=== PATIENT | male | born 1945 | race Caucasian/White ===

== ENCOUNTER 2016-10-19 13:10 | Emergency (ER) | payer MEDICARE, MEDICAID ==
--- NOTE | 2016-10-19 14:18 | ED Physician Chart ---
Chief Complaint/HPI - Patient Information Date Seen:: 10/19/16 Time Seen:: 13:55 Chief Complaint:: WBC OF 25.53K, POSSIBLE SEPSIS History of Present Illness:: This 71-year-old male was sent to the emergency department because his white count was in the 25,000 range. The patient has chronic pain in the right lower extremity dating back approximately 20 years when he had a right hip replacement. Since then the patient has had increased pain in the right leg and poor circulation. He has a diagnosis of cellulitis in the right lower extremity. He is not currently on any antibiotics. He rates the pain as a 7/10 with no relieving or exacerbating factors. Patient denies any recent fever, chills, cough, difficulty breathing, dysuria or urinary frequency. Patient further denies any recent abdominal pain, nausea or vomiting. Allergies:: Allergies Allergy/AdvReac Type Severity Reaction Status Date / Time No Known Allergies Allergy Verified 10/19/16 13:33 Vitals:: Vital Signs - 8 hr 10/19/16 13:33 Temp 98.8 F HR 95 RR 22 BP 165/75 O2 Sat % 96 Review of Systems - Review of Systems General/Constitutional: No fever, No chills, Weakness, No diaphoresis, Edema, Other ( Edema is chronic and involves both lower extremities.) Skin: Rash ( Patient has an error at the make rash below the knee in the right lower extremity.) Head: No headache, No light-headedness Eyes: No loss of vision, No diplopia ENT: No earache, No nasal drainage, No sore throat Neck: No neck pain, No swelling, No mass noted Cardio Vascular: No chest pain, No palpitations, edema Pulmonary: No cough, No sputum, No wheezing GI: No nausea, No vomiting, No diarrhea G/U: No dysuria, No frequency, No hematuria Musculoskeletal: Other ( Diffuse pain in the right lower extremity distal to the knee.) Psychiatric: No prior psych history, No suicidal ideation Hematopoietic: No bruising, No lymphadenopathy Allergic/Immuno: No urticaria, No angioedema Neurological: No syncope, No headache, No seizure, No vertigo Past Medical History - Past Medical History Past Medical History: HTN, Other (Atrial fibrillation, CHF) Surgical History: other (Status post right hip replacement.) Family Medical History - Family Member Mother History Unknown: Yes Living Status: Hx Family Cancer: Yes (ovarian) Physical Exam - Physical Examination General/Constitutional: Awake, Well-developed, well-nourished, Alert, Non-toxic appearing Other Gen/Cons comments:: The patient is nonambulatory due to pain in his right lower extremity. Head: Atraumatic Eyes: Lids, conjuctiva normal, PERRL, EOMI Other Eyes comments:: The sclera are anicteric. Other Skin comments:: The patient has erythematous coloration of both lower extremities below the knee. This appears to be secondary to stasis dermatitis with accompanying edema. The skin of the right leg is very cool to the touch and there is poor capillary refill in both the pretibial region and the toes. Left lower extremity shows more edema with the normal skin temperature. It was not only overly warm and both legs had the amount of tenderness consistent with stasis dermatitis. ENMT: External ears, nose nl, Nasal exam nl, Oropharynx nl, Tonsils nl Neck: Nontender, No JVD, No nuchal rigidity, No mass, No stridor Other Neck comments:: Curiously the patient has no JVD. Other Respiratory comments:: The patient has a mildly increased respiratory rate of 22. on auscultation the patient has scattered rhonchi and by basilar fine rales. Cardio Vascular: No murmur, gallop, rubs, NL S1 S2 Other Cardio Vascular comments:: The patient sounds like he has a regular rate in the low 90 range but his electrocardiogram shows that he is actually in Atrial fibrillation. Other GI comments:: The patient's abdomen is slightly distended secondary to obesity and possible mild ascites. He has a will healed surgical scar In the right upper abdomen from a prior cholecystectomy. bowel sounds were normal. The abdomen is soft with minimal epigastric tenderness. No rebound regarding was noted. No testicular tenderness. : No CVA tenderness ( As noted above the patient has considerable edema and stasis dermatitis in both lower extremities. His right lower extremity is cool to the touch and has reduced capillary refill in both the pretibial and toe regions.) Neuro/Psych: Alert/oriented ( Sensory exam is intact to light touch.), Mood normal ( Decreased strength in both lower extremities.) Other Misc comments:: no thoracic or lumbar spinal tenderness present. No paraspinous muscle spasm. Labs/Radiology/EKG Results - Lab Results Results: Moderate cardiomegaly. No CHF. Areas of pulmonary infiltrate. Negative pneumothorax. Impression: No acute cardiopulmonary findings. Lab Results 10/19/16 10/19/16 10/19/16 Range/Units 14:00 14:00 14:00 WBC 18.1 H D (4.8-10.8) Th/cmm RBC 5.38 (3.80-5.80) Mil/cmm Hgb 14.6 (12.6-17.4) gm/dL Hct 43.6 (39.0-49.0) % MCV 81.0 (80-99) fl MCH 27.1 (27.0-31.0) pg MCHC Differential 33.5 (28.0-36.0) pg RDW 13.9 (11.5-20.0) % Plt Count 149 L D (150-400) Th/cmm MPV 8.6 fl Neutrophils % 43.6 (40.0-80.0) % Lymphocytes % 48.7 (20.0-50.0) % Monocytes % 5.1 (2.0-10.0) % Eosinophils % 1.7 (0.0-5.0) % Basophils % 0.9 (0.0-2.0) % PT (9.5-11.5) SECONDS INR (0.5-1.4) Sodium 137 (136-145) mEq/L Potassium 3.9 (3.5-5.1) mEq/L Chloride 100 (98-107) mEq/L Carbon Dioxide 30.7 (21.0-31.0) mEq/L Anion Gap 10.2 (7.0-16.0) BUN 21 (7-25) mg/dL Creatinine 1.3 (0.7-1.3) mg/dL Est GFR ( Amer) > 60.0 ml/min Est GFR (Non-Af Amer) 58.0 ml/min BUN/Creatinine Ratio 16.2 Glucose 131 H (70-105) mg/dL Whole Bld Lactic Acid (0.60-2.00) mmol/L Calcium 9.1 (8.6-10.3) mg/dL Total Bilirubin 0.9 (0.3-1.0) mg/dL AST 20 (13-39) U/L ALT 21 (7-52) U/L Alkaline Phosphatase 123 H (34-104) U/L Troponin I < 0.01 L (0.01-0.05) ng/mL Total Protein 7.3 (6.0-8.3) gm/dL Albumin 4.0 L (4.2-5.5) gm/dL Globulin 3.3 gm/dL Albumin/Globulin Ratio 1.2 (1.0-1.8) 10/19/16 10/19/16 Range/Units 14:00 14:00 WBC (4.8-10.8) Th/cmm RBC (3.80-5.80) Mil/cmm Hgb (12.6-17.4) gm/dL Hct (39.0-49.0) % MCV (80-99) fl MCH (27.0-31.0) pg MCHC Differential (28.0-36.0) pg RDW (11.5-20.0) % Plt Count (150-400) Th/cmm MPV fl Neutrophils % (40.0-80.0) % Lymphocytes % (20.0-50.0) % Monocytes % (2.0-10.0) % Eosinophils % (0.0-5.0) % Basophils % (0.0-2.0) % PT 24.2 H (9.5-11.5) SECONDS INR 2.31 H (0.5-1.4) Sodium (136-145) mEq/L Potassium (3.5-5.1) mEq/L Chloride (98-107) mEq/L Carbon Dioxide (21.0-31.0) mEq/L Anion Gap (7.0-16.0) BUN (7-25) mg/dL Creatinine (0.7-1.3) mg/dL Est GFR ( Amer) ml/min Est GFR (Non-Af Amer) ml/min BUN/Creatinine Ratio Glucose (70-105) mg/dL Whole Bld Lactic Acid 2.03 H* (0.60-2.00) mmol/L Calcium (8.6-10.3) mg/dL Total Bilirubin (0.3-1.0) mg/dL AST (13-39) U/L ALT (7-52) U/L Alkaline Phosphatase (34-104) U/L Troponin I (0.01-0.05) ng/mL Total Protein (6.0-8.3) gm/dL Albumin (4.2-5.5) gm/dL Globulin gm/dL Albumin/Globulin Ratio (1.0-1.8) laboratory interpretation: the CBC shows a reduction in leukocytosis from 25, 000 to 18,000. No anemia is present. Electrolytes were all within normal range. There was a mild elevation of the lactic acid Of 2.03. Single viewed chest x-ray was positive for cardiomegaly. No pleural effusion's or pneumothorax was present. There were no areas of pulmonary consolidation or infiltrate. Impression: no acute cardiopulmonary findings. - EKG Interpretations EKG Time:: 14:10 Rhythm: ATRIA=FIB [place]: NORMAL Rate: 79-120 Comments:: ABNORMAL EKG Assessment - Assessment General Assessment: CASE SUMMARY: the 71-year-old male with a prior history of diabetes, hypertension, CHF and peripheral edema, was brought to the emergency department from his nursing facility because of a white count in the 25,000 range. He has been afebrile and had no chills. He has pain in the right leg secondary to suspected cellulitis. Laboratory studies showed a reduction in the leukocytosis to within the 18,000 range. Patient had a mild elevation of serum lactate. The chest x-ray was negative for any evidence of acute pneumonia. There is no historical or physical findings suggestive of abdominal infection. The case was discussed with , his primary care physician. I encouraged him to admit the patient for further observation and evaluation but he declined and said the patient could return to his nursing facility. The patient was returned to his nursing facility where he would be treated with PO antibiotics for possible cellulitis in the lower extremity. MDM DDX SEVERE LEUKOCYTOSIS: NOT Pneumonia Based on the patient's history, exam and negative chest x-ray. NOT Septic shock based on the patient's laboratory studies in vital signs. NOT Surgical abdomen based on the physical examination. ED Septic Shock - . Is Septic Shock (SBP<90, OR Lactate>4 mmol\L) present?: No - <6hrs of presentation: Vital Signs: Vital Signs - 8 hr 10/19/16 13:33 Temp 98.8 F HR 95 RR 22 BP 165/75 O2 Sat % 96 Reassessment (Disposition) - Reassessment Reassessment Condition:: Unchanged - Diagnosis Diagnosis:: LEUKOCYTOSIS, POSSIBLE CELLULITIS RIGHT LEG, DIABETES, HYPERTENSION. - Aftercare/Follow up Instructions Aftercare/Follow-Up Instructions:: Counseled pt regarding lab results/diagnosis & need follow up - Patient Disposition Discharge/Transfer:: Care Home Care - SNF Accepting Physician:: DR. JORDAN ED Discharge Plan - Patient Disposition Admit/Discharge/Transfer: Discharge/Transfered to SNF Condition at Disposition: Stable Instructions: Leukocytosis, Cellulitis, [id number] Additional Instructions: Follow up with PMD. Accepting Physician: Festus Jordan [Primary Care Provider] -
[2016-10-19 14:21] LABS: % BASOPHILS 0.9 % (0.0-2.0); % EOSINOPHILS 1.7 % (0.0-5.0); % LYMPHOCYTES 48.7 % (20.0-50.0); % MONOCYTES 5.1 % (2.0-10.0); % NEUTROPHILS 43.6 % (40.0-80.0); HEMATOCRIT 43.6 % (39.0-49.0); HEMOGLOBIN 14.6 gm/dL (12.6-17.4); MEAN CORPUSCULAR HEMOGLOBIN 27.1 pg (27.0-31.0); MEAN CORPUSCULAR HGB CONC 33.5 pg (28.0-36.0); MEAN PLATELET VOLUME 8.6 fl; NEUTROPHILE ABSOLUTE 7.9 Th/cmm (1.8-8.0); RED BLOOD COUNT 5.38 Mil/cmm (3.80-5.80); RED CELL DISTRIBUTION WIDTH 13.9 % (11.5-20.0)
[2016-10-19 14:23] LABS: WHITE BLOOD COUNT 18.1 Th/cmm (4.8-10.8)
[2016-10-19 14:24] LABS: PLATELET COUNT 149 Th/cmm (150-400)
[2016-10-19 14:33] LABS: ALB/GLOB RATIO 1.2 (1.0-1.8); ALKALINE PHOSPHATASE 123 U/L (34-104); ANION GAP 10.2 (7.0-16.0); BILIRUBIN,TOTAL 0.9 mg/dL (0.3-1.0); BUN - UREA NITROGEN 21 mg/dL (7-25); BUN/CREATININE RATIO 16.2; CALCIUM SERUM 9.1 mg/dL (8.6-10.3); CARBON DIOXIDE 30.7 mEq/L (21.0-31.0); CHLORIDE 100 mEq/L (98-107); CREATININE - SERUM 1.3 mg/dL (0.7-1.3); GLUCOSE 131 mg/dL (70-105); POTASSIUM SERUM 3.9 mEq/L (3.5-5.1); SGOT 20 U/L (13-39); SGPT/ALT 21 U/L (7-52); SODIUM SERUM 137 mEq/L (136-145)
[2016-10-19 14:36] LABS: INR 2.31 (0.5-1.4); PROTHROMBIN TIME (TEST) 24.2 SECONDS (9.5-11.5)
[2016-10-19] MEDS ORDERED: Albuterol/Ipratropium Neb 3 ML AERS HHN ONE (15:03)
--- NOTE | 2016-10-19 15:37 | Diagnostic Imaging Report ---
Portable chest x-ray HISTORY: Shortness of breath The heart is enlarged. No acute focal pulmonary processes. Density noted over the right upper chest appears related to the anterior aspect of the right first rib unchanged from 07/08/2015. IMPRESSION: 1. No acute focal pulmonary processes 2. Cardiomegaly
--- NOTE | 2016-10-21 16:01 | ED Physician Chart ---
Chief Complaint/HPI - Patient Information Allergies:: Allergies Allergy/AdvReac Type Severity Reaction Status Date / Time No Known Allergies Allergy Verified 10/19/16 13:33 Family Medical History - Family Member Mother History Unknown: Yes Living Status: Hx Family Cancer: Yes (ovarian) Labs/Radiology/EKG Results - Lab Results Results: Laboratory Tests 10/19/16 10/19/16 10/19/16 14:00 14:00 14:00 WBC 18.1 H D RBC 5.38 Hgb 14.6 Hct 43.6 MCV 81.0 MCH 27.1 MCHC Differential 33.5 RDW 13.9 Plt Count 149 L D MPV 8.6 Neutrophils % 43.6 Lymphocytes % 48.7 Monocytes % 5.1 Eosinophils % 1.7 Basophils % 0.9 PT INR Sodium 137 Potassium 3.9 Chloride 100 Carbon Dioxide 30.7 Anion Gap 10.2 BUN 21 Creatinine 1.3 Est GFR ( Amer) > 60.0 Est GFR (Non-Af Amer) 58.0 BUN/Creatinine Ratio 16.2 Glucose 131 H Whole Bld Lactic Acid Calcium 9.1 Total Bilirubin 0.9 AST 20 ALT 21 Alkaline Phosphatase 123 H Troponin I < 0.01 L Total Protein 7.3 Albumin 4.0 L Globulin 3.3 Albumin/Globulin Ratio 1.2 10/19/16 10/19/16 14:00 14:00 WBC RBC Hgb Hct MCV MCH MCHC Differential RDW Plt Count MPV Neutrophils % Lymphocytes % Monocytes % Eosinophils % Basophils % PT 24.2 H INR 2.31 H Sodium Potassium Chloride Carbon Dioxide Anion Gap BUN Creatinine Est GFR ( Amer) Est GFR (Non-Af Amer) BUN/Creatinine Ratio Glucose Whole Bld Lactic Acid 2.03 H* Calcium Total Bilirubin AST ALT Alkaline Phosphatase Troponin I Total Protein Albumin Globulin Albumin/Globulin Ratio - EKG Interpretations EKG Time:: 14:09 Rhythm: ATRIAL FIBRILLATION [place]: AXIS NORMAL Rate: 94 Comments:: NORMAL QRS duration. Normal QT interval. Nonspecific ST T-wave findings ABNORMAL EKG ED Septic Shock - . Is Septic Shock (SBP<90, OR Lactate>4 mmol\L) present?: No ED Discharge Plan - Patient Disposition Admit/Discharge/Transfer: Discharge/Transfered to SNF Condition at Disposition: Stable Instructions: Leukocytosis, Cellulitis, [id number] Additional Instructions: Follow up with PMD. Accepting Physician: Festus Trejo [Primary Care Provider] -
== END 2016-10-19 15:45 ==
LOC: ER 13:10
DX: E11.628 Type 2 diabetes mellitus with other skin complications (principal); L03.115 Cellulitis of right lower limb; I10 Essential (primary) hypertension
CPT/HCPCS: 36415-UA; 71010-TC; 80053-TC; 83605; 84484-TC; 85025-TC; 85610-TC; 93005

== ENCOUNTER 2016-10-20 20:49 | Inpatient (IN) | payer MEDICARE, MEDICAID ==
--- NOTE | 2016-10-20 21:17 | ED Physician Chart ---
Chief Complaint/HPI - Patient Information Date Seen:: 10/20/16 Time Seen:: 21:13 Chief Complaint:: rt leg cellulitis History of Present Illness:: pt sent from [place] for rt leg cellulitis. leg is red and warm w small lateral ulcer has had some cough prod of white sputum. no fever. no sev sob. pt says he was in ed here yesterday. has DM hx. is on coumadin for irreg hrt beat. Allergies:: Allergies Allergy/AdvReac Type Severity Reaction Status Date / Time No Known Allergies Allergy Verified 10/19/16 13:33 Historian:: Patient, EMS Review of Systems - Review of Systems General/Constitutional: No fever, No chills, No weight loss, No weakness, No diaphoresis, No edema, No loss of appetite, Other (obese) Skin: Skin lesions, Rash, No bruising Head: No headache, No light-headedness Eyes: No loss of vision, No pain, No diplopia ENT: No earache, No nasal drainage, No sore throat, No tinnitus Neck: No neck pain, No swelling, No thyromegaly, No stiffness, No mass noted Cardio Vascular: No chest pain, No palpitations, No PND, No orthopnea, No edema Pulmonary: No SOB, Cough, Sputum, No wheezing GI: No nausea, No vomiting, No diarrhea, No pain, No melena, No hematochezia, No constipation, No hematemesis G/U: No dysuria, No frequency, No hematuria Musculoskeletal: No bone or joint pain, No back pain, No muscle pain, Other ( leg pain) Endocrine: No polyuria, No polydipsia Psychiatric: No prior psych history, No depression, No anxiety, No suicidal ideation Hematopoietic: No bruising, No lymphadenopathy Allergic/Immuno: No urticaria, No angioedema Neurological: No syncope, No focal symptoms, No weakness, No paresthesia, No headache, No seizure, No dizziness, No confusion, No vertigo Past Medical History - Past Medical History Past Medical History: DM, Other (irreg hrt beat (on coumadin)) Social History: Care Facility Surgical History: HIP Medication: Reviewed Family Medical History - Family Member Mother History Unknown: Yes Living Status: Hx Family Cancer: Yes (ovarian) Physical Exam - Physical Examination General/Constitutional: Awake, Well-developed, well-nourished, Alert, No distress, GCS 15, Non-toxic appearing, Ambulatory Head: Atraumatic Eyes: Lids, conjuctiva normal, PERRL, EOMI Skin: Nl inspection, No rash, No skin lesions, No ecchymosis, Well hydrated, No lymphadenopathy ENMT: External ears, nose nl, Nasal exam nl, Lips, teeth, gums nl Neck: Nontender, Full ROM w/o pain, No JVD, No nuchal rigidity, No bruit, No mass, No stridor Respiratory: Nl effort/Exclusion, Clear to Auscultation, No Wheeze/Rhonchi/Rales Other Respiratory comments:: nrml speech...nonpressured. Cardio Vascular: RRR, No murmur, gallop, rubs, NL S1 S2 GI: No tenderness/rebounding/guarding, No organomegaly, No hernia, Normal BS's, Nondistended, No mass/bruits, No McBurney tenderness : No CVA tenderness Extremities: No tenderness or effusion, Full ROM, normal strength in all extremities, No edema, Normal digits & nails Other Extremities comments:: rt leg leg is red and warm w small lateral ulcer 1.5 cm diameter/shallow. L leg also red warm and swollen but not as bad. Neuro/Psych: Alert/oriented, DTR's symmetric, Normal sensory exam, Normal motor strength, Judgement/insight normal, Mood normal, Normal gait, No focal deficits Misc: normal gait, Normal back, No paraspinal tenderness Labs/Radiology/EKG Results - Lab Results Results: Laboratory Tests 10/20/16 10/20/16 10/20/16 21:51 21:51 21:51 WBC 19.3 H RBC 5.35 Hgb 14.7 Hct 43.9 MCV 82.0 MCH 27.4 MCHC Differential 33.4 RDW 13.8 Plt Count 160 MPV 8.8 Band Neutrophils % 2 Neutrophils (Manual) 37 L Lymphocytes 60 H Monocytes 1 L Platelet Estimate ADEQUATE D-Dimer < 100 L Sodium 135 L Potassium 4.2 Chloride 100 Carbon Dioxide 28.5 Anion Gap 10.7 BUN 22 Creatinine 1.4 H Est GFR ( Amer) > 60.0 Est GFR (Non-Af Amer) 53.3 BUN/Creatinine Ratio 15.7 Glucose 177 H Calcium 9.0 Total Bilirubin 0.8 AST 20 ALT 20 Alkaline Phosphatase 113 H Troponin I < 0.01 L Total Protein 7.1 Albumin 3.8 L Globulin 3.3 Albumin/Globulin Ratio 1.2 - Radiology Results Results: cxr nad - EKG Interpretations EKG Time:: 21:25 Rhythm: a-fib [place]: 17 Rate: 77 ED Septic Shock - . Is Septic Shock (SBP<90, OR Lactate>4 mmol\L) present?: No Reassessment (Disposition) - Reassessment Reassessment Condition:: Unchanged - Diagnosis Diagnosis:: 1 cellulitis rt leg 2 chronic a-fib - Patient Disposition Admitted to:: Med/Surg Condition at Disposition:: Unchanged
[2016-10-20 22:11] LABS: HEMATOCRIT 43.9 % (39.0-49.0); HEMOGLOBIN 14.7 gm/dL (12.6-17.4); MEAN CORPUSCULAR HEMOGLOBIN 27.4 pg (27.0-31.0); MEAN CORPUSCULAR HGB CONC 33.4 pg (28.0-36.0); MEAN PLATELET VOLUME 8.8 fl; PLATELET COUNT 160 Th/cmm (150-400); RED BLOOD COUNT 5.35 Mil/cmm (3.80-5.80); RED CELL DISTRIBUTION WIDTH 13.8 % (11.5-20.0); WHITE BLOOD COUNT 19.3 Th/cmm (4.8-10.8)
[2016-10-20 22:27] LABS: ALB/GLOB RATIO 1.2 (1.0-1.8); ALKALINE PHOSPHATASE 113 U/L (34-104); ANION GAP 10.7 (7.0-16.0); BILIRUBIN,TOTAL 0.8 mg/dL (0.3-1.0); BUN - UREA NITROGEN 22 mg/dL (7-25); BUN/CREATININE RATIO 15.7; CARBON DIOXIDE 28.5 mEq/L (21.0-31.0); CHLORIDE 100 mEq/L (98-107); CREATININE - SERUM 1.4 mg/dL (0.7-1.3); GLUCOSE 177 mg/dL (70-105); POTASSIUM SERUM 4.2 mEq/L (3.5-5.1); SGOT 20 U/L (13-39); SGPT/ALT 20 U/L (7-52); SODIUM SERUM 135 mEq/L (136-145)
[2016-10-20] MEDS ORDERED: ceFAZolin 2 GM in Sodium Chloride 0.9% 100 ML IV ONE (22:27)
[2016-10-20 22:49] LABS: TOTAL CELLS COUNTED 100
[2016-10-20 22:50] LABS: BAND NEUTROPHILE 2 % (0-10); NEUTROPHILS 37 % (40-80); PLATELET ESTIMATE ADEQUATE (NORMAL)
[2016-10-20 23:16] LABS: INR 2.15 (0.5-1.4); PROTHROMBIN TIME (TEST) 22.4 SECONDS (9.5-11.5)
[2016-10-21] MEDS: Hydrocodone/APAP 10 mg/325 mg Tab PO PRN (02:25)
[2016-10-21] MEDS: Cefepime 1 GM in Sodium Chloride 0.9% 50 ML IV SCH ×3 (05:09→20:43)
[2016-10-21] MEDS: INSULIN ASPART SLIDING SCALE 100 UNITS/ML UNIT SUBQ SCH ×4 (07:02→20:45)
[2016-10-21] MEDS ORDERED: Magnesium Hydroxide (MOM) 30 mL UDC PO PRN (08:35)
[2016-10-21] MEDS ORDERED: INSULIN ASPART RECOMBINANT 10 UNIT SUBQ SCH (09:00)
[2016-10-21] MEDS ORDERED: GLIPIZIDE 10 MG PO SCH (09:00)
[2016-10-21] MEDS ORDERED: Non-Formulary Item 1 EA (Metformin Hcl [Metformin Hcl Er] 1,000 MG) PO SCH (09:00)
[2016-10-21] MEDS: Multivitamin w/ Minerals Tab PO SCH (09:53)
[2016-10-21] MEDS: Potassium Chloride 10 mEq ER Tab PO SCH (09:53)
[2016-10-21] MEDS: Insulin Detemir 100 units/mL 10mL Vial SUBQ SCH (09:54)
--- NOTE | 2016-10-21 12:00 | Diagnostic Imaging Report ---
Portable chest x-ray HISTORY: Cough The heart is enlarged. No acute focal pulmonary processes. IMPRESSION: 1. Cardiomegaly 2. No acute focal pulmonary processes
--- NOTE | 2016-10-21 12:55 | Infectious Disease Prog Note ---
Infectious Disease Subjective - Review of Systems Service Date: 10/21/16 Subjective: [id number] Infectious Disease Objective - Results Result Diagrams: 10/20/16 21:51 10/20/16 21:51 Recent Labs: Laboratory Last Values WBC 19.3 Th/cmm (4.8-10.8) H 10/20/16 21:51 RBC 5.35 Mil/cmm (3.80-5.80) 10/20/16 21:51 Hgb 14.7 gm/dL (12.6-17.4) 10/20/16 21:51 Hct 43.9 % (39.0-49.0) 10/20/16 21:51 MCV 82.0 fl (80-99) 10/20/16 21:51 MCH 27.4 pg (27.0-31.0) 10/20/16 21:51 MCHC Differential 33.4 pg (28.0-36.0) 10/20/16 21:51 RDW 13.8 % (11.5-20.0) 10/20/16 21:51 Plt Count 160 Th/cmm (150-400) 10/20/16 21:51 MPV 8.8 fl 10/20/16 21:51 Band Neutrophils % 2 % (0-10) 10/20/16 21:51 Neutrophils (Manual) 37 % (40-80) L 10/20/16 21:51 Lymphocytes 60 % (20-50) H 10/20/16 21:51 Monocytes 1 % (2-10) L 10/20/16 21:51 Eosinophils Not Reportable 10/20/16 21:51 Platelet Estimate ADEQUATE (NORMAL) 10/20/16 21:51 PT 22.4 SECONDS (9.5-11.5) H 10/20/16 21:51 INR 2.15 (0.5-1.4) H 10/20/16 21:51 PTT (Actin FS) 47.9 SECONDS (26.0-38.0) H 10/20/16 21:51 D-Dimer < 100 ng/mL (100-400) L 10/20/16 21:51 Sodium 135 mEq/L (136-145) L 10/20/16 21:51 Potassium 4.2 mEq/L (3.5-5.1) 10/20/16 21:51 Chloride 100 mEq/L (98-107) 10/20/16 21:51 Carbon Dioxide 28.5 mEq/L (21.0-31.0) 10/20/16 21:51 Anion Gap 10.7 (7.0-16.0) 10/20/16 21:51 BUN 22 mg/dL (7-25) 10/20/16 21:51 Creatinine 1.4 mg/dL (0.7-1.3) H 10/20/16 21:51 Est GFR ( Amer) > 60.0 ml/min 10/20/16 21:51 Est GFR (Non-Af Amer) 53.3 ml/min 10/20/16 21:51 BUN/Creatinine Ratio 15.7 10/20/16 21:51 Glucose 177 mg/dL (70-105) H 10/20/16 21:51 POC Glucose 241 MG/DL (70 - 105) H 10/21/16 11:11 Calcium 9.0 mg/dL (8.6-10.3) 10/20/16 21:51 Total Bilirubin 0.8 mg/dL (0.3-1.0) 10/20/16 21:51 AST 20 U/L (13-39) 10/20/16 21:51 ALT 20 U/L (7-52) 10/20/16 21:51 Alkaline Phosphatase 113 U/L (34-104) H 10/20/16 21:51 Troponin I < 0.01 ng/mL (0.01-0.05) L 10/20/16 21:51 Total Protein 7.1 gm/dL (6.0-8.3) 10/20/16 21:51 Albumin 3.8 gm/dL (4.2-5.5) L 10/20/16 21:51 Globulin 3.3 gm/dL 10/20/16 21:51 Albumin/Globulin Ratio 1.2 (1.0-1.8) 10/20/16 21:51 - Physical Exam Vitals and I&O: Vital Signs Temp 98.9 F 10/21/16 08:00 Pulse 102 10/21/16 09:54 Resp 19 10/21/16 08:00 BP 137/86 10/21/16 09:54 Pulse Ox 90 10/21/16 08:00 Intake & Output 10/20/16 10/21/16 10/21/16 18:59 06:59 18:59 Intake Total 540 250 Output Total 200 Balance 340 250 Intake: Intake, IV Amount 250 Vancomycin HCl 1.25 gm In 250 Sodium Chloride 0.9% 250 ml @ 165 mls/hr IV Q12H [facility] Rx#:[id number] Oral 540 Output: Urine 200 Stool 0 Active Medications: Current Medications Acetaminophen (Tylenol) 650 mg PO Q4HR PRN PRN Reason: Pain or Fever >101 Stop: 12/20/16 08:34 Acetaminophen/Hydrocodone Bitart ([place] 10 Mg/325 Mg) 1 tab PO Q4H PRN PRN Reason: Pain (Severe) Stop: 12/20/16 01:45 Last Admin: 10/21/16 02:25 Dose: 1 tab Amiodarone HCl (Cordarone) 200 mg PO DAILY [facility] Stop: 12/20/16 08:59 Last Admin: 10/21/16 09:53 Dose: 200 mg Calcium Carbonate (Tums) 1,000 mg PO Q6H PRN PRN Reason: gi upset Stop: 12/20/16 08:34 Cyanocobalamin (Vitamin B12) 1,000 mcg PO DAILY [facility] Stop: 12/20/16 08:59 Last Admin: 10/21/16 09:53 Dose: 1,000 mcg Docusate Sodium (Colace) 100 mg PO BID [facility] Stop: 12/20/16 08:59 Last Admin: 10/21/16 09:53 Dose: 100 mg Furosemide (Lasix) 40 mg PO DAILY [facility] Stop: 12/20/16 08:59 Last Admin: 10/21/16 09:53 Dose: 40 mg Glipizide (Glucotrol) 10 mg PO BID [facility] Stop: 12/20/16 16:59 Cefepime HCl 1 gm/ Sodium (Chloride) 50 mls @ 100 mls/hr IV Q8HR [facility] Stop: 12/20/16 04:59 Last Admin: 10/21/16 05:09 Dose: 100 mls/hr Vancomycin HCl 1.25 gm/ Sodium (Chloride) 250 mls @ 165 mls/hr IV Q12H [facility] Stop: 12/20/16 08:29 Last Infusion: 10/21/16 10:45 Dose: Infused Insulin Aspart (Novolog Insulin Sliding Scale) 0 units SUBQ ACHS [facility] PRN Reason: Protocol Stop: 12/20/16 07:29 Last Admin: 10/21/16 11:36 Dose: 4 units Insulin Aspart (Novolog) 10 units SUBQ TID [facility] Stop: 12/20/16 13:59 Insulin Detemir (Levemir Insulin) 50 units SUBQ DAILY [facility] PRN Reason: Protocol Stop: 12/20/16 08:59 Last Admin: 10/21/16 09:54 Dose: 50 units Losartan Potassium (Cozaar) 50 mg PO DAILY [facility] Stop: 12/20/16 08:59 Last Admin: 10/21/16 09:54 Dose: 50 mg Magnesium Hydroxide (Milk Of Magnesia) 30 ml PO HS PRN PRN Reason: Constipation Stop: 12/20/16 08:34 Metformin HCl (Glucophage) 1,000 mg PO BID [facility] Stop: 12/20/16 16:59 Metoprolol Tartrate (Lopressor) 25 mg PO BID [facility] Stop: 12/20/16 08:59 Last Admin: 10/21/16 09:53 Dose: 25 mg Miscellaneous (Vancomycin Iv Per Pharmacy) 1 ea [facility] PRN PRN PRN Reason: PROTOCOL Stop: 12/19/16 23:31 Nitroglycerin (Nitrostat) 0.4 mg SL Q5MIN PRN PRN Reason: Chest Pain Stop: 12/20/16 08:34 Potassium Chloride (Klor-Con) 10 meq PO DAILY [facility] Stop: 12/20/16 08:59 Last Admin: 10/21/16 09:53 Dose: 10 meq Senna (Senna) 17.2 mg PO HS [facility] Stop: 12/20/16 20:59 Warfarin Sodium (Coumadin) 5 mg PO QPM [facility] PRN Reason: Protocol Stop: 12/20/16 16:59 - Procedures Procedures: Procedures Procedure Code Date CHOLECYSTECTOMY 51.22 07/31/14 TERRY SUBQ TISSUE 20 SQ CM/< 06759 07/08/15 EXTRACTION OF RIGHT LOWER LEG SKIN, EXTERNAL APPROACH [id number] 07/08/15 REMOVAL OF GALLBLADDER 54617 07/31/14 REPLACE R LOW LEG SKIN W AUTOL SUB, FULL THICK, CAR STORER [id number] 07/08/15 SKIN FULL GRAFT SCLP/ARM/LEG 12608 07/08/15 Infectious Disease Assmt/Plan - Problem List Patient Problems: All Active Problems Atrial fibrillation with rapid ventricular response (Acute) I48.91 ELEVATED WBC AND RIGHT LOWER LEG ULCER (Acute) Pneumonia (Acute) J18.9 Sepsis (Acute)
--- NOTE | 2016-10-21 13:19 | History & Physical ---
PATIENT IDENTIFICATION: A 71-year-old male. CHIEF COMPLAINT: "I don't feel good, I feel weak and tired, I have fever and chills, my both legs are hurting, my ulcers are draining." HISTORY OF PRESENT ILLNESS: A 71-year-old male with history of type 2 diabetes, hypertension, chronic atrial fibrillation, morbid obesity, history of nonhealing ulcers on his right leg has been followed by [facility] press[facility] as well noted to have blisters on his left second toe. The patient stated that he started to have cough and congestions with productive sputum. His symptoms were treated in the [facility] [facility] with symptomatic therapy, but he was not getting better. He was sent to Emergency Room 2 days ago and the patient was noted to have no significant positive findings except leukocytosis. The patient was sent back to [facility]. When patient went to [facility], the patient continues to say he does not feel good. He feels weak and tired. He was in the bed all day and that is not his normal routine. The patient had ____ low grade fever as well. Nursing staff at the [facility] noted that his both legs are more swollen than usual and right leg ulcer started to have more purulent discharge. The patient was sent to Emergency Room and the patient was seen by Emergency Room MD and after being evaluated, the patient was advised to be admitted. PAST MEDICAL HISTORY: Remarkable for: 1. Diabetes. 2. Hypertension. 3. Obstructive sleep anemia. 4. Hyperlipidemia. 5. Chronic atrial fibrillation. 6. CHF. 7. DJD. 8. Chronic venostasis changes in both lower extremities. 9. Onychomycosis. MEDICATIONS: List has been reviewed and reconciled. ALLERGIES: The patient is not allergic to any medications. SOCIAL HISTORY: He lives in a [place] [facility]. No smoking cigarette, alcohol or drug use. FAMILY MEDICAL HISTORY: Remarkable for diabetes, hypertension, and chronic kidney disease. REVIEW OF SYSTEMS: The patient denies any headache, blurred vision, double vision, dysphagia, odynophagia, runny nose, stuffy nose. No history of any chest pain. Does have any shortness of breath. Denies any abdominal pain. Denies any nausea, vomiting, diarrhea. Denies any seizure or syncopal episode. PHYSICAL EXAMINATION: GENERAL: Alert, awake, lying in the bed without any acute distress. VITAL SIGNS: Temperature 99, pulse is 100, respiratory rate is 20, blood pressure 130/70. SKIN: Warm to touch. HEENT: Normocephalic, atraumatic. Extraocular muscles are intact. Tongue was pink and coated. Poor dentition noted. No oral lesions. No exudates. NECK: Supple, no JVD, no hepatojugular reflux. No lymphadenopathy, thyromegaly or carotid bruit. HEART: Both heart sounds are irregularly irregular. Grade 2/6 systolic murmur noted. CHEST AND LUNGS: Equal in expansion with decreased breath sounds in both bases. ABDOMEN: Soft. No guarding, no rigidity. Liver and spleen not palpable. No palpable mass. EXTREMITIES: No edema. There is evidence of onychomycosis, peeling of the skin, marked erythema involving both legs, more on the right than left noted. There are open blisters on the left second toe also noted. There is an approximately 1.5 x 1 cm ____ ulcers with serosanguineous discharge noted. No calf tenderness noted. NEUROLOGIC: Alert, awake, follows commands. Decreased power throughout the upper and lower extremities noted. AVAILABLE DIAGNOSTIC DATA: White count of 19.3, hemoglobin of 14, platelet count of 166, 37% neutrophils, 60% lymphocytes noted. PT/INR is 22.4 and 2.15. BUN and creatinine is 22 and 1.4, glucose of 215 and alkaline phosphatase is 113. Troponin less than 0.01. Albumin and globulin ratios are normal. EKG has no ST-T changes representing acute ischemia. CLINICAL IMPRESSION: 1. Bilateral lower extremity cellulitis and infected ulcer on the right leg. 2. Leukocytosis with 60% lymphocyte predominance, suspect the patient ____ for chronic lymphocytic leukemia. 3. Diabetes mellitus. 4. Chronic atrial fibrillation. 5. Hypertension. 6. Hyperlipidemia. 7. Degenerative joint disease. PLAN: 1. The patient to be admitted to med/surg floor. 2. IV antibiotics. 3. ID consult. 4. Appropriate home medicine reconciliation. 5. General nursing care. 6. Monitoring the blood sugar and blood pressure. 7. Follow lab. 8. Follow [employer] sales consultant recommendations. 9. Care plan reviewed and discussed with staff. JOB# [id number]
[2016-10-21] MEDS: INSULIN ASPART, RECOMBINANT 100 UNITS/ML SUBQ SCH ×2 (14:31→20:44)
[2016-10-21] MEDS: Venelex 60gm Tube TP SCH (23:38)
--- NOTE | 2016-10-22 00:02 | Admit Criteria Form ---
Admit Criteria Forms - Admit Criteria Diagnosis: CELLULITIS Clinical Indications for Admission to Inpatient Care (Place 'X' for any and all applicable criteria): Admission is indicated for ANY ONE of the following(1)(2)(3)(4)(5): [ ]I. Limb-threatening infection [ ]II. High-risk comorbid condition as indicated by ANY ONE of the following: [ ]a) Uncontrolled diabetes (eg, HbA1c greater than 10% (0.1)) [ ]b) Cirrhosis [ ]c) Neutropenia [ ]d) Asplenia [ ]e) Immunosuppression [ ]f) Symptomatic heart failure [ ]III. Failure of outpatient therapy as indicated by ALL of the following: [ ]a) Progression or no improvement after adequate trial (minimum of 48 hours, with longer period for stable lower extremity infection) [ ]b) Adequate antibiotic regimen as indicated by use of ANY ONE of the following: [ ]i) First-generation cephalosporin (e.g., cephalexin) [ ]ii) Antistaphylococcal penicillin (e.g., dicloxacillin) [ ]iii) Penicillin-allergic patient regimen (clindamycin, extended-spectrum fluoroquinolone, or doxycycline) [ ]iv) Resistant organism (eg, methicillin-resistant Staphylococcus aureus) regimen (6) [ ]c) Outpatient intravenous therapy regimen is not appropriate due to ANY ONE of the following. (7)(8)(9)(10): [ ]i) It was tried and was not successful (eg, progression of infection). [ ]ii) It is not available or cannot be arranged in a clinically appropriate time frame (e.g., the next day). [ ]iii) Clinical presentation (eg, acuity of infection, rapidity of progression, confirmed or suspected bacteremia) is judged to require ALL of the following: [ ]1) Immediate initiation of intravenous therapy ( eg, cannot wait for next day) [ ]2) Intensity of patient monitoring and observation (eg, vital sign measurement, checks for infection progression) that cannot be provided at other than inpatient level of care [ ]IV. Mental status changes [ ]V. Bacteremia [ ]. Hemodynamic instability [ ]VII. Suspected necrotizing soft tissue infection (e.g., gas in tissue)(11)( 12) [ ]VIII. Orbital infection (13)(14) [ ]IX. Associated surgical procedure (e.g., abscess drainage, debridement) not amenable to outpatient, emergency department, or observation care [ ]X. Cutaneous gangrene [ ]XI. High fever (temperature greater than 39.5 degrees C (103.1 degrees F) (oral)) not responsive to outpatient, emergency department, or observation care therapy [X]XIII. Inpatient admission required rather than observation care (Also use Cellulitis: Observation Care as appropriate) because of ANY ONE of the following : [ ]a) Periorbital or perineal infection that is severe or worsening [ ]b) Severe pain requiring acute inpatient management [ ]c) IV fluid to replace significant ongoing (e.g., for over 24 hours) losses (greater than 3L/m2 per day) [ ]d) Compartment syndrome monitoring (17) [ ]e) Strict or protective (eg, laminar flow) isolation [ ]f) Urgent debridement or skin grafting [ ]g) Bone or joint debridement [ ]h) Immediate inpatient surgery [X]i) Other condition, treatment or monitoring requiring inpatient admission Extended stay beyond goal length of stay may be needed for (1)(18): [ ]a) Necrotizing soft tissue infection or fasciitis [ ]b) Gram-negative infection [ ]c) Methicillin-resistant Staphylococcal aureus (MRSA) infection [ ]d) Peripheral venous insufficiency with cellulitis [ ]e) Extensive edema [ ]f) Sepsis or continued Hemodynamic instability [ ]g) Continued high fever or mental status change [ ]h) Bacteremia [ ]i) Active serious comorbid conditions ( eg, heart failure, renal insufficiency) The original [facility] Watch content created by [facility] has been revised. The portions of the content which have been revised are identified through the use of italic text or in bold, and [facility] has neither reviewed nor approved the modified material. All other unmodified content is copyright [facility] [employer] Please see references footnoted in the original [facility] edition 2016 Admit Criteria Met?: Yes
--- NOTE | 2016-10-22 03:09 | Consultation ---
REFERRING PHYSICIAN: Dr. Trejo. REASON FOR CONSULTATION: Cellulitis of both legs and leukocytosis. HISTORY OF PRESENT ILLNESS: The patient is a 71-year-old male with a past medical history of diabetes mellitus, atrial fibrillation, CHF, coronary artery disease, brought in from assisted for bilateral leg cellulitis with redness, swelling, and tenderness. The patient has also chronic nonhealing ulcer on lateral aspect of the right leg. The patient also developed blister on left thigh too. It is open now. Besides this, the patient also complained of cough producing whitish phlegm. Otherwise, the patient denies any fever or chills. The patient has some mild shortness of breath. PAST MEDICAL HISTORY: 1. Diabetes mellitus type 2. 2. Coronary artery disease. 3. Atrial fibrillation, on Coumadin. 4. History of congestive heart failure. 5. Obesity. ALLERGIES: NKDA. MEDICATIONS: As per medication reconciliation sheet. Antibiotic russell, the patient is on cefepime and vancomycin. FAMILY HISTORY: Noncontributory. SOCIAL HISTORY: The patient lives at nursing facility. No history of smoking, alcohol, or drug use. PAST SURGICAL HISTORY: Hip surgery in the past. FAMILY HISTORY: Noncontributory except ovarian cancer to his mother. REVIEW OF SYSTEMS: CONSTITUTIONAL: The patient denies any fever, chills, weight loss, weakness, or diaphoresis. HEENT: The patient denies any diplopia or photophobia, sore throat or congestion. RESPIRATORY: The patient has cough producing whitish phlegm. He denies any wheezing. The patient has mild shortness of breath. CVS: The patient denies any chest pain or palpitation. The patient has leg swelling. GASTROINTESTINAL: The patient denies any nausea, vomiting, diarrhea, constipation, abdominal pain, hematochezia, or hematemesis. GENITOURINARY: The patient denies any dysuria, frequency, or hematuria. MUSCULOSKELETAL: The patient denies any muscle pain or joint pain. The patient has bilateral leg pain. ENDOCRINE: The patient denies any polyuria or polydipsia. PSYCHIATRIC: The patient denies any depression or psych disorder. HEMATOPOIETIC: The patient denies any easy bruising or bruising tendency. ALLERGIES/IMMUNOLOGICAL: Denies any urticaria or angioedema. NEUROLOGIC: The patient denies any focal weakness, dizziness, headache, or paresthesia. PHYSICAL EXAMINATION: GENERAL: The patient is obese, not in acute distress. VITAL SIGNS: Current vital signs show temperature is 98.9, pulse is 102, respirations 19, and blood pressure 137/86. Oxygen saturation is 90%. HEENT: Head is normocephalic and atraumatic. Oral cavity is moist. [place] tongue. Oropharynx is clear. Eyes: The patient has no pallor, no icterus. PERRLA. EOMI. NECK: Supple. No JVD. No carotid bruit. Trachea in midline. CHEST: Bilateral vesicular sounds. Crackles bilaterally on back. CARDIOVASCULAR: S1, S2 within normal limits. Regular rhythm. No murmur. No gallop. ABDOMEN: Soft. Nontender and nondistended. Bowel sounds present. EXTREMITIES: No cyanosis and no clubbing. Edema of both legs. The patient had erythema of both legs and feet. There is an ulcer with well-defined border on lateral aspect of right leg. The patient has darkening of the skin on the frontal aspect of the middle of the left leg with no open ulcer. The patient also has a small open blister wound, to off left foot. SKIN: Skin of the both feet is dry and some denudation of the skin. Toe nails show fungal element. LABORATORY DATA: Current lab shows WBC count is 19,300, hemoglobin 14.5, hematocrit is 43.9, and platelets are 160,000, neutrophil is 37%, and lymphocytes 60%. INR is 2.15 and PTT is 47.9. Sodium is 135, potassium 4.2, chloride 100, and bicarbonate is 28.5. BUN is 22, creatinine 1.4, and glucose is 177. LFTs are reviewed. IMPRESSION: 1. Leukocytosis, suspect sepsis. 2. Cellulitis of both feet and legs. 3. Suspect congestive heart failure. Chest x-ray showed cardiomegaly, no focal pulmonary process. 4. Diabetes mellitus. 5. Atrial fibrillation. 6. Obesity. 7. Onychomycosis. RECOMMENDATION: Continue vancomycin and cefepime. Follow the labs and sepsis workup. Thank you Dr. Trejo for involving me in taking care of this patient. JOB# [id number] [facility]
[2016-10-22] MEDS: Cefepime 1 GM in Sodium Chloride 0.9% 50 ML IV SCH (05:00)
[2016-10-22] MEDS: INSULIN ASPART SLIDING SCALE 100 UNITS/ML UNIT SUBQ SCH ×4 (06:35→20:40)
[2016-10-22] MEDS: Potassium Chloride 10 mEq ER Tab PO SCH (08:53)
[2016-10-22] MEDS: Multivitamin w/ Minerals Tab PO SCH (08:54)
[2016-10-22] MEDS: INSULIN ASPART, RECOMBINANT 100 UNITS/ML SUBQ SCH ×3 (08:55→20:40)
[2016-10-22] MEDS: Insulin Detemir 100 units/mL 10mL Vial SUBQ SCH (08:55)
[2016-10-22] MEDS: Hydrocodone/APAP 10 mg/325 mg Tab PO PRN ×2 (09:31→16:44)
[2016-10-22] MEDS: Venelex 60gm Tube TP SCH (12:14)
[2016-10-22] MEDS: Cefepime 2 gm in 0.9% NS 100 mL IV SCH (20:34)
--- NOTE | 2016-10-22 23:56 | Infectious Disease Prog Note ---
Infectious Disease Subjective - Review of Systems Service Date: 10/22/16 Subjective: No new change. Infectious Disease Objective - Results Result Diagrams: 10/20/16 21:51 10/20/16 21:51 Recent Labs: Laboratory Last Values WBC 19.3 Th/cmm (4.8-10.8) H 10/20/16 21:51 RBC 5.35 Mil/cmm (3.80-5.80) 10/20/16 21:51 Hgb 14.7 gm/dL (12.6-17.4) 10/20/16 21:51 Hct 43.9 % (39.0-49.0) 10/20/16 21:51 MCV 82.0 fl (80-99) 10/20/16 21:51 MCH 27.4 pg (27.0-31.0) 10/20/16 21:51 MCHC Differential 33.4 pg (28.0-36.0) 10/20/16 21:51 RDW 13.8 % (11.5-20.0) 10/20/16 21:51 Plt Count 160 Th/cmm (150-400) 10/20/16 21:51 MPV 8.8 fl 10/20/16 21:51 Band Neutrophils % 2 % (0-10) 10/20/16 21:51 Neutrophils (Manual) 37 % (40-80) L 10/20/16 21:51 Lymphocytes 60 % (20-50) H 10/20/16 21:51 Monocytes 1 % (2-10) L 10/20/16 21:51 Eosinophils Not Reportable 10/20/16 21:51 Platelet Estimate ADEQUATE (NORMAL) 10/20/16 21:51 PT 22.4 SECONDS (9.5-11.5) H 10/20/16 21:51 INR 2.15 (0.5-1.4) H 10/20/16 21:51 PTT (Actin FS) 47.9 SECONDS (26.0-38.0) H 10/20/16 21:51 D-Dimer < 100 ng/mL (100-400) L 10/20/16 21:51 Sodium 135 mEq/L (136-145) L 10/20/16 21:51 Potassium 4.2 mEq/L (3.5-5.1) 10/20/16 21:51 Chloride 100 mEq/L (98-107) 10/20/16 21:51 Carbon Dioxide 28.5 mEq/L (21.0-31.0) 10/20/16 21:51 Anion Gap 10.7 (7.0-16.0) 10/20/16 21:51 BUN 22 mg/dL (7-25) 10/20/16 21:51 Creatinine 1.4 mg/dL (0.7-1.3) H 10/20/16 21:51 Est GFR ( Amer) > 60.0 ml/min 10/20/16 21:51 Est GFR (Non-Af Amer) 53.3 ml/min 10/20/16 21:51 BUN/Creatinine Ratio 15.7 10/20/16 21:51 Glucose 177 mg/dL (70-105) H 10/20/16 21:51 POC Glucose 117 MG/DL (70 - 105) H 10/22/16 20:27 Calcium 9.0 mg/dL (8.6-10.3) 10/20/16 21:51 Total Bilirubin 0.8 mg/dL (0.3-1.0) 10/20/16 21:51 AST 20 U/L (13-39) 10/20/16 21:51 ALT 20 U/L (7-52) 10/20/16 21:51 Alkaline Phosphatase 113 U/L (34-104) H 10/20/16 21:51 Troponin I < 0.01 ng/mL (0.01-0.05) L 10/20/16 21:51 Total Protein 7.1 gm/dL (6.0-8.3) 10/20/16 21:51 Albumin 3.8 gm/dL (4.2-5.5) L 10/20/16 21:51 Globulin 3.3 gm/dL 10/20/16 21:51 Albumin/Globulin Ratio 1.2 (1.0-1.8) 10/20/16 21:51 Vancomycin Trough 6.8 ug/mL (10-20) L 10/22/16 09:30 - Physical Exam Vitals and I&O: Vital Signs Temp 98.2 F 10/22/16 20:09 Pulse 89 10/22/16 20:09 Resp 18 10/22/16 20:09 BP 118/73 10/22/16 20:09 Pulse Ox 94 10/22/16 20:09 Intake & Output 10/22/16 10/22/16 10/23/16 06:59 18:59 06:59 Intake Total 1310 750 100 Output Total 700 Balance 1310 50 100 Intake: Intake, IV Amount 350 250 100 Cefepime 1 gm In Sodium 100 Chloride 0.9% 50 ml @ 100 mls/hr IV Q8HR [facility] Rx#: [id number] Cefepime 2 gm In Sodium 100 Chloride 0.9% 100 ml @ 100 mls/hr IV Q12H [facility] Rx #:[id number] Vancomycin HCl 1 gm In 250 Sodium Chloride 0.9% 250 ml @ 165 mls/hr IV Q8H [facility] Rx#:[id number] Vancomycin HCl 1.25 gm In 250 Sodium Chloride 0.9% 250 ml @ 165 mls/hr IV Q12H [facility] Rx#:[id number] Oral 960 500 Output: Urine 700 Other: # Voids 4 Active Medications: Current Medications Acetaminophen (Tylenol) 650 mg PO Q4HR PRN PRN Reason: Pain or Fever >101 Stop: 12/20/16 08:34 Acetaminophen/Hydrocodone Bitart ([place] 10 Mg/325 Mg) 1 tab PO Q4H PRN PRN Reason: Pain (Severe) Stop: 12/20/16 01:45 Last Admin: 10/22/16 16:44 Dose: 1 tab Amiodarone HCl (Cordarone) 200 mg PO DAILY [facility] Stop: 12/20/16 08:59 Last Admin: 10/22/16 08:53 Dose: 200 mg Calcium Carbonate (Tums) 1,000 mg PO Q6H PRN PRN Reason: gi upset Stop: 12/20/16 08:34 Cyanocobalamin (Vitamin B12) 1,000 mcg PO DAILY [facility] Stop: 12/20/16 08:59 Last Admin: 10/22/16 08:53 Dose: 1,000 mcg Docusate Sodium (Colace) 100 mg PO BID [facility] Stop: 12/20/16 08:59 Last Admin: 10/22/16 16:44 Dose: 100 mg Furosemide (Lasix) 40 mg PO DAILY [facility] Stop: 12/20/16 08:59 Last Admin: 10/22/16 08:53 Dose: 40 mg Glipizide (Glucotrol) 10 mg PO BID [facility] Stop: 12/20/16 16:59 Last Admin: 10/22/16 16:44 Dose: 10 mg Cefepime HCl 2 gm/ Sodium (Chloride) 100 mls @ 100 mls/hr IV Q12H [facility] Stop: 12/21/16 20:59 Last Infusion: 10/22/16 21:34 Dose: Infused Vancomycin HCl 1 gm/ Sodium (Chloride) 250 mls @ 165 mls/hr IV Q8H [facility] Stop: 12/21/16 13:59 Last Admin: 10/22/16 21:35 Dose: 165 mls/hr Insulin Aspart (Novolog Insulin Sliding Scale) 0 units SUBQ ACHS [facility] PRN Reason: Protocol Stop: 12/20/16 07:29 Last Admin: 10/22/16 20:40 Dose: Not Given Insulin Aspart (Novolog) 10 units SUBQ TID [facility] Stop: 12/20/16 13:59 Last Admin: 10/22/16 20:40 Dose: 10 units Insulin Detemir (Levemir Insulin) 50 units SUBQ DAILY [facility] PRN Reason: Protocol Stop: 12/20/16 08:59 Last Admin: 10/22/16 08:55 Dose: 50 units Losartan Potassium (Cozaar) 50 mg PO DAILY [facility] Stop: 12/20/16 08:59 Last Admin: 10/22/16 08:54 Dose: 50 mg Magnesium Hydroxide (Milk Of Magnesia) 30 ml PO PRN PRN Reason: Constipation Stop: 12/20/16 08:34 Metformin HCl (Glucophage) 1,000 mg PO BID [facility] Stop: 12/20/16 16:59 Last Admin: 10/22/16 16:44 Dose: 1,000 mg Metoprolol Tartrate (Lopressor) 25 mg PO BID [facility] Stop: 12/20/16 08:59 Last Admin: 10/22/16 16:44 Dose: 25 mg Miscellaneous (Vancomycin Iv Per Pharmacy) 1 ea PRN PRN PRN Reason: PROTOCOL Stop: 12/19/16 23:31 Miscellaneous (Clinical Monitoring) 1 ea PRN PRN PRN Reason: CEFEPIME RENAL DOSE Stop: 12/21/16 12:14 Nitroglycerin (Nitrostat) 0.4 mg SL Q5MIN PRN PRN Reason: Chest Pain Stop: 12/20/16 08:34 Potassium Chloride (Klor-Con) 10 meq PO DAILY [facility] Stop: 12/20/16 08:59 Last Admin: 10/22/16 08:53 Dose: 10 meq Senna (Senna) 17.2 mg PO HS [facility] Stop: 12/20/16 20:59 Last Admin: 10/22/16 20:34 Dose: 17.2 mg Warfarin Sodium (Coumadin) 5 mg PO QPM [facility] PRN Reason: Protocol Stop: 12/20/16 16:59 Last Admin: 10/22/16 16:43 Dose: 5 mg General: no acute distress, other (Obese) HEENT: atraumatic, normocephalic, PERRLA, EOMI, moist mucous membrane Neck: supple, no thyromegaly, no lymphadenopathy Cardiovascular: S1S2, regular Lungs: clear to percussion, crackles Abdomen: soft, no tender, no distended, no mass Extremities: edema, other (mild redness of the legs.), no cyanosis, no clubbing Neurological: awake, alert, oriented Skin: intact - Procedures Procedures: Procedures Procedure Code Date CHOLECYSTECTOMY 51.22 07/31/14 TERRY SUBQ TISSUE 20 SQ CM/< 86181 07/08/15 EXTRACTION OF RIGHT LOWER LEG SKIN, EXTERNAL APPROACH [id number] 07/08/15 REMOVAL OF GALLBLADDER [id number] 07/31/14 REPLACE R LOW LEG SKIN W AUTOL SUB, FULL THICK, OPERATOR HELPER [id number] 07/08/15 SKIN FULL GRAFT SCLP/ARM/LEG [id number] 07/08/15 Infectious Disease Assmt/Plan - Problem List Patient Problems: All Active Problems Atrial fibrillation with rapid ventricular response (Acute) I48.91 ELEVATED WBC AND RIGHT LOWER LEG ULCER (Acute) Pneumonia (Acute) J18.9 Sepsis (Acute) - Assessment Assessment: 1. Leukocytosis, suspect sepsis. 2. Cellulitis of both feet and legs. 3. Suspect congestive heart failure. Chest x-ray showed cardiomegaly, no focal pulmonary process. 4. Diabetes mellitus. 5. Atrial fibrillation. 6. Obesity. 7. Onychomycosis. - Plan Plan: RECOMMENDATION: Continue vancomycin and cefepime. Check CBC in Am. Apply lamisil.
[2016-10-23] MEDS: INSULIN ASPART SLIDING SCALE 100 UNITS/ML UNIT SUBQ SCH ×4 (06:36→20:31)
[2016-10-23 07:01] LABS: HEMATOCRIT 39.7 % (39.0-49.0); HEMOGLOBIN 13.2 gm/dL (12.6-17.4); MEAN CELL VOLUME 82.1 fl (80-99); MEAN CORPUSCULAR HEMOGLOBIN 27.2 pg (27.0-31.0); MEAN CORPUSCULAR HGB CONC 33.1 pg (28.0-36.0); MEAN PLATELET VOLUME 8.4 fl; PLATELET COUNT 138 Th/cmm (150-400); RED BLOOD COUNT 4.84 Mil/cmm (3.80-5.80); WHITE BLOOD COUNT 17.3 Th/cmm (4.8-10.8)
[2016-10-23 07:35] LABS: ALB/GLOB RATIO 1.2 (1.0-1.8); ANION GAP 10.5 (7.0-16.0); BILIRUBIN,TOTAL 0.9 mg/dL (0.3-1.0); BUN/CREATININE RATIO 14.7; CALCIUM SERUM 8.6 mg/dL (8.6-10.3); CARBON DIOXIDE 30.3 mEq/L (21.0-31.0); CREATININE - SERUM 1.5 mg/dL (0.7-1.3); MAGNESIUM 1.8 mg/dL (1.9-2.7); POTASSIUM SERUM 3.8 mEq/L (3.5-5.1)
[2016-10-23] MEDS: Insulin Detemir 100 units/mL 10mL Vial SUBQ SCH (09:33)
[2016-10-23] MEDS: Potassium Chloride 10 mEq ER Tab PO SCH (09:36)
[2016-10-23] MEDS: Multivitamin w/ Minerals Tab PO SCH (09:37)
[2016-10-23] MEDS: Cefepime 2 gm in 0.9% NS 100 mL IV SCH ×2 (09:38→20:27)
[2016-10-23] MEDS: Venelex 60gm Tube TP SCH (09:39)
[2016-10-23] MEDS: TERBINAFINE 1% TP SCH (09:39)
[2016-10-23] MEDS: INSULIN ASPART, RECOMBINANT 100 UNITS/ML SUBQ SCH ×3 (09:44→20:32)
[2016-10-23 09:49] LABS: BAND NEUTROPHILE 1 % (0-10); EOSINOPHIL 1 % (0-5); NEUTROPHILS 46 % (40-80); TOTAL CELLS COUNTED 100
[2016-10-23 09:50] LABS: PLATELET ESTIMATE DECREASED PLATELETS (NORMAL); PLATELET MORPHOLOGY NORMAL (NORMAL)
--- NOTE | 2016-10-23 16:42 | Internal Medicine Prog Note ---
Internal Medicine Subjective - Subjective Service Date: 10/23/16 (AWAKE, ALERT C/O CONSTIPATION) Patient seen and examined:: with staff Patient is:: awake Internal Medicine Objective - Results Result Diagrams: 10/23/16 06:24 10/23/16 06:24 Recent Labs: Laboratory Last Values WBC 17.3 Th/cmm (4.8-10.8) H 10/23/16 06:24 RBC 4.84 Mil/cmm (3.80-5.80) 10/23/16 06:24 Hgb 13.2 gm/dL (12.6-17.4) 10/23/16 06:24 Hct 39.7 % (39.0-49.0) 10/23/16 06:24 MCV 82.1 fl (80-99) 10/23/16 06:24 MCH 27.2 pg (27.0-31.0) 10/23/16 06:24 MCHC Differential 33.1 pg (28.0-36.0) 10/23/16 06:24 RDW 14.0 % (11.5-20.0) 10/23/16 06:24 Plt Count 138 Th/cmm (150-400) L 10/23/16 06:24 MPV 8.4 fl 10/23/16 06:24 Band Neutrophils % 1 % (0-10) 10/23/16 06:24 Neutrophils (Manual) 46 % (40-80) 10/23/16 06:24 Lymphocytes 42 % (20-50) 10/23/16 06:24 Monocytes 7 % (2-10) 10/23/16 06:24 Eosinophils 1 % (0-5) 10/23/16 06:24 Atypical Lymphocytes 3 % 10/23/16 06:24 Platelet Estimate DECREASED PLATELETS (NORMAL) 10/23/16 06:24 Platelet Morphology NORMAL (NORMAL) 10/23/16 06:24 RBC Morph Micro Appear NORMAL (NORMAL) 10/23/16 06:24 PT 22.4 SECONDS (9.5-11.5) H 10/20/16 21:51 INR 2.15 (0.5-1.4) H 10/20/16 21:51 PTT (Actin FS) 47.9 SECONDS (26.0-38.0) H 10/20/16 21:51 D-Dimer < 100 ng/mL (100-400) L 10/20/16 21:51 Sodium 137 mEq/L (136-145) 10/23/16 06:24 Potassium 3.8 mEq/L (3.5-5.1) 10/23/16 06:24 Chloride 100 mEq/L (98-107) 10/23/16 06:24 Carbon Dioxide 30.3 mEq/L (21.0-31.0) 10/23/16 06:24 Anion Gap 10.5 (7.0-16.0) 10/23/16 06:24 BUN 22 mg/dL (7-25) 10/23/16 06:24 Creatinine 1.5 mg/dL (0.7-1.3) H 10/23/16 06:24 Est GFR ( Amer) 59.5 ml/min 10/23/16 06:24 Est GFR (Non-Af Amer) 49.2 ml/min 10/23/16 06:24 BUN/Creatinine Ratio 14.7 10/23/16 06:24 Glucose 120 mg/dL (70-105) H 10/23/16 06:24 POC Glucose 236 MG/DL (70 - 105) H 10/23/16 12:12 Calcium 8.6 mg/dL (8.6-10.3) 10/23/16 06:24 Magnesium 1.8 mg/dL (1.9-2.7) L 10/23/16 06:24 Total Bilirubin 0.9 mg/dL (0.3-1.0) 10/23/16 06:24 AST 12 U/L (13-39) L 10/23/16 06:24 ALT 5 U/L (7-52) L 10/23/16 06:24 Alkaline Phosphatase 104 U/L (34-104) 10/23/16 06:24 Troponin I < 0.01 ng/mL (0.01-0.05) L 10/20/16 21:51 Total Protein 6.5 gm/dL (6.0-8.3) 10/23/16 06:24 Albumin 3.6 gm/dL (4.2-5.5) L 10/23/16 06:24 Globulin 2.9 gm/dL 10/23/16 06:24 Albumin/Globulin Ratio 1.2 (1.0-1.8) 10/23/16 06:24 Triglycerides 149 mg/dL (<150) 10/23/16 06:24 Cholesterol 154 mg/dL (<200) 10/23/16 06:24 LDL Cholesterol Direct 103 mg/dL (75-193) 10/23/16 06:24 HDL Cholesterol 34 mg/dL (23-92) 10/23/16 06:24 Vancomycin Trough 18.0 ug/mL (10-20) 10/23/16 12:58 - Physical Exam Vitals and I&O: Vital Signs Temp 97.7 F 10/23/16 16:00 Pulse 95 10/23/16 16:00 Resp 18 10/23/16 16:00 BP 136/88 10/23/16 16:00 Pulse Ox 94 10/23/16 16:00 Intake & Output 10/22/16 10/23/16 10/23/16 18:59 06:59 18:59 Intake Total 750 710 250 Output Total 700 Balance 50 710 250 Intake: Intake, IV Amount 250 350 250 Cefepime 2 gm In Sodium 100 Chloride 0.9% 100 ml @ 100 mls/hr IV Q12H [facility] Rx #:[id number] Vancomycin HCl 1 gm In 250 250 250 Sodium Chloride 0.9% 250 ml @ 165 mls/hr IV Q8H [facility] Rx#:[id number] Oral 500 360 Output: Urine 700 Other: # Voids 3 Stool Characteristics Formed Active Medications: Current Medications Acetaminophen (Tylenol) 650 mg PO Q4HR PRN PRN Reason: Pain or Fever >101 Stop: 12/20/16 08:34 Acetaminophen/Hydrocodone Bitart ([place] 10 Mg/325 Mg) 1 tab PO Q4H PRN PRN Reason: Pain (Severe) Stop: 12/20/16 01:45 Last Admin: 10/22/16 16:44 Dose: 1 tab Amiodarone HCl (Cordarone) 200 mg PO DAILY [facility] Stop: 12/20/16 08:59 Last Admin: 10/23/16 09:36 Dose: 200 mg Bisacodyl (Dulcolax 10 Mg Supp) 10 mg RC DAILY PRN PRN Reason: Constipation Stop: 12/22/16 15:54 Calcium Carbonate (Tums) 1,000 mg PO Q6H PRN PRN Reason: gi upset Stop: 12/20/16 08:34 Cyanocobalamin (Vitamin B12) 1,000 mcg PO DAILY [facility] Stop: 12/20/16 08:59 Last Admin: 10/23/16 09:37 Dose: 1,000 mcg Docusate Sodium (Colace) 100 mg PO BID [facility] Stop: 12/20/16 08:59 Last Admin: 10/23/16 09:36 Dose: 100 mg Furosemide (Lasix) 40 mg PO DAILY [facility] Stop: 12/20/16 08:59 Last Admin: 10/23/16 09:37 Dose: 40 mg Glipizide (Glucotrol) 10 mg PO BID [facility] Stop: 12/20/16 16:59 Last Admin: 10/23/16 09:36 Dose: 10 mg Cefepime HCl 2 gm/ Sodium (Chloride) 100 mls @ 100 mls/hr IV Q12H [facility] Stop: 12/21/16 20:59 Last Admin: 10/23/16 09:38 Dose: 100 mls/hr Vancomycin HCl 1 gm/ Sodium (Chloride) 250 mls @ 165 mls/hr IV Q8H [facility] Stop: 12/21/16 13:59 Last Admin: 10/23/16 15:37 Dose: 165 mls/hr Insulin Aspart (Novolog Insulin Sliding Scale) 0 units SUBQ ACHS [facility] PRN Reason: Protocol Stop: 12/20/16 07:29 Last Admin: 10/23/16 12:23 Dose: 4 units Insulin Aspart (Novolog) 10 units SUBQ TID [facility] Stop: 12/20/16 13:59 Last Admin: 10/23/16 14:45 Dose: 10 units Insulin Detemir (Levemir Insulin) 50 units SUBQ DAILY [facility] PRN Reason: Protocol Stop: 12/20/16 08:59 Last Admin: 10/23/16 09:33 Dose: 50 units Losartan Potassium (Cozaar) 50 mg PO DAILY [facility] Stop: 12/20/16 08:59 Last Admin: 10/23/16 09:35 Dose: 50 mg Magnesium Hydroxide (Milk Of Magnesia) 30 ml PO HS PRN PRN Reason: Constipation Stop: 12/20/16 08:34 Metformin HCl (Glucophage) 1,000 mg PO BID [facility] Stop: 12/20/16 16:59 Last Admin: 10/23/16 09:36 Dose: 1,000 mg Metoprolol Tartrate (Lopressor) 25 mg PO BID [facility] Stop: 12/20/16 08:59 Last Admin: 10/23/16 09:36 Dose: 25 mg Miscellaneous (Vancomycin Iv Per Pharmacy) 1 ea PRN PRN PRN Reason: PROTOCOL Stop: 12/19/16 23:31 Miscellaneous (Clinical Monitoring) 1 ea PRN PRN PRN Reason: CEFEPIME RENAL DOSE Stop: 12/21/16 12:14 Nitroglycerin (Nitrostat) 0.4 mg SL Q5MIN PRN PRN Reason: Chest Pain Stop: 12/20/16 08:34 Potassium Chloride (Klor-Con) 10 meq PO DAILY [facility] Stop: 12/20/16 08:59 Last Admin: 10/23/16 09:36 Dose: 10 meq Senna (Senna) 17.2 mg PO HS [facility] Stop: 12/20/16 20:59 Last Admin: 10/22/16 20:34 Dose: 17.2 mg Terbinafine HCl (Lamisil 1% Cream) 1 appl TP DAILY [facility] Stop: 12/22/16 08:59 Last Admin: 10/23/16 09:39 Dose: 1 appl Warfarin Sodium (Coumadin) 5 mg PO QPM [facility] PRN Reason: Protocol Stop: 12/20/16 16:59 Last Admin: 10/22/16 16:43 Dose: 5 mg General: alert HEENT: NC/AT, PERRLA Neck: Supple Lungs: CTAB Cardiovascular: RRR, Normal S1, Normal S2, without murmur Abdomen: soft non-tender - Procedures Procedures: Procedures Procedure Code Date CHOLECYSTECTOMY 51.22 07/31/14 TERRY SUBQ TISSUE 20 SQ CM/< 96320 07/08/15 EXTRACTION OF RIGHT LOWER LEG SKIN, EXTERNAL APPROACH [id number] 07/08/15 REMOVAL OF GALLBLADDER 61259 07/31/14 REPLACE R LOW LEG SKIN W AUTOL SUB, FULL THICK, METALLURGICAL OR MATERIALS TECHNICIAN [id number] 07/08/15 SKIN FULL GRAFT SCLP/ARM/LEG 65956 07/08/15 Internal Medicine Assmt/Plan - Assessment Assessment: BILATERAL LOWER EXTREMITY CELLULITIS, INFECTED ULCER ON RIGHT LEG LEUKOCYTOSIS WITH 60% LYMPHOCYTE PREDOMINANCE, CHRONIC LYMPHOTCYTIC LEUKEMIA? DM-2 CHRONIC AFIB HTN HYPERLIPIDEMIA DJD - Plan Plan: add dulcolax wound care ivabx cbc/bmp in am
[2016-10-24 05:49] LABS: HEMATOCRIT 40.9 % (39.0-49.0); HEMOGLOBIN 13.6 gm/dL (12.6-17.4); MEAN CELL VOLUME 80.9 fl (80-99); MEAN CORPUSCULAR HGB CONC 33.4 pg (28.0-36.0); MEAN PLATELET VOLUME 8.8 fl; PLATELET COUNT 156 Th/cmm (150-400); RED BLOOD COUNT 5.06 Mil/cmm (3.80-5.80); WHITE BLOOD COUNT 18.3 Th/cmm (4.8-10.8)
[2016-10-24 06:01] LABS: ANION GAP 8.4 (7.0-16.0); BUN - UREA NITROGEN 23 mg/dL (7-25); BUN/CREATININE RATIO 17.7; CALCIUM SERUM 8.9 mg/dL (8.6-10.3); CARBON DIOXIDE 30.3 mEq/L (21.0-31.0); CHLORIDE 101 mEq/L (98-107); CREATININE - SERUM 1.3 mg/dL (0.7-1.3); GLUCOSE 118 mg/dL (70-105); POTASSIUM SERUM 3.7 mEq/L (3.5-5.1); SODIUM SERUM 136 mEq/L (136-145)
[2016-10-24] MEDS: INSULIN ASPART SLIDING SCALE 100 UNITS/ML UNIT SUBQ SCH ×3 (06:30→18:14)
[2016-10-24] MEDS: Multivitamin w/ Minerals Tab PO SCH (09:31)
[2016-10-24] MEDS: Potassium Chloride 10 mEq ER Tab PO SCH (09:32)
[2016-10-24] MEDS: TERBINAFINE 1% TP SCH (09:33)
[2016-10-24] MEDS: Venelex 60gm Tube TP SCH (09:33)
[2016-10-24] MEDS: INSULIN ASPART, RECOMBINANT 100 UNITS/ML SUBQ SCH ×2 (09:37→14:00)
[2016-10-24] MEDS: Cefepime 2 gm in 0.9% NS 100 mL IV SCH ×2 (09:40→21:40)
[2016-10-24] MEDS: Insulin Detemir 100 units/mL 10mL Vial SUBQ SCH (09:52)
[2016-10-24 10:41] LABS: EOSINOPHIL 1 % (0-5); NEUTROPHILS 35 % (40-80); TOTAL CELLS COUNTED 100
[2016-10-24 10:42] LABS: PLATELET ESTIMATE ADEQUATE (NORMAL); PLATELET MORPHOLOGY NORMAL (NORMAL)
--- NOTE | 2016-10-24 16:44 | Internal Medicine Prog Note ---
Internal Medicine Subjective - Subjective Service Date: 10/24/16 Patient seen and examined:: with staff Patient is:: awake, in bed Patient Complaints of:: cough Internal Medicine Objective - Results Result Diagrams: 10/24/16 05:05 10/24/16 05:05 Recent Labs: Laboratory Last Values WBC 18.3 Th/cmm (4.8-10.8) H 10/24/16 05:05 RBC 5.06 Mil/cmm (3.80-5.80) 10/24/16 05:05 Hgb 13.6 gm/dL (12.6-17.4) 10/24/16 05:05 Hct 40.9 % (39.0-49.0) 10/24/16 05:05 MCV 80.9 fl (80-99) 10/24/16 05:05 MCH 27.0 pg (27.0-31.0) 10/24/16 05:05 MCHC Differential 33.4 pg (28.0-36.0) 10/24/16 05:05 RDW 14.0 % (11.5-20.0) 10/24/16 05:05 Plt Count 156 Th/cmm (150-400) 10/24/16 05:05 MPV 8.8 fl 10/24/16 05:05 Band Neutrophils % 1 % (0-10) 10/23/16 06:24 Neutrophils (Manual) 35 % (40-80) L 10/24/16 05:05 Lymphocytes 45 % (20-50) 10/24/16 05:05 Monocytes 9 % (2-10) 10/24/16 05:05 Eosinophils 1 % (0-5) 10/24/16 05:05 Atypical Lymphocytes 10 % 10/24/16 05:05 Platelet Estimate ADEQUATE (NORMAL) 10/24/16 05:05 Platelet Morphology NORMAL (NORMAL) 10/24/16 05:05 RBC Morph Micro Appear NORMAL (NORMAL) 10/24/16 05:05 PT 22.4 SECONDS (9.5-11.5) H 10/20/16 21:51 INR 2.15 (0.5-1.4) H 10/20/16 21:51 PTT (Actin FS) 47.9 SECONDS (26.0-38.0) H 10/20/16 21:51 D-Dimer < 100 ng/mL (100-400) L 10/20/16 21:51 Sodium 136 mEq/L (136-145) 10/24/16 05:05 Potassium 3.7 mEq/L (3.5-5.1) 10/24/16 05:05 Chloride 101 mEq/L (98-107) 10/24/16 05:05 Carbon Dioxide 30.3 mEq/L (21.0-31.0) 10/24/16 05:05 Anion Gap 8.4 (7.0-16.0) 10/24/16 05:05 BUN 23 mg/dL (7-25) 10/24/16 05:05 Creatinine 1.3 mg/dL (0.7-1.3) 10/24/16 05:05 Est GFR ( Amer) > 60.0 ml/min 10/24/16 05:05 Est GFR (Non-Af Amer) 58.0 ml/min 10/24/16 05:05 BUN/Creatinine Ratio 17.7 10/24/16 05:05 Glucose 118 mg/dL (70-105) H 10/24/16 05:05 POC Glucose 227 MG/DL (70 - 105) H 10/24/16 11:54 Calcium 8.9 mg/dL (8.6-10.3) 10/24/16 05:05 Magnesium 1.8 mg/dL (1.9-2.7) L 10/23/16 06:24 Total Bilirubin 0.9 mg/dL (0.3-1.0) 10/23/16 06:24 AST 12 U/L (13-39) L 10/23/16 06:24 ALT 5 U/L (7-52) L 10/23/16 06:24 Alkaline Phosphatase 104 U/L (34-104) 10/23/16 06:24 Troponin I < 0.01 ng/mL (0.01-0.05) L 10/20/16 21:51 Total Protein 6.5 gm/dL (6.0-8.3) 10/23/16 06:24 Albumin 3.6 gm/dL (4.2-5.5) L 10/23/16 06:24 Globulin 2.9 gm/dL 10/23/16 06:24 Albumin/Globulin Ratio 1.2 (1.0-1.8) 10/23/16 06:24 Triglycerides 149 mg/dL (<150) 10/23/16 06:24 Cholesterol 154 mg/dL (<200) 10/23/16 06:24 LDL Cholesterol Direct 103 mg/dL (75-193) 10/23/16 06:24 HDL Cholesterol 34 mg/dL (23-92) 10/23/16 06:24 Vancomycin Trough 18.0 ug/mL (10-20) 10/23/16 12:58 - Physical Exam Vitals and I&O: Vital Signs Temp 97.1 F 10/24/16 04:00 Pulse 89 10/24/16 09:33 Resp 18 10/24/16 04:00 BP 114/45 10/24/16 09:33 Pulse Ox 98 10/24/16 04:00 Intake & Output 10/23/16 10/24/16 10/24/16 18:59 06:59 18:59 Intake Total 600 2000 100 Output Total 1500 Balance 600 500 100 Intake: Intake, IV Amount 600 600 100 Cefepime 2 gm In Sodium 100 100 100 Chloride 0.9% 100 ml @ 100 mls/hr IV Q12H [facility] Rx #:[id number] Vancomycin HCl 1 gm In 500 500 Sodium Chloride 0.9% 250 ml @ 165 mls/hr IV Q8H [facility] Rx#:[id number] Oral 1400 Output: Urine 1500 Other: # Bowel Movements 1 Stool Characteristics Formed Soft Hard Active Medications: Current Medications Acetaminophen (Tylenol) 650 mg PO Q4HR PRN PRN Reason: Pain or Fever >101 Stop: 12/20/16 08:34 Acetaminophen/Hydrocodone Bitart ([place] 10 Mg/325 Mg) 1 tab PO Q4H PRN PRN Reason: Pain (Severe) Stop: 12/20/16 01:45 Last Admin: 10/22/16 16:44 Dose: 1 tab Acetylcysteine (Mucomyst 10%) 1 ml HHN Q6H [facility] Stop: 12/23/16 16:29 Amiodarone HCl (Cordarone) 200 mg PO DAILY [facility] Stop: 12/20/16 08:59 Last Admin: 10/24/16 09:32 Dose: 200 mg Bisacodyl (Dulcolax 10 Mg Supp) 10 mg RC DAILY PRN PRN Reason: Constipation Stop: 12/22/16 15:54 Last Admin: 10/23/16 17:56 Dose: 10 mg Calcium Carbonate (Tums) 1,000 mg PO Q6H PRN PRN Reason: gi upset Stop: 12/20/16 08:34 Cyanocobalamin (Vitamin B12) 1,000 mcg PO DAILY [facility] Stop: 12/20/16 08:59 Last Admin: 10/24/16 09:41 Dose: 1,000 mcg Docusate Sodium (Colace) 100 mg PO BID [facility] Stop: 12/20/16 08:59 Last Admin: 10/24/16 09:31 Dose: 100 mg Furosemide (Lasix) 40 mg PO DAILY [facility] Stop: 12/20/16 08:59 Last Admin: 10/24/16 09:32 Dose: 40 mg Glipizide (Glucotrol) 10 mg PO BID [facility] Stop: 12/20/16 16:59 Last Admin: 10/24/16 09:35 Dose: 10 mg Cefepime HCl 2 gm/ Sodium (Chloride) 100 mls @ 100 mls/hr IV Q12H [facility] Stop: 12/21/16 20:59 Last Infusion: 10/24/16 10:40 Dose: Infused Vancomycin HCl 1 gm/ Sodium (Chloride) 250 mls @ 165 mls/hr IV Q8H [facility] Stop: 12/21/16 13:59 Last Infusion: 10/24/16 06:38 Dose: Infused Insulin Aspart (Novolog Insulin Sliding Scale) 0 units SUBQ ACHS [facility] PRN Reason: Protocol Stop: 12/20/16 07:29 Last Admin: 10/24/16 12:00 Dose: 4 units Insulin Aspart (Novolog) 10 units SUBQ TID [facility] Stop: 12/20/16 13:59 Last Admin: 10/24/16 14:00 Dose: 10 units Insulin Detemir (Levemir Insulin) 50 units SUBQ DAILY [facility] PRN Reason: Protocol Stop: 12/20/16 08:59 Last Admin: 10/24/16 09:52 Dose: 50 units Losartan Potassium (Cozaar) 50 mg PO DAILY [facility] Stop: 12/20/16 08:59 Last Admin: 10/23/16 09:35 Dose: 50 mg Magnesium Hydroxide (Milk Of Magnesia) 30 ml PO HS PRN PRN Reason: Constipation Stop: 12/20/16 08:34 Metformin HCl (Glucophage) 1,000 mg PO BID [facility] Stop: 12/20/16 16:59 Last Admin: 10/24/16 09:34 Dose: 1,000 mg Metoprolol Tartrate (Lopressor) 25 mg PO BID [facility] Stop: 12/20/16 08:59 Last Admin: 10/24/16 09:33 Dose: 25 mg Miscellaneous (Vancomycin Iv Per Pharmacy) 1 [facility] PRN PRN PRN Reason: PROTOCOL Stop: 12/19/16 23:31 Miscellaneous (Clinical Monitoring) 1 ea PRN PRN PRN Reason: CEFEPIME RENAL DOSE Stop: 12/21/16 12:14 Nitroglycerin (Nitrostat) 0.4 mg SL Q5MIN PRN PRN Reason: Chest Pain Stop: 12/20/16 08:34 Potassium Chloride (Klor-Con) 10 meq PO DAILY [facility] Stop: 12/20/16 08:59 Last Admin: 10/24/16 09:32 Dose: 10 meq Senna (Senna) 17.2 mg PO HS [facility] Stop: 12/20/16 20:59 Last Admin: 10/23/16 20:28 Dose: 17.2 mg Terbinafine HCl (Lamisil 1% Cream) 1 appl TP DAILY [facility] Stop: 12/22/16 08:59 Last Admin: 10/24/16 09:33 Dose: 1 appl Warfarin Sodium (Coumadin) 5 mg PO QPM [facility] PRN Reason: Protocol Stop: 12/20/16 16:59 Last Admin: 10/23/16 17:55 Dose: 5 mg General: alert HEENT: NC/AT, PERRLA Neck: Supple Lungs: ronchi Cardiovascular: RRR, Normal S1, Normal S2, without murmur Abdomen: soft non-tender - Procedures Procedures: Procedures Procedure Code Date CHOLECYSTECTOMY 51.22 07/31/14 TERRY SUBQ TISSUE 20 SQ CM/< 84016 07/08/15 EXTRACTION OF RIGHT LOWER LEG SKIN, EXTERNAL APPROACH [id number] 07/08/15 REMOVAL OF GALLBLADDER 33184 07/31/14 REPLACE R LOW LEG SKIN W AUTOL SUB, FULL THICK, MEDICAL BILLER [id number] 07/08/15 SKIN FULL GRAFT SCLP/ARM/LEG 19025 07/08/15 Internal Medicine Assmt/Plan - Assessment Assessment: BILATERAL LOWER EXTREMITY CELLULITIS, INFECTED ULCER ON RIGHT LEG LEUKOCYTOSIS WITH 60% LYMPHOCYTE PREDOMINANCE, CHRONIC LYMPHOTCYTIC LEUKEMIA? DM-2 CHRONIC AFIB HTN HYPERLIPIDEMIA DJD - Plan Plan: add mucomyst wound care ivabx cbc/bmp in am
[2016-10-24] MEDS ORDERED: Albuterol Nebulizer 2.5mg/3mL HHN ONE (17:04)
[2016-10-24] MEDS: Albuterol Nebulizer 2.5mg/3mL HHN PRN (17:09)
--- NOTE | 2016-10-24 21:16 | Infectious Disease Prog Note ---
Infectious Disease Subjective - Review of Systems Service Date: 10/24/16 Subjective: No new change. Infectious Disease Objective - Results Result Diagrams: 10/24/16 05:05 10/24/16 05:05 Recent Labs: Laboratory Last Values WBC 18.3 Th/cmm (4.8-10.8) H 10/24/16 05:05 RBC 5.06 Mil/cmm (3.80-5.80) 10/24/16 05:05 Hgb 13.6 gm/dL (12.6-17.4) 10/24/16 05:05 Hct 40.9 % (39.0-49.0) 10/24/16 05:05 MCV 80.9 fl (80-99) 10/24/16 05:05 MCH 27.0 pg (27.0-31.0) 10/24/16 05:05 MCHC Differential 33.4 pg (28.0-36.0) 10/24/16 05:05 RDW 14.0 % (11.5-20.0) 10/24/16 05:05 Plt Count 156 Th/cmm (150-400) 10/24/16 05:05 MPV 8.8 fl 10/24/16 05:05 Band Neutrophils % 1 % (0-10) 10/23/16 06:24 Neutrophils (Manual) 35 % (40-80) L 10/24/16 05:05 Lymphocytes 45 % (20-50) 10/24/16 05:05 Monocytes 9 % (2-10) 10/24/16 05:05 Eosinophils 1 % (0-5) 10/24/16 05:05 Atypical Lymphocytes 10 % 10/24/16 05:05 Platelet Estimate ADEQUATE (NORMAL) 10/24/16 05:05 Platelet Morphology NORMAL (NORMAL) 10/24/16 05:05 RBC Morph Micro Appear NORMAL (NORMAL) 10/24/16 05:05 PT 22.4 SECONDS (9.5-11.5) H 10/20/16 21:51 INR 2.15 (0.5-1.4) H 10/20/16 21:51 PTT (Actin FS) 47.9 SECONDS (26.0-38.0) H 10/20/16 21:51 D-Dimer < 100 ng/mL (100-400) L 10/20/16 21:51 Sodium 136 mEq/L (136-145) 10/24/16 05:05 Potassium 3.7 mEq/L (3.5-5.1) 10/24/16 05:05 Chloride 101 mEq/L (98-107) 10/24/16 05:05 Carbon Dioxide 30.3 mEq/L (21.0-31.0) 10/24/16 05:05 Anion Gap 8.4 (7.0-16.0) 10/24/16 05:05 BUN 23 mg/dL (7-25) 10/24/16 05:05 Creatinine 1.3 mg/dL (0.7-1.3) 10/24/16 05:05 Est GFR ( Amer) > 60.0 ml/min 10/24/16 05:05 Est GFR (Non-Af Amer) 58.0 ml/min 10/24/16 05:05 BUN/Creatinine Ratio 17.7 10/24/16 05:05 Glucose 118 mg/dL (70-105) H 10/24/16 05:05 POC Glucose 194 MG/DL (70 - 105) H 10/24/16 16:42 Calcium 8.9 mg/dL (8.6-10.3) 10/24/16 05:05 Magnesium 1.8 mg/dL (1.9-2.7) L 10/23/16 06:24 Total Bilirubin 0.9 mg/dL (0.3-1.0) 10/23/16 06:24 AST 12 U/L (13-39) L 10/23/16 06:24 ALT 5 U/L (7-52) L 10/23/16 06:24 Alkaline Phosphatase 104 U/L (34-104) 10/23/16 06:24 Troponin I < 0.01 ng/mL (0.01-0.05) L 10/20/16 21:51 Total Protein 6.5 gm/dL (6.0-8.3) 10/23/16 06:24 Albumin 3.6 gm/dL (4.2-5.5) L 10/23/16 06:24 Globulin 2.9 gm/dL 10/23/16 06:24 Albumin/Globulin Ratio 1.2 (1.0-1.8) 10/23/16 06:24 Triglycerides 149 mg/dL (<150) 10/23/16 06:24 Cholesterol 154 mg/dL (<200) 10/23/16 06:24 LDL Cholesterol Direct 103 mg/dL (75-193) 10/23/16 06:24 HDL Cholesterol 34 mg/dL (23-92) 10/23/16 06:24 Vancomycin Trough 18.0 ug/mL (10-20) 10/23/16 12:58 - Physical Exam Vitals and I&O: Vital Signs Temp 99 F 10/24/16 16:00 Pulse 83 10/24/16 17:15 Resp 16 10/24/16 17:26 BP 112/69 10/24/16 16:47 Pulse Ox 94 10/24/16 17:15 Intake & Output 10/24/16 10/24/16 10/25/16 06:59 18:59 06:59 Intake Total 2000 350 Output Total 1500 Balance 500 350 Intake: Intake, IV Amount 600 350 Cefepime 2 gm In Sodium 100 100 Chloride 0.9% 100 ml @ 100 mls/hr IV Q12H [facility] Rx #:[id number] Vancomycin HCl 1 gm In 500 250 Sodium Chloride 0.9% 250 ml @ 165 mls/hr IV Q8H [facility] Rx#:[id number] Oral 1400 Output: Urine 1500 Other: # Bowel Movements 1 Stool Characteristics Soft Hard Active Medications: Current Medications Acetaminophen (Tylenol) 650 mg PO Q4HR PRN PRN Reason: Pain or Fever >101 Stop: 12/20/16 08:34 Last Admin: 10/24/16 18:30 Dose: 650 mg Acetaminophen/Hydrocodone Bitart ([place] 10 Mg/325 Mg) 1 tab PO Q4H PRN PRN Reason: Pain (Severe) Stop: 12/20/16 01:45 Last Admin: 10/22/16 16:44 Dose: 1 tab Albuterol Sulfate (Albuterol 2.5mg/3ml Neb Ud) 2.5 mg HHN Q6H PRN PRN Reason: Cough Stop: 12/23/16 16:55 Last Admin: 10/24/16 17:09 Dose: 2.5 mg Amiodarone HCl (Cordarone) 200 mg PO DAILY [facility] Stop: 12/20/16 08:59 Last Admin: 10/24/16 09:32 Dose: 200 mg Bisacodyl (Dulcolax 10 Mg Supp) 10 mg RC DAILY PRN PRN Reason: Constipation Stop: 12/22/16 15:54 Last Admin: 10/23/16 17:56 Dose: 10 mg Calcium Carbonate (Tums) 1,000 mg PO Q6H PRN PRN Reason: gi upset Stop: 12/20/16 08:34 Cyanocobalamin (Vitamin B12) 1,000 mcg PO DAILY [facility] Stop: 12/20/16 08:59 Last Admin: 10/24/16 09:41 Dose: 1,000 mcg Docusate Sodium (Colace) 100 mg PO BID [facility] Stop: 12/20/16 08:59 Last Admin: 10/24/16 16:48 Dose: 100 mg Furosemide (Lasix) 40 mg PO DAILY [facility] Stop: 12/20/16 08:59 Last Admin: 10/24/16 09:32 Dose: 40 mg Glipizide (Glucotrol) 10 mg PO BID [facility] Stop: 12/20/16 16:59 Last Admin: 10/24/16 16:48 Dose: 10 mg Cefepime HCl 2 gm/ Sodium (Chloride) 100 mls @ 100 mls/hr IV Q12H [facility] Stop: 12/21/16 20:59 Last Infusion: 10/24/16 10:40 Dose: Infused Vancomycin HCl 1 gm/ Sodium (Chloride) 250 mls @ 165 mls/hr IV Q8H [facility] Stop: 12/21/16 13:59 Last Infusion: 10/24/16 16:47 Dose: Infused Insulin Aspart (Novolog Insulin Sliding Scale) 0 units SUBQ ACHS [facility] PRN Reason: Protocol Stop: 12/20/16 07:29 Last Admin: 10/24/16 18:14 Dose: 2 units Insulin Aspart (Novolog) 10 units SUBQ TID [facility] Stop: 12/20/16 13:59 Last Admin: 10/24/16 14:00 Dose: 10 units Insulin Detemir (Levemir Insulin) 50 units SUBQ DAILY [facility] PRN Reason: Protocol Stop: 12/20/16 08:59 Last Admin: 10/24/16 09:52 Dose: 50 units Losartan Potassium (Cozaar) 50 mg PO DAILY [facility] Stop: 12/20/16 08:59 Last Admin: 10/23/16 09:35 Dose: 50 mg Magnesium Hydroxide (Milk Of Magnesia) 30 ml PO HS PRN PRN Reason: Constipation Stop: 12/20/16 08:34 Metformin HCl (Glucophage) 1,000 mg PO BID [facility] Stop: 12/20/16 16:59 Last Admin: 10/24/16 16:47 Dose: 1,000 mg Metoprolol Tartrate (Lopressor) 25 mg PO BID [facility] Stop: 12/20/16 08:59 Last Admin: 10/24/16 16:47 Dose: 25 mg Miscellaneous (Vancomycin Iv Per Pharmacy) 1 [facility] PRN PRN PRN Reason: PROTOCOL Stop: 12/19/16 23:31 Miscellaneous (Clinical Monitoring) 1 ea PRN PRN PRN Reason: CEFEPIME RENAL DOSE Stop: 12/21/16 12:14 Nitroglycerin (Nitrostat) 0.4 mg SL Q5MIN PRN PRN Reason: Chest Pain Stop: 12/20/16 08:34 Potassium Chloride (Klor-Con) 10 meq PO DAILY [facility] Stop: 12/20/16 08:59 Last Admin: 10/24/16 09:32 Dose: 10 meq Senna (Senna) 17.2 mg PO HS [facility] Stop: 12/20/16 20:59 Last Admin: 10/23/16 20:28 Dose: 17.2 mg Terbinafine HCl (Lamisil 1% Cream) 1 appl TP DAILY [facility] Stop: 12/22/16 08:59 Last Admin: 10/24/16 09:33 Dose: 1 appl Warfarin Sodium (Coumadin) 5 mg PO QPM [facility] PRN Reason: Protocol Stop: 12/20/16 16:59 Last Admin: 10/24/16 16:48 Dose: 5 mg General: no acute distress, other (obese) HEENT: atraumatic, normocephalic, PERRLA, EOMI Neck: supple Cardiovascular: S1S2, regular Lungs: clear to auscultation bilaterally, clear to percussion, crackles Abdomen: soft, obese, no tender, no distended Extremities: other, no cyanosis, no clubbing Neurological: awake, alert, oriented Skin: intact - Procedures Procedures: Procedures Procedure Code Date CHOLECYSTECTOMY 51.22 07/31/14 TERRY SUBQ TISSUE 20 SQ CM/< 16273 07/08/15 EXTRACTION OF RIGHT LOWER LEG SKIN, EXTERNAL APPROACH [id number] 07/08/15 REMOVAL OF GALLBLADDER [id number] 07/31/14 REPLACE R LOW LEG SKIN W AUTOL SUB, FULL THICK, PULP DRIER FIRER [id number] 07/08/15 SKIN FULL GRAFT SCLP/ARM/LEG [id number] 07/08/15 Infectious Disease Assmt/Plan - Problem List Patient Problems: All Active Problems Atrial fibrillation with rapid ventricular response (Acute) I48.91 ELEVATED WBC AND RIGHT LOWER LEG ULCER (Acute) Pneumonia (Acute) J18.9 Sepsis (Acute) - Assessment Assessment: 1. Leukocytosis, suspect sepsis. 2. Cellulitis of both feet and legs. 3. Suspect congestive heart failure. Chest x-ray showed cardiomegaly, no focal pulmonary process. 4. Diabetes mellitus. 5. Atrial fibrillation. 6. Obesity. 7. Onychomycosis. - Plan Plan: RECOMMENDATION: Continue vancomycin and cefepime. Check CBC in Am. Apply lamisil.
[2016-10-25] MEDS: INSULIN ASPART SLIDING SCALE 100 UNITS/ML UNIT SUBQ SCH ×4 (00:29→23:58)
[2016-10-25] MEDS: INSULIN ASPART, RECOMBINANT 100 UNITS/ML SUBQ SCH ×3 (00:45→22:49)
[2016-10-25 06:47] LABS: ANION GAP 7.1 (7.0-16.0); BUN - UREA NITROGEN 21 mg/dL (7-25); BUN/CREATININE RATIO 16.2; CALCIUM SERUM 8.6 mg/dL (8.6-10.3); CARBON DIOXIDE 27.6 mEq/L (21.0-31.0); CHLORIDE 104 mEq/L (98-107); CREATININE - SERUM 1.3 mg/dL (0.7-1.3); GLUCOSE 106 mg/dL (70-105); POTASSIUM SERUM 3.7 mEq/L (3.5-5.1); SODIUM SERUM 135 mEq/L (136-145)
[2016-10-25 06:48] LABS: % EOSINOPHILS 1.7 % (0.0-5.0); % LYMPHOCYTES 49.8 % (20.0-50.0); % MONOCYTES 6.7 % (2.0-10.0); % NEUTROPHILS 41.8 % (40.0-80.0); HEMATOCRIT 37.3 % (39.0-49.0); HEMOGLOBIN 12.5 gm/dL (12.6-17.4); MEAN CELL VOLUME 82.3 fl (80-99); MEAN CORPUSCULAR HEMOGLOBIN 27.6 pg (27.0-31.0); MEAN CORPUSCULAR HGB CONC 33.6 pg (28.0-36.0); MEAN PLATELET VOLUME 8.9 fl; NEUTROPHILE ABSOLUTE 7.1 Th/cmm (1.8-8.0); PLATELET COUNT 137 Th/cmm (150-400); RED BLOOD COUNT 4.54 Mil/cmm (3.80-5.80); RED CELL DISTRIBUTION WIDTH 13.8 % (11.5-20.0)
[2016-10-25] MEDS: Albuterol Nebulizer 2.5mg/3mL HHN PRN ×2 (08:21→13:41)
[2016-10-25] MEDS: Potassium Chloride 10 mEq ER Tab PO SCH (09:00)
[2016-10-25] MEDS ORDERED: Vancomycin HCl 1.5 GM in Sodium Chloride 0.9% 500 ML IV SCH (10:00)
--- NOTE | 2016-10-25 11:51 | Diagnostic Imaging Report ---
Portable chest x-ray HISTORY: Cough The heart is enlarged. Evidence of small right pleural effusion. No focal pulmonary parenchymal processes. IMPRESSION: 1. Cardiomegaly with evidence of a small right pleural effusion. A degree of congestive heart failure cannot be excluded. Clinical correlation is needed.
--- NOTE | 2016-10-25 12:01 | Internal Medicine Prog Note ---
Internal Medicine Subjective - Subjective Service Date: 10/25/16 Patient seen and examined:: with staff Patient is:: awake Per staff patient is:: no adverse event Internal Medicine Objective - Results Result Diagrams: 10/25/16 05:30 10/25/16 05:30 Recent Labs: Laboratory Last Values WBC 17.0 Th/cmm (4.8-10.8) H 10/25/16 05:30 RBC 4.54 Mil/cmm (3.80-5.80) 10/25/16 05:30 Hgb 12.5 gm/dL (12.6-17.4) L 10/25/16 05:30 Hct 37.3 % (39.0-49.0) L 10/25/16 05:30 MCV 82.3 fl (80-99) 10/25/16 05:30 MCH 27.6 pg (27.0-31.0) 10/25/16 05:30 MCHC Differential 33.6 pg (28.0-36.0) 10/25/16 05:30 RDW 13.8 % (11.5-20.0) 10/25/16 05:30 Plt Count 137 Th/cmm (150-400) L 10/25/16 05:30 MPV 8.9 fl 10/25/16 05:30 Neutrophils % 41.8 % (40.0-80.0) 10/25/16 05:30 Band Neutrophils % 1 % (0-10) 10/23/16 06:24 Lymphocytes % 49.8 % (20.0-50.0) 10/25/16 05:30 Monocytes % 6.7 % (2.0-10.0) 10/25/16 05:30 Eosinophils % 1.7 % (0.0-5.0) 10/25/16 05:30 Basophils % 0.0 % (0.0-2.0) 10/25/16 05:30 Neutrophils (Manual) 35 % (40-80) L 10/24/16 05:05 Lymphocytes 45 % (20-50) 10/24/16 05:05 Monocytes 9 % (2-10) 10/24/16 05:05 Eosinophils 1 % (0-5) 10/24/16 05:05 Atypical Lymphocytes 10 % 10/24/16 05:05 Platelet Estimate ADEQUATE (NORMAL) 10/24/16 05:05 Platelet Morphology NORMAL (NORMAL) 10/24/16 05:05 RBC Morph Micro Appear NORMAL (NORMAL) 10/24/16 05:05 PT 22.4 SECONDS (9.5-11.5) H 10/20/16 21:51 INR 2.15 (0.5-1.4) H 10/20/16 21:51 PTT (Actin FS) 47.9 SECONDS (26.0-38.0) H 10/20/16 21:51 D-Dimer < 100 ng/mL (100-400) L 10/20/16 21:51 Sodium 135 mEq/L (136-145) L 10/25/16 05:30 Potassium 3.7 mEq/L (3.5-5.1) 10/25/16 05:30 Chloride 104 mEq/L (98-107) 10/25/16 05:30 Carbon Dioxide 27.6 mEq/L (21.0-31.0) 10/25/16 05:30 Anion Gap 7.1 (7.0-16.0) 10/25/16 05:30 BUN 21 mg/dL (7-25) 10/25/16 05:30 Creatinine 1.3 mg/dL (0.7-1.3) 10/25/16 05:30 Est GFR ( Amer) > 60.0 ml/min 10/25/16 05:30 Est GFR (Non-Af Amer) 58.0 ml/min 10/25/16 05:30 BUN/Creatinine Ratio 16.2 10/25/16 05:30 Glucose 106 mg/dL (70-105) H 10/25/16 05:30 POC Glucose 167 MG/DL (70 - 105) H 10/24/16 23:40 Calcium 8.6 mg/dL (8.6-10.3) 10/25/16 05:30 Magnesium 1.8 mg/dL (1.9-2.7) L 10/23/16 06:24 Total Bilirubin 0.9 mg/dL (0.3-1.0) 10/23/16 06:24 AST 12 U/L (13-39) L 10/23/16 06:24 ALT 5 U/L (7-52) L 10/23/16 06:24 Alkaline Phosphatase 104 U/L (34-104) 10/23/16 06:24 Troponin I < 0.01 ng/mL (0.01-0.05) L 10/20/16 21:51 Total Protein 6.5 gm/dL (6.0-8.3) 10/23/16 06:24 Albumin 3.6 gm/dL (4.2-5.5) L 10/23/16 06:24 Globulin 2.9 gm/dL 10/23/16 06:24 Albumin/Globulin Ratio 1.2 (1.0-1.8) 10/23/16 06:24 Triglycerides 149 mg/dL (<150) 10/23/16 06:24 Cholesterol 154 mg/dL (<200) 10/23/16 06:24 LDL Cholesterol Direct 103 mg/dL (75-193) 10/23/16 06:24 HDL Cholesterol 34 mg/dL (23-92) 10/23/16 06:24 Vancomycin Trough 18.0 ug/mL (10-20) 10/23/16 12:58 Random Vancomycin 26.9 ug/mL (5.0-40.0) 10/25/16 05:30 - Physical Exam Vitals and I&O: Vital Signs Temp 97.3 F 10/25/16 08:00 Pulse 94 10/25/16 08:27 Resp 18 10/25/16 08:27 BP 150/88 10/25/16 08:00 Pulse Ox 95 10/25/16 08:27 Intake & Output 10/24/16 10/25/16 10/25/16 18:59 06:59 18:59 Intake Total 350 350 Balance 350 350 Intake: Intake, IV Amount 350 350 Cefepime 2 gm In Sodium 100 100 Chloride 0.9% 100 ml @ 100 mls/hr IV Q12H [facility] Rx #:[id number] Vancomycin HCl 1 gm In 250 250 Sodium Chloride 0.9% 250 ml @ 165 mls/hr IV Q8H [facility] Rx#:[id number] Other: Stool Characteristics Hard Active Medications: Current Medications Acetaminophen (Tylenol) 650 mg PO Q4HR PRN PRN Reason: Pain or Fever >101 Stop: 12/20/16 08:34 Last Admin: 10/24/16 22:13 Dose: 650 mg Acetaminophen/Hydrocodone Bitart ([place] 10 Mg/325 Mg) 1 tab PO Q4H PRN PRN Reason: Pain (Severe) Stop: 12/20/16 01:45 Last Admin: 10/22/16 16:44 Dose: 1 tab Albuterol Sulfate (Albuterol 2.5mg/3ml Neb Ud) 2.5 mg HHN Q6H PRN PRN Reason: Cough Stop: 12/23/16 16:55 Last Admin: 10/25/16 08:21 Dose: 2.5 mg Amiodarone HCl (Cordarone) 200 mg PO DAILY [facility] Stop: 12/20/16 08:59 Last Admin: 10/25/16 11:06 Dose: 200 mg Bisacodyl (Dulcolax 10 Mg Supp) 10 mg RC DAILY PRN PRN Reason: Constipation Stop: 12/22/16 15:54 Last Admin: 10/23/16 17:56 Dose: 10 mg Calcium Carbonate (Tums) 1,000 mg PO Q6H PRN PRN Reason: gi upset Stop: 12/20/16 08:34 Last Admin: 10/25/16 11:04 Dose: 1,000 mg Cyanocobalamin (Vitamin B12) 1,000 mcg PO DAILY [facility] Stop: 12/20/16 08:59 Last Admin: 10/25/16 11:07 Dose: 1,000 mcg Docusate Sodium (Colace) 100 mg PO BID [facility] Stop: 12/20/16 08:59 Last Admin: 10/24/16 16:48 Dose: 100 mg Furosemide (Lasix) 40 mg PO DAILY [facility] Stop: 12/20/16 08:59 Last Admin: 10/24/16 09:32 Dose: 40 mg Glipizide (Glucotrol) 10 mg PO BID [facility] Stop: 12/20/16 16:59 Last Admin: 10/25/16 11:06 Dose: 10 mg Cefepime HCl 2 gm/ Sodium (Chloride) 100 mls @ 100 mls/hr IV Q12H [facility] Stop: 12/21/16 20:59 Last Infusion: 10/24/16 22:40 Dose: Infused Vancomycin HCl 1.5 gm/ Sodium (Chloride) 500 mls @ 250 mls/hr IV Q12H [facility] Stop: 12/24/16 21:59 Insulin Aspart (Novolog Insulin Sliding Scale) 0 units SUBQ ACHS [facility] PRN Reason: Protocol Stop: 12/20/16 07:29 Last Admin: 10/25/16 00:29 Dose: 2 units Insulin Aspart (Novolog) 10 units SUBQ TID [facility] Stop: 12/20/16 13:59 Last Admin: 10/25/16 00:45 Dose: 10 units Insulin Detemir (Levemir Insulin) 50 units SUBQ DAILY [facility] PRN Reason: Protocol Stop: 12/20/16 08:59 Last Admin: 10/24/16 09:52 Dose: 50 units Losartan Potassium (Cozaar) 50 mg PO DAILY [facility] Stop: 12/20/16 08:59 Last Admin: 10/23/16 09:35 Dose: 50 mg Magnesium Hydroxide (Milk Of Magnesia) 30 ml PO HS PRN PRN Reason: Constipation Stop: 12/20/16 08:34 Metformin HCl (Glucophage) 1,000 mg PO BID [facility] Stop: 12/20/16 16:59 Last Admin: 10/24/16 16:47 Dose: 1,000 mg Metoprolol Tartrate (Lopressor) 25 mg PO BID [facility] Stop: 12/20/16 08:59 Last Admin: 10/24/16 16:47 Dose: 25 mg Miscellaneous (Vancomycin Iv Per Pharmacy) 1 ea PRN PRN PRN Reason: PROTOCOL Stop: 12/19/16 23:31 Miscellaneous (Clinical Monitoring) 1 ea PRN PRN PRN Reason: CEFEPIME RENAL DOSE Stop: 12/21/16 12:14 Nitroglycerin (Nitrostat) 0.4 mg SL Q5MIN PRN PRN Reason: Chest Pain Stop: 12/20/16 08:34 Potassium Chloride (Klor-Con) 10 meq PO DAILY [facility] Stop: 12/20/16 08:59 Last Admin: 10/24/16 09:32 Dose: 10 meq Senna (Senna) 17.2 mg PO HS [facility] Stop: 12/20/16 20:59 Last Admin: 10/24/16 22:11 Dose: 17.2 mg Terbinafine HCl (Lamisil 1% Cream) 1 appl TP DAILY [facility] Stop: 12/22/16 08:59 Last Admin: 10/24/16 09:33 Dose: 1 appl Warfarin Sodium (Coumadin) 5 mg PO QPM [facility] PRN Reason: Protocol Stop: 12/20/16 16:59 Last Admin: 10/24/16 16:48 Dose: 5 mg General: alert HEENT: NC/AT Neck: Supple Lungs: CTAB Cardiovascular: RRR, Normal S1, Normal S2, without murmur Abdomen: soft non-tender - Procedures Procedures: Procedures Procedure Code Date CHOLECYSTECTOMY 51.22 07/31/14 TERRY SUBQ TISSUE 20 SQ CM/< 39948 07/08/15 EXTRACTION OF RIGHT LOWER LEG SKIN, EXTERNAL APPROACH [id number] 07/08/15 REMOVAL OF GALLBLADDER 05924 07/31/14 REPLACE R LOW LEG SKIN W AUTOL SUB, FULL THICK, SUPPLY CRIB ATTENDANT [id number] 07/08/15 SKIN FULL GRAFT SCLP/ARM/LEG 01022 07/08/15 Internal Medicine Assmt/Plan - Assessment Assessment: BILATERAL LOWER EXTREMITY CELLULITIS, INFECTED ULCER ON RIGHT LEG LEUKOCYTOSIS WITH 60% LYMPHOCYTE PREDOMINANCE, CHRONIC LYMPHOTCYTIC LEUKEMIA? DM-2 CHRONIC AFIB HTN HYPERLIPIDEMIA DJD - Plan Plan: f/u cxr today dc planning in am wound care ivabx cbc/bmp in am
[2016-10-25] MEDS: TERBINAFINE 1% TP SCH (12:58)
[2016-10-25] MEDS: Venelex 60gm Tube TP SCH (12:58)
[2016-10-25] MEDS: Multivitamin w/ Minerals Tab PO SCH (15:12)
[2016-10-25] MEDS: Hydrocodone/APAP 10 mg/325 mg Tab PO PRN (15:24)
[2016-10-25] MEDS: Cefepime 2 gm in 0.9% NS 100 mL IV SCH ×2 (17:36→20:50)
[2016-10-25] MEDS: Vancomycin HCl 1.5 GM in Sodium Chloride 0.9% 500 ML IV SCH (22:48)
[2016-10-26 06:19] LABS: HEMOGLOBIN 13.9 gm/dL (12.6-17.4); MEAN CELL VOLUME 81.2 fl (80-99); MEAN CORPUSCULAR HEMOGLOBIN 27.1 pg (27.0-31.0); MEAN CORPUSCULAR HGB CONC 33.4 pg (28.0-36.0); MEAN PLATELET VOLUME 8.8 fl; RED BLOOD COUNT 5.13 Mil/cmm (3.80-5.80); RED CELL DISTRIBUTION WIDTH 13.7 % (11.5-20.0)
[2016-10-26 06:36] LABS: HEMATOCRIT 41.6 % (39.0-49.0); WHITE BLOOD COUNT 21.4 Th/cmm (4.8-10.8)
[2016-10-26 06:37] LABS: PLATELET COUNT 172 Th/cmm (150-400)
[2016-10-26] MEDS: INSULIN ASPART SLIDING SCALE 100 UNITS/ML UNIT SUBQ SCH ×5 (06:49→23:41)
[2016-10-26 07:11] LABS: BAND NEUTROPHILE 1 % (0-10); BASOPHIL 1 % (0-3); EOSINOPHIL 3 % (0-5); METAMYELOCYTE 1 % (0-0); NEUTROPHILS 41 % (40-80); TOTAL CELLS COUNTED 100
[2016-10-26 07:12] LABS: PLATELET ESTIMATE ADEQUATE (NORMAL); PLATELET MORPHOLOGY NORMAL (NORMAL)
[2016-10-26 09:07] LABS: ANION GAP 10.8 (7.0-16.0); BUN - UREA NITROGEN 16 mg/dL (7-25); BUN/CREATININE RATIO 13.3; CALCIUM SERUM 9.1 mg/dL (8.6-10.3); CARBON DIOXIDE 27.3 mEq/L (21.0-31.0); CHLORIDE 103 mEq/L (98-107); CREATININE - SERUM 1.2 mg/dL (0.7-1.3); GLUCOSE 149 mg/dL (70-105); POTASSIUM SERUM 4.1 mEq/L (3.5-5.1); SODIUM SERUM 137 mEq/L (136-145)
[2016-10-26] MEDS: Cefepime 2 gm in 0.9% NS 100 mL IV SCH ×2 (09:47→23:50)
[2016-10-26] MEDS: INSULIN ASPART, RECOMBINANT 100 UNITS/ML SUBQ SCH ×2 (10:00→12:34)
[2016-10-26] MEDS: Insulin Detemir 100 units/mL 10mL Vial SUBQ SCH (10:05)
[2016-10-26] MEDS: Venelex 60gm Tube TP SCH (10:10)
[2016-10-26] MEDS: Potassium Chloride 10 mEq ER Tab PO SCH (10:10)
[2016-10-26] MEDS: Multivitamin w/ Minerals Tab PO SCH (10:10)
[2016-10-26] MEDS: TERBINAFINE 1% TP SCH (10:11)
[2016-10-26] MEDS: Vancomycin HCl 1.5 GM in Sodium Chloride 0.9% 500 ML IV SCH ×2 (10:53→23:28)
--- NOTE | 2016-10-26 11:15 | Diagnostic Imaging Report ---
Portable chest x-ray HISTORY: Shortness of breath The heart is enlarged. No focal pulmonary processes. No hilar or mediastinal abnormalities. Question small right pleural effusion. IMPRESSION: 1. No acute focal pulmonary processes 2. Cardiomegaly 3. Question small right pleural effusion
--- NOTE | 2016-10-26 12:00 | Infectious Disease Prog Note ---
Infectious Disease Subjective - Review of Systems Service Date: 10/26/16 Subjective: No new change. No fever, no diarrhea. No abd pain. there is darkening of the skin in lower extremities, with edema, there is superficial ulcer on right leg. Infectious Disease Objective - Results Result Diagrams: 10/26/16 05:40 10/26/16 05:40 Recent Labs: Laboratory Last Values WBC 21.4 Th/cmm (4.8-10.8) H* D 10/26/16 05:40 RBC 5.13 Mil/cmm (3.80-5.80) 10/26/16 05:40 Hgb 13.9 gm/dL (12.6-17.4) 10/26/16 05:40 Hct 41.6 % (39.0-49.0) D 10/26/16 05:40 MCV 81.2 fl (80-99) 10/26/16 05:40 MCH 27.1 pg (27.0-31.0) 10/26/16 05:40 MCHC Differential 33.4 pg (28.0-36.0) 10/26/16 05:40 RDW 13.7 % (11.5-20.0) 10/26/16 05:40 Plt Count 172 Th/cmm (150-400) D 10/26/16 05:40 MPV 8.8 fl 10/26/16 05:40 Neutrophils % 41.8 % (40.0-80.0) 10/25/16 05:30 Band Neutrophils % 1 % (0-10) 10/26/16 05:40 Lymphocytes % 49.8 % (20.0-50.0) 10/25/16 05:30 Monocytes % 6.7 % (2.0-10.0) 10/25/16 05:30 Eosinophils % 1.7 % (0.0-5.0) 10/25/16 05:30 Basophils % 0.0 % (0.0-2.0) 10/25/16 05:30 Neutrophils (Manual) 41 % (40-80) 10/26/16 05:40 Lymphocytes 39 % (20-50) 10/26/16 05:40 Monocytes 6 % (2-10) 10/26/16 05:40 Eosinophils 3 % (0-5) 10/26/16 05:40 Basophils 1 % (0-3) 10/26/16 05:40 Metamyelocytes 1 % (0-0) H 10/26/16 05:40 Atypical Lymphocytes 8 % 10/26/16 05:40 Platelet Estimate ADEQUATE (NORMAL) 10/26/16 05:40 Platelet Morphology NORMAL (NORMAL) 10/26/16 05:40 RBC Morph Micro Appear NORMAL (NORMAL) 10/26/16 05:40 PT 22.4 SECONDS (9.5-11.5) H 10/20/16 21:51 INR 2.15 (0.5-1.4) H 10/20/16 21:51 PTT (Actin FS) 47.9 SECONDS (26.0-38.0) H 10/20/16 21:51 D-Dimer < 100 ng/mL (100-400) L 10/20/16 21:51 Sodium 137 mEq/L (136-145) 10/26/16 05:40 Potassium 4.1 mEq/L (3.5-5.1) 10/26/16 05:40 Chloride 103 mEq/L (98-107) 10/26/16 05:40 Carbon Dioxide 27.3 mEq/L (21.0-31.0) 10/26/16 05:40 Anion Gap 10.8 (7.0-16.0) 10/26/16 05:40 BUN 16 mg/dL (7-25) 10/26/16 05:40 Creatinine 1.2 mg/dL (0.7-1.3) 10/26/16 05:40 Est GFR ( Amer) > 60.0 ml/min 10/26/16 05:40 Est GFR (Non-Af Amer) > 60.0 ml/min 10/26/16 05:40 BUN/Creatinine Ratio 13.3 10/26/16 05:40 Glucose 149 mg/dL (70-105) H 10/26/16 05:40 POC Glucose 151 MG/DL (70 - 105) H 10/26/16 06:20 Calcium 9.1 mg/dL (8.6-10.3) 10/26/16 05:40 Magnesium 1.8 mg/dL (1.9-2.7) L 10/23/16 06:24 Total Bilirubin 0.9 mg/dL (0.3-1.0) 10/23/16 06:24 AST 12 U/L (13-39) L 10/23/16 06:24 ALT 5 U/L (7-52) L 10/23/16 06:24 Alkaline Phosphatase 104 U/L (34-104) 10/23/16 06:24 Troponin I < 0.01 ng/mL (0.01-0.05) L 10/20/16 21:51 B-Natriuretic Peptide 222.0 pg/mL (5.0-100.0) H 10/26/16 05:40 Total Protein 6.5 gm/dL (6.0-8.3) 10/23/16 06:24 Albumin 3.6 gm/dL (4.2-5.5) L 10/23/16 06:24 Globulin 2.9 gm/dL 10/23/16 06:24 Albumin/Globulin Ratio 1.2 (1.0-1.8) 10/23/16 06:24 Triglycerides 149 mg/dL (<150) 10/23/16 06:24 Cholesterol 154 mg/dL (<200) 10/23/16 06:24 LDL Cholesterol Direct 103 mg/dL (75-193) 10/23/16 06:24 HDL Cholesterol 34 mg/dL (23-92) 10/23/16 06:24 Vancomycin Trough 23.9 ug/mL (10-20) H 10/26/16 05:40 Random Vancomycin 26.9 ug/mL (5.0-40.0) 10/25/16 05:30 - Physical Exam Vitals and I&O: Vital Signs Temp 98.4 F 10/26/16 08:00 Pulse 100 10/26/16 10:10 Resp 20 10/26/16 08:00 BP 144/83 10/26/16 10:09 Pulse Ox 90 10/26/16 08:00 Intake & Output 10/25/16 10/26/16 10/26/16 18:59 06:59 18:59 Intake Total 600 600 Output Total 90 Balance 510 600 Intake: Intake, IV Amount 100 600 Cefepime 2 gm In Sodium 100 100 Chloride 0.9% 100 ml @ 100 mls/hr IV Q12H [facility] Rx #:[id number] Vancomycin HCl 1.5 gm In 500 Sodium Chloride 0.9% 500 ml @ 250 mls/hr IV Q12H [facility] Rx#:[id number] Oral 500 Output: Urine 90 Other: # Voids 3 Active Medications: Current Medications Acetaminophen (Tylenol) 650 mg PO Q4HR PRN PRN Reason: Pain or Fever >101 Stop: 12/20/16 08:34 Last Admin: 10/26/16 10:06 Dose: 650 mg Acetaminophen/Hydrocodone Bitart ([place] 10 Mg/325 Mg) 1 tab PO Q4H PRN PRN Reason: Pain (Severe) Stop: 12/20/16 01:45 Last Admin: 10/25/16 15:24 Dose: 1 tab Albuterol Sulfate (Albuterol 2.5mg/3ml Neb Ud) 2.5 mg HHN Q6H PRN PRN Reason: Cough Stop: 12/23/16 16:55 Last Admin: 10/25/16 13:41 Dose: 2.5 mg Amiodarone HCl (Cordarone) 200 mg PO DAILY [facility] Stop: 12/20/16 08:59 Last Admin: 10/26/16 10:10 Dose: 200 mg Bisacodyl (Dulcolax 10 Mg Supp) 10 mg RC DAILY PRN PRN Reason: Constipation Stop: 12/22/16 15:54 Last Admin: 10/23/16 17:56 Dose: 10 mg Calcium Carbonate (Tums) 1,000 mg PO Q6H PRN PRN Reason: gi upset Stop: 12/20/16 08:34 Last Admin: 10/25/16 11:04 Dose: 1,000 mg Cyanocobalamin (Vitamin B12) 1,000 mcg PO DAILY [facility] Stop: 12/20/16 08:59 Last Admin: 10/26/16 10:10 Dose: 1,000 mcg Docusate Sodium (Colace) 100 mg PO BID [facility] Stop: 12/20/16 08:59 Last Admin: 10/26/16 10:08 Dose: 100 mg Furosemide (Lasix) 40 mg PO DAILY [facility] Stop: 12/20/16 08:59 Last Admin: 10/26/16 10:07 Dose: 40 mg Glipizide (Glucotrol) 10 mg PO BID [facility] Stop: 12/20/16 16:59 Last Admin: 10/25/16 11:06 Dose: 10 mg Cefepime HCl 2 gm/ Sodium (Chloride) 100 mls @ 100 mls/hr IV Q12H [facility] Stop: 12/21/16 20:59 Last Admin: 10/26/16 09:47 Dose: 100 mls/hr Vancomycin HCl 1.5 gm/ Sodium (Chloride) 500 mls @ 250 mls/hr IV Q12H [facility] Stop: 12/24/16 21:59 Last Admin: 10/26/16 10:53 Dose: 250 mls/hr Insulin Aspart (Novolog Insulin Sliding Scale) 0 units SUBQ ACHS [facility] PRN Reason: Protocol Stop: 12/20/16 07:29 Last Admin: 10/26/16 10:00 Dose: 10 units Insulin Aspart (Novolog) 10 units SUBQ TID [facility] Stop: 12/20/16 13:59 Last Admin: 10/25/16 22:49 Dose: 10 units Insulin Detemir (Levemir Insulin) 50 units SUBQ DAILY [facility] PRN Reason: Protocol Stop: 12/20/16 08:59 Last Admin: 10/26/16 10:05 Dose: 50 units Losartan Potassium (Cozaar) 50 mg PO DAILY [facility] Stop: 12/20/16 08:59 Last Admin: 10/26/16 10:05 Dose: 50 mg Magnesium Hydroxide (Milk Of Magnesia) 30 ml PO HS PRN PRN Reason: Constipation Stop: 12/20/16 08:34 Last Admin: 10/26/16 10:12 Dose: 30 ml Metformin HCl (Glucophage) 1,000 mg PO BID [facility] Stop: 12/20/16 16:59 Last Admin: 10/26/16 10:09 Dose: 1,000 mg Metoprolol Tartrate (Lopressor) 25 mg PO BID [facility] Stop: 12/20/16 08:59 Last Admin: 10/26/16 10:09 Dose: 25 mg Miscellaneous (Vancomycin Iv Per Pharmacy) 1 ea PRN PRN PRN Reason: PROTOCOL Stop: 12/19/16 23:31 Miscellaneous (Clinical Monitoring) 1 ea PRN PRN PRN Reason: CEFEPIME RENAL DOSE Stop: 12/21/16 12:14 Nitroglycerin (Nitrostat) 0.4 mg SL Q5MIN PRN PRN Reason: Chest Pain Stop: 12/20/16 08:34 Potassium Chloride (Klor-Con) 10 meq PO DAILY [facility] Stop: 12/20/16 08:59 Last Admin: 10/26/16 10:10 Dose: 10 meq Senna (Senna) 17.2 mg PO HS [facility] Stop: 12/20/16 20:59 Last Admin: 10/25/16 22:47 Dose: 17.2 mg Terbinafine HCl (Lamisil 1% Cream) 1 appl TP DAILY [facility] Stop: 12/22/16 08:59 Last Admin: 10/26/16 10:11 Dose: 1 appl Warfarin Sodium (Coumadin) 5 mg PO QPM [facility] PRN Reason: Protocol Stop: 12/20/16 16:59 Last Admin: 10/24/16 16:48 Dose: 5 mg General: no acute distress, other (obese) HEENT: atraumatic, normocephalic, PERRLA Neck: supple, no thyromegaly, no lymphadenopathy Cardiovascular: S1S2, regular Lungs: clear to percussion, crackles Abdomen: soft, no tender, no distended Extremities: no cyanosis, no clubbing, no edema Neurological: awake, alert, oriented, CN 2-12 intact Skin: intact - Procedures Procedures: Procedures Procedure Code Date CHOLECYSTECTOMY 51.22 07/31/14 TERRY SUBQ TISSUE 20 SQ CM/< 74304 07/08/15 EXTRACTION OF RIGHT LOWER LEG SKIN, EXTERNAL APPROACH [id number] 07/08/15 REMOVAL OF GALLBLADDER 48855 07/31/14 REPLACE R LOW LEG SKIN W AUTOL SUB, FULL THICK, CYBER REVERSE ENGINEER [id number] 07/08/15 SKIN FULL GRAFT SCLP/ARM/LEG 97052 07/08/15 Infectious Disease Assmt/Plan - Problem List Patient Problems: All Active Problems Atrial fibrillation with rapid ventricular response (Acute) I48.91 ELEVATED WBC AND RIGHT LOWER LEG ULCER (Acute) Pneumonia (Acute) J18.9 Sepsis (Acute) - Assessment Assessment: 1. Leukocytosis, reactive suspect sepsis. 2. Cellulitis of both feet and legs. 3. Suspect congestive heart failure. Chest x-ray showed cardiomegaly, no focal pulmonary process. 4. Diabetes mellitus. 5. Atrial fibrillation. 6. Obesity. 7. Onychomycosis. - Plan Plan: RECOMMENDATION: Continue vancomycin and dc cefepime. Check CBC in Am. Apply lamisil. check cortisol levels. check arterial study.
--- NOTE | 2016-10-26 14:58 | Diagnostic Imaging Report ---
Bilateral lower extremity Doppler arterial ultrasound exam HISTORY: Swelling, cellulitis Sonographic sector images were obtained through the arterial systems of both legs. Associated Doppler data was obtained. The exam of the right leg demonstrates biphasic waveforms within the common femoral, superficial femoral, anterior tibial, posterior tibial, dorsalis pedis arteries. Triphasic waveforms are noted through the right popliteal artery. Increased velocity noted within the midportion of the right superficial femoral artery. The right ankle-brachial index is normal (1.2). Sonographic images demonstrate mild diffuse atherosclerotic changes throughout the arterial system. No manas occlusion is seen. The exam the left leg demonstrates triphasic waveforms within the common femoral and proximal portion of the left superficial femoral artery. Biphasic waveforms are seen through the remainder of the arterial system the left leg. There is an abnormal decrease in velocity with the left dorsalis pedis artery. The left ankle-brachial index is normal (1.3). Sonographic images demonstrate mild diffuse atherosclerotic changes through the upper leg with more more moderate to severe diffuse atherosclerotic changes in the lower leg. No manas occlusion. IMPRESSION: 1. Mild diffuse athetotic changes throughout the right lung 2. Evidence of mild to moderate atherosclerotic changes throughout the left leg that appears somewhat more severe below the knee. No manas occlusion.
--- NOTE | 2016-10-26 15:57 | Internal Medicine Prog Note ---
Internal Medicine Subjective - Subjective Patient seen and examined:: with staff, chart reviewed Patient is:: awake, interactive, denies any new complaints Patient Complaints of:: congestion Per staff patient is:: no adverse event Internal Medicine Objective - Results Result Diagrams: 10/26/16 05:40 10/26/16 05:40 Recent Labs: Laboratory Last Values WBC 21.4 Th/cmm (4.8-10.8) H* D 10/26/16 05:40 RBC 5.13 Mil/cmm (3.80-5.80) 10/26/16 05:40 Hgb 13.9 gm/dL (12.6-17.4) 10/26/16 05:40 Hct 41.6 % (39.0-49.0) D 10/26/16 05:40 MCV 81.2 fl (80-99) 10/26/16 05:40 MCH 27.1 pg (27.0-31.0) 10/26/16 05:40 MCHC Differential 33.4 pg (28.0-36.0) 10/26/16 05:40 RDW 13.7 % (11.5-20.0) 10/26/16 05:40 Plt Count 172 Th/cmm (150-400) D 10/26/16 05:40 MPV 8.8 fl 10/26/16 05:40 Neutrophils % 41.8 % (40.0-80.0) 10/25/16 05:30 Band Neutrophils % 1 % (0-10) 10/26/16 05:40 Lymphocytes % 49.8 % (20.0-50.0) 10/25/16 05:30 Monocytes % 6.7 % (2.0-10.0) 10/25/16 05:30 Eosinophils % 1.7 % (0.0-5.0) 10/25/16 05:30 Basophils % 0.0 % (0.0-2.0) 10/25/16 05:30 Neutrophils (Manual) 41 % (40-80) 10/26/16 05:40 Lymphocytes 39 % (20-50) 10/26/16 05:40 Monocytes 6 % (2-10) 10/26/16 05:40 Eosinophils 3 % (0-5) 10/26/16 05:40 Basophils 1 % (0-3) 10/26/16 05:40 Metamyelocytes 1 % (0-0) H 10/26/16 05:40 Atypical Lymphocytes 8 % 10/26/16 05:40 Platelet Estimate ADEQUATE (NORMAL) 10/26/16 05:40 Platelet Morphology NORMAL (NORMAL) 10/26/16 05:40 RBC Morph Micro Appear NORMAL (NORMAL) 10/26/16 05:40 PT 22.4 SECONDS (9.5-11.5) H 10/20/16 21:51 INR 2.15 (0.5-1.4) H 10/20/16 21:51 PTT (Actin FS) 47.9 SECONDS (26.0-38.0) H 10/20/16 21:51 D-Dimer < 100 ng/mL (100-400) L 10/20/16 21:51 Sodium 137 mEq/L (136-145) 10/26/16 05:40 Potassium 4.1 mEq/L (3.5-5.1) 10/26/16 05:40 Chloride 103 mEq/L (98-107) 10/26/16 05:40 Carbon Dioxide 27.3 mEq/L (21.0-31.0) 10/26/16 05:40 Anion Gap 10.8 (7.0-16.0) 10/26/16 05:40 BUN 16 mg/dL (7-25) 10/26/16 05:40 Creatinine 1.2 mg/dL (0.7-1.3) 10/26/16 05:40 Est GFR ( Amer) > 60.0 ml/min 10/26/16 05:40 Est GFR (Non-Af Amer) > 60.0 ml/min 10/26/16 05:40 BUN/Creatinine Ratio 13.3 10/26/16 05:40 Glucose 149 mg/dL (70-105) H 10/26/16 05:40 POC Glucose 225 MG/DL (70 - 105) H 10/26/16 11:31 Calcium 9.1 mg/dL (8.6-10.3) 10/26/16 05:40 Magnesium 1.8 mg/dL (1.9-2.7) L 10/23/16 06:24 Total Bilirubin 0.9 mg/dL (0.3-1.0) 10/23/16 06:24 AST 12 U/L (13-39) L 10/23/16 06:24 ALT 5 U/L (7-52) L 10/23/16 06:24 Alkaline Phosphatase 104 U/L (34-104) 10/23/16 06:24 Troponin I < 0.01 ng/mL (0.01-0.05) L 10/20/16 21:51 B-Natriuretic Peptide 222.0 pg/mL (5.0-100.0) H 10/26/16 05:40 Total Protein 6.5 gm/dL (6.0-8.3) 10/23/16 06:24 Albumin 3.6 gm/dL (4.2-5.5) L 10/23/16 06:24 Globulin 2.9 gm/dL 10/23/16 06:24 Albumin/Globulin Ratio 1.2 (1.0-1.8) 10/23/16 06:24 Triglycerides 149 mg/dL (<150) 10/23/16 06:24 Cholesterol 154 mg/dL (<200) 10/23/16 06:24 LDL Cholesterol Direct 103 mg/dL (75-193) 10/23/16 06:24 HDL Cholesterol 34 mg/dL (23-92) 10/23/16 06:24 Vancomycin Trough 23.9 ug/mL (10-20) H 10/26/16 05:40 Random Vancomycin 26.9 ug/mL (5.0-40.0) 10/25/16 05:30 - Physical Exam Vitals and I&O: Vital Signs Temp 98.5 F 10/26/16 12:00 Pulse 82 10/26/16 12:00 Resp 20 10/26/16 12:00 BP 138/81 10/26/16 12:00 Pulse Ox 92 10/26/16 12:00 Intake & Output 10/25/16 10/26/16 10/26/16 18:59 06:59 18:59 Intake Total 600 600 Output Total 90 Balance 510 600 Intake: Intake, IV Amount 100 600 Cefepime 2 gm In Sodium 100 100 Chloride 0.9% 100 ml @ 100 mls/hr IV Q12H [facility] Rx #:[id number] Vancomycin HCl 1.5 gm In 500 Sodium Chloride 0.9% 500 ml @ 250 mls/hr IV Q12H [facility] Rx#:[id number] Oral 500 Output: Urine 90 Other: # Voids 3 Active Medications: Current Medications Acetaminophen (Tylenol) 650 mg PO Q4HR PRN PRN Reason: Pain or Fever >101 Stop: 12/20/16 08:34 Last Admin: 10/26/16 10:06 Dose: 650 mg Acetaminophen/Hydrocodone Bitart ([place]ib[place] 10 Mg/325 Mg) 1 tab PO Q4H PRN PRN Reason: Pain (Severe) Stop: 12/20/16 01:45 Last Admin: 10/25/16 15:24 Dose: 1 tab Albuterol Sulfate (Albuterol 2.5mg/3ml Neb Ud) 2.5 mg HHN Q6H PRN PRN Reason: Cough Stop: 12/23/16 16:55 Last Admin: 10/25/16 13:41 Dose: 2.5 mg Amiodarone HCl (Cordarone) 200 mg PO DAILY [facility] Stop: 12/20/16 08:59 Last Admin: 10/26/16 10:10 Dose: 200 mg Bisacodyl (Dulcolax 10 Mg Supp) 10 mg RC DAILY PRN PRN Reason: Constipation Stop: 12/22/16 15:54 Last Admin: 10/23/16 17:56 Dose: 10 mg Calcium Carbonate (Tums) 1,000 mg PO Q6H PRN PRN Reason: gi upset Stop: 12/20/16 08:34 Last Admin: 10/25/16 11:04 Dose: 1,000 mg Cyanocobalamin (Vitamin B12) 1,000 mcg PO DAILY [facility] Stop: 12/20/16 08:59 Last Admin: 10/26/16 10:10 Dose: 1,000 mcg Docusate Sodium (Colace) 100 mg PO BID [facility] Stop: 12/20/16 08:59 Last Admin: 10/26/16 10:08 Dose: 100 mg Furosemide (Lasix) 40 mg PO DAILY [facility] Stop: 12/20/16 08:59 Last Admin: 10/26/16 10:07 Dose: 40 mg Glipizide (Glucotrol) 10 mg PO BID [facility] Stop: 12/20/16 16:59 Last Admin: 10/26/16 12:52 Dose: 10 mg Cefepime HCl 2 gm/ Sodium (Chloride) 100 mls @ 100 mls/hr IV Q12H [facility] Stop: 12/21/16 20:59 Last Admin: 10/26/16 09:47 Dose: 100 mls/hr Vancomycin HCl 1.5 gm/ Sodium (Chloride) 500 mls @ 250 mls/hr IV Q12H [facility] Stop: 12/24/16 21:59 Last Admin: 10/26/16 10:53 Dose: 250 mls/hr Insulin Aspart (Novolog Insulin Sliding Scale) 0 units SUBQ ACHS [facility] PRN Reason: Protocol Stop: 12/20/16 07:29 Last Admin: 10/26/16 12:50 Dose: 4 units Insulin Aspart (Novolog) 10 units SUBQ TID [facility] Stop: 12/20/16 13:59 Last Admin: 10/26/16 10:00 Dose: 10 units Insulin Detemir (Levemir Insulin) 50 units SUBQ DAILY [facility] PRN Reason: Protocol Stop: 12/20/16 08:59 Last Admin: 10/26/16 10:05 Dose: 50 units Losartan Potassium (Cozaar) 50 mg PO DAILY [facility] Stop: 12/20/16 08:59 Last Admin: 10/26/16 10:05 Dose: 50 mg Magnesium Hydroxide (Milk Of Magnesia) 30 ml PO HS PRN PRN Reason: Constipation Stop: 12/20/16 08:34 Last Admin: 10/26/16 10:12 Dose: 30 ml Metformin HCl (Glucophage) 1,000 mg PO BID [facility] Stop: 12/20/16 16:59 Last Admin: 10/26/16 10:09 Dose: 1,000 mg Metoprolol Tartrate (Lopressor) 25 mg PO BID [facility] Stop: 12/20/16 08:59 Last Admin: 10/26/16 10:09 Dose: 25 mg Miscellaneous (Vancomycin Iv Per Pharmacy) 1 ea PRN PRN PRN Reason: PROTOCOL Stop: 12/19/16 23:31 Miscellaneous (Clinical Monitoring) 1 ea MC PRN PRN PRN Reason: CEFEPIME RENAL DOSE Stop: 12/21/16 12:14 Nitroglycerin (Nitrostat) 0.4 mg SL Q5MIN PRN PRN Reason: Chest Pain Stop: 12/20/16 08:34 Potassium Chloride (Klor-Con) 10 meq PO DAILY [facility] Stop: 12/20/16 08:59 Last Admin: 10/26/16 10:10 Dose: 10 meq Senna (Senna) 17.2 mg PO HS [facility] Stop: 12/20/16 20:59 Last Admin: 10/25/16 22:47 Dose: 17.2 mg Terbinafine HCl (Lamisil 1% Cream) 1 appl TP DAILY [facility] Stop: 12/22/16 08:59 Last Admin: 10/26/16 10:11 Dose: 1 appl Warfarin Sodium (Coumadin) 5 mg PO QPM [facility] PRN Reason: Protocol Stop: 12/20/16 16:59 Last Admin: 10/24/16 16:48 Dose: 5 mg General: alert, obese HEENT: NC/AT, PERRLA Neck: Supple, No JVD Lungs: congested Cardiovascular: RRR, Normal S1 Abdomen: soft non-tender, globular, positive bowel sound Extremities: edema, excoriation Neurological: no change - Procedures Procedures: Procedures Procedure Code Date CHOLECYSTECTOMY 51.22 07/31/14 TERRY SUBQ TISSUE 20 SQ CM/< 99613 07/08/15 EXTRACTION OF RIGHT LOWER LEG SKIN, EXTERNAL APPROACH [id number] 07/08/15 REMOVAL OF GALLBLADDER 44553 07/31/14 REPLACE R LOW LEG SKIN W AUTOL SUB, FULL THICK, [employer] [id number] 07/08/15 SKIN FULL GRAFT SCLP/ARM/LEG [id number] 07/08/15 Internal Medicine Assmt/Plan - Assessment Assessment: BILATERAL LOWER EXTREMITY CELLULITIS, INFECTED ULCER ON RIGHT LEG LEUKOCYTOSIS WITH 60% LYMPHOCYTE PREDOMINANCE, CHRONIC LYMPHOTCYTIC LEUKEMIA? DM-2 CHRONIC AFIB HTN HYPERLIPIDEMIA DJD - Plan Plan: cont on iv abx wound care cont on coumadin dw direct support staff
[2016-10-26] MEDS: Hydrocodone/APAP 10 mg/325 mg Tab PO PRN (21:51)
[2016-10-27] MEDS: INSULIN ASPART, RECOMBINANT 100 UNITS/ML SUBQ SCH ×4 (04:35→21:43)
[2016-10-27] MEDS: INSULIN ASPART SLIDING SCALE 100 UNITS/ML UNIT SUBQ SCH ×4 (07:24→21:48)
[2016-10-27 07:33] LABS: HEMOGLOBIN 12.8 gm/dL (12.6-17.4); MEAN CELL VOLUME 82.1 fl (80-99); MEAN CORPUSCULAR HEMOGLOBIN 27.8 pg (27.0-31.0); MEAN CORPUSCULAR HGB CONC 33.8 pg (28.0-36.0); MEAN PLATELET VOLUME 8.6 fl; PLATELET COUNT 147 Th/cmm (150-400); RED BLOOD COUNT 4.62 Mil/cmm (3.80-5.80); RED CELL DISTRIBUTION WIDTH 13.9 % (11.5-20.0)
[2016-10-27 07:41] LABS: ANION GAP 5.5 (7.0-16.0); BUN - UREA NITROGEN 16 mg/dL (7-25); BUN/CREATININE RATIO 14.5; CALCIUM SERUM 8.4 mg/dL (8.6-10.3); CARBON DIOXIDE 30.9 mEq/L (21.0-31.0); CHLORIDE 102 mEq/L (98-107); CREATININE - SERUM 1.1 mg/dL (0.7-1.3); GLUCOSE 192 mg/dL (70-105); POTASSIUM SERUM 4.4 mEq/L (3.5-5.1); SODIUM SERUM 134 mEq/L (136-145)
[2016-10-27 07:58] LABS: INR 1.86 (0.5-1.4); PROTHROMBIN TIME (TEST) 19.1 SECONDS (9.5-11.5)
[2016-10-27 08:57] LABS: WHITE BLOOD COUNT 22.4 Th/cmm (4.8-10.8)
[2016-10-27] MEDS: Potassium Chloride 10 mEq ER Tab PO SCH (10:04)
[2016-10-27] MEDS: Multivitamin w/ Minerals Tab PO SCH (10:04)
[2016-10-27] MEDS: TERBINAFINE 1% TP SCH (10:11)
[2016-10-27] MEDS: Venelex 60gm Tube TP SCH (10:11)
[2016-10-27 10:22] LABS: EOSINOPHIL 2 % (0-5); NEUTROPHILS 52 % (40-80); TOTAL CELLS COUNTED 100
[2016-10-27 10:23] LABS: PLATELET ESTIMATE ADEQUATE (NORMAL); PLATELET MORPHOLOGY GIANT PLATELETS SEEN (NORMAL)
[2016-10-27] MEDS: Cefepime 2 gm in 0.9% NS 100 mL IV SCH ×2 (10:33→20:31)
[2016-10-27] MEDS: Insulin Detemir 100 units/mL 10mL Vial SUBQ SCH (10:41)
--- NOTE | 2016-10-27 13:13 | Internal Medicine Prog Note ---
Internal Medicine Subjective - Subjective Service Date: 10/27/16 Patient seen and examined:: with staff Patient is:: awake Per staff patient is:: no adverse event Internal Medicine Objective - Results Result Diagrams: 10/27/16 06:36 10/27/16 06:36 Recent Labs: Laboratory Last Values WBC 22.4 Th/cmm (4.8-10.8) H* 10/27/16 06:36 RBC 4.62 Mil/cmm (3.80-5.80) 10/27/16 06:36 Hgb 12.8 gm/dL (12.6-17.4) 10/27/16 06:36 Hct 38.0 % (39.0-49.0) L 10/27/16 06:36 MCV 82.1 fl (80-99) 10/27/16 06:36 MCH 27.8 pg (27.0-31.0) 10/27/16 06:36 MCHC Differential 33.8 pg (28.0-36.0) 10/27/16 06:36 RDW 13.9 % (11.5-20.0) 10/27/16 06:36 Plt Count 147 Th/cmm (150-400) L 10/27/16 06:36 MPV 8.6 fl 10/27/16 06:36 Neutrophils % 41.8 % (40.0-80.0) 10/25/16 05:30 Band Neutrophils % 1 % (0-10) 10/26/16 05:40 Lymphocytes % 49.8 % (20.0-50.0) 10/25/16 05:30 Monocytes % 6.7 % (2.0-10.0) 10/25/16 05:30 Eosinophils % 1.7 % (0.0-5.0) 10/25/16 05:30 Basophils % 0.0 % (0.0-2.0) 10/25/16 05:30 Neutrophils (Manual) 52 % (40-80) 10/27/16 06:36 Lymphocytes 35 % (20-50) 10/27/16 06:36 Monocytes 5 % (2-10) 10/27/16 06:36 Eosinophils 2 % (0-5) 10/27/16 06:36 Basophils 1 % (0-3) 10/26/16 05:40 Metamyelocytes 1 % (0-0) H 10/26/16 05:40 Atypical Lymphocytes 6 % 10/27/16 06:36 Platelet Estimate ADEQUATE (NORMAL) 10/27/16 06:36 Platelet Morphology GIANT PLATELETS SEEN (NORMAL) 10/27/16 06:36 RBC Morph Micro Appear NORMAL (NORMAL) 10/27/16 06:36 PT 19.1 SECONDS (9.5-11.5) H 10/27/16 06:36 INR 1.86 (0.5-1.4) H 10/27/16 06:36 PTT (Actin FS) 47.9 SECONDS (26.0-38.0) H 10/20/16 21:51 D-Dimer < 100 ng/mL (100-400) L 10/20/16 21:51 Sodium 134 mEq/L (136-145) L 10/27/16 06:36 Potassium 4.4 mEq/L (3.5-5.1) 10/27/16 06:36 Chloride 102 mEq/L (98-107) 10/27/16 06:36 Carbon Dioxide 30.9 mEq/L (21.0-31.0) 10/27/16 06:36 Anion Gap 5.5 (7.0-16.0) L 10/27/16 06:36 BUN 16 mg/dL (7-25) 10/27/16 06:36 Creatinine 1.1 mg/dL (0.7-1.3) 10/27/16 06:36 Est GFR ( Amer) > 60.0 ml/min 10/27/16 06:36 Est GFR (Non-Af Amer) > 60.0 ml/min 10/27/16 06:36 BUN/Creatinine Ratio 14.5 10/27/16 06:36 Glucose 192 mg/dL (70-105) H 10/27/16 06:36 POC Glucose 232 MG/DL (70 - 105) H 10/27/16 10:36 Hemoglobin A1c % 7.3 % (4.0-6.0) H 10/27/16 06:36 Calcium 8.4 mg/dL (8.6-10.3) L 10/27/16 06:36 Magnesium 1.8 mg/dL (1.9-2.7) L 10/23/16 06:24 Total Bilirubin 0.9 mg/dL (0.3-1.0) 10/23/16 06:24 AST 12 U/L (13-39) L 10/23/16 06:24 ALT 5 U/L (7-52) L 10/23/16 06:24 Alkaline Phosphatase 104 U/L (34-104) 10/23/16 06:24 Troponin I < 0.01 ng/mL (0.01-0.05) L 10/20/16 21:51 B-Natriuretic Peptide 222.0 pg/mL (5.0-100.0) H 10/26/16 05:40 Total Protein 6.5 gm/dL (6.0-8.3) 10/23/16 06:24 Albumin 3.6 gm/dL (4.2-5.5) L 10/23/16 06:24 Globulin 2.9 gm/dL 10/23/16 06:24 Albumin/Globulin Ratio 1.2 (1.0-1.8) 10/23/16 06:24 Triglycerides 149 mg/dL (<150) 10/23/16 06:24 Cholesterol 154 mg/dL (<200) 10/23/16 06:24 LDL Cholesterol Direct 103 mg/dL (75-193) 10/23/16 06:24 HDL Cholesterol 34 mg/dL (23-92) 10/23/16 06:24 Vancomycin Trough 22.5 ug/mL (10-20) H 10/27/16 09:25 Random Vancomycin 26.9 ug/mL (5.0-40.0) 10/25/16 05:30 - Physical Exam Vitals and I&O: Vital Signs Temp 97.6 F 10/27/16 12:05 Pulse 97 10/27/16 12:05 Resp 20 10/27/16 12:05 BP 100/55 10/27/16 12:05 Pulse Ox 90 10/27/16 12:05 Intake & Output 10/26/16 10/27/16 10/27/16 18:59 06:59 18:59 Intake Total 1950 400 Output Total 400 Balance 1950 0 Intake: Intake, IV Amount 600 100 Cefepime 2 gm In Sodium 100 100 Chloride 0.9% 100 ml @ 100 mls/hr IV Q12H [facility] Rx #:[id number] Vancomycin HCl 1.5 gm In 500 Sodium Chloride 0.9% 500 ml @ 250 mls/hr IV Q12H [facility] Rx#:[id number] Oral 1000 300 Other 350 Output: Urine 400 Other: # Voids 5 4 Active Medications: Current Medications Acetaminophen (Tylenol) 650 mg PO Q4HR PRN PRN Reason: Pain or Fever >101 Stop: 12/20/16 08:34 Last Admin: 10/26/16 16:57 Dose: 650 mg Acetaminophen/Hydrocodone Bitart ([place] 10 Mg/325 Mg) 1 tab PO Q4H PRN PRN Reason: Pain (Severe) Stop: 12/20/16 01:45 Last Admin: 10/26/16 21:51 Dose: 1 tab Albuterol Sulfate (Albuterol 2.5mg/3ml Neb Ud) 2.5 mg HHN Q6H PRN PRN Reason: Cough Stop: 12/23/16 16:55 Last Admin: 10/25/16 13:41 Dose: 2.5 mg Amiodarone HCl (Cordarone) 200 mg PO DAILY [facility] Stop: 12/20/16 08:59 Last Admin: 10/27/16 10:04 Dose: 200 mg Bisacodyl (Dulcolax 10 Mg Supp) 10 mg RC DAILY PRN PRN Reason: Constipation Stop: 12/22/16 15:54 Last Admin: 10/23/16 17:56 Dose: 10 mg Calcium Carbonate (Tums) 1,000 mg PO Q6H PRN PRN Reason: gi upset Stop: 12/20/16 08:34 Last Admin: 10/25/16 11:04 Dose: 1,000 mg Cyanocobalamin (Vitamin B12) 1,000 mcg PO DAILY [facility] Stop: 12/20/16 08:59 Last Admin: 10/27/16 10:09 Dose: 1,000 mcg Docusate Sodium (Colace) 100 mg PO BID [facility] Stop: 12/20/16 08:59 Last Admin: 10/27/16 10:05 Dose: 100 mg Furosemide (Lasix) 40 mg PO DAILY [facility] Stop: 12/20/16 08:59 Last Admin: 10/27/16 10:04 Dose: 40 mg Glipizide (Glucotrol) 10 mg PO BID [facility] Stop: 12/20/16 16:59 Last Admin: 10/27/16 10:05 Dose: 10 mg Cefepime HCl 2 gm/ Sodium (Chloride) 100 mls @ 100 mls/hr IV Q12H [facility] Stop: 12/21/16 20:59 Last Admin: 10/27/16 10:33 Dose: 100 mls/hr Vancomycin HCl 1.5 gm/ Sodium (Chloride) 500 mls @ 250 mls/hr IV Q12H [facility] Stop: 12/26/16 20:59 Insulin Aspart (Novolog Insulin Sliding Scale) 0 units SUBQ ACHS [facility] PRN Reason: Protocol Stop: 12/20/16 07:29 Last Admin: 10/27/16 11:23 Dose: Not Given Insulin Aspart (Novolog) 10 units SUBQ TID [facility] Stop: 12/20/16 13:59 Last Admin: 10/27/16 10:39 Dose: 10 units Insulin Detemir (Levemir Insulin) 50 units SUBQ DAILY [facility] PRN Reason: Protocol Stop: 12/20/16 08:59 Last Admin: 10/27/16 10:41 Dose: 50 units Losartan Potassium (Cozaar) 50 mg PO DAILY [facility] Stop: 12/20/16 08:59 Last Admin: 10/27/16 10:05 Dose: 50 mg Magnesium Hydroxide (Milk Of Magnesia) 30 ml PO PRN PRN Reason: Constipation Stop: 12/20/16 08:34 Last Admin: 10/26/16 10:12 Dose: 30 ml Metformin HCl (Glucophage) 1,000 mg PO BID [facility] Stop: 12/20/16 16:59 Last Admin: 10/27/16 10:04 Dose: 1,000 mg Metoprolol Tartrate (Lopressor) 25 mg PO BID [facility] Stop: 12/20/16 08:59 Last Admin: 10/27/16 10:05 Dose: 25 mg Miscellaneous (Vancomycin Iv Per Pharmacy) 1 ea [facility] PRN PRN PRN Reason: PROTOCOL Stop: 12/19/16 23:31 Miscellaneous (Clinical Monitoring) 1 ea [facility] PRN PRN PRN Reason: CEFEPIME RENAL DOSE Stop: 12/21/16 12:14 Nitroglycerin (Nitrostat) 0.4 mg SL Q5MIN PRN PRN Reason: Chest Pain Stop: 12/20/16 08:34 Potassium Chloride (Klor-Con) 10 meq PO DAILY [facility] Stop: 12/20/16 08:59 Last Admin: 10/27/16 10:04 Dose: 10 meq Senna (Senna) 17.2 mg PO HS [facility] Stop: 12/20/16 20:59 Last Admin: 10/26/16 21:52 Dose: 17.2 mg Terbinafine HCl (Lamisil 1% Cream) 1 appl TP DAILY [facility] Stop: 12/22/16 08:59 Last Admin: 10/27/16 10:11 Dose: 1 appl Warfarin Sodium (Coumadin) 5 mg PO QPM [facility] PRN Reason: Protocol Stop: 12/20/16 16:59 Last Admin: 10/26/16 16:57 Dose: 5 mg General: alert HEENT: NC/AT, PERRLA Neck: Supple Lungs: CTAB Cardiovascular: RRR, Normal S1, Normal S2, without murmur Abdomen: soft non-tender, non-distended, positive bowel sound Neurological: no change - Procedures Procedures: Procedures Procedure Code Date CHOLECYSTECTOMY 51.22 07/31/14 TERRY SUBQ TISSUE 20 SQ CM/< 58831 07/08/15 EXTRACTION OF RIGHT LOWER LEG SKIN, EXTERNAL APPROACH [id number] 07/08/15 REMOVAL OF GALLBLADDER [id number] 07/31/14 REPLACE R LOW LEG SKIN W AUTOL SUB, FULL THICK, [employer] [id number] 07/08/15 SKIN FULL GRAFT SCLP/ARM/LEG [id number] 07/08/15 Internal Medicine Assmt/Plan - Assessment Assessment: BILATERAL LOWER EXTREMITY CELLULITIS, INFECTED ULCER ON RIGHT LEG LEUKOCYTOSIS WITH 60% LYMPHOCYTE PREDOMINANCE, CHRONIC LYMPHOTCYTIC LEUKEMIA? DM-2 CHRONIC AFIB HTN HYPERLIPIDEMIA DJD - Plan Plan: LTAC eval wound care ivabx cbc/bmp in am
[2016-10-27] MEDS ORDERED: Magnesium Citrate 1.75 GM/300 mL Bottle PO ONE (15:00)
[2016-10-27] MEDS ORDERED: Vancomycin HCl 1.5 GM in Sodium Chloride 0.9% 500 ML IV SCH (18:00)
[2016-10-27] MEDS: Vancomycin HCl 1.5 GM in Sodium Chloride 0.9% 500 ML IV SCH (21:42)
--- NOTE | 2016-10-27 23:03 | Infectious Disease Prog Note ---
Infectious Disease Subjective - Review of Systems Service Date: 10/27/16 Subjective: No new change. No fever, no diarrhea. No abd pain. there is darkening of the skin in lower extremities, with edema, there is superficial ulcer on right leg. Infectious Disease Objective - Results Result Diagrams: 10/27/16 06:36 10/27/16 06:36 Recent Labs: Laboratory Last Values WBC 22.4 Th/cmm (4.8-10.8) H* 10/27/16 06:36 RBC 4.62 Mil/cmm (3.80-5.80) 10/27/16 06:36 Hgb 12.8 gm/dL (12.6-17.4) 10/27/16 06:36 Hct 38.0 % (39.0-49.0) L 10/27/16 06:36 MCV 82.1 fl (80-99) 10/27/16 06:36 MCH 27.8 pg (27.0-31.0) 10/27/16 06:36 MCHC Differential 33.8 pg (28.0-36.0) 10/27/16 06:36 RDW 13.9 % (11.5-20.0) 10/27/16 06:36 Plt Count 147 Th/cmm (150-400) L 10/27/16 06:36 MPV 8.6 fl 10/27/16 06:36 Neutrophils % 41.8 % (40.0-80.0) 10/25/16 05:30 Band Neutrophils % 1 % (0-10) 10/26/16 05:40 Lymphocytes % 49.8 % (20.0-50.0) 10/25/16 05:30 Monocytes % 6.7 % (2.0-10.0) 10/25/16 05:30 Eosinophils % 1.7 % (0.0-5.0) 10/25/16 05:30 Basophils % 0.0 % (0.0-2.0) 10/25/16 05:30 Neutrophils (Manual) 52 % (40-80) 10/27/16 06:36 Lymphocytes 35 % (20-50) 10/27/16 06:36 Monocytes 5 % (2-10) 10/27/16 06:36 Eosinophils 2 % (0-5) 10/27/16 06:36 Basophils 1 % (0-3) 10/26/16 05:40 Metamyelocytes 1 % (0-0) H 10/26/16 05:40 Atypical Lymphocytes 6 % 10/27/16 06:36 Platelet Estimate ADEQUATE (NORMAL) 10/27/16 06:36 Platelet Morphology GIANT PLATELETS SEEN (NORMAL) 10/27/16 06:36 RBC Morph Micro Appear NORMAL (NORMAL) 10/27/16 06:36 PT 19.1 SECONDS (9.5-11.5) H 10/27/16 06:36 INR 1.86 (0.5-1.4) H 10/27/16 06:36 PTT (Actin FS) 47.9 SECONDS (26.0-38.0) H 10/20/16 21:51 D-Dimer < 100 ng/mL (100-400) L 10/20/16 21:51 Sodium 134 mEq/L (136-145) L 10/27/16 06:36 Potassium 4.4 mEq/L (3.5-5.1) 10/27/16 06:36 Chloride 102 mEq/L (98-107) 10/27/16 06:36 Carbon Dioxide 30.9 mEq/L (21.0-31.0) 10/27/16 06:36 Anion Gap 5.5 (7.0-16.0) L 10/27/16 06:36 BUN 16 mg/dL (7-25) 10/27/16 06:36 Creatinine 1.1 mg/dL (0.7-1.3) 10/27/16 06:36 Est GFR ( Amer) > 60.0 ml/min 10/27/16 06:36 Est GFR (Non-Af Amer) > 60.0 ml/min 10/27/16 06:36 BUN/Creatinine Ratio 14.5 10/27/16 06:36 Glucose 192 mg/dL (70-105) H 10/27/16 06:36 POC Glucose 150 MG/DL (70 - 105) H 10/27/16 20:59 Hemoglobin A1c % 7.3 % (4.0-6.0) H 10/27/16 06:36 Calcium 8.4 mg/dL (8.6-10.3) L 10/27/16 06:36 Magnesium 1.8 mg/dL (1.9-2.7) L 10/23/16 06:24 Total Bilirubin 0.9 mg/dL (0.3-1.0) 10/23/16 06:24 AST 12 U/L (13-39) L 10/23/16 06:24 ALT 5 U/L (7-52) L 10/23/16 06:24 Alkaline Phosphatase 104 U/L (34-104) 10/23/16 06:24 Troponin I < 0.01 ng/mL (0.01-0.05) L 10/20/16 21:51 B-Natriuretic Peptide 222.0 pg/mL (5.0-100.0) H 10/26/16 05:40 Total Protein 6.5 gm/dL (6.0-8.3) 10/23/16 06:24 Albumin 3.6 gm/dL (4.2-5.5) L 10/23/16 06:24 Globulin 2.9 gm/dL 10/23/16 06:24 Albumin/Globulin Ratio 1.2 (1.0-1.8) 10/23/16 06:24 Triglycerides 149 mg/dL (<150) 10/23/16 06:24 Cholesterol 154 mg/dL (<200) 10/23/16 06:24 LDL Cholesterol Direct 103 mg/dL (75-193) 10/23/16 06:24 HDL Cholesterol 34 mg/dL (23-92) 10/23/16 06:24 Vancomycin Trough 22.5 ug/mL (10-20) H 10/27/16 09:25 Random Vancomycin 26.9 ug/mL (5.0-40.0) 10/25/16 05:30 - Physical Exam Vitals and I&O: Vital Signs Temp 98.4 F 10/27/16 22:31 Pulse 78 10/27/16 22:31 Resp 18 10/27/16 22:31 BP 145/96 10/27/16 22:31 Pulse Ox 92 10/27/16 22:31 Intake & Output 10/27/16 10/27/16 10/28/16 06:59 18:59 06:59 Intake Total 400 1120 Output Total 400 Balance 0 1120 Intake: Intake, IV Amount 100 100 Cefepime 2 gm In Sodium 100 100 Chloride 0.9% 100 ml @ 100 mls/hr IV Q12H [facility] Rx #:[id number] Oral 300 1020 Output: Urine 400 Other: # Voids 4 900 # Bowel Movements 1 Active Medications: Current Medications Acetaminophen (Tylenol) 650 mg PO Q4HR PRN PRN Reason: Pain or Fever >101 Stop: 12/20/16 08:34 Last Admin: 10/26/16 16:57 Dose: 650 mg Acetaminophen/Hydrocodone Bitart ([place] 10 Mg/325 Mg) 1 tab PO Q4H PRN PRN Reason: Pain (Severe) Stop: 12/20/16 01:45 Last Admin: 10/26/16 21:51 Dose: 1 tab Albuterol Sulfate (Albuterol 2.5mg/3ml Neb Ud) 2.5 mg HHN Q6H PRN PRN Reason: Cough Stop: 12/23/16 16:55 Last Admin: 10/25/16 13:41 Dose: 2.5 mg Amiodarone HCl (Cordarone) 200 mg PO DAILY [facility] Stop: 12/20/16 08:59 Last Admin: 10/27/16 10:04 Dose: 200 mg Bisacodyl (Dulcolax 10 Mg Supp) 10 mg RC DAILY PRN PRN Reason: Constipation Stop: 12/22/16 15:54 Last Admin: 10/23/16 17:56 Dose: 10 mg Calcium Carbonate (Tums) 1,000 mg PO Q6H PRN PRN Reason: gi upset Stop: 12/20/16 08:34 Last Admin: 10/25/16 11:04 Dose: 1,000 mg Cyanocobalamin (Vitamin B12) 1,000 mcg PO DAILY [facility] Stop: 12/20/16 08:59 Last Admin: 10/27/16 10:09 Dose: 1,000 mcg Docusate Sodium (Colace) 100 mg PO BID [facility] Stop: 12/20/16 08:59 Last Admin: 10/27/16 16:41 Dose: 100 mg Furosemide (Lasix) 40 mg PO DAILY [facility] Stop: 12/20/16 08:59 Last Admin: 10/27/16 10:04 Dose: 40 mg Glipizide (Glucotrol) 10 mg PO BID [facility] Stop: 12/20/16 16:59 Last Admin: 10/27/16 16:41 Dose: 10 mg Vancomycin HCl 1.5 gm/ Sodium (Chloride) 500 mls @ 250 mls/hr IV Q12H [facility] Stop: 12/26/16 20:59 Last Admin: 10/27/16 21:42 Dose: 250 mls/hr Piperacillin Sod/Tazobactam (Sod 4.5 gm/ Sodium Chloride) 100 mls @ 100 mls/hr IV Q8HR [facility] Stop: 12/27/16 04:59 Insulin Aspart (Novolog Insulin Sliding Scale) 0 units SUBQ ACHS [facility] PRN Reason: Protocol Stop: 12/20/16 07:29 Last Admin: 10/27/16 21:48 Dose: Not Given Insulin Aspart (Novolog) 10 units SUBQ TID [facility] Stop: 12/20/16 13:59 Last Admin: 10/27/16 21:43 Dose: 10 units Insulin Detemir (Levemir Insulin) 50 units SUBQ DAILY [facility] PRN Reason: Protocol Stop: 12/20/16 08:59 Last Admin: 10/27/16 10:41 Dose: 50 units Losartan Potassium (Cozaar) 50 mg PO DAILY [facility] Stop: 12/20/16 08:59 Last Admin: 10/27/16 10:05 Dose: 50 mg Magnesium Hydroxide (Milk Of Magnesia) 30 ml PO HS PRN PRN Reason: Constipation Stop: 12/20/16 08:34 Last Admin: 10/26/16 10:12 Dose: 30 ml Metformin HCl (Glucophage) 1,000 mg PO BID [facility] Stop: 12/20/16 16:59 Last Admin: 10/27/16 16:41 Dose: 1,000 mg Metoprolol Tartrate (Lopressor) 25 mg PO BID [facility] Stop: 12/20/16 08:59 Last Admin: 10/27/16 16:41 Dose: 25 mg Miscellaneous (Vancomycin Iv Per Pharmacy) 1 ea [facility] PRN PRN PRN Reason: PROTOCOL Stop: 12/19/16 23:31 Miscellaneous (Clinical Monitoring) 1 ea MC PRN PRN PRN Reason: CEFEPIME RENAL DOSE Stop: 12/21/16 12:14 Nitroglycerin (Nitrostat) 0.4 mg SL Q5MIN PRN PRN Reason: Chest Pain Stop: 12/20/16 08:34 Potassium Chloride (Klor-Con) 10 meq PO DAILY [facility] Stop: 12/20/16 08:59 Last Admin: 10/27/16 10:04 Dose: 10 meq Senna (Senna) 17.2 mg PO HS [facility] Stop: 12/20/16 20:59 Last Admin: 10/27/16 21:42 Dose: 17.2 mg Terbinafine HCl (Lamisil 1% Cream) 1 appl TP DAILY [facility] Stop: 12/22/16 08:59 Last Admin: 10/27/16 10:11 Dose: 1 appl Warfarin Sodium (Coumadin) 5 mg PO QPM [facility] PRN Reason: Protocol Stop: 12/20/16 16:59 Last Admin: 10/27/16 16:42 Dose: 5 mg General: no acute distress, well developed, well nourished, cachectic HEENT: atraumatic, normocephalic, PERRLA, EOMI Neck: supple Cardiovascular: S1S2, regular Lungs: clear to auscultation bilaterally, clear to percussion Abdomen: soft, no tender, no distended Extremities: no cyanosis, no clubbing, no edema Neurological: awake, alert, oriented Skin: intact - Procedures Procedures: Procedures Procedure Code Date CHOLECYSTECTOMY 51.22 07/31/14 TERRY SUBQ TISSUE 20 SQ CM/< 73040 07/08/15 EXTRACTION OF RIGHT LOWER LEG SKIN, EXTERNAL APPROACH [id number] 07/08/15 REMOVAL OF GALLBLADDER 86210 07/31/14 REPLACE R LOW LEG SKIN W AUTOL SUB, FULL THICK, FOLLOW UP CLERK [id number] 07/08/15 SKIN FULL GRAFT SCLP/ARM/LEG 60772 07/08/15 Infectious Disease Assmt/Plan - Problem List Patient Problems: All Active Problems Atrial fibrillation with rapid ventricular response (Acute) I48.91 ELEVATED WBC AND RIGHT LOWER LEG ULCER (Acute) Pneumonia (Acute) J18.9 Sepsis (Acute) - Assessment Assessment: 1. Leukocytosis, reactive, leukemoid reaction. ? 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 2. Cellulitis of both feet and legs. 3. Suspect congestive heart failure. Chest x-ray showed cardiomegaly, no focal pulmonary process. 4. Diabetes mellitus. 5. Atrial fibrillation. 6. Obesity. 7. Onychomycosis. - Plan Plan: RECOMMENDATION: Continue vancomycin and zosyn. Check CBC in Am. Apply lamisil. check cortisol levels. check arterial study. Hematology consult.
[2016-10-28] MEDS: INSULIN ASPART SLIDING SCALE 100 UNITS/ML UNIT SUBQ SCH ×4 (06:33→20:54)
[2016-10-28 07:42] LABS: HEMATOCRIT 38.5 % (39.0-49.0); HEMOGLOBIN 12.9 gm/dL (12.6-17.4); MEAN CELL VOLUME 83.2 fl (80-99); MEAN CORPUSCULAR HEMOGLOBIN 27.9 pg (27.0-31.0); MEAN CORPUSCULAR HGB CONC 33.5 pg (28.0-36.0); MEAN PLATELET VOLUME 8.7 fl; PLATELET COUNT 150 Th/cmm (150-400); RED BLOOD COUNT 4.62 Mil/cmm (3.80-5.80); RED CELL DISTRIBUTION WIDTH 13.9 % (11.5-20.0)
[2016-10-28 07:51] LABS: WHITE BLOOD COUNT 23.4 Th/cmm (4.8-10.8)
[2016-10-28 07:52] LABS: ANION GAP 7.6 (7.0-16.0); BUN - UREA NITROGEN 15 mg/dL (7-25); BUN/CREATININE RATIO 13.6; CALCIUM SERUM 8.4 mg/dL (8.6-10.3); CARBON DIOXIDE 31.4 mEq/L (21.0-31.0); CHLORIDE 102 mEq/L (98-107); CREATININE - SERUM 1.1 mg/dL (0.7-1.3); GLUCOSE 105 mg/dL (70-105); SODIUM SERUM 137 mEq/L (136-145)
[2016-10-28 08:52] LABS: EOSINOPHIL 2 % (0-5); NEUTROPHILS 45 % (40-80); TOTAL CELLS COUNTED 100
[2016-10-28 08:53] LABS: PLATELET ESTIMATE ADEQUATE (NORMAL); PLATELET MORPHOLOGY NORMAL (NORMAL)
[2016-10-28] MEDS: Insulin Detemir 100 units/mL 10mL Vial SUBQ SCH (09:52)
[2016-10-28] MEDS: INSULIN ASPART, RECOMBINANT 100 UNITS/ML SUBQ SCH ×3 (09:52→20:53)
[2016-10-28] MEDS: TERBINAFINE 1% TP SCH (09:53)
[2016-10-28] MEDS: Venelex 60gm Tube TP SCH (09:53)
[2016-10-28] MEDS: Potassium Chloride 10 mEq ER Tab PO SCH (09:54)
[2016-10-28] MEDS: Multivitamin w/ Minerals Tab PO SCH (09:54)
[2016-10-28] MEDS: Vancomycin HCl 1.5 GM in Sodium Chloride 0.9% 500 ML IV SCH ×3 (09:54→23:16)
--- NOTE | 2016-10-28 15:17 | Internal Medicine Prog Note ---
Internal Medicine Subjective - Subjective Patient seen and examined:: with staff, chart reviewed Patient is:: awake, interactive, in bed, denies any new complaints Per staff patient is:: eating well Internal Medicine Objective - Results Result Diagrams: 10/28/16 06:55 10/28/16 06:55 Recent Labs: Laboratory Last Values WBC 23.4 Th/cmm (4.8-10.8) H* 10/28/16 06:55 RBC 4.62 Mil/cmm (3.80-5.80) 10/28/16 06:55 Hgb 12.9 gm/dL (12.6-17.4) 10/28/16 06:55 Hct 38.5 % (39.0-49.0) L 10/28/16 06:55 MCV 83.2 fl (80-99) 10/28/16 06:55 MCH 27.9 pg (27.0-31.0) 10/28/16 06:55 MCHC Differential 33.5 pg (28.0-36.0) 10/28/16 06:55 RDW 13.9 % (11.5-20.0) 10/28/16 06:55 Plt Count 150 Th/cmm (150-400) 10/28/16 06:55 MPV 8.7 fl 10/28/16 06:55 Neutrophils % 41.8 % (40.0-80.0) 10/25/16 05:30 Band Neutrophils % 1 % (0-10) 10/26/16 05:40 Lymphocytes % 49.8 % (20.0-50.0) 10/25/16 05:30 Monocytes % 6.7 % (2.0-10.0) 10/25/16 05:30 Eosinophils % 1.7 % (0.0-5.0) 10/25/16 05:30 Basophils % 0.0 % (0.0-2.0) 10/25/16 05:30 Neutrophils (Manual) 45 % (40-80) 10/28/16 06:55 Lymphocytes 28 % (20-50) 10/28/16 06:55 Monocytes 9 % (2-10) 10/28/16 06:55 Eosinophils 2 % (0-5) 10/28/16 06:55 Basophils 1 % (0-3) 10/26/16 05:40 Metamyelocytes 1 % (0-0) H 10/26/16 05:40 Atypical Lymphocytes 16 % 10/28/16 06:55 Smudge Cells 1+ 10/28/16 06:55 Platelet Estimate ADEQUATE (NORMAL) 10/28/16 06:55 Platelet Morphology NORMAL (NORMAL) 10/28/16 06:55 RBC Morph Micro Appear NORMAL (NORMAL) 10/28/16 06:55 Smear Path Review 10/28/16 06:55 PT 19.1 SECONDS (9.5-11.5) H 10/27/16 06:36 INR 1.86 (0.5-1.4) H 10/27/16 06:36 PTT (Actin FS) 47.9 SECONDS (26.0-38.0) H 10/20/16 21:51 D-Dimer < 100 ng/mL (100-400) L 10/20/16 21:51 Sodium 137 mEq/L (136-145) 10/28/16 06:55 Potassium 4.0 mEq/L (3.5-5.1) 10/28/16 06:55 Chloride 102 mEq/L (98-107) 10/28/16 06:55 Carbon Dioxide 31.4 mEq/L (21.0-31.0) H 10/28/16 06:55 Anion Gap 7.6 (7.0-16.0) 10/28/16 06:55 BUN 15 mg/dL (7-25) 10/28/16 06:55 Creatinine 1.1 mg/dL (0.7-1.3) 10/28/16 06:55 Est GFR ( Amer) > 60.0 ml/min 10/28/16 06:55 Est GFR (Non-Af Amer) > 60.0 ml/min 10/28/16 06:55 BUN/Creatinine Ratio 13.6 10/28/16 06:55 Glucose 105 mg/dL (70-105) 10/28/16 06:55 POC Glucose 270 MG/DL (70 - 105) H 10/28/16 12:18 Hemoglobin A1c % 7.3 % (4.0-6.0) H 10/27/16 06:36 Calcium 8.4 mg/dL (8.6-10.3) L 10/28/16 06:55 Magnesium 1.8 mg/dL (1.9-2.7) L 10/23/16 06:24 Total Bilirubin 0.9 mg/dL (0.3-1.0) 10/23/16 06:24 AST 12 U/L (13-39) L 10/23/16 06:24 ALT 5 U/L (7-52) L 10/23/16 06:24 Alkaline Phosphatase 104 U/L (34-104) 10/23/16 06:24 Troponin I < 0.01 ng/mL (0.01-0.05) L 10/20/16 21:51 B-Natriuretic Peptide 222.0 pg/mL (5.0-100.0) H 10/26/16 05:40 Total Protein 6.5 gm/dL (6.0-8.3) 10/23/16 06:24 Albumin 3.6 gm/dL (4.2-5.5) L 10/23/16 06:24 Globulin 2.9 gm/dL 10/23/16 06:24 Albumin/Globulin Ratio 1.2 (1.0-1.8) 10/23/16 06:24 Triglycerides 149 mg/dL (<150) 10/23/16 06:24 Cholesterol 154 mg/dL (<200) 10/23/16 06:24 LDL Cholesterol Direct 103 mg/dL (75-193) 10/23/16 06:24 HDL Cholesterol 34 mg/dL (23-92) 10/23/16 06:24 Vancomycin Trough 22.5 ug/mL (10-20) H 10/27/16 09:25 Random Vancomycin 26.9 ug/mL (5.0-40.0) 10/25/16 05:30 - Physical Exam Vitals and I&O: Vital Signs Temp 97.4 F 10/28/16 11:23 Pulse 103 10/28/16 11:23 Resp 18 10/28/16 11:23 BP 145/90 10/28/16 11:23 Pulse Ox 90 10/28/16 11:23 Intake & Output 10/27/16 10/28/16 10/28/16 18:59 06:59 18:59 Intake Total 1120 900 100 Output Total 450 Balance 1120 450 100 Intake: Intake, IV Amount 100 500 100 Cefepime 2 gm In Sodium 100 Chloride 0.9% 100 ml @ 100 mls/hr IV Q12H [facility] Rx #:[id number] Piperacillin Sodium/ 100 Tazobact 4.5 gm In Sodium Chloride 0.9% 100 ml @ 100 mls/hr IV Q8HR [facility] Rx #:[id number] Vancomycin HCl 1.5 gm In 500 Sodium Chloride 0.9% 500 ml @ 250 mls/hr IV Q12H [facility] Rx#:[id number] Oral 1020 400 Output: Urine 450 Other: # Voids 900 # Bowel Movements 1 1 Active Medications: Current Medications Acetaminophen (Tylenol) 650 mg PO Q4HR PRN PRN Reason: Pain or Fever >101 Stop: 12/20/16 08:34 Last Admin: 10/26/16 16:57 Dose: 650 mg Acetaminophen/Hydrocodone Bitart ([place] 10 Mg/325 Mg) 1 tab PO Q4H PRN PRN Reason: Pain (Severe) Stop: 12/20/16 01:45 Last Admin: 10/26/16 21:51 Dose: 1 tab Albuterol Sulfate (Albuterol 2.5mg/3ml Neb Ud) 2.5 mg HHN Q6H PRN PRN Reason: Cough Stop: 12/23/16 16:55 Last Admin: 10/25/16 13:41 Dose: 2.5 mg Amiodarone HCl (Cordarone) 200 mg PO DAILY [facility] Stop: 12/20/16 08:59 Last Admin: 10/28/16 09:53 Dose: 200 mg Bisacodyl (Dulcolax 10 Mg Supp) 10 mg RC DAILY PRN PRN Reason: Constipation Stop: 12/22/16 15:54 Last Admin: 10/23/16 17:56 Dose: 10 mg Calcium Carbonate (Tums) 1,000 mg PO Q6H PRN PRN Reason: gi upset Stop: 12/20/16 08:34 Last Admin: 10/25/16 11:04 Dose: 1,000 mg Cyanocobalamin (Vitamin B12) 1,000 mcg PO DAILY [facility] Stop: 12/20/16 08:59 Last Admin: 10/28/16 09:53 Dose: 1,000 mcg Docusate Sodium (Colace) 100 mg PO BID [facility] Stop: 12/20/16 08:59 Last Admin: 10/28/16 09:53 Dose: 100 mg Furosemide (Lasix) 40 mg PO BID [facility] Stop: 12/27/16 16:59 Glipizide (Glucotrol) 10 mg PO BID [facility] Stop: 12/20/16 16:59 Last Admin: 10/28/16 09:53 Dose: 10 mg Vancomycin HCl 1.5 gm/ Sodium (Chloride) 500 mls @ 250 mls/hr IV Q12H [facility] Stop: 12/26/16 20:59 Last Admin: 10/28/16 10:30 Dose: 250 mls/hr Piperacillin Sod/Tazobactam (Sod 4.5 gm/ Sodium Chloride) 100 mls @ 100 mls/hr IV Q8HR [facility] Stop: 12/27/16 04:59 Last Admin: 10/28/16 14:09 Dose: 100 mls/hr Insulin Aspart (Novolog Insulin Sliding Scale) 0 units SUBQ ACHS [facility] PRN Reason: Protocol Stop: 12/20/16 07:29 Last Admin: 10/28/16 12:30 Dose: 6 units Insulin Aspart (Novolog) 10 units SUBQ TID [facility] Stop: 12/20/16 13:59 Last Admin: 10/28/16 14:08 Dose: 10 units Insulin Detemir (Levemir Insulin) 50 units SUBQ DAILY [facility] PRN Reason: Protocol Stop: 12/20/16 08:59 Last Admin: 10/28/16 09:52 Dose: Not Given Losartan Potassium (Cozaar) 50 mg PO DAILY [facility] Stop: 12/20/16 08:59 Last Admin: 10/28/16 09:52 Dose: 50 mg Magnesium Hydroxide (Milk Of Magnesia) 30 ml PO HS PRN PRN Reason: Constipation Stop: 12/20/16 08:34 Last Admin: 10/26/16 10:12 Dose: 30 ml Metformin HCl (Glucophage) 1,000 mg PO BID [facility] Stop: 12/20/16 16:59 Last Admin: 10/28/16 09:53 Dose: 1,000 mg Metoprolol Tartrate (Lopressor) 25 mg PO BID [facility] Stop: 12/20/16 08:59 Last Admin: 10/28/16 09:53 Dose: 25 mg Miscellaneous (Vancomycin Iv Per Pharmacy) 1 ea PRN PRN PRN Reason: PROTOCOL Stop: 12/19/16 23:31 Miscellaneous (Clinical Monitoring) 1 ea MC PRN PRN PRN Reason: CEFEPIME RENAL DOSE Stop: 12/21/16 12:14 Nitroglycerin (Nitrostat) 0.4 mg SL Q5MIN PRN PRN Reason: Chest Pain Stop: 12/20/16 08:34 Potassium Chloride (Klor-Con) 10 meq PO DAILY [facility] Stop: 12/20/16 08:59 Last Admin: 10/28/16 09:54 Dose: 10 meq Senna (Senna) 17.2 mg PO HS [facility] Stop: 12/20/16 20:59 Last Admin: 10/27/16 21:42 Dose: 17.2 mg Terbinafine HCl (Lamisil 1% Cream) 1 appl TP DAILY [facility] Stop: 12/22/16 08:59 Last Admin: 10/28/16 09:53 Dose: 1 appl Warfarin Sodium (Coumadin) 5 mg PO QPM [facility] PRN Reason: Protocol Stop: 12/20/16 16:59 Last Admin: 10/27/16 16:42 Dose: 5 mg General: alert HEENT: NC/AT, PERRLA Neck: Supple, No JVD Lungs: congested Cardiovascular: RRR, Normal S1, Normal S2 Abdomen: soft non-tender, globular Extremities: excoriation, other (ble edema) Neurological: no change - Procedures Procedures: Procedures Procedure Code Date CHOLECYSTECTOMY 51.07/31/14 TERRY SUBQ TISSUE 20 SQ CM/< 20059 07/08/15 EXTRACTION OF RIGHT LOWER LEG SKIN, EXTERNAL APPROACH [id number] 07/08/15 REMOVAL OF GALLBLADDER 92478 07/31/14 REPLACE R LOW LEG SKIN W AUTOL SUB, FULL THICK, HOUSING INSPECTOR [id number] 07/08/15 SKIN FULL GRAFT SCLP/ARM/LEG [id number] 07/08/15 Internal Medicine Assmt/Plan - Assessment Assessment: BILATERAL LOWER EXTREMITY CELLULITIS, INFECTED ULCER ON RIGHT LEG LEUKOCYTOSIS WITH 60% LYMPHOCYTE PREDOMINANCE, CHRONIC LYMPHOTCYTIC LEUKEMIA? DM-2 CHRONIC AFIB HTN HYPERLIPIDEMIA DJD - Plan Plan: cont on iv abx wound care cont on coumadin dw wait staff deng hall
[2016-10-28] MEDS: Albuterol Nebulizer 2.5mg/3mL HHN PRN (15:40)
[2016-10-28] MEDS: Hydrocodone/APAP 10 mg/325 mg Tab PO PRN (23:17)
[2016-10-29] MEDS: Hydrocodone/APAP 10 mg/325 mg Tab PO PRN (06:50)
[2016-10-29] MEDS: INSULIN ASPART SLIDING SCALE 100 UNITS/ML UNIT SUBQ SCH ×3 (06:51→14:35)
[2016-10-29 07:32] LABS: HEMATOCRIT 40.6 % (39.0-49.0); HEMOGLOBIN 13.3 gm/dL (12.6-17.4); MEAN CELL VOLUME 83.5 fl (80-99); MEAN CORPUSCULAR HEMOGLOBIN 27.3 pg (27.0-31.0); MEAN CORPUSCULAR HGB CONC 32.7 pg (28.0-36.0); MEAN PLATELET VOLUME 9.1 fl; RED BLOOD COUNT 4.86 Mil/cmm (3.80-5.80)
[2016-10-29 07:38] LABS: PLATELET COUNT 183 Th/cmm (150-400); WHITE BLOOD COUNT 24.7 Th/cmm (4.8-10.8)
[2016-10-29 07:58] LABS: ANION GAP 7.6 (7.0-16.0); BUN - UREA NITROGEN 18 mg/dL (7-25); CALCIUM SERUM 8.5 mg/dL (8.6-10.3); CARBON DIOXIDE 34.1 mEq/L (21.0-31.0); CHLORIDE 99 mEq/L (98-107); CREATININE - SERUM 1.2 mg/dL (0.7-1.3); GLUCOSE 152 mg/dL (70-105); POTASSIUM SERUM 3.7 mEq/L (3.5-5.1); SODIUM SERUM 137 mEq/L (136-145)
[2016-10-29] MEDS: Multivitamin w/ Minerals Tab PO SCH (08:36)
[2016-10-29] MEDS: Potassium Chloride 10 mEq ER Tab PO SCH (08:38)
[2016-10-29] MEDS: Venelex 60gm Tube TP SCH (08:38)
[2016-10-29] MEDS: TERBINAFINE 1% TP SCH (08:38)
[2016-10-29] MEDS: Insulin Detemir 100 units/mL 10mL Vial SUBQ SCH ×2 (08:38→08:48)
[2016-10-29] MEDS: INSULIN ASPART, RECOMBINANT 100 UNITS/ML SUBQ SCH (08:42)
[2016-10-29 08:45] LABS: BASOPHIL 1 % (0-3); EOSINOPHIL 1 % (0-5); NEUTROPHILS 38 % (40-80); PLATELET ESTIMATE ADEQUATE (NORMAL); TOTAL CELLS COUNTED 100
[2016-10-29 08:46] LABS: PLATELET MORPHOLOGY GIANT PLATELETS SEEN (NORMAL)
--- NOTE | 2016-10-29 12:19 | Internal Medicine Prog Note ---
Internal Medicine Subjective - Subjective Service Date: 10/29/16 Patient seen and examined:: with staff Patient is:: awake Per staff patient is:: no adverse event Internal Medicine Objective - Results Result Diagrams: 10/29/16 06:26 10/29/16 06:26 Recent Labs: Laboratory Last Values WBC 24.7 Th/cmm (4.8-10.8) H* 10/29/16 06:26 RBC 4.86 Mil/cmm (3.80-5.80) 10/29/16 06:26 Hgb 13.3 gm/dL (12.6-17.4) 10/29/16 06:26 Hct 40.6 % (39.0-49.0) 10/29/16 06:26 MCV 83.5 fl (80-99) 10/29/16 06:26 MCH 27.3 pg (27.0-31.0) 10/29/16 06:26 MCHC Differential 32.7 pg (28.0-36.0) 10/29/16 06:26 RDW 14.0 % (11.5-20.0) 10/29/16 06:26 Plt Count 183 Th/cmm (150-400) D 10/29/16 06:26 MPV 9.1 fl 10/29/16 06:26 Neutrophils % 41.8 % (40.0-80.0) 10/25/16 05:30 Band Neutrophils % 1 % (0-10) 10/26/16 05:40 Lymphocytes % 49.8 % (20.0-50.0) 10/25/16 05:30 Monocytes % 6.7 % (2.0-10.0) 10/25/16 05:30 Eosinophils % 1.7 % (0.0-5.0) 10/25/16 05:30 Basophils % 0.0 % (0.0-2.0) 10/25/16 05:30 Neutrophils (Manual) 38 % (40-80) L 10/29/16 06:26 Lymphocytes 47 % (20-50) 10/29/16 06:26 Monocytes 1 % (2-10) L 10/29/16 06:26 Eosinophils 1 % (0-5) 10/29/16 06:26 Basophils 1 % (0-3) 10/29/16 06:26 Metamyelocytes 1 % (0-0) H 10/26/16 05:40 Atypical Lymphocytes 12 % 10/29/16 06:26 Smudge Cells 1+ 10/28/16 06:55 Platelet Estimate ADEQUATE (NORMAL) 10/29/16 06:26 Platelet Morphology GIANT PLATELETS SEEN (NORMAL) 10/29/16 06:26 RBC Morph Micro Appear NORMAL (NORMAL) 10/29/16 06:26 Smear Path Review 10/28/16 06:55 PT 19.1 SECONDS (9.5-11.5) H 10/27/16 06:36 INR 1.86 (0.5-1.4) H 10/27/16 06:36 PTT (Actin FS) 47.9 SECONDS (26.0-38.0) H 10/20/16 21:51 D-Dimer < 100 ng/mL (100-400) L 10/20/16 21:51 Sodium 137 mEq/L (136-145) 10/29/16 06:26 Potassium 3.7 mEq/L (3.5-5.1) 10/29/16 06:26 Chloride 99 mEq/L (98-107) 10/29/16 06:26 Carbon Dioxide 34.1 mEq/L (21.0-31.0) H 10/29/16 06:26 Anion Gap 7.6 (7.0-16.0) 10/29/16 06:26 BUN 18 mg/dL (7-25) 10/29/16 06:26 Creatinine 1.2 mg/dL (0.7-1.3) 10/29/16 06:26 Est GFR ( Amer) > 60.0 ml/min 10/29/16 06:26 Est GFR (Non-Af Amer) > 60.0 ml/min 10/29/16 06:26 BUN/Creatinine Ratio 15.0 10/29/16 06:26 Glucose 152 mg/dL (70-105) H 10/29/16 06:26 POC Glucose 164 MG/DL (70 - 105) H 10/29/16 06:42 Hemoglobin A1c % 7.3 % (4.0-6.0) H 10/27/16 06:36 Calcium 8.5 mg/dL (8.6-10.3) L 10/29/16 06:26 Magnesium 1.8 mg/dL (1.9-2.7) L 10/23/16 06:24 Total Bilirubin 0.9 mg/dL (0.3-1.0) 10/23/16 06:24 AST 12 U/L (13-39) L 10/23/16 06:24 ALT 5 U/L (7-52) L 10/23/16 06:24 Alkaline Phosphatase 104 U/L (34-104) 10/23/16 06:24 Troponin I < 0.01 ng/mL (0.01-0.05) L 10/20/16 21:51 B-Natriuretic Peptide 222.0 pg/mL (5.0-100.0) H 10/26/16 05:40 Total Protein 6.5 gm/dL (6.0-8.3) 10/23/16 06:24 Albumin 3.6 gm/dL (4.2-5.5) L 10/23/16 06:24 Globulin 2.9 gm/dL 10/23/16 06:24 Albumin/Globulin Ratio 1.2 (1.0-1.8) 10/23/16 06:24 Triglycerides 149 mg/dL (<150) 10/23/16 06:24 Cholesterol 154 mg/dL (<200) 10/23/16 06:24 LDL Cholesterol Direct 103 mg/dL (75-193) 10/23/16 06:24 HDL Cholesterol 34 mg/dL (23-92) 10/23/16 06:24 Vancomycin Trough 22.5 ug/mL (10-20) H 10/27/16 09:25 Random Vancomycin 26.9 ug/mL (5.0-40.0) 10/25/16 05:30 - Physical Exam Vitals and I&O: Vital Signs Temp 97.4 F 10/29/16 08:00 Pulse 95 10/29/16 08:36 Resp 20 10/29/16 08:00 BP 146/78 10/29/16 08:37 Pulse Ox 97 10/29/16 08:00 Intake & Output 10/28/16 10/29/16 10/29/16 18:59 06:59 18:59 Intake Total 700 1200 Output Total 2150 Balance 700 -950 Intake: Intake, IV Amount 700 100 Piperacillin Sodium/ 200 100 Tazobact 4.5 gm In Sodium Chloride 0.9% 100 ml @ 100 mls/hr IV Q8HR [facility] Rx #:[id number] Vancomycin HCl 1.5 gm In 500 Sodium Chloride 0.9% 500 ml @ 250 mls/hr IV Q12H [facility] Rx#:[id number] Oral 1100 Output: Urine 2150 Other: # Bowel Movements 3 Stool Characteristics Soft Formed Active Medications: Current Medications Acetaminophen (Tylenol) 650 mg PO Q4HR PRN PRN Reason: Pain or Fever >101 Stop: 12/20/16 08:34 Last Admin: 10/28/16 17:17 Dose: 650 mg Acetaminophen/Hydrocodone Bitart ([place] 10 Mg/325 Mg) 1 tab PO Q4H PRN PRN Reason: Pain (Severe) Stop: 12/20/16 01:45 Last Admin: 10/29/16 06:50 Dose: 1 tab Albuterol Sulfate (Albuterol 2.5mg/3ml Neb Ud) 2.5 mg HHN Q6H PRN PRN Reason: Cough Stop: 12/23/16 16:55 Last Admin: 10/28/16 15:40 Dose: 2.5 mg Amiodarone HCl (Cordarone) 200 mg PO DAILY [facility] Stop: 12/20/16 08:59 Last Admin: 10/29/16 08:35 Dose: 200 mg Bisacodyl (Dulcolax 10 Mg Supp) 10 mg RC DAILY PRN PRN Reason: Constipation Stop: 12/22/16 15:54 Last Admin: 10/23/16 17:56 Dose: 10 mg Calcium Carbonate (Tums) 1,000 mg PO Q6H PRN PRN Reason: gi upset Stop: 12/20/16 08:34 Last Admin: 10/25/16 11:04 Dose: 1,000 mg Cyanocobalamin (Vitamin B12) 1,000 mcg PO DAILY [facility] Stop: 12/20/16 08:59 Last Admin: 10/29/16 08:34 Dose: 1,000 mcg Docusate Sodium (Colace) 100 mg PO BID [facility] Stop: 12/20/16 08:59 Last Admin: 10/29/16 08:35 Dose: 100 mg Furosemide (Lasix) 40 mg PO BID [facility] Stop: 12/27/16 16:59 Last Admin: 10/29/16 08:37 Dose: 40 mg Glipizide (Glucotrol) 10 mg PO BID [facility] Stop: 12/20/16 16:59 Last Admin: 10/29/16 08:34 Dose: 10 mg Piperacillin Sod/Tazobactam (Sod 4.5 gm/ Sodium Chloride) 100 mls @ 100 mls/hr IV Q8HR [facility] Stop: 12/27/16 04:59 Last Admin: 10/29/16 05:14 Dose: 100 mls/hr Vancomycin HCl 1.25 gm/ Sodium (Chloride) 250 mls @ 165 mls/hr IV Q12H [facility] Stop: 12/28/16 12:59 Insulin Aspart (Novolog Insulin Sliding Scale) 0 units SUBQ ACHS [facility] PRN Reason: Protocol Stop: 12/20/16 07:29 Last Admin: 10/29/16 06:51 Dose: 2 units Insulin Aspart (Novolog) 10 units SUBQ TID [facility] Stop: 12/20/16 13:59 Last Admin: 10/29/16 08:42 Dose: Not Given Insulin Detemir (Levemir Insulin) 50 units SUBQ DAILY [facility] PRN Reason: Protocol Stop: 12/20/16 08:59 Last Admin: 10/29/16 08:48 Dose: 50 units Losartan Potassium (Cozaar) 50 mg PO DAILY [facility] Stop: 12/20/16 08:59 Last Admin: 10/29/16 08:36 Dose: 50 mg Magnesium Hydroxide (Milk Of Magnesia) 30 ml PO HS PRN PRN Reason: Constipation Stop: 12/20/16 08:34 Last Admin: 10/26/16 10:12 Dose: 30 ml Metformin HCl (Glucophage) 1,000 mg PO BID [facility] Stop: 12/20/16 16:59 Last Admin: 10/29/16 08:35 Dose: 1,000 mg Metoprolol Tartrate (Lopressor) 25 mg PO BID [facility] Stop: 12/20/16 08:59 Last Admin: 10/29/16 08:36 Dose: 25 mg Miscellaneous (Vancomycin Iv Per Pharmacy) 1 ea PRN PRN PRN Reason: PROTOCOL Stop: 12/19/16 23:31 Miscellaneous (Clinical Monitoring) 1 ea PRN PRN PRN Reason: CEFEPIME RENAL DOSE Stop: 12/21/16 12:14 Nitroglycerin (Nitrostat) 0.4 mg SL Q5MIN PRN PRN Reason: Chest Pain Stop: 12/20/16 08:34 Potassium Chloride (Klor-Con) 10 meq PO DAILY [facility] Stop: 12/20/16 08:59 Last Admin: 10/29/16 08:38 Dose: 10 meq Senna (Senna) 17.2 mg PO HS [facility] Stop: 12/20/16 20:59 Last Admin: 10/28/16 20:51 Dose: 17.2 mg Terbinafine HCl (Lamisil 1% Cream) 1 appl TP DAILY [facility] Stop: 12/22/16 08:59 Last Admin: 10/29/16 08:38 Dose: 1 appl Warfarin Sodium (Coumadin) 5 mg PO QPM [facility] PRN Reason: Protocol Stop: 12/20/16 16:59 Last Admin: 10/28/16 17:13 Dose: 5 mg General: alert HEENT: NC/AT, PERRLA Neck: Supple Lungs: CTAB Cardiovascular: RRR, Normal S1, Normal S2, without murmur Abdomen: soft non-tender, non-distended Neurological: no change - Procedures Procedures: Procedures Procedure Code Date CHOLECYSTECTOMY 51.22 07/31/14 TERRY SUBQ TISSUE 20 SQ CM/< 27407 07/08/15 EXTRACTION OF RIGHT LOWER LEG SKIN, EXTERNAL APPROACH [id number] 07/08/15 REMOVAL OF GALLBLADDER 74145 07/31/14 REPLACE R LOW LEG SKIN W AUTOL SUB, FULL THICK, EFFICIENCY EXPERT [id number] 07/08/15 SKIN FULL GRAFT SCLP/ARM/LEG [id number] 07/08/15 Internal Medicine Assmt/Plan - Assessment Assessment: BILATERAL LOWER EXTREMITY CELLULITIS, INFECTED ULCER ON RIGHT LEG LEUKOCYTOSIS WITH 60% LYMPHOCYTE PREDOMINANCE, CHRONIC LYMPHOTCYTIC LEUKEMIA? DM-2 CHRONIC AFIB HTN HYPERLIPIDEMIA DJD - Plan Plan: accepted to [facility] cbc/bmp in am
[2016-10-29] MEDS: Albuterol Nebulizer 2.5mg/3mL HHN PRN (13:00)
--- NOTE | 2016-11-27 17:59 | Discharge Summary ---
PRINCIPAL DIAGNOSES: 1. Bilateral lower extremity cellulitis with infected ulcer. 2. Diabetes mellitus. 3. Hypertension. 4. Chronic atrial fibrillation. 5. Coronary artery disease. 6. Congestive heart failure. 7. Obesity. 8. Degenerative joint disease. 9. Debility. 10. Leukocytosis with lymphocyte predominance suspect chronic lymphocytic leukemia. BRIEF STATEMENT FOR THE REASON FOR ADMISSION: This is a 71-year-old resident of [facility], sent to Emergency Room on 10/21/2016 for evaluation of non-healing ulcer associated with fever, chills, leg being swollen and do not feel good and feeling weak. When the patient arrived in the Emergency Room, the patient was worked up and subsequently admitted to the hospital for further treatment. Please refer to my dictated medical H and P for further information. HOSPITAL COURSE: The patient was admitted to Med/Surg floor. IV antibiotic and ID consultation was requested. Appropriate home medicines were reconciliated. General nursing care was provided along with monitoring of the blood sugar and blood pressure. Followup lab was also ordered. The patient was followed up by Dr. Laron Taylor during my absence and the patient did have appropriate workup. It was recommended by him and consulted that the patient may benefit with long-term acute care. The patient was transferred to [facility] on 11/06/2016 with continuation of same care where the patient was followed by myself and field sales consultant. At the time of discharge, all of his meds were reconciliated by Dr. Taylor and his nurse practitioner. JOB# [id number]
== END 2016-10-29 16:30 | DRG 603 ==
LOC: ER 20:49 → MSI 23:15
PROVIDERS: ADMIT Internal Medicine; ATTEND Internal Medicine
DX: L03.115 Cellulitis of right lower limb (principal); C91.10 Chronic lymphocytic leukemia of B-cell type not having achieved remission; E24.9 Cushing's syndrome, unspecified; L97.919 Non-pressure chronic ulcer of unspecified part of right lower leg with unspecified severity; I48.2 Chronic atrial fibrillation; B35.1 Tinea unguium; I11.0 Hypertensive heart disease with heart failure; I50.9 Heart failure, unspecified; E11.9 Type 2 diabetes mellitus without complications; Z68.42 Body mass index [BMI] 45.0-49.9, adult; L03.116 Cellulitis of left lower limb; E66.01 Morbid (severe) obesity due to excess calories; E78.5 Hyperlipidemia, unspecified; M19.90 Unspecified osteoarthritis, unspecified site; G47.33 Obstructive sleep apnea (adult) (pediatric); Z83.3 Family history of diabetes mellitus; Z82.49 Family history of ischemic heart disease and other diseases of the circulatory system; Z90.49 Acquired absence of other specified parts of digestive tract
CPT/HCPCS: 36415-UA; 71010-TC; 80048-TC; 80053-TC; 80061-TC; 80202-TC; 82533-90; 82948-90; 83036-90; 83605; 83735-TC; 83880-TC; 84484-TC; 85007-TC; 85025-TC; 85027-TC; 85379-TC; 85610-TC; 93005; 93925-TC; 94760; 97530; J0690; J0692; J1815; J2543; J3370; J7040; J7613; X3904; Z7610

== ENCOUNTER 2018-01-09 11:18 | Inpatient (IN) | payer MEDICARE, MEDICAID ==
[2018-01-09] MEDS ORDERED: cefTRIAXone 1 GM in Sodium Chloride 0.9% 50 ML IV ONE (11:32)
[2018-01-09 11:49] LABS: BASOPHILE ABSOLUTE 0.5 Th/cumm (0-0.2); EOSINOPHILE ABSOLUTE 0.3 Th/cmm (0.1-0.4); HEMATOCRIT 40.5 % (41.0-60); HEMOGLOBIN 13.3 gm/dL (12-16); LYMPHOCYTE ABSOLUTE 21.3 Th/cmm (1.5-3.0); MANUAL DIFF REQUIRED? YES; MEAN CELL VOLUME 82.8 fl (80-99); MEAN CORPUSCULAR HEMOGLOBIN 27.2 pg (27.0-31.0); MEAN CORPUSCULAR HGB CONC 32.8 pg (28.0-36.0); MEAN PLATELET VOLUME 8.6 fl; MONOCYTE ABSOLUTE 0.9 Th/cmm (0.3-1.0); NEUTROPHILE ABSOLUTE 8.2 Th/cmm (1.8-8.0); PLATELET COUNT 181 Th/cmm (150-400); RED BLOOD COUNT 4.89 Mil/cmm (3.80-5.80)
[2018-01-09 11:56] LABS: WHITE BLOOD COUNT 31.2 Th/cmm (4.8-10.8)
[2018-01-09 12:02] LABS: INR 1.71 (0.5-1.4); PROTHROMBIN TIME (TEST) 18.3 SECONDS (9.5-11.5)
[2018-01-09 12:06] LABS: ALB/GLOB RATIO 1.3 (1.0-1.8); ALKALINE PHOSPHATASE 124 U/L (34-104); ANION GAP 10.3 (7.0-16.0); BILIRUBIN,TOTAL 0.6 mg/dL (0.3-1.0); BUN - UREA NITROGEN 26 mg/dL (7-25); CARBON DIOXIDE 29.6 mEq/L (21.0-31.0); CHLORIDE 101 mEq/L (98-107); CREATININE - SERUM 1.3 mg/dL (0.7-1.3); CREATININE KINASE 37 U/L (30-223); GLUCOSE 203 mg/dL (70-105); POTASSIUM SERUM 3.9 mEq/L (3.5-5.1); SGOT 16 U/L (13-39); SGPT/ALT 17 U/L (7-52); SODIUM SERUM 137 mEq/L (136-145)
[2018-01-09 12:08] LABS: TROP I < 0.01 ng/mL (0.01-0.05)
[2018-01-09 12:10] LABS: EOSINOPHIL 1 % (0-5); LYMPHOCYTE 74 % (20-50); MONOCYTE 2 % (2-10); NEUTROPHILS 23 % (40-80); TOTAL CELLS COUNTED 100
--- NOTE | 2018-01-09 12:15 | ED Physician Chart ---
ED Chief Complaint/HPI - Patient Information Date Seen:: 01/09/18 Time Seen:: 11:40 Chief Complaint:: Swollen Legs History of Present Illness:: onset x 3 days of LE redness, pain, and swelling; pt report of trauma, H/As, S/T , neck pain, C/P, SOB, Abd. pain, A/N/V/D/C, fever, chills,or urinary s/s Allergies:: Allergies Allergy/AdvReac Type Severity Reaction Status Date / Time No Known Allergies Allergy Verified 10/19/16 13:33 Vitals:: Vital Signs - 8 hr 01/09/18 11:40 Temp 98.1 F HR 92 RR 22 BP 152/80 O2 Sat % 97 Historian:: Patient Review:: Nurse's Note Reviewed ED Review of Systems - Review of Systems General/Constitutional: Fever, No chills, No weight loss, No weakness, No diaphoresis, No edema, No loss of appetite Skin: Skin lesions, Rash, No bruising Head: No headache, No light-headedness Eyes: No loss of vision, No pain, No diplopia ENT: No earache, No nasal drainage, No sore throat, No tinnitus Neck: No neck pain, No swelling, No thyromegaly, No stiffness, No mass noted Cardio Vascular: No chest pain, No palpitations, No PND, No orthopnea, No edema Pulmonary: No SOB, No cough, No sputum, No wheezing GI: No nausea, No vomiting, No diarrhea, No pain, No melena, No hematochezia, No constipation, No hematemesis G/U: No dysuria, No frequency, No hematuria, No nacturia Musculoskeletal: No bone or joint pain, No back pain, No muscle pain Endocrine: No polyuria, No polydipsia Psychiatric: No prior psych history, No depression, No anxiety, No suicidal ideation, No homicidal ideation, No auditory hallucination, No visual hallucination Hematopoietic: No bruising, No lymphadenopathy Allergic/Immuno: No urticaria, No angioedema Neurological: No syncope, No focal symptoms, No weakness, No paresthesia, No headache, No seizure, No dizziness, No confusion, No vertigo ED Past Medical History - Past Medical History Obtainable: Yes Past Medical History: HTN, DM, CAD, CHF, Dyslipidemia, Other (CLL) Family History: Heart disease, Diabetes Melitus, HTN Social History: Non Smoker, No Alcohol, No Drug Use, Single, Care Facility Surgical History: None Psychiatricy History: None Medication: Reviewed Family Medical History - Family Member Mother History Unknown: Yes Living Status: Hx Family Cancer: Yes (ovarian) ED Physical Exam - Physical Examination General/Constitutional: Awake, Well-developed, well-nourished, Alert, No distress, GCS 15, Non-toxic appearing, Ambulatory Head: Atraumatic Eyes: Lids, conjuctiva normal, PERRL, EOMI Skin: Nl inspection, No rash, No skin lesions, No ecchymosis, Well hydrated, No lymphadenopathy Other Skin comments:: + Cellulitis of both LEs ENMT: External ears, nose nl, TM canals nl, Nasal exam nl, Lips, teeth, gums nl , Oropharynx nl, Tonsils nl Neck: Nontender, Full ROM w/o pain, No JVD, No nuchal rigidity, No bruit, No mass, No stridor Respiratory: Nl effort/Exclusion, Clear to Auscultation, No Wheeze/Rhonchi/Rales Cardio Vascular: No murmur, gallop, rubs, NL S1 S2, Carotid/Femoral/Distal pulses equal bilaterally Other Cardio Vascular comments:: Irregular Irregular Rhythm GI: No tenderness/rebounding/guarding, No organomegaly, No hernia, Normal BS's, Nondistended, No mass/bruits, No McBurney tenderness : No CVA tenderness Extremities: No tenderness or effusion, Full ROM, normal strength in all extremities, No edema, Normal digits & nails Neuro/Psych: Alert/oriented, DTR's symmetric, Normal sensory exam, Normal motor strength, Judgement/insight normal, Mood normal, Normal gait, No focal deficits Misc: Normal back, No paraspinal tenderness ED Labs/Radiology/EKG Results - Lab Results Results: Laboratory Tests 01/09/18 01/09/18 01/09/18 11:38 11:38 11:38 WBC 31.2 H* RBC 4.89 Hgb 13.3 Hct 40.5 L MCV 82.8 MCH 27.2 MCHC Differential 32.8 RDW 14.0 Plt Count 181 MPV 8.6 Neutrophils (Manual) 23 L Lymphocytes 74 H Monocytes 2 Eosinophils 1 PT 18.3 H INR 1.71 H PTT (Actin FS) 33.6 Sodium 137 Potassium 3.9 Chloride 101 Carbon Dioxide 29.6 Anion Gap 10.3 BUN 26 H Creatinine 1.3 Est GFR ( Amer) TNP Est GFR (Non-Af Amer) TNP BUN/Creatinine Ratio 20.0 Glucose 203 H Whole Bld Lactic Acid Calcium 9.0 Total Bilirubin 0.6 AST 16 ALT 17 Alkaline Phosphatase 124 H Creatine Kinase 37 Troponin I Total Protein 7.0 Albumin 4.0 L Globulin 3.0 Albumin/Globulin Ratio 1.3 01/09/18 11:38 WBC RBC Hgb Hct MCV MCH MCHC Differential RDW Plt Count MPV Neutrophils (Manual) Lymphocytes Monocytes Eosinophils PT INR PTT (Actin FS) Sodium Potassium Chloride Carbon Dioxide Anion Gap BUN Creatinine Est GFR ( Amer) Est GFR (Non-Af Amer) BUN/Creatinine Ratio Glucose Whole Bld Lactic Acid 1.42 Calcium Total Bilirubin AST ALT Alkaline Phosphatase Creatine Kinase Troponin I < 0.01 L Total Protein Albumin Globulin Albumin/Globulin Ratio Comments:: WBC: 31.1; Glucose: 203; BUN: 26 - Radiology Results Comments:: NAD - EKG Interpretations EKG Time:: 11:40 Rate & Rhythm: 82; Atrial Fibrillation Comments:: non-specific st-t changes ED Septic Shock - . Is Septic Shock (SBP<90, OR Lactate>4 mmol\L) present?: No - <6hrs of presentation: Vital Signs: Vital Signs - 8 hr 01/09/18 11:40 Temp 98.1 F HR 92 RR 22 BP 152/80 O2 Sat % 97 ED Reassessment (Disposition) - Reassessment Reassessment Condition:: Improved - Diagnosis Diagnosis:: Dx: Leukocytosis; Cellulitis; Sepsis; Atrial Fibrillation; Hyperglycemia; Dehydration; CLL - Aftercare/Follow up Instructions Aftercare/Follow-Up Instructions:: Counseled pt regarding lab results/diagnosis & need follow up, Counseled pt & family regarding lab results/diagnosis & need follow up - Patient Disposition Discharge/Transfer:: Acute Care w/in this hosp Accepting Physician:: Dr. Trejo Time Called:: 1320 Time Responded:: 13:20 Admitted to:: Telemetry Spoke to:: Dr. Trejo Admitting Medical Physician:: Dr. Trejo Condition at Disposition:: Stable, Improved
--- NOTE | 2018-01-09 12:44 | Diagnostic Imaging Report ---
Exam: Portable summation of chest. HISTORY: Pain. Findings: Portable examination of the chest at 1143 hours reviewed and compared to the prior study 10/26/2016 demonstrates cardiomegaly. No acute pulmonic infiltrates or effusions are noted. Bony thorax intact. IMPRESSION: cardiomegaly no acute disease.
--- NOTE | 2018-01-09 13:13 | Diagnostic Imaging Report ---
Bilateral lower extremity Doppler venous ultrasound exam HISTORY: Pain/swelling Sonographic sector images were obtained through the deep venous systems of both legs. Associated Doppler data was obtained. The exam demonstrates patency of the common femoral, superficial femoral, popliteal, and posterior tibial veins bilaterally. Specifically, no thrombus is seen. There are normal compressibility and augmentation responses. IMPRESSION: Negative exam for deep vein thrombophlebitis.
--- NOTE | 2018-01-09 16:31 | Consultation ---
Consult Note - Consult Note Service Date: 01/09/18 Referring Physician: Festus Trejo Consult Note: PHYSICIAN Consultation Note: Date of Admission: 01/09/18 Purpose of Consultation: cellulitis. Chief Complaint: Patient RIOS STAPLES was admitted to location Medical/Surgical Unit I with CELLULITIS. History of Present Illness: 72 year old male with history of DM2, HTN, CLL, obesity, cad, A fib, admitted to the hospital for swelling and redness of both lower extremities. On intial evaluation, his temperature was 98.1 degree F and WBC count was 27k. He has also developed wounds in both lower extremity, worse on the left than right. THe wound fro left leg is draining cloudy fluid. cefepime and vanco iv was started and ID consult was called for antibiotic management. Past Medical History: Allergies Allergy/AdvReac Type Severity Reaction Status Date / Time No Known Allergies Allergy Verified 10/19/16 13:33 Vital Signs Temp 98.7 F 01/09/18 15:20 Pulse 77 01/09/18 15:20 Resp 20 01/09/18 15:20 BP 136/73 01/09/18 15:20 Pulse Ox 96 01/09/18 15:20 Intake & Output 01/08/18 01/09/18 01/09/18 18:59 06:59 18:59 Weight (lbs) 138.346 kg Laboratory Results - last 24 hr 01/09/18 16:08 POC Glucose 137 H Home Medication Medication Instructions Recorded Type Amiodarone [Cordarone] 200 mg PO DAILY 10/20/16 History Insulin Human Regular [NovoLIN R*] See Protocol SUBQ ACHS 10/20/16 History Sennosides [Senokot] 2 tab PO HS 10/20/16 History Cyanocobalamin [Vitamin B12] 1,000 mcg PO DAILY #0 tab 10/29/16 Rx Docusate Sodium [Colace] 100 mg PO BID #0 cap 10/29/16 Rx Furosemide [Lasix] 40 mg PO BID #0 tab 10/29/16 Rx Glipizide [Glucotrol] 10 mg PO BID #0 tab 10/29/16 Rx Insulin Detemir [Levemir Insulin] 50 units SUBQ DAILY #0 vial 10/29/16 Rx Metoprolol Tartrate [Lopressor] 25 mg PO BID #0 tab 10/29/16 Rx Nitroglycerin [Nitrostat*] 0.4 mg SL Q5MIN PRN #0 tab 10/29/16 Rx Bacitracin [Baciquent] 1 appl TP DAILY 01/09/18 History Dextrose/Dextrin/Maltose 31 gm PO PRN PRN 01/09/18 History [Insta-Glucose Gel] Fleet Enema [Fleet Enema] 135 ml RC Q48H PRN 01/09/18 History Fluticasone Propionate Nasal 2 spr NS DAILY 01/09/18 History [Flonase] GLUCAGON HCl [Glucagen] 1 mg IM PRN PRN 01/09/18 History Hydrocodone/APAP 10 mg/325 mg 1 tab PO Q4H PRN 01/09/18 History [[place] 10 mg/325 mg] Insulin Aspart, Recombinant 10 unit SUBQ TID 01/09/18 History [NovoLOG FLEXPEN] Lubiprostone [Amitiza] 24 mcg PO BID 01/09/18 History Magnesium Hydroxide [Milk of 30 ml PO DAILY PRN 01/09/18 History Magnesia] Potassium Chloride 1 tab PO DAILY 01/09/18 History Propylene Glycol/Peg 400/Pf 1 each OP TID 01/09/18 History [Systane 0.3-0.4% Eye Drops] [place] 1 unit TP DAILY 01/09/18 History Warfarin Sodium [Coumadin*] 5 mg PO 1700 01/09/18 History metFORMIN [Glucophage] 850 mg PO TID 01/09/18 History Current Medications Generic Name Dose Route Start Last Admin Trade Name Freq PRN Reason Stop Dose Admin Cefepime HCl 1 gm/ Dextrose 50 mls @ 100 mls/hr 01/09/18 21:00 IV 03/10/18 20:59 Q8HR ELY Vancomycin HCl 2 gm/ Sodium 500 mls @ 250 mls/hr 01/09/18 17:00 Chloride IV 01/09/18 18:59 ONCE ONE Miscellaneous 1 ea 01/09/18 13:49 Vancomycin Iv Per Pharmacy 03/10/18 13:48 PRN PRN PROTOCOL Review of Systems: A 12 point ROS was reviewed with the pertinent positive and negatives noted in the HPI. Physical Exam: General: Obese, not any acute distress. HEENT: Head NC NT, oral cavity moist, pink tongue. Eyes: pupill PERRLA, EOMI. Neck: supple. no JVD, no carotid bruit. Cardio: S1 and S 2 WNL Irregular rate.. No murmur. n ogallop Respiratory: Vesicular breath sound,. Abdominal: Soft NT ND BS present Genital/Urinary: Deferred Extremities: no cyanosis, Swelling both legs, weeping ulcer on the left leg. Neurological: AAOx3. Assessment: 1. bilateral leg cellulitis. 2. ?Chronic leukocytosis, ?CLL.( patient stated that hw was told, he had baseline WBC Count of 20K to 30K ). 3. DM2. 4. PAF. 5. HTN. 6. CHF. 7. Obesity. Recommendations: Wound cultures, blood cs. Abx : Vanco IV and Cefepime. Thank you, Dr Trejo for involving me in taking care of this patient. Plan: Signed, Remington Oliveros M.D. [id number]
[2018-01-09 18:00] VITALS: BP 148/87
[2018-01-09] MEDS ORDERED: Fleet Enema 135 mL RC PRN (21:18)
[2018-01-09] MEDS ORDERED: GLUCAGON HCl 1 MG KIT IM PRN (21:18)
[2018-01-09] MEDS ORDERED: Hydrocodone/APAP 10 mg/325 mg Tab PO PRN (21:18)
[2018-01-09] MEDS ORDERED: Magnesium Hydroxide (MOM) 30 mL UDC PO PRN (21:18)
[2018-01-09 22:46] LABS: A1C % 7.8 % (4.0-6.0)
--- NOTE | 2018-01-09 23:10 | History & Physical ---
ADMIT DATE: PATIENT IDENTIFICATION: A 72-year-old male. CHIEF COMPLAINT: Excruciating pain on both legs, left leg is more swollen and weeping. HISTORY OF PRESENT ILLNESS: A 72-year-old [place] male who resides at intermediate, has a diagnosis of diabetes mellitus, chronic atrial fibrillation, hypertension, congestive heart failure, obstructive sleep apnea, recently diagnosed with chronic lymphocytic leukemia, has been followed by Dr. Carpio as an outpatient. Also, has a history of chronic venous stasis changes on his both feet. According to the nursing staff, the patient was having worsening pain on his both legs and noted that his leg becomes erythematous and started to weep on his left leg. When the patient was sent to Emergency Room, the patient was noted to have significant amount of leukocytosis associated with cellulitis of both lower extremity. The patient was advised to be admitted in the hospital for further treatment. PAST MEDICAL HISTORY: Remarkable for: 1. Diabetes. 2. Hypertension. 3. Obesity. 4. Obstructive sleep apnea. 5. Chronic atrial fibrillation. 6. Congestive heart failure. 7. Chronic myeloid leukemia. 8. Degenerative joint disease. 9. Obesity. 10. Chronic constipation. MEDICATIONS AT [facility]: He is taking multiple medications, which I reviewed and reconciled appropriately. ALLERGIES: The patient is not allergic to medications. SOCIAL HISTORY: The patient resides in a intermediate. The patient has history of no smoking cigarette, alcohol or drug use. FAMILY MEDICAL HISTORY: Remarkable for diabetes, hypertension and kidney disease. REVIEW OF SYSTEMS: The patient is complaining of being a feverish, but denies any headache, denies any blurred vision, double vision. Denies any dysphagia. Denies any chest pain, denies any shortness of breath. Denies any abdominal pain. Denies any nausea, vomiting, diarrhea, dysuria, hematuria, hematochezia, melena. No seizure or syncopal episode. PHYSICAL EXAMINATION: GENERAL: The patient is alert, awake, oriented, lying in the bed. VITAL SIGNS: Temperature 98, pulse 74, respiratory rate is 18, blood pressure 134/70. HEENT: Normocephalic, atraumatic. Extraocular muscles are intact. Tongue was pink and coated. Poor dentition noted. No oral lesion, no exudate. No sinus tenderness. External auditory canal and tympanic membranes are well visualized. NECK: Supple, no JVD, no hepatojugular reflex. No lymphadenopathy, thyromegaly or carotid bruit. HEART: Both heart sounds are irregularly irregular. CHEST: Lung equal in expansion. No wheezing, no crackles. ABDOMEN: Soft. No guarding. No rigidity. Liver and spleen palpable. No palpable mass. EXTREMITIES: Remarkable plus erythema, increasing swelling and significant tenderness noted on both legs, more on the left than right. Left leg has some weeping from his open wound. This discharge was serosanguineous, unable to palpate peripheral pulses on both lower extremities. NEUROLOGIC: Alert, awake, follows commands. Decreased power throughout the upper or lower extremity. AVAILABLE DIAGNOSTIC DATA: White count of 31.2, hemoglobin 13.3, platelet count of 181 with a protime of 18.3, INR 1.76. Sodium 137, potassium is 3.9, chloride 101, CO2 of 29.6, BUN and creatinine is 26 and 1.3, glucose of 203, alkaline was 124. SGOT, SGPT is 60 and 74, albumin of 4. Bilateral lower extremity venous Doppler study were unremarkable for any DVT. Lactic acid level was 1142. Chest x-ray remarkable for cardiomegaly, but no infiltrate, no congestion. CLINICAL IMPRESSION: 1. Bilateral lower extremity cellulitis with leukocytosis. 2. Chronic venous stasis. 3. Chronic lymphocytic leukemia. 4. Diabetes mellitus. 5. Obesity. 6. Chronic atrial fibrillation. 7. Congestive heart failure. 8. Degenerative joint disease. 9. Obstructive sleep apnea. 10. Chronic constipation. 11. Decline in self-care and mobility. PLAN: 1. The patient should be admitted to the med-surg floor. 2. IV antibiotic. 3. Blood cultures. 4. Infectious Disease consultation. 5. Appropriate home medicine reconciliation. 6. Pharmacy consultation for Coumadin therapy. 7. Diabetes management. 8. Symptoms management. 9. General nursing care. 10. Follow lab. 11. Follow consult recommendation. 12. Care plan reviewed and discussed with staff. JOB# [id number]
[2018-01-10 04:30] LABS: URINE MICROSCOPIC INDICATED? YES; URINE SOURCE MIDSTREAM
[2018-01-10 04:49] LABS: URINE BILIRUBIN NEGATIVE (NEGATIVE); URINE BLOOD NEGATIVE (NEGATIVE); URINE GLUCOSE (UA) NEGATIVE (NEGATIVE); URINE KETONE NEGATIVE (NEGATIVE); URINE LEUKOCYTE ESTERASE NEGATIVE (NEGATIVE); URINE NITRATE NEGATIVE (NEGATIVE); URINE PROTEIN 30 mg/dL (NEGATIVE); URINE UROBILINOGEN 0.2 E.U./dL (0.2 - 1.0)
[2018-01-10 05:03] LABS: URINE CLARITY HAZY (CLEAR); URINE COLOR YELLOW
[2018-01-10 05:09] LABS: URINE BACTERIA OCCASIONAL /hpf (NONE SEEN); URINE EPITHELIAL CELLS OCCASIONAL /lpf (FEW); URINE RBC 0-2 /hpf (0-5); URINE WBC 0-2 /hpf (0-5)
[2018-01-10] MEDS: INSULIN ASPART SLIDING SCALE 100 UNITS/ML UNIT SUBQ SCH ×4 (06:38→22:18)
[2018-01-10 07:13] LABS: ALB/GLOB RATIO 1.4 (1.0-1.8); ALBUMIN 3.6 gm/dL (4.2-5.5); ALKALINE PHOSPHATASE 104 U/L (34-104); ANION GAP 10.5 (7.0-16.0); BUN - UREA NITROGEN 24 mg/dL (7-25); CALCIUM SERUM 8.4 mg/dL (8.6-10.3); CARBON DIOXIDE 27.2 mEq/L (21.0-31.0); CHLORIDE 102 mEq/L (98-107); CREATININE - SERUM 1.3 mg/dL (0.7-1.3); EOSINOPHILE ABSOLUTE 0.3 Th/cmm (0.1-0.4); GLUCOSE 183 mg/dL (70-105); HEMATOCRIT 38.4 % (41.0-60); HEMOGLOBIN 12.7 gm/dL (12-16); LDH = LACTIC DEHYDROGENASE 144 U/L (140-271); LYMPHOCYTE ABSOLUTE 22.2 Th/cmm (1.5-3.0); MEAN CELL VOLUME 82.4 fl (80-99); MEAN CORPUSCULAR HEMOGLOBIN 27.2 pg (27.0-31.0); MEAN PLATELET VOLUME 9.3 fl; MONOCYTE ABSOLUTE 1.4 Th/cmm (0.3-1.0); NEUTROPHILE ABSOLUTE 7.8 Th/cmm (1.8-8.0); PLATELET COUNT 161 Th/cmm (150-400); POTASSIUM SERUM 3.7 mEq/L (3.5-5.1); RED BLOOD COUNT 4.66 Mil/cmm (3.80-5.80); RED CELL DISTRIBUTION WIDTH 13.8 % (11.5-20.0); SGOT 13 U/L (13-39); SGPT/ALT 15 U/L (7-52); SODIUM SERUM 136 mEq/L (136-145); TOTAL PROTEIN,SERUM 6.2 gm/dL (6.0-8.3)
[2018-01-10 07:21] LABS: WHITE BLOOD COUNT 31.7 Th/cmm (4.8-10.8)
[2018-01-10 07:22] LABS: % BASOPHILS 0.1 % (0.0-2.0); % EOSINOPHILS 0.8 % (0.0-5.0); % LYMPHOCYTES 70.2 % (20.0-50.0); % MONOCYTES 4.3 % (2.0-10.0); % NEUTROPHILS 24.6 % (40.0-80.0)
[2018-01-10] MEDS ORDERED: INSULIN ASPART, RECOMBINANT 100 UNITS/ML SUBQ SCH (07:30)
[2018-01-10] MEDS: INSULIN ASPART, RECOMBINANT 100 UNITS/ML SUBQ SCH ×3 (08:44→22:21)
[2018-01-10] MEDS: Insulin Detemir 100 units/mL 10mL Vial SUBQ SCH (08:45)
[2018-01-10] MEDS: Potassium Chloride 10 mEq ER Tab PO SCH (08:47)
[2018-01-10] MEDS: Fluticasone Propionate 0.05mg/Actuation 16gm Nasal Spray NS SCH (08:49)
[2018-01-10] MEDS: Peg-400/Propylene Ophth Soln 5 mL Bottle EACH EYE SCH ×3 (08:49→22:21)
[2018-01-10] MEDS: Venelex 60gm Tube TP SCH (08:49)
[2018-01-10] MEDS ORDERED: Probiotic Screen MC PRN (09:06)
[2018-01-10] MEDS: Lactobacillus Rhamnosus GG 15 Billion CFU CAP.SPRINK PO SCH (09:23)
[2018-01-10 09:24] LABS: INR 1.47 (0.5-1.4); PROTHROMBIN TIME (TEST) 15.6 SECONDS (9.5-11.5)
--- NOTE | 2018-01-10 14:35 | Infectious Disease Prog Note ---
Infectious Disease Subjective - Review of Systems Service Date: 01/10/18 Subjective: Feels better. Infectious Disease Objective - Results Result Diagrams: 01/10/18 06:00 01/10/18 06:00 Recent Labs: Laboratory Last Values WBC 31.7 Th/cmm (4.8-10.8) H* 01/10/18 06:00 RBC 4.66 Mil/cmm (3.80-5.80) 01/10/18 06:00 Hgb 12.7 gm/dL (12-16) 01/10/18 06:00 Hct 38.4 % (41.0-60) L 01/10/18 06:00 MCV 82.4 fl (80-99) 01/10/18 06:00 MCH 27.2 pg (27.0-31.0) 01/10/18 06:00 MCHC Differential 33.0 pg (28.0-36.0) 01/10/18 06:00 RDW 13.8 % (11.5-20.0) 01/10/18 06:00 Plt Count 161 Th/cmm (150-400) 01/10/18 06:00 MPV 9.3 fl 01/10/18 06:00 Neutrophils % 24.6 % (40.0-80.0) L 01/10/18 06:00 Lymphocytes % 70.2 % (20.0-50.0) H 01/10/18 06:00 Monocytes % 4.3 % (2.0-10.0) 01/10/18 06:00 Eosinophils % 0.8 % (0.0-5.0) 01/10/18 06:00 Basophils % 0.1 % (0.0-2.0) 01/10/18 06:00 Neutrophils (Manual) 23 % (40-80) L 01/09/18 11:38 Lymphocytes 74 % (20-50) H 01/09/18 11:38 Monocytes 2 % (2-10) 01/09/18 11:38 Eosinophils 1 % (0-5) 01/09/18 11:38 PT 15.6 SECONDS (9.5-11.5) H 01/10/18 06:00 INR 1.47 (0.5-1.4) H 01/10/18 06:00 PTT (Actin FS) 33.6 SECONDS (26.0-38.0) 01/09/18 11:38 Sodium 136 mEq/L (136-145) 01/10/18 06:00 Potassium 3.7 mEq/L (3.5-5.1) 01/10/18 06:00 Chloride 102 mEq/L (98-107) 01/10/18 06:00 Carbon Dioxide 27.2 mEq/L (21.0-31.0) 01/10/18 06:00 Anion Gap 10.5 (7.0-16.0) 01/10/18 06:00 BUN 24 mg/dL (7-25) 01/10/18 06:00 Creatinine 1.3 mg/dL (0.7-1.3) 01/10/18 06:00 Est GFR ( Amer) TNP 01/10/18 06:00 Est GFR (Non-Af Amer) TNP 01/10/18 06:00 BUN/Creatinine Ratio 18.5 01/10/18 06:00 Glucose 183 mg/dL (70-105) H 01/10/18 06:00 POC Glucose 257 MG/DL (70 - 105) H 01/10/18 12:03 Hemoglobin A1c % 7.8 % (4.0-6.0) H 01/09/18 11:38 Whole Bld Lactic Acid 1.42 mmol/L (0.60-1.99) 01/09/18 11:38 Calcium 8.4 mg/dL (8.6-10.3) L 01/10/18 06:00 Total Bilirubin 1.0 mg/dL (0.3-1.0) 01/10/18 06:00 AST 13 U/L (13-39) 01/10/18 06:00 ALT 15 U/L (7-52) 01/10/18 06:00 Alkaline Phosphatase 104 U/L (34-104) 01/10/18 06:00 Lactate Dehydrogenase 144 U/L (140-271) 01/10/18 06:00 Creatine Kinase 37 U/L (30-223) 01/09/18 11:38 Troponin I < 0.01 ng/mL (0.01-0.05) L 01/09/18 11:38 Total Protein 6.2 gm/dL (6.0-8.3) 01/10/18 06:00 Albumin 3.6 gm/dL (4.2-5.5) L 01/10/18 06:00 Globulin 2.6 gm/dL 01/10/18 06:00 Albumin/Globulin Ratio 1.4 (1.0-1.8) 01/10/18 06:00 Urine Source MIDSTREAM 01/10/18 04:07 Urine Color YELLOW 01/10/18 04:07 Urine Clarity HAZY (CLEAR) 01/10/18 04:07 Urine pH 6.0 (4.6 - 8.0) 01/10/18 04:07 Ur Specific [place] 1.020 (1.005-1.030) 01/10/18 04:07 Urine Protein 30 mg/dL (NEGATIVE) H 01/10/18 04:07 Urine Glucose (UA) NEGATIVE mg/dL (NEGATIVE) 01/10/18 04:07 Urine Ketones NEGATIVE mg/dL (NEGATIVE) 01/10/18 04:07 Urine Blood NEGATIVE (NEGATIVE) 01/10/18 04:07 Urine Nitrate NEGATIVE (NEGATIVE) 01/10/18 04:07 Urine Bilirubin NEGATIVE (NEGATIVE) 01/10/18 04:07 Urine Urobilinogen 0.2 E.U./dL (0.2 - 1.0) 01/10/18 04:07 Ur Leukocyte Esterase NEGATIVE (NEGATIVE) 01/10/18 04:07 Urine RBC 0-2 /hpf (0-5) H 01/10/18 04:07 Urine WBC 0-2 /hpf (0-5) 01/10/18 04:07 Ur Epithelial Cells OCCASIONAL /lpf (FEW) 01/10/18 04:07 Urine Bacteria OCCASIONAL /hpf (NONE SEEN) 01/10/18 04:07 - Physical Exam Vitals and I&O: Vital Signs Temp 97.3 F 01/10/18 04:00 Pulse 92 01/10/18 08:47 Resp 18 01/10/18 12:07 BP 121/70 01/10/18 08:47 Pulse Ox 94 01/10/18 04:00 Intake & Output 01/09/18 01/10/18 01/10/18 18:59 06:59 18:59 Intake Total 200 Output Total 650 Balance -450 Weight (lbs) 132.449 kg 134.127 kg Intake: Intake, IV Amount 100 Cefepime 1 gm In Dextrose 100 5% 50 ml @ 100 mls/hr IV Q8HR [facility] Rx#:[id number] Oral 100 Output: Urine 650 Stool 0 Other: Weight Source Bedscale Active Medications: Current Medications Acetaminophen/Hydrocodone Bitart ([place] 10 Mg/325 Mg) 1 tab PO Q4H PRN PRN Reason: MOD SEVERE PAIN Stop: 03/10/18 21:17 Amiodarone HCl (Cordarone) 200 mg PO DAILY [facility] Stop: 03/11/18 08:59 Last Admin: 01/10/18 08:46 Dose: 200 mg [place] Oil/[place] Balsam/Trypsin (Venelex) 1 appl TP DAILY [facility] Stop: 03/11/18 08:59 Last Admin: 01/10/18 08:49 Dose: Not Given Cyanocobalamin (Vitamin B12) 1,000 mcg PO DAILY [facility] Stop: 03/11/18 08:59 Last Admin: 01/10/18 08:47 Dose: 1,000 mcg Docusate Sodium (Colace) 100 mg PO BID [facility] Stop: 03/11/18 08:59 Last Admin: 01/10/18 08:47 Dose: 100 mg Fluticasone Propionate (Flonase) 2 spr NS DAILY [facility] Stop: 03/11/18 08:59 Last Admin: 01/10/18 08:49 Dose: Not Given Furosemide (Lasix) 40 mg PO BID [facility] Stop: 03/11/18 08:59 Last Admin: 01/10/18 08:47 Dose: 40 mg Glipizide (Glucotrol) 10 mg PO BID [facility] Stop: 03/11/18 08:59 Last Admin: 01/10/18 08:46 Dose: 10 mg Glucagon (Glucagen) 1 mg IM PRN PRN PRN Reason: BLOOD GLUCOSE <60 Stop: 03/10/18 21:17 Cefepime HCl 1 gm/ Dextrose 50 mls @ 100 mls/hr IV Q8HR [facility] Stop: 03/10/18 20:59 Last Admin: 01/10/18 12:36 Dose: 100 mls/hr Vancomycin HCl 2 gm/ Sodium (Chloride) 500 mls @ 250 mls/hr IV Q24H [facility] Stop: 03/11/18 09:59 Last Admin: 01/10/18 09:18 Dose: 250 mls/hr Insulin Aspart (Novolog) 10 units SUBQ TID [facility] Stop: 03/11/18 08:59 Last Admin: 01/10/18 13:34 Dose: 10 unit Insulin Aspart (Novolog Insulin Sliding Scale) 0 units SUBQ ACHS [facility] PRN Reason: Protocol Stop: 03/11/18 07:29 Last Admin: 01/10/18 12:29 Dose: 6 units Insulin Detemir (Levemir Insulin) 50 units SUBQ DAILY [facility] PRN Reason: Protocol Stop: 03/11/18 08:59 Last Admin: 01/10/18 08:45 Dose: Not Given Lactobacillus Rhamnosus (Culturelle 15b) 1 each PO DAILY [facility] Stop: 03/11/18 08:59 Last Admin: 01/10/18 09:23 Dose: 1 each Magnesium Hydroxide (Milk Of Magnesia) 30 ml PO DAILY PRN PRN Reason: Constipation Stop: 03/10/18 21:17 Metformin HCl (Glucophage) 850 mg PO TID [facility] Stop: 03/11/18 08:59 Last Admin: 01/10/18 13:33 Dose: 850 mg Metoprolol Tartrate (Lopressor) 25 mg PO BID [facility] Stop: 03/11/18 08:59 Last Admin: 01/10/18 08:47 Dose: 25 mg Miscellaneous (Vancomycin Iv Per Pharmacy) 1 ea PRN PRN PRN Reason: PROTOCOL Stop: 03/10/18 13:48 Miscellaneous (Probiotic Screen) 1 ea PRN PRN PRN Reason: PROTOCOL Stop: 03/11/18 09:05 Nitroglycerin (Nitrostat) 0.4 mg SL Q5MIN PRN PRN Reason: Chest Pain Stop: 03/10/18 21:17 Potassium Chloride (Klor-Con) 10 meq PO DAILY [facility] Stop: 03/11/18 08:59 Last Admin: 01/10/18 08:47 Dose: 10 meq Propylene Glycol (Systane Ophth Soln) 1 drop EACH EYE TID [facility] Stop: 03/11/18 08:59 Last Admin: 01/10/18 13:33 Dose: 1 drop Senna (Senna) 17.2 mg PO HS [facility] Stop: 03/11/18 20:59 Sodium Phosphate (Fleet Enema) 135 ml RC Q48H PRN PRN Reason: IF MOM INEFFECTIVE Stop: 03/10/18 21:17 Warfarin Sodium (Coumadin) 5 mg PO 1700 [facility] PRN Reason: Protocol Stop: 03/11/18 16:59 General: no acute distress, well developed, well nourished HEENT: atraumatic, normocephalic, PERRLA, EOMI Neck: supple, no thyromegaly Cardiovascular: S1S2, regular Lungs: clear to auscultation bilaterally, clear to percussion Abdomen: soft, no tender, no distended, no mass, no rebound, no hepatomegaly, no splenomegaly Extremities: edema, other (erythema improving.), no cyanosis, no clubbing Neurological: awake, alert, oriented - Procedures Procedures: Procedures Procedure Code Date CHOLECYSTECTOMY 51.22 07/31/14 TERRY SUBQ TISSUE 20 SQ CM/< 58567 07/08/15 EXTRACTION OF RIGHT LOWER LEG SKIN, EXTERNAL APPROACH [id number] 07/08/15 REMOVAL OF GALLBLADDER 10199 07/31/14 REPLACE R LOW LEG SKIN W AUTOL SUB, FULL THICK, EMULSION OPERATOR [id number] 07/08/15 SKIN FULL GRAFT SCLP/ARM/LEG [id number] 07/08/15 Infectious Disease Assmt/Plan - Problem List Patient Problems: All Active Problems BILATERAL LOWER EXTREMITY SWELLING/REDNE (Acute) - Assessment Assessment: 1. bilateral leg cellulitis. 2. Chronic leukocytosis, ?CML.( patient stated that hw was told, he had baseline WBC Count of 20K to 30K ). 3. DM2. 4. PAF. 5. HTN. 6. CHF. 7. Obesity. - Plan Plan: Continue vanco IV and cefepime. Wound care. arterial US.
--- NOTE | 2018-01-10 21:20 | Progress Notes ---
DATE: PATIENT'S IDENTIFICATION: A 72-year-old male. SUBJECTIVE: The patient seen and examined. The patient is lying in the bed. The patient feels better. The patient denies any chest pain, abdominal pain, nausea, vomiting or headache. PHYSICAL EXAMINATION: VITAL SIGNS: Temperature is 97.7, pulse is 87, respiratory rate 18, blood pressure 109/49. HEENT: No facial asymmetry. Poor dentition noted. NECK: Supple. No JVD. HEART: Regular. CHEST: Lung equal in expansion. No expiratory wheezing. ABDOMEN: Soft. No guarding or rigidity. Bowel sounds present. EXTREMITIES: Decreased significantly edema on both lower extremities noted with intact dressings noted. NEUROLOGIC: Alert, awake, follows commands. LABORATORY DATA: White count of 31.7, hemoglobin 12.7, platelet count of 161. INR of 1.47. BUN and creatinine are normal. CLINICAL IMPRESSION: 1. Bilateral lower extremity cellulitis. 2. Chronic lymphocytic leukemia. 3. Diabetes mellitus. 4. Chronic atrial fibrillation. 5. Congestive heart failure. 6. Obesity. 7. Obstructive sleep apnea. 8. Degenerative joint disease. 9. Debility. PLAN: 1. Continue IV antibiotic as ordered. 2. Wound care. 3. General nursing care. 4. Diabetes management. 5. Symptoms management. 6. Medication management. 7. Chronic disease management. 8. Follow lab. 9. Follow financial planning consultant's recommendation. 10. Care plan reviewed and discussed with staff. JOB# [id number]
[2018-01-11 06:24] LABS: HEMATOCRIT 39.4 % (41.0-60); HEMOGLOBIN 12.9 gm/dL (12-16); MEAN CELL VOLUME 81.4 fl (80-99); MEAN CORPUSCULAR HEMOGLOBIN 26.6 pg (27.0-31.0); MEAN CORPUSCULAR HGB CONC 32.6 pg (28.0-36.0); MEAN PLATELET VOLUME 8.9 fl; PLATELET COUNT 171 Th/cmm (150-400); RED BLOOD COUNT 4.84 Mil/cmm (3.80-5.80); RED CELL DISTRIBUTION WIDTH 14.2 % (11.5-20.0)
[2018-01-11 06:26] LABS: WHITE BLOOD COUNT 34.9 Th/cmm (4.8-10.8)
[2018-01-11 06:27] LABS: % BASOPHILS 0.2 % (0.0-2.0); % EOSINOPHILS 0.6 % (0.0-5.0); % LYMPHOCYTES 70.7 % (20.0-50.0); % MONOCYTES 2.5 % (2.0-10.0); BASOPHILE ABSOLUTE 0.1 Th/cumm (0-0.2); EOSINOPHILE ABSOLUTE 0.2 Th/cmm (0.1-0.4); LYMPHOCYTE ABSOLUTE 24.7 Th/cmm (1.5-3.0); MONOCYTE ABSOLUTE 1.2 Th/cmm (0.3-1.0); NEUTROPHILE ABSOLUTE 8.7 Th/cmm (1.8-8.0)
[2018-01-11 06:35] LABS: INR 1.25 (0.5-1.4); PROTHROMBIN TIME (TEST) 13.1 SECONDS (9.5-11.5)
[2018-01-11 06:40] LABS: ALB/GLOB RATIO 1.3 (1.0-1.8); ALBUMIN 3.8 gm/dL (4.2-5.5); ALKALINE PHOSPHATASE 108 U/L (34-104); ANION GAP 11.5 (7.0-16.0); BILIRUBIN,TOTAL 0.8 mg/dL (0.3-1.0); BUN - UREA NITROGEN 23 mg/dL (7-25); CALCIUM SERUM 8.6 mg/dL (8.6-10.3); CHLORIDE 100 mEq/L (98-107); CREATININE - SERUM 1.5 mg/dL (0.7-1.3); GLUCOSE 195 mg/dL (70-105); POTASSIUM SERUM 3.5 mEq/L (3.5-5.1); SGOT 12 U/L (13-39); SGPT/ALT 14 U/L (7-52); SODIUM SERUM 137 mEq/L (136-145); TOTAL PROTEIN,SERUM 6.7 gm/dL (6.0-8.3)
[2018-01-11] MEDS: INSULIN ASPART SLIDING SCALE 100 UNITS/ML UNIT SUBQ SCH ×3 (07:48→17:41)
[2018-01-11] MEDS: Potassium Chloride 10 mEq ER Tab PO SCH (08:22)
[2018-01-11] MEDS: Lactobacillus Rhamnosus GG 15 Billion CFU CAP.SPRINK PO SCH (08:22)
[2018-01-11] MEDS: Venelex 60gm Tube TP SCH (08:23)
[2018-01-11] MEDS: Fluticasone Propionate 0.05mg/Actuation 16gm Nasal Spray NS SCH (08:23)
[2018-01-11] MEDS: Insulin Detemir 100 units/mL 10mL Vial SUBQ SCH (08:24)
[2018-01-11] MEDS: INSULIN ASPART, RECOMBINANT 100 UNITS/ML SUBQ SCH ×3 (08:24→21:48)
[2018-01-11] MEDS: Peg-400/Propylene Ophth Soln 5 mL Bottle EACH EYE SCH ×3 (09:54→21:59)
--- NOTE | 2018-01-11 13:06 | Diagnostic Imaging Report ---
Bilateral lower extremity Doppler arterial ultrasound exam HISTORY: Peripheral vascular disease, pain Sonographic sector images were obtained through the arterial systems of both legs. Associated Doppler data was obtained. The exam of the right leg demonstrates triphasic waveforms within the common femoral artery. Biphasic waveforms are noted within the superficial femoral and popliteal arteries. The anterior tibial artery cannot be clearly visualized. Triphasic waveforms noted in the right posterior tibial artery. Biphasic waveforms noted in the right dorsalis pedis artery. The right ankle-brachial index could not be calculated due to difficulty and pressure measurement. Sonographic images demonstrate evidence of mild to moderate diffuse atherosclerotic changes. No discrete occlusion. The left leg straights biphasic waveforms within the common femoral as well as within the mid and distal portions of the superficial femoral artery, popliteal, and anterior tibial arteries. Triphasic waveforms are noted within the remainder of the arterial system. The ankle-brachial index is normal (1.2). Sonographic images demonstrate mild to moderate diffuse episodic changes somewhat more pronounced below the knee. IMPRESSION: 1. Mild to moderate diffuse bilateral atherosclerotic changes. No discrete occlusion identified.
--- NOTE | 2018-01-11 22:54 | General Progress Note ---
Subjective - Review of Systems Service Date: 01/11/18 Subjective: Patient seen and examined Chart reviewed patient stated he feels better denied any complaints Objective - Results Result Diagrams: 01/11/18 05:55 01/11/18 05:55 Recent Labs: Laboratory Last Values WBC 34.9 Th/cmm (4.8-10.8) H* 01/11/18 05:55 RBC 4.84 Mil/cmm (3.80-5.80) 01/11/18 05:55 Hgb 12.9 gm/dL (12-16) 01/11/18 05:55 Hct 39.4 % (41.0-60) L 01/11/18 05:55 MCV 81.4 fl (80-99) 01/11/18 05:55 MCH 26.6 pg (27.0-31.0) L 01/11/18 05:55 MCHC Differential 32.6 pg (28.0-36.0) 01/11/18 05:55 RDW 14.2 % (11.5-20.0) 01/11/18 05:55 Plt Count 171 Th/cmm (150-400) 01/11/18 05:55 MPV 8.9 fl 01/11/18 05:55 Neutrophils % 25.0 % (40.0-80.0) L 01/11/18 05:55 Lymphocytes % 70.7 % (20.0-50.0) H 01/11/18 05:55 Monocytes % 2.5 % (2.0-10.0) 01/11/18 05:55 Eosinophils % 0.6 % (0.0-5.0) 01/11/18 05:55 Basophils % 0.2 % (0.0-2.0) 01/11/18 05:55 Neutrophils (Manual) 23 % (40-80) L 01/09/18 11:38 Lymphocytes 74 % (20-50) H 01/09/18 11:38 Monocytes 2 % (2-10) 01/09/18 11:38 Eosinophils 1 % (0-5) 01/09/18 11:38 PT 13.1 SECONDS (9.5-11.5) H 01/11/18 05:55 INR 1.25 (0.5-1.4) 01/11/18 05:55 PTT (Actin FS) 33.6 SECONDS (26.0-38.0) 01/09/18 11:38 Sodium 137 mEq/L (136-145) 01/11/18 05:55 Potassium 3.5 mEq/L (3.5-5.1) 01/11/18 05:55 Chloride 100 mEq/L (98-107) 01/11/18 05:55 Carbon Dioxide 29.0 mEq/L (21.0-31.0) 01/11/18 05:55 Anion Gap 11.5 (7.0-16.0) 01/11/18 05:55 BUN 23 mg/dL (7-25) 01/11/18 05:55 Creatinine 1.5 mg/dL (0.7-1.3) H 01/11/18 05:55 Est GFR ( Amer) TNP 01/11/18 05:55 Est GFR (Non-Af Amer) TNP 01/11/18 05:55 BUN/Creatinine Ratio 15.3 01/11/18 05:55 Glucose 195 mg/dL (70-105) H 01/11/18 05:55 POC Glucose 149 MG/DL (70 - 105) H 01/11/18 21:40 Hemoglobin A1c % 7.8 % (4.0-6.0) H 01/09/18 11:38 Whole Bld Lactic Acid 1.42 mmol/L (0.60-1.99) 01/09/18 11:38 Calcium 8.6 mg/dL (8.6-10.3) 01/11/18 05:55 Total Bilirubin 0.8 mg/dL (0.3-1.0) 01/11/18 05:55 AST 12 U/L (13-39) L 01/11/18 05:55 ALT 14 U/L (7-52) 01/11/18 05:55 Alkaline Phosphatase 108 U/L (34-104) H 01/11/18 05:55 Lactate Dehydrogenase 144 U/L (140-271) 01/10/18 06:00 Creatine Kinase 37 U/L (30-223) 01/09/18 11:38 Troponin I < 0.01 ng/mL (0.01-0.05) L 01/09/18 11:38 Total Protein 6.7 gm/dL (6.0-8.3) 01/11/18 05:55 Albumin 3.8 gm/dL (4.2-5.5) L 01/11/18 05:55 Globulin 2.9 gm/dL 01/11/18 05:55 Albumin/Globulin Ratio 1.3 (1.0-1.8) 01/11/18 05:55 Urine Source MIDSTREAM 01/10/18 04:07 Urine Color YELLOW 01/10/18 04:07 Urine Clarity HAZY (CLEAR) 01/10/18 04:07 Urine pH 6.0 (4.6 - 8.0) 01/10/18 04:07 Ur Specific [place] 1.020 (1.005-1.030) 01/10/18 04:07 Urine Protein 30 mg/dL (NEGATIVE) H 01/10/18 04:07 Urine Glucose (UA) NEGATIVE mg/dL (NEGATIVE) 01/10/18 04:07 Urine Ketones NEGATIVE mg/dL (NEGATIVE) 01/10/18 04:07 Urine Blood NEGATIVE (NEGATIVE) 01/10/18 04:07 Urine Nitrate NEGATIVE (NEGATIVE) 01/10/18 04:07 Urine Bilirubin NEGATIVE (NEGATIVE) 01/10/18 04:07 Urine Urobilinogen 0.2 E.U./dL (0.2 - 1.0) 01/10/18 04:07 Ur Leukocyte Esterase NEGATIVE (NEGATIVE) 01/10/18 04:07 Urine RBC 0-2 /hpf (0-5) H 01/10/18 04:07 Urine WBC 0-2 /hpf (0-5) 01/10/18 04:07 Ur Epithelial Cells OCCASIONAL /lpf (FEW) 01/10/18 04:07 Urine Bacteria OCCASIONAL /hpf (NONE SEEN) 01/10/18 04:07 Vancomycin Trough 14.0 ug/mL (10-20) 01/11/18 08:20 - Physical Exam Vitals and I&O: Vital Signs Temp 97.5 F 01/11/18 20:00 Pulse 86 01/11/18 20:00 Resp 18 01/11/18 20:00 BP 113/65 01/11/18 20:00 Pulse Ox 95 01/11/18 20:00 Intake & Output 01/11/18 01/11/18 01/12/18 06:59 18:59 06:59 Intake Total 250 550 Output Total 650 Balance -400 550 Weight (lbs) 132.449 kg Intake: Intake, IV Amount 100 550 Cefepime 1 gm In Dextrose 100 50 5% 50 ml @ 100 mls/hr IV Q8HR [facility] Rx#:[id number] Vancomycin HCl 2 gm In 500 Sodium Chloride 0.9% 500 ml @ 250 mls/hr IV Q24H [facility] Rx#:[id number] Oral 150 Output: Urine 650 Other: # Voids 3 # Bowel Movements 0 Stool Characteristics Formed Weight Source Bedscale Active Medications: Current Medications Acetaminophen/Hydrocodone Bitart ([place] 10 Mg/325 Mg) 1 tab PO Q4H PRN PRN Reason: MOD SEVERE PAIN Stop: 03/10/18 21:17 Last Admin: 01/11/18 22:38 Dose: 1 tab Amiodarone HCl (Cordarone) 200 mg PO DAILY [facility] Stop: 03/11/18 08:59 Last Admin: 01/11/18 08:22 Dose: 200 mg [place] Oil/[place] Balsam/Trypsin (Venelex) 1 appl TP DAILY [facility] Stop: 03/11/18 08:59 Last Admin: 01/11/18 08:23 Dose: 1 appl Cyanocobalamin (Vitamin B12) 1,000 mcg PO DAILY [facility] Stop: 03/11/18 08:59 Last Admin: 01/11/18 08:22 Dose: 1,000 mcg Docusate Sodium (Colace) 100 mg PO BID [facility] Stop: 03/11/18 08:59 Last Admin: 01/11/18 17:24 Dose: 100 mg Fluticasone Propionate (Flonase) 2 spr NS DAILY [facility] Stop: 03/11/18 08:59 Last Admin: 01/11/18 08:23 Dose: 2 spr Furosemide (Lasix) 40 mg PO BID [facility] Stop: 03/11/18 08:59 Last Admin: 01/11/18 17:24 Dose: 40 mg Glipizide (Glucotrol) 10 mg PO BID [facility] Stop: 03/11/18 08:59 Last Admin: 01/11/18 17:24 Dose: 10 mg Glucagon (Glucagen) 1 mg IM PRN PRN PRN Reason: BLOOD GLUCOSE <60 Stop: 03/10/18 21:17 Cefepime HCl 1 gm/ Dextrose 50 mls @ 100 mls/hr IV Q8HR [facility] Stop: 03/10/18 20:59 Last Admin: 01/11/18 21:58 Dose: 100 mls/hr Vancomycin HCl 2 gm/ Sodium (Chloride) 500 mls @ 250 mls/hr IV Q24H [facility] Stop: 03/11/18 09:59 Last Infusion: 01/11/18 13:07 Dose: Infused Insulin Aspart (Novolog) 10 units SUBQ TID [facility] Stop: 03/11/18 08:59 Last Admin: 01/11/18 21:48 Dose: Not Given Insulin Aspart (Novolog Insulin Sliding Scale) 0 units SUBQ ACHS [facility] PRN Reason: Protocol Stop: 03/11/18 07:29 Last Admin: 01/11/18 17:41 Dose: 2 units Insulin Detemir (Levemir Insulin) 50 units SUBQ DAILY [facility] PRN Reason: Protocol Stop: 03/11/18 08:59 Last Admin: 01/11/18 08:24 Dose: 50 unit Lactobacillus Rhamnosus (Culturelle 15b) 1 each PO DAILY [facility] Stop: 03/11/18 08:59 Last Admin: 01/11/18 08:22 Dose: 1 each Magnesium Hydroxide (Milk Of Magnesia) 30 ml PO DAILY PRN PRN Reason: Constipation Stop: 03/10/18 21:17 Metformin HCl (Glucophage) 850 mg PO TID [facility] Stop: 03/11/18 08:59 Last Admin: 01/11/18 21:59 Dose: 850 mg Metoprolol Tartrate (Lopressor) 25 mg PO BID [facility] Stop: 03/11/18 08:59 Last Admin: 01/11/18 17:24 Dose: 25 mg Miscellaneous (Vancomycin Iv Per Pharmacy) 1 ea MC PRN PRN PRN Reason: PROTOCOL Stop: 03/10/18 13:48 Miscellaneous (Probiotic Screen) 1 ea MC PRN PRN PRN Reason: PROTOCOL Stop: 03/11/18 09:05 Mupirocin (Bactroban Oint) 1 appl NS BID [facility] Stop: 01/16/18 17:01 Nitroglycerin (Nitrostat) 0.4 mg SL Q5MIN PRN PRN Reason: Chest Pain Stop: 03/10/18 21:17 Potassium Chloride (Klor-Con) 10 meq PO DAILY [facility] Stop: 03/11/18 08:59 Last Admin: 01/11/18 08:22 Dose: 10 meq Propylene Glycol (Systane Ophth Soln) 1 drop EACH EYE TID [facility] Stop: 03/11/18 08:59 Last Admin: 01/11/18 21:59 Dose: 1 drop Senna (Senna) 17.2 mg PO HS [facility] Stop: 03/11/18 20:59 Last Admin: 01/11/18 21:59 Dose: 17.2 mg Sodium Phosphate (Fleet Enema) 135 ml RC Q48H PRN PRN Reason: IF MOM INEFFECTIVE Stop: 03/10/18 21:17 Last Admin: 01/11/18 10:35 Dose: 135 ml Warfarin Sodium (Coumadin) 5 mg PO 1700 [facility] PRN Reason: Protocol Stop: 03/11/18 16:59 Last Admin: 01/11/18 17:24 Dose: 5 mg Warfarin Sodium (Coumadin Per Pharmacy) 1 ea MC PRN PRN PRN Reason: RX MONITORING Stop: 03/11/18 15:39 General: Alert, No acute distress Cardiovascular: Regular rate Lungs: Clear to auscultation Extremities: Edema, Other (redness bilaterally) - Procedures Procedures: Procedures Procedure Code Date CHOLECYSTECTOMY 51.22 07/31/14 TERRY SUBQ TISSUE 20 SQ CM/< 53277 07/08/15 EXTRACTION OF RIGHT LOWER LEG SKIN, EXTERNAL APPROACH [id number] 07/08/15 REMOVAL OF GALLBLADDER 25808 07/31/14 REPLACE R LOW LEG SKIN W AUTOL SUB, FULL THICK, SCOURING TRAIN OPERATOR [id number] 07/08/15 SKIN FULL GRAFT SCLP/ARM/LEG 68881 07/08/15 Assessment/Plan - Problem List Patient Problems: All Active Problems BILATERAL LOWER EXTREMITY SWELLING/REDNE (Acute) - Assessment Assessment: Bilateral leg cellulitis PVD Chronic afib DM II HTN Obesity - Plan Plan: Continue IV antibiotics Wound care Accucheck Monitor vitals Plan of care discussed with nursing staff Nutritional Asmnt/Malnutr-PDOC - Dietary Evaluation Malnutrition Findings (Please click <Entered> for more info): Nutritional Asmnt/Malnutrition Start: 01/10/18 15: 30 Text: Status: Complete Freq: Document 01/10/18 15:30 LCRICHARD (Rec: 01/10/18 15:59 LCRICHARD ELIZABET-FN) Nutritional Asmnt/Malnutrition Patient General Information Nutritional Screening High Risk Consult Diagnosis cellulitis Pertinent Medical Hx/Surgical Hx DM. HTN, obesity, obstructive sleep apnea, chronic a fib, CHF, chronic myeloid leukemia, DJD, chronic constipation Subjective Information Consult received for skin issue and diabetes. Pt seen lying in bed, awake and alert. Pt reported good appetite, consumed 100% of breakfast, 90 % of lunch except spinach d/t he is taking wafarin. Food preference provided. Pt stated he has no teeth, but no chewing problem on current diet. Pt also reported constipation. Current Diet Order/ Nutrition Support regular diabetic diet Pertinent Medications vit B12, colace, lasix, novolog, levemir, culturelle, glucophage, cancomycin, kcl, senna, vancomycin, warfarin Pertinent Labs 01/10 glucose 183, POC 164-257 01/09 A1c 7.8 Nutritional Hx/Data Height 1.7 m Height (Calculated Centimeters) 170.2 Current Weight (lbs) 134.263 kg Weight (Calculated Kilograms) 134.3 Weight (Calculated Grams) 928915.3 [place] Body Weight 148 Body Mass Index (BMI) 46.3 Weight Status Morbidly Obese GI Symptoms GI Symptoms Constipation Last BM 01/07 per MD note Difficult in: None Usual diet at home following diabetic diet per pt Skin Integrity/Comment: cellulitis wound BLE Estimated Nutritional Goals BEE in Kcals: Adj wt of IBW Calories/Kcals/Kg 23-27 Kcals Calculated 5939-6810 Protein: Adj wt of IBW Protein g/k-1.1 Protein Calculated 84-92 Fluid: ml 1932-2268ml (1ml/kcal) Nutritional Problem 1. Problem Problem altered nutrition related lab values Etiology hx of DM Signs/Symptoms: glucose 183, POC 164-257, A1c 7.8 Malnutrition Alert Protein-Calorie Malnutrition N/A Is there a minimum of two criteria No selected? Query Text:Check all the applicable criteria. A minimum of two criteria are recommended for diagnosis of either severe or non-severe malnutrition. Intervention/Recommendation Comments 1. Continue with current diet as ordered. Food preference updated. Pt understands food- drug interaction of warfarin. 2. Considering pt has no teeth , substitute fresh apple with applesauce . Provided prune juice with breakfast for 3 days to manage BM. 3. Monitor PO intake, wt, labs and skin integrity 4. F/U as high risk in 2-3 days, 01/12-01/13 Expected Outcomes/Goals Expected Outcomes/Goals 1. PO intake to meet at least 75% of nutritional needs. 2. Wt stability, skin to remain intact, labs to approach WNL.
--- NOTE | 2018-01-11 23:30 | Infectious Disease Prog Note ---
Infectious Disease Subjective - Review of Systems Service Date: 01/11/18 Subjective: Feels better. Infectious Disease Objective - Results Result Diagrams: 01/11/18 05:55 01/11/18 05:55 Recent Labs: Laboratory Last Values WBC 34.9 Th/cmm (4.8-10.8) H* 01/11/18 05:55 RBC 4.84 Mil/cmm (3.80-5.80) 01/11/18 05:55 Hgb 12.9 gm/dL (12-16) 01/11/18 05:55 Hct 39.4 % (41.0-60) L 01/11/18 05:55 MCV 81.4 fl (80-99) 01/11/18 05:55 MCH 26.6 pg (27.0-31.0) L 01/11/18 05:55 MCHC Differential 32.6 pg (28.0-36.0) 01/11/18 05:55 RDW 14.2 % (11.5-20.0) 01/11/18 05:55 Plt Count 171 Th/cmm (150-400) 01/11/18 05:55 MPV 8.9 fl 01/11/18 05:55 Neutrophils % 25.0 % (40.0-80.0) L 01/11/18 05:55 Lymphocytes % 70.7 % (20.0-50.0) H 01/11/18 05:55 Monocytes % 2.5 % (2.0-10.0) 01/11/18 05:55 Eosinophils % 0.6 % (0.0-5.0) 01/11/18 05:55 Basophils % 0.2 % (0.0-2.0) 01/11/18 05:55 Neutrophils (Manual) 23 % (40-80) L 01/09/18 11:38 Lymphocytes 74 % (20-50) H 01/09/18 11:38 Monocytes 2 % (2-10) 01/09/18 11:38 Eosinophils 1 % (0-5) 01/09/18 11:38 PT 13.1 SECONDS (9.5-11.5) H 01/11/18 05:55 INR 1.25 (0.5-1.4) 01/11/18 05:55 PTT (Actin FS) 33.6 SECONDS (26.0-38.0) 01/09/18 11:38 Sodium 137 mEq/L (136-145) 01/11/18 05:55 Potassium 3.5 mEq/L (3.5-5.1) 01/11/18 05:55 Chloride 100 mEq/L (98-107) 01/11/18 05:55 Carbon Dioxide 29.0 mEq/L (21.0-31.0) 01/11/18 05:55 Anion Gap 11.5 (7.0-16.0) 01/11/18 05:55 BUN 23 mg/dL (7-25) 01/11/18 05:55 Creatinine 1.5 mg/dL (0.7-1.3) H 01/11/18 05:55 Est GFR ( Amer) TNP 01/11/18 05:55 Est GFR (Non-Af Amer) TNP 01/11/18 05:55 BUN/Creatinine Ratio 15.3 01/11/18 05:55 Glucose 195 mg/dL (70-105) H 01/11/18 05:55 POC Glucose 149 MG/DL (70 - 105) H 01/11/18 21:40 Hemoglobin A1c % 7.8 % (4.0-6.0) H 01/09/18 11:38 Whole Bld Lactic Acid 1.42 mmol/L (0.60-1.99) 01/09/18 11:38 Calcium 8.6 mg/dL (8.6-10.3) 01/11/18 05:55 Total Bilirubin 0.8 mg/dL (0.3-1.0) 01/11/18 05:55 AST 12 U/L (13-39) L 01/11/18 05:55 ALT 14 U/L (7-52) 01/11/18 05:55 Alkaline Phosphatase 108 U/L (34-104) H 01/11/18 05:55 Lactate Dehydrogenase 144 U/L (140-271) 01/10/18 06:00 Creatine Kinase 37 U/L (30-223) 01/09/18 11:38 Troponin I < 0.01 ng/mL (0.01-0.05) L 01/09/18 11:38 Total Protein 6.7 gm/dL (6.0-8.3) 01/11/18 05:55 Albumin 3.8 gm/dL (4.2-5.5) L 01/11/18 05:55 Globulin 2.9 gm/dL 01/11/18 05:55 Albumin/Globulin Ratio 1.3 (1.0-1.8) 01/11/18 05:55 Urine Source MIDSTREAM 01/10/18 04:07 Urine Color YELLOW 01/10/18 04:07 Urine Clarity HAZY (CLEAR) 01/10/18 04:07 Urine pH 6.0 (4.6 - 8.0) 01/10/18 04:07 Ur Specific [place] 1.020 (1.005-1.030) 01/10/18 04:07 Urine Protein 30 mg/dL (NEGATIVE) H 01/10/18 04:07 Urine Glucose (UA) NEGATIVE mg/dL (NEGATIVE) 01/10/18 04:07 Urine Ketones NEGATIVE mg/dL (NEGATIVE) 01/10/18 04:07 Urine Blood NEGATIVE (NEGATIVE) 01/10/18 04:07 Urine Nitrate NEGATIVE (NEGATIVE) 01/10/18 04:07 Urine Bilirubin NEGATIVE (NEGATIVE) 01/10/18 04:07 Urine Urobilinogen 0.2 E.U./dL (0.2 - 1.0) 01/10/18 04:07 Ur Leukocyte Esterase NEGATIVE (NEGATIVE) 01/10/18 04:07 Urine RBC 0-2 /hpf (0-5) H 01/10/18 04:07 Urine WBC 0-2 /hpf (0-5) 01/10/18 04:07 Ur Epithelial Cells OCCASIONAL /lpf (FEW) 01/10/18 04:07 Urine Bacteria OCCASIONAL /hpf (NONE SEEN) 01/10/18 04:07 Vancomycin Trough 14.0 ug/mL (10-20) 01/11/18 08:20 - Physical Exam Vitals and I&O: Vital Signs Temp 97.5 F 01/11/18 20:00 Pulse 86 01/11/18 20:00 Resp 18 01/11/18 20:00 BP 113/65 01/11/18 20:00 Pulse Ox 95 01/11/18 20:00 Intake & Output 01/11/18 01/11/18 01/12/18 06:59 18:59 06:59 Intake Total 250 550 Output Total 650 Balance -400 550 Weight (lbs) 132.449 kg Intake: Intake, IV Amount 100 550 Cefepime 1 gm In Dextrose 100 50 5% 50 ml @ 100 mls/hr IV Q8HR [facility] Rx#:[id number] Vancomycin HCl 2 gm In 500 Sodium Chloride 0.9% 500 ml @ 250 mls/hr IV Q24H [facility] Rx#:[id number] Oral 150 Output: Urine 650 Other: # Voids 3 # Bowel Movements 0 Stool Characteristics Formed Weight Source Bedscale Active Medications: Current Medications Acetaminophen/Hydrocodone Bitart ([place] 10 Mg/325 Mg) 1 tab PO Q4H PRN PRN Reason: MOD SEVERE PAIN Stop: 03/10/18 21:17 Last Admin: 01/11/18 22:38 Dose: 1 tab Amiodarone HCl (Cordarone) 200 mg PO DAILY [facility] Stop: 03/11/18 08:59 Last Admin: 01/11/18 08:22 Dose: 200 mg [place] Oil/[place] Balsam/Trypsin (Venelex) 1 appl TP DAILY [facility] Stop: 03/11/18 08:59 Last Admin: 01/11/18 08:23 Dose: 1 appl Cyanocobalamin (Vitamin B12) 1,000 mcg PO DAILY [facility] Stop: 03/11/18 08:59 Last Admin: 01/11/18 08:22 Dose: 1,000 mcg Docusate Sodium (Colace) 100 mg PO BID [facility] Stop: 03/11/18 08:59 Last Admin: 01/11/18 17:24 Dose: 100 mg Fluticasone Propionate (Flonase) 2 spr NS DAILY [facility] Stop: 03/11/18 08:59 Last Admin: 01/11/18 08:23 Dose: 2 spr Furosemide (Lasix) 40 mg PO BID [facility] Stop: 03/11/18 08:59 Last Admin: 01/11/18 17:24 Dose: 40 mg Glipizide (Glucotrol) 10 mg PO BID [facility] Stop: 03/11/18 08:59 Last Admin: 01/11/18 17:24 Dose: 10 mg Glucagon (Glucagen) 1 mg IM PRN PRN PRN Reason: BLOOD GLUCOSE <60 Stop: 03/10/18 21:17 Cefepime HCl 1 gm/ Dextrose 50 mls @ 100 mls/hr IV Q8HR [facility] Stop: 03/10/18 20:59 Last Admin: 01/11/18 21:58 Dose: 100 mls/hr Vancomycin HCl 2 gm/ Sodium (Chloride) 500 mls @ 250 mls/hr IV Q24H [facility] Stop: 03/11/18 09:59 Last Infusion: 01/11/18 13:07 Dose: Infused Insulin Aspart (Novolog) 10 units SUBQ TID [facility] Stop: 03/11/18 08:59 Last Admin: 01/11/18 21:48 Dose: Not Given Insulin Aspart (Novolog Insulin Sliding Scale) 0 units SUBQ ACHS [facility] PRN Reason: Protocol Stop: 03/11/18 07:29 Last Admin: 01/11/18 17:41 Dose: 2 units Insulin Detemir (Levemir Insulin) 50 units SUBQ DAILY [facility] PRN Reason: Protocol Stop: 03/11/18 08:59 Last Admin: 01/11/18 08:24 Dose: 50 unit Lactobacillus Rhamnosus (Culturelle 15b) 1 each PO DAILY [facility] Stop: 03/11/18 08:59 Last Admin: 01/11/18 08:22 Dose: 1 each Magnesium Hydroxide (Milk Of Magnesia) 30 ml PO DAILY PRN PRN Reason: Constipation Stop: 03/10/18 21:17 Metformin HCl (Glucophage) 850 mg PO TID [facility] Stop: 03/11/18 08:59 Last Admin: 01/11/18 21:59 Dose: 850 mg Metoprolol Tartrate (Lopressor) 25 mg PO BID [facility] Stop: 03/11/18 08:59 Last Admin: 01/11/18 17:24 Dose: 25 mg Miscellaneous (Vancomycin Iv Per Pharmacy) 1 ea MC PRN PRN PRN Reason: PROTOCOL Stop: 03/10/18 13:48 Miscellaneous (Probiotic Screen) 1 ea MC PRN PRN PRN Reason: PROTOCOL Stop: 03/11/18 09:05 Mupirocin (Bactroban Oint) 1 appl NS BID [facility] Stop: 01/16/18 17:01 Nitroglycerin (Nitrostat) 0.4 mg SL Q5MIN PRN PRN Reason: Chest Pain Stop: 03/10/18 21:17 Potassium Chloride (Klor-Con) 10 meq PO DAILY [facility] Stop: 03/11/18 08:59 Last Admin: 04/04/18 08:22 Dose: 10 meq Propylene Glycol (Systane Ophth Soln) 1 drop EACH EYE TID [facility] Stop: 03/11/18 08:59 Last Admin: 01/11/18 21:59 Dose: 1 drop Senna (Senna) 17.2 mg PO HS [facility] Stop: 03/11/18 20:59 Last Admin: 01/11/18 21:59 Dose: 17.2 mg Sodium Phosphate (Fleet Enema) 135 ml RC Q48H PRN PRN Reason: IF MOM INEFFECTIVE Stop: 03/10/18 21:17 Last Admin: 01/11/18 10:35 Dose: 135 ml Warfarin Sodium (Coumadin) 5 mg PO 1700 [facility] PRN Reason: Protocol Stop: 03/11/18 16:59 Last Admin: 01/11/18 17:24 Dose: 5 mg Warfarin Sodium (Coumadin Per Pharmacy) 1 ea MC PRN PRN PRN Reason: RX MONITORING Stop: 03/11/18 15:39 General: no acute distress, well developed, well nourished HEENT: atraumatic, normocephalic, PERRLA, EOMI Neck: supple, no thyromegaly, no lymphadenopathy Cardiovascular: S1S2, regular Lungs: clear to auscultation bilaterally, clear to percussion Abdomen: soft, bowel sounds, no tender, no distended, no rebound Extremities: edema, other (wounds i nboth legs.), no cyanosis, no clubbing Neurological: awake, alert, oriented - Procedures Procedures: Procedures Procedure Code Date CHOLECYSTECTOMY 51.22 07/31/14 TERRY SUBQ TISSUE 20 SQ CM/< 08264 07/08/15 EXTRACTION OF RIGHT LOWER LEG SKIN, EXTERNAL APPROACH 0HDKXZZ 07/08/15 REMOVAL OF GALLBLADDER 63601 07/31/14 REPLACE R LOW LEG SKIN W AUTOL SUB, FULL THICK, AGING ROOM OPERATOR [id number] 07/08/15 SKIN FULL GRAFT SCLP/ARM/LEG 55663 07/08/15 Infectious Disease Assmt/Plan - Problem List Patient Problems: All Active Problems BILATERAL LOWER EXTREMITY SWELLING/REDNE (Acute) - Assessment Assessment: 1. bilateral leg cellulitis. 2. Chronic leukocytosis, ?CML.( patient stated that he was told, he had baseline WBC Count of 20K to 30K, and ahs leukemia). 2/2 leukemia. 3. DM2. 4. PAF. 5. HTN. 6. CHF. 7. Obesity. - Plan Plan: Continue vanco IV and cefepime. Dc vanco and may change cefepime to cipro po for 10 days. Wound care. Nutritional Asmnt/Malnutr-PDOC - Dietary Evaluation Malnutrition Findings (Please click <Entered> for more info): Nutritional Asmnt/Malnutrition Start: 01/10/18 15: 30 Text: Status: Complete Freq: Document 01/10/18 15:30 [facility] (Rec: 01/10/18 15:59 LCHEN [email or web address]) Nutritional Asmnt/Malnutrition Patient General Information Nutritional Screening High Risk Consult Diagnosis cellulitis Pertinent Medical Hx/Surgical Hx DM. HTN, obesity, obstructive sleep apnea, chronic a fib, CHF, chronic myeloid leukemia, DJD, chronic constipation Subjective Information Consult received for skin issue and diabetes. Pt seen lying in bed, awake and alert. Pt reported good appetite, consumed 100% of breakfast, 90 % of lunch except spinach d/t he is taking wafarin. Food preference provided. Pt stated he has no teeth, but no chewing problem on current diet. Pt also reported constipation. Current Diet Order/ Nutrition Support regular diabetic diet Pertinent Medications vit B12, colace, lasix, novolog, levemir, culturelle, glucophage, cancomycin, kcl, senna, vancomycin, warfarin Pertinent Labs 4/3 glucose 183, POC 164-257 4/2 A1c 7.8 Nutritional Hx/Data Height 1.7 m Height (Calculated Centimeters) 170.2 Current Weight (lbs) 134.263 kg Weight (Calculated Kilograms) 134.3 Weight (Calculated Grams) 086863.3 [place] Body Weight 148 Body Mass Index (BMI) 46.3 Weight Status Morbidly Obese GI Symptoms GI Symptoms Constipation Last BM 01/07 per MD note Difficult in: None Usual diet at home following diabetic diet per pt Skin Integrity/Comment: cellulitis wound BLE Estimated Nutritional Goals BEE in Kcals: Adj wt of IBW Calories/Kcals/Kg 23-27 Kcals Calculated 6413-2300 Protein: Adj wt of IBW Protein g/k-1.1 Protein Calculated 84-92 Fluid: ml 1932-2268ml (1ml/kcal) Nutritional Problem 1. Problem Problem altered nutrition related lab values Etiology hx of DM Signs/Symptoms: glucose 183, POC 164-257, A1c 7.8 Malnutrition Alert Protein-Calorie Malnutrition N/A Is there a minimum of two criteria No selected? Query Text:Check all the applicable criteria. A minimum of two criteria are recommended for diagnosis of either severe or non-severe malnutrition. Intervention/Recommendation Comments 1. Continue with current diet as ordered. Food preference updated. Pt understands food- drug interaction of warfarin. 2. Considering pt has no teeth , substitute fresh apple with applesauce . Provided prune juice with breakfast for 3 days to manage BM. 3. Monitor PO intake, wt, labs and skin integrity 4. F/U as high risk in 2-3 days, 01/12-01/13 Expected Outcomes/Goals Expected Outcomes/Goals 1. PO intake to meet at least 75% of nutritional needs. 2. Wt stability, skin to remain intact, labs to approach WNL.
[2018-01-12] MEDS: INSULIN ASPART SLIDING SCALE 100 UNITS/ML UNIT SUBQ SCH ×5 (02:22→21:18)
[2018-01-12 07:13] LABS: INR 1.24 (0.5-1.4)
[2018-01-12] MEDS: Insulin Detemir 100 units/mL 10mL Vial SUBQ SCH (08:12)
[2018-01-12] MEDS: Potassium Chloride 10 mEq ER Tab PO SCH (09:31)
[2018-01-12] MEDS: Lactobacillus Rhamnosus GG 15 Billion CFU CAP.SPRINK PO SCH (09:33)
[2018-01-12] MEDS: Fluticasone Propionate 0.05mg/Actuation 16gm Nasal Spray NS SCH (09:35)
[2018-01-12] MEDS: Venelex 60gm Tube TP SCH (09:36)
[2018-01-12] MEDS: Peg-400/Propylene Ophth Soln 5 mL Bottle EACH EYE SCH ×3 (09:36→21:12)
[2018-01-12] MEDS: INSULIN ASPART, RECOMBINANT 100 UNITS/ML SUBQ SCH (09:46)
--- NOTE | 2018-01-12 21:32 | General Progress Note ---
Subjective - Review of Systems Service Date: 01/12/18 Subjective: Patient seen and examined doing fine Patient denied any complaints Objective - Results Result Diagrams: 01/11/18 05:55 01/11/18 05:55 Recent Labs: Laboratory Last Values WBC 34.9 Th/cmm (4.8-10.8) H* 01/11/18 05:55 RBC 4.84 Mil/cmm (3.80-5.80) 01/11/18 05:55 Hgb 12.9 gm/dL (12-16) 01/11/18 05:55 Hct 39.4 % (41.0-60) L 01/11/18 05:55 MCV 81.4 fl (80-99) 01/11/18 05:55 MCH 26.6 pg (27.0-31.0) L 01/11/18 05:55 MCHC Differential 32.6 pg (28.0-36.0) 01/11/18 05:55 RDW 14.2 % (11.5-20.0) 01/11/18 05:55 Plt Count 171 Th/cmm (150-400) 01/11/18 05:55 MPV 8.9 fl 01/11/18 05:55 Neutrophils % 25.0 % (40.0-80.0) L 01/11/18 05:55 Lymphocytes % 70.7 % (20.0-50.0) H 01/11/18 05:55 Monocytes % 2.5 % (2.0-10.0) 01/11/18 05:55 Eosinophils % 0.6 % (0.0-5.0) 01/11/18 05:55 Basophils % 0.2 % (0.0-2.0) 01/11/18 05:55 Neutrophils (Manual) 23 % (40-80) L 01/09/18 11:38 Lymphocytes 74 % (20-50) H 01/09/18 11:38 Monocytes 2 % (2-10) 01/09/18 11:38 Eosinophils 1 % (0-5) 01/09/18 11:38 PT 13.0 SECONDS (9.5-11.5) H 01/12/18 06:35 INR 1.24 (0.5-1.4) 01/12/18 06:35 PTT (Actin FS) 33.6 SECONDS (26.0-38.0) 01/09/18 11:38 Sodium 137 mEq/L (136-145) 01/11/18 05:55 Potassium 3.5 mEq/L (3.5-5.1) 01/11/18 05:55 Chloride 100 mEq/L (98-107) 01/11/18 05:55 Carbon Dioxide 29.0 mEq/L (21.0-31.0) 01/11/18 05:55 Anion Gap 11.5 (7.0-16.0) 01/11/18 05:55 BUN 23 mg/dL (7-25) 01/11/18 05:55 Creatinine 1.5 mg/dL (0.7-1.3) H 01/11/18 05:55 Est GFR ( Amer) TNP 01/11/18 05:55 Est GFR (Non-Af Amer) TNP 01/11/18 05:55 BUN/Creatinine Ratio 15.3 01/11/18 05:55 Glucose 195 mg/dL (70-105) H 01/11/18 05:55 POC Glucose 142 MG/DL (70 - 105) H 01/12/18 20:57 Hemoglobin A1c % 7.8 % (4.0-6.0) H 01/09/18 11:38 Whole Bld Lactic Acid 1.42 mmol/L (0.60-1.99) 01/09/18 11:38 Calcium 8.6 mg/dL (8.6-10.3) 01/11/18 05:55 Total Bilirubin 0.8 mg/dL (0.3-1.0) 01/11/18 05:55 AST 12 U/L (13-39) L 01/11/18 05:55 ALT 14 U/L (7-52) 01/11/18 05:55 Alkaline Phosphatase 108 U/L (34-104) H 01/11/18 05:55 Lactate Dehydrogenase 144 U/L (140-271) 01/10/18 06:00 Creatine Kinase 37 U/L (30-223) 01/09/18 11:38 Troponin I < 0.01 ng/mL (0.01-0.05) L 01/09/18 11:38 Total Protein 6.7 gm/dL (6.0-8.3) 01/11/18 05:55 Albumin 3.8 gm/dL (4.2-5.5) L 01/11/18 05:55 Globulin 2.9 gm/dL 01/11/18 05:55 Albumin/Globulin Ratio 1.3 (1.0-1.8) 01/11/18 05:55 Urine Source MIDSTREAM 01/10/18 04:07 Urine Color YELLOW 01/10/18 04:07 Urine Clarity HAZY (CLEAR) 01/10/18 04:07 Urine pH 6.0 (4.6 - 8.0) 01/10/18 04:07 Ur Specific [place] 1.020 (1.005-1.030) 01/10/18 04:07 Urine Protein 30 mg/dL (NEGATIVE) H 01/10/18 04:07 Urine Glucose (UA) NEGATIVE mg/dL (NEGATIVE) 01/10/18 04:07 Urine Ketones NEGATIVE mg/dL (NEGATIVE) 01/10/18 04:07 Urine Blood NEGATIVE (NEGATIVE) 01/10/18 04:07 Urine Nitrate NEGATIVE (NEGATIVE) 01/10/18 04:07 Urine Bilirubin NEGATIVE (NEGATIVE) 01/10/18 04:07 Urine Urobilinogen 0.2 E.U./dL (0.2 - 1.0) 01/10/18 04:07 Ur Leukocyte Esterase NEGATIVE (NEGATIVE) 01/10/18 04:07 Urine RBC 0-2 /hpf (0-5) H 01/10/18 04:07 Urine WBC 0-2 /hpf (0-5) 01/10/18 04:07 Ur Epithelial Cells OCCASIONAL /lpf (FEW) 01/10/18 04:07 Urine Bacteria OCCASIONAL /hpf (NONE SEEN) 01/10/18 04:07 Vancomycin Trough 14.0 ug/mL (10-20) 01/11/18 08:20 - Physical Exam Vitals and I&O: Vital Signs Temp 98.7 F 01/12/18 19:53 Pulse 78 01/12/18 19:53 Resp 18 01/12/18 19:53 BP 136/75 01/12/18 19:53 Pulse Ox 96 01/12/18 19:53 Intake & Output 01/12/18 01/12/18 01/13/18 06:59 18:59 06:59 Intake Total 100 750 Balance 100 750 Weight (lbs) 132.449 kg Intake: Intake, IV Amount 100 550 Cefepime 1 gm In Dextrose 100 50 5% 50 ml @ 100 mls/hr IV Q8HR [facility] Rx#:[id number] Vancomycin HCl 2 gm In 500 Sodium Chloride 0.9% 500 ml @ 250 mls/hr IV Q24H [facility] Rx#:[id number] Oral 200 Other: # Voids 3 # Bowel Movements 0 Weight Source Bedscale Active Medications: Current Medications Acetaminophen/Hydrocodone Bitart ([place] 10 Mg/325 Mg) 1 tab PO Q4H PRN PRN Reason: MOD SEVERE PAIN Stop: 03/10/18 21:17 Last Admin: 01/11/18 22:38 Dose: 1 tab Amiodarone HCl (Cordarone) 200 mg PO DAILY [facility] Stop: 03/11/18 08:59 Last Admin: 01/12/18 09:30 Dose: 200 mg [place] Oil/[place] Balsam/Trypsin (Venelex) 1 appl TP DAILY [facility] Stop: 03/11/18 08:59 Last Admin: 01/12/18 09:36 Dose: 1 appl Cyanocobalamin (Vitamin B12) 1,000 mcg PO DAILY [facility] Stop: 03/11/18 08:59 Last Admin: 01/12/18 09:33 Dose: 1,000 mcg Docusate Sodium (Colace) 100 mg PO BID [facility] Stop: 03/11/18 08:59 Last Admin: 01/12/18 17:11 Dose: 100 mg Fluticasone Propionate (Flonase) 2 spr NS DAILY [facility] Stop: 03/11/18 08:59 Last Admin: 01/12/18 09:35 Dose: 2 spr Furosemide (Lasix) 40 mg PO BID [facility] Stop: 03/11/18 08:59 Last Admin: 01/12/18 17:13 Dose: 40 mg Glipizide (Glucotrol) 10 mg PO BID [facility] Stop: 03/11/18 08:59 Last Admin: 01/12/18 17:12 Dose: 10 mg Glucagon (Glucagen) 1 mg IM PRN PRN PRN Reason: BLOOD GLUCOSE <60 Stop: 03/10/18 21:17 Cefepime HCl 1 gm/ Dextrose 50 mls @ 100 mls/hr IV Q8HR [facility] Stop: 03/10/18 20:59 Last Admin: 01/12/18 21:17 Dose: 100 mls/hr Vancomycin HCl 2 gm/ Sodium (Chloride) 500 mls @ 250 mls/hr IV Q24H [facility] Stop: 03/11/18 09:59 Last Infusion: 01/12/18 13:41 Dose: Infused Insulin Aspart (Novolog Insulin Sliding Scale) 0 units SUBQ ACHS [facility] PRN Reason: Protocol Stop: 03/11/18 07:29 Last Admin: 01/12/18 21:18 Dose: Not Given Insulin Detemir (Levemir Insulin) 50 units SUBQ DAILY [facility] PRN Reason: Protocol Stop: 03/11/18 08:59 Last Admin: 01/12/18 08:12 Dose: 50 unit Lactobacillus Rhamnosus (Culturelle 15b) 1 each PO DAILY [facility] Stop: 03/11/18 08:59 Last Admin: 01/12/18 09:33 Dose: 1 each Magnesium Hydroxide (Milk Of Magnesia) 30 ml PO DAILY PRN PRN Reason: Constipation Stop: 03/10/18 21:17 Metoprolol Tartrate (Lopressor) 25 mg PO BID [facility] Stop: 03/11/18 08:59 Last Admin: 01/12/18 17:13 Dose: 25 mg Miscellaneous (Vancomycin Iv Per Pharmacy) 1 ea PRN PRN PRN Reason: PROTOCOL Stop: 03/10/18 13:48 Miscellaneous (Probiotic Screen) 1 ea PRN PRN PRN Reason: PROTOCOL Stop: 03/11/18 09:05 Mupirocin (Bactroban Oint) 1 appl NS BID [facility] Stop: 01/16/18 17:01 Last Admin: 01/12/18 17:14 Dose: 1 appl Nitroglycerin (Nitrostat) 0.4 mg SL Q5MIN PRN PRN Reason: Chest Pain Stop: 03/10/18 21:17 Potassium Chloride (Klor-Con) 10 meq PO DAILY [facility] Stop: 03/11/18 08:59 Last Admin: 01/12/18 09:31 Dose: 10 meq Propylene Glycol (Systane Ophth Soln) 1 drop EACH EYE TID [facility] Stop: 03/11/18 08:59 Last Admin: 01/12/18 21:12 Dose: 1 drop Senna (Senna) 17.2 mg PO HS [facility] Stop: 03/11/18 20:59 Last Admin: 01/12/18 21:11 Dose: 17.2 mg Sodium Phosphate (Fleet Enema) 135 ml RC Q48H PRN PRN Reason: IF MOM INEFFECTIVE Stop: 03/10/18 21:17 Last Admin: 01/11/18 10:35 Dose: 135 ml Warfarin Sodium (Coumadin Per Pharmacy) 1 ea MC PRN PRN PRN Reason: RX MONITORING Stop: 03/11/18 15:39 General: Alert, No acute distress Cardiovascular: Regular rate Lungs: Clear to auscultation Extremities: Edema, Other (redness bilaterally) - Procedures Procedures: Procedures Procedure Code Date CHOLECYSTECTOMY 51.22 07/31/14 TERRY SUBQ TISSUE 20 SQ CM/< 60604 07/08/15 EXTRACTION OF RIGHT LOWER LEG SKIN, EXTERNAL APPROACH [id number] 07/08/15 REMOVAL OF GALLBLADDER 29901 07/31/14 REPLACE R LOW LEG SKIN W AUTOL SUB, FULL THICK, POT FISHER [id number] 07/08/15 SKIN FULL GRAFT SCLP/ARM/LEG 73071 07/08/15 Assessment/Plan - Problem List Patient Problems: All Active Problems BILATERAL LOWER EXTREMITY SWELLING/REDNE (Acute) - Assessment Assessment: Bilateral leg cellulitis PVD Chronic afib DM II HTN Obesity Diabetic nephropathy - Plan Plan: Continue IV antibiotics Wound care Metformin DC'D due to creat 1.5 Accucheck Monitor vitals Monitor labs Plan of care discussed with nursing staff Nutritional Asmnt/Malnutr-PDOC - Dietary Evaluation Malnutrition Findings (Please click <Entered> for more info): Nutritional Asmnt/Malnutrition Start: 01/10/18 15: 30 Text: Status: Complete Freq: Document 01/10/18 15:30 HEN (Rec: 01/10/18 15:59 [email or web address] Nutritional Asmnt/Malnutrition Patient General Information Nutritional Screening High Risk Consult Diagnosis cellulitis Pertinent Medical Hx/Surgical Hx DM. HTN, obesity, obstructive sleep apnea, chronic a fib, CHF, chronic myeloid leukemia, DJD, chronic constipation Subjective Information Consult received for skin issue and diabetes. Pt seen lying in bed, awake and alert. Pt reported good appetite, consumed 100% of breakfast, 90 % of lunch except spinach d/t he is taking wafarin. Food preference provided. Pt stated he has no teeth, but no chewing problem on current diet. Pt also reported constipation. Current Diet Order/ Nutrition Support regular diabetic diet Pertinent Medications vit B12, colace, lasix, novolog, levemir, culturelle, glucophage, cancomycin, kcl, senna, vancomycin, warfarin Pertinent Labs 4/3 glucose 183, POC 164-257 4/2 A1c 7.8 Nutritional Hx/Data Height 1.7 m Height (Calculated Centimeters) 170.2 Current Weight (lbs) 134.263 kg Weight (Calculated Kilograms) 134.3 Weight (Calculated Grams) 482897.3 [place] Body Weight 148 Body Mass Index (BMI) 46.3 Weight Status Morbidly Obese GI Symptoms GI Symptoms Constipation Last BM 01/07 per MD note Difficult in: None Usual diet at home following diabetic diet per pt Skin Integrity/Comment: cellulitis wound BLE Estimated Nutritional Goals BEE in Kcals: Adj wt of IBW Calories/Kcals/Kg 23-27 Kcals Calculated 2203-0046 Protein: Adj wt of IBW Protein g/k-1.1 Protein Calculated 84-92 Fluid: ml 1932-2268ml (1ml/kcal) Nutritional Problem 1. Problem Problem altered nutrition related lab values Etiology hx of DM Signs/Symptoms: glucose 183, POC 164-257, A1c 7.8 Malnutrition Alert Protein-Calorie Malnutrition N/A Is there a minimum of two criteria No selected? Query Text:Check all the applicable criteria. A minimum of two criteria are recommended for diagnosis of either severe or non-severe malnutrition. Intervention/Recommendation Comments 1. Continue with current diet as ordered. Food preference updated. Pt understands food- drug interaction of warfarin. 2. Considering pt has no teeth , substitute fresh apple with applesauce . Provided prune juice with breakfast for 3 days to manage BM. 3. Monitor PO intake, wt, labs and skin integrity 4. F/U as high risk in 2-3 days, 01/12-01/13 Expected Outcomes/Goals Expected Outcomes/Goals 1. PO intake to meet at least 75% of nutritional needs. 2. Wt stability, skin to remain intact, labs to approach WNL.
--- NOTE | 2018-01-12 23:50 | Infectious Disease Prog Note ---
Infectious Disease Subjective - Review of Systems Service Date: 01/12/18 Subjective: Feels better. Infectious Disease Objective - Results Result Diagrams: 01/13/18 05:10 01/13/18 05:10 Recent Labs: Laboratory Last Values WBC 34.9 Th/cmm (4.8-10.8) H* 01/11/18 05:55 RBC 4.84 Mil/cmm (3.80-5.80) 01/11/18 05:55 Hgb 12.9 gm/dL (12-16) 01/11/18 05:55 Hct 39.4 % (41.0-60) L 01/11/18 05:55 MCV 81.4 fl (80-99) 01/11/18 05:55 MCH 26.6 pg (27.0-31.0) L 01/11/18 05:55 MCHC Differential 32.6 pg (28.0-36.0) 01/11/18 05:55 RDW 14.2 % (11.5-20.0) 01/11/18 05:55 Plt Count 171 Th/cmm (150-400) 01/11/18 05:55 MPV 8.9 fl 01/11/18 05:55 Neutrophils % 25.0 % (40.0-80.0) L 01/11/18 05:55 Lymphocytes % 70.7 % (20.0-50.0) H 01/11/18 05:55 Monocytes % 2.5 % (2.0-10.0) 01/11/18 05:55 Eosinophils % 0.6 % (0.0-5.0) 01/11/18 05:55 Basophils % 0.2 % (0.0-2.0) 01/11/18 05:55 Neutrophils (Manual) 23 % (40-80) L 01/09/18 11:38 Lymphocytes 74 % (20-50) H 01/09/18 11:38 Monocytes 2 % (2-10) 01/09/18 11:38 Eosinophils 1 % (0-5) 01/09/18 11:38 PT 13.0 SECONDS (9.5-11.5) H 01/12/18 06:35 INR 1.24 (0.5-1.4) 01/12/18 06:35 PTT (Actin FS) 33.6 SECONDS (26.0-38.0) 01/09/18 11:38 Sodium 137 mEq/L (136-145) 01/11/18 05:55 Potassium 3.5 mEq/L (3.5-5.1) 01/11/18 05:55 Chloride 100 mEq/L (98-107) 01/11/18 05:55 Carbon Dioxide 29.0 mEq/L (21.0-31.0) 01/11/18 05:55 Anion Gap 11.5 (7.0-16.0) 01/11/18 05:55 BUN 23 mg/dL (7-25) 01/11/18 05:55 Creatinine 1.5 mg/dL (0.7-1.3) H 01/11/18 05:55 Est GFR ( Amer) TNP 01/11/18 05:55 Est GFR (Non-Af Amer) TNP 01/11/18 05:55 BUN/Creatinine Ratio 15.3 01/11/18 05:55 Glucose 195 mg/dL (70-105) H 01/11/18 05:55 POC Glucose 142 MG/DL (70 - 105) H 01/12/18 20:57 Hemoglobin A1c % 7.8 % (4.0-6.0) H 01/09/18 11:38 Whole Bld Lactic Acid 1.42 mmol/L (0.60-1.99) 01/09/18 11:38 Calcium 8.6 mg/dL (8.6-10.3) 01/11/18 05:55 Total Bilirubin 0.8 mg/dL (0.3-1.0) 01/11/18 05:55 AST 12 U/L (13-39) L 01/11/18 05:55 ALT 14 U/L (7-52) 01/11/18 05:55 Alkaline Phosphatase 108 U/L (34-104) H 01/11/18 05:55 Lactate Dehydrogenase 144 U/L (140-271) 01/10/18 06:00 Creatine Kinase 37 U/L (30-223) 01/09/18 11:38 Troponin I < 0.01 ng/mL (0.01-0.05) L 01/09/18 11:38 Total Protein 6.7 gm/dL (6.0-8.3) 01/11/18 05:55 Albumin 3.8 gm/dL (4.2-5.5) L 01/11/18 05:55 Globulin 2.9 gm/dL 01/11/18 05:55 Albumin/Globulin Ratio 1.3 (1.0-1.8) 01/11/18 05:55 Urine Source MIDSTREAM 01/10/18 04:07 Urine Color YELLOW 01/10/18 04:07 Urine Clarity HAZY (CLEAR) 01/10/18 04:07 Urine pH 6.0 (4.6 - 8.0) 01/10/18 04:07 Ur Specific [place] 1.020 (1.005-1.030) 01/10/18 04:07 Urine Protein 30 mg/dL (NEGATIVE) H 01/10/18 04:07 Urine Glucose (UA) NEGATIVE mg/dL (NEGATIVE) 01/10/18 04:07 Urine Ketones NEGATIVE mg/dL (NEGATIVE) 01/10/18 04:07 Urine Blood NEGATIVE (NEGATIVE) 01/10/18 04:07 Urine Nitrate NEGATIVE (NEGATIVE) 01/10/18 04:07 Urine Bilirubin NEGATIVE (NEGATIVE) 01/10/18 04:07 Urine Urobilinogen 0.2 E.U./dL (0.2 - 1.0) 01/10/18 04:07 Ur Leukocyte Esterase NEGATIVE (NEGATIVE) 01/10/18 04:07 Urine RBC 0-2 /hpf (0-5) H 01/10/18 04:07 Urine WBC 0-2 /hpf (0-5) 01/10/18 04:07 Ur Epithelial Cells OCCASIONAL /lpf (FEW) 01/10/18 04:07 Urine Bacteria OCCASIONAL /hpf (NONE SEEN) 01/10/18 04:07 Vancomycin Trough 14.0 ug/mL (10-20) 01/11/18 08:20 - Physical Exam Vitals and I&O: Vital Signs Temp 98.7 F 01/12/18 19:53 Pulse 78 01/12/18 19:53 Resp 18 01/12/18 19:53 BP 136/75 01/12/18 19:53 Pulse Ox 96 01/12/18 19:53 Intake & Output 01/12/18 01/12/18 01/13/18 06:59 18:59 06:59 Intake Total 100 750 Balance 100 750 Weight (lbs) 132.449 kg Intake: Intake, IV Amount 100 550 Cefepime 1 gm In Dextrose 100 50 5% 50 ml @ 100 mls/hr IV Q8HR [facility] Rx#:[id number] Vancomycin HCl 2 gm In 500 Sodium Chloride 0.9% 500 ml @ 250 mls/hr IV Q24H [facility] Rx#:[id number] Oral 200 Other: # Voids 3 # Bowel Movements 0 Weight Source Bedscale Active Medications: Current Medications Acetaminophen/Hydrocodone Bitart ([place] 10 Mg/325 Mg) 1 tab PO Q4H PRN PRN Reason: MOD SEVERE PAIN Stop: 03/10/18 21:17 Last Admin: 01/11/18 22:38 Dose: 1 tab Amiodarone HCl (Cordarone) 200 mg PO DAILY [facility] Stop: 03/11/18 08:59 Last Admin: 01/12/18 09:30 Dose: 200 mg [place] Oil/[place] Balsam/Trypsin (Venelex) 1 appl TP DAILY [facility] Stop: 03/11/18 08:59 Last Admin: 01/12/18 09:36 Dose: 1 appl Cyanocobalamin (Vitamin B12) 1,000 mcg PO DAILY [facility] Stop: 03/11/18 08:59 Last Admin: 01/12/18 09:33 Dose: 1,000 mcg Docusate Sodium (Colace) 100 mg PO BID [facility] Stop: 03/11/18 08:59 Last Admin: 01/12/18 17:11 Dose: 100 mg Fluticasone Propionate (Flonase) 2 spr NS DAILY [facility] Stop: 03/11/18 08:59 Last Admin: 01/12/18 09:35 Dose: 2 spr Furosemide (Lasix) 40 mg PO BID [facility] Stop: 03/11/18 08:59 Last Admin: 01/12/18 17:13 Dose: 40 mg Glipizide (Glucotrol) 10 mg PO BID [facility] Stop: 03/11/18 08:59 Last Admin: 01/12/18 17:12 Dose: 10 mg Glucagon (Glucagen) 1 mg IM PRN PRN PRN Reason: BLOOD GLUCOSE <60 Stop: 03/10/18 21:17 Cefepime HCl 1 gm/ Dextrose 50 mls @ 100 mls/hr IV Q8HR [facility] Stop: 03/10/18 20:59 Last Admin: 01/12/18 21:17 Dose: 100 mls/hr Vancomycin HCl 2 gm/ Sodium (Chloride) 500 mls @ 250 mls/hr IV Q24H [facility] Stop: 03/11/18 09:59 Last Infusion: 01/12/18 13:41 Dose: Infused Insulin Aspart (Novolog Insulin Sliding Scale) 0 units SUBQ ACHS [facility] PRN Reason: Protocol Stop: 03/11/18 07:29 Last Admin: 01/12/18 21:18 Dose: Not Given Insulin Detemir (Levemir Insulin) 50 units SUBQ DAILY [facility] PRN Reason: Protocol Stop: 03/11/18 08:59 Last Admin: 01/12/18 08:12 Dose: 50 unit Lactobacillus Rhamnosus (Culturelle 15b) 1 each PO DAILY [facility] Stop: 03/11/18 08:59 Last Admin: 01/12/18 09:33 Dose: 1 each Magnesium Hydroxide (Milk Of Magnesia) 30 ml PO DAILY PRN PRN Reason: Constipation Stop: 03/10/18 21:17 Metoprolol Tartrate (Lopressor) 25 mg PO BID [facility] Stop: 03/11/18 08:59 Last Admin: 01/12/18 17:13 Dose: 25 mg Miscellaneous (Vancomycin Iv Per Pharmacy) 1 ea PRN PRN PRN Reason: PROTOCOL Stop: 03/10/18 13:48 Miscellaneous (Probiotic Screen) 1 ea PRN PRN PRN Reason: PROTOCOL Stop: 03/11/18 09:05 Mupirocin (Bactroban Oint) 1 appl NS BID [facility] Stop: 01/16/18 17:01 Last Admin: 01/12/18 17:14 Dose: 1 appl Nitroglycerin (Nitrostat) 0.4 mg SL Q5MIN PRN PRN Reason: Chest Pain Stop: 03/10/18 21:17 Potassium Chloride (Klor-Con) 10 meq PO DAILY [facility] Stop: 03/11/18 08:59 Last Admin: 01/12/18 09:31 Dose: 10 meq Propylene Glycol (Systane Ophth Soln) 1 drop EACH EYE TID [facility] Stop: 03/11/18 08:59 Last Admin: 01/12/18 21:12 Dose: 1 drop Senna (Senna) 17.2 mg PO HS [facility] Stop: 03/11/18 20:59 Last Admin: 01/12/18 21:11 Dose: 17.2 mg Sodium Phosphate (Fleet Enema) 135 ml RC Q48H PRN PRN Reason: IF MOM INEFFECTIVE Stop: 03/10/18 21:17 Last Admin: 01/11/18 10:35 Dose: 135 ml Warfarin Sodium (Coumadin Per Pharmacy) 1 ea MC PRN PRN PRN Reason: RX MONITORING Stop: 03/11/18 15:39 General: no acute distress, well developed, well nourished HEENT: atraumatic, normocephalic, PERRLA Neck: supple, no thyromegaly Cardiovascular: S1S2, regular Lungs: clear to auscultation bilaterally, clear to percussion Abdomen: soft, no tender, no distended Extremities: edema, no cyanosis, no clubbing Neurological: awake, alert, oriented Skin: intact - Procedures Procedures: Procedures Procedure Code Date CHOLECYSTECTOMY 51.22 07/31/14 TERRY SUBQ TISSUE 20 SQ CM/< 90848 07/08/15 EXTRACTION OF RIGHT LOWER LEG SKIN, EXTERNAL APPROACH 0HDKXZZ 07/08/15 REMOVAL OF GALLBLADDER 06279 07/31/14 REPLACE R LOW LEG SKIN W AUTOL SUB, FULL THICK, BRAIDING OPERATOR [id number] 07/08/15 SKIN FULL GRAFT SCLP/ARM/LEG 26729 07/08/15 Infectious Disease Assmt/Plan - Problem List Patient Problems: All Active Problems BILATERAL LOWER EXTREMITY SWELLING/REDNE (Acute) - Assessment Assessment: 1. bilateral leg cellulitis. 2. Chronic leukocytosis, ?CML.( patient stated that he was told, he had baseline WBC Count of 20K to 30K, and ahs leukemia). 2/2 leukemia. 3. DM2. 4. PAF. 5. HTN. 6. CHF. 7. Obesity. - Plan Plan: Continue cefepime. Dc vanco and may change cefepime to cipro po for 7 days. Wound care. Nutritional Asmnt/Malnutr-PDOC - Dietary Evaluation Malnutrition Findings (Please click <Entered> for more info): Nutritional Asmnt/Malnutrition Start: 01/10/18 15: 30 Text: Status: Complete Freq: Document 01/10/18 15:30 LCHENG (Rec: 01/10/18 15:59 [email or web address]) Nutritional Asmnt/Malnutrition Patient General Information Nutritional Screening High Risk Consult Diagnosis cellulitis Pertinent Medical Hx/Surgical Hx DM. HTN, obesity, obstructive sleep apnea, chronic a fib, CHF, chronic myeloid leukemia, DJD, chronic constipation Subjective Information Consult received for skin issue and diabetes. Pt seen lying in bed, awake and alert. Pt reported good appetite, consumed 100% of breakfast, 90 % of lunch except spinach d/t he is taking wafarin. Food preference provided. Pt stated he has no teeth, but no chewing problem on current diet. Pt also reported constipation. Current Diet Order/ Nutrition Support regular diabetic diet Pertinent Medications vit B12, colace, lasix, novolog, levemir, culturelle, glucophage, cancomycin, kcl, senna, vancomycin, warfarin Pertinent Labs / glucose 183, POC 164-257 / A1c 7.8 Nutritional Hx/Data Height 1.7 m Height (Calculated Centimeters) 170.2 Current Weight (lbs) 134.263 kg Weight (Calculated Kilograms) 134.3 Weight (Calculated Grams) 791278.3 [place] Body Weight 148 Body Mass Index (BMI) 46.3 Weight Status Morbidly Obese GI Symptoms GI Symptoms Constipation Last BM 01/07 per MD note Difficult in: None Usual diet at home following diabetic diet per pt Skin Integrity/Comment: cellulitis wound BLE Estimated Nutritional Goals BEE in Kcals: Adj wt of IBW Calories/Kcals/Kg 23-27 Kcals Calculated 2518-2906 Protein: Adj wt of IBW Protein g/k-1.1 Protein Calculated 84-92 Fluid: ml 1932-2268ml (1ml/kcal) Nutritional Problem 1. Problem Problem altered nutrition related lab values Etiology hx of DM Signs/Symptoms: glucose 183, POC 164-257, A1c 7.8 Malnutrition Alert Protein-Calorie Malnutrition N/A Is there a minimum of two criteria No selected? Query Text:Check all the applicable criteria. A minimum of two criteria are recommended for diagnosis of either severe or non-severe malnutrition. Intervention/Recommendation Comments 1. Continue with current diet as ordered. Food preference updated. Pt understands food- drug interaction of warfarin. 2. Considering pt has no teeth , substitute fresh apple with applesauce . Provided prune juice with breakfast for 3 days to manage BM. 3. Monitor PO intake, wt, labs and skin integrity 4. F/U as high risk in 2-3 days, 4/5-01/13 Expected Outcomes/Goals Expected Outcomes/Goals 1. PO intake to meet at least 75% of nutritional needs. 2. Wt stability, skin to remain intact, labs to approach WNL.
[2018-01-13 05:47] LABS: HEMOGLOBIN 12.9 gm/dL (12-16); MEAN CELL VOLUME 81.4 fl (80-99); MEAN CORPUSCULAR HEMOGLOBIN 27.6 pg (27.0-31.0); MEAN CORPUSCULAR HGB CONC 33.9 pg (28.0-36.0); PLATELET COUNT 166 Th/cmm (150-400); RED BLOOD COUNT 4.67 Mil/cmm (3.80-5.80); RED CELL DISTRIBUTION WIDTH 14.2 % (11.5-20.0)
[2018-01-13 05:53] LABS: INR 1.7 (0.5-1.4); PROTHROMBIN TIME (TEST) 18.2 SECONDS (9.5-11.5)
[2018-01-13 05:56] LABS: ALB/GLOB RATIO 1.2 (1.0-1.8); ALBUMIN 3.7 gm/dL (4.2-5.5); ALKALINE PHOSPHATASE 101 U/L (34-104); ANION GAP 10.8 (7.0-16.0); BILIRUBIN,TOTAL 0.5 mg/dL (0.3-1.0); BUN - UREA NITROGEN 23 mg/dL (7-25); CALCIUM SERUM 8.6 mg/dL (8.6-10.3); CARBON DIOXIDE 28.9 mEq/L (21.0-31.0); CHLORIDE 100 mEq/L (98-107); CREATININE - SERUM 1.5 mg/dL (0.7-1.3); GLUCOSE 148 mg/dL (70-105); POTASSIUM SERUM 3.7 mEq/L (3.5-5.1); SGOT 13 U/L (13-39); SGPT/ALT 12 U/L (7-52); SODIUM SERUM 136 mEq/L (136-145); TOTAL PROTEIN,SERUM 6.7 gm/dL (6.0-8.3)
[2018-01-13 06:02] LABS: WHITE BLOOD COUNT 35.8 Th/cmm (4.8-10.8)
[2018-01-13 06:03] LABS: % BASOPHILS 0.2 % (0.0-2.0); % EOSINOPHILS 0.9 % (0.0-5.0); % LYMPHOCYTES 68.2 % (20.0-50.0); % MONOCYTES 4.2 % (2.0-10.0); % NEUTROPHILS 26.5 % (40.0-80.0); BASOPHILE ABSOLUTE 0.1 Th/cumm (0-0.2); EOSINOPHILE ABSOLUTE 0.3 Th/cmm (0.1-0.4); LYMPHOCYTE ABSOLUTE 24.4 Th/cmm (1.5-3.0); MONOCYTE ABSOLUTE 1.5 Th/cmm (0.3-1.0); NEUTROPHILE ABSOLUTE 9.5 Th/cmm (1.8-8.0)
[2018-01-13] MEDS: INSULIN ASPART SLIDING SCALE 100 UNITS/ML UNIT SUBQ SCH ×4 (08:27→20:44)
[2018-01-13] MEDS: Lactobacillus Rhamnosus GG 15 Billion CFU CAP.SPRINK PO SCH (09:26)
[2018-01-13] MEDS: Potassium Chloride 10 mEq ER Tab PO SCH (09:27)
[2018-01-13] MEDS: Fluticasone Propionate 0.05mg/Actuation 16gm Nasal Spray NS SCH (09:30)
[2018-01-13] MEDS: Venelex 60gm Tube TP SCH (09:30)
[2018-01-13] MEDS: Insulin Detemir 100 units/mL 10mL Vial SUBQ SCH (09:33)
[2018-01-13] MEDS: Peg-400/Propylene Ophth Soln 5 mL Bottle EACH EYE SCH ×3 (09:35→20:44)
--- NOTE | 2018-01-13 21:46 | General Progress Note ---
Subjective - Review of Systems Service Date: 01/13/18 Subjective: Patient seen and examined doing fine Patient denied any complaints Patient stated that he saw hematology in the past for chronic leucocytosis Objective - Results Result Diagrams: 01/13/18 05:10 01/13/18 05:10 Recent Labs: Laboratory Last Values WBC 35.8 Th/cmm (4.8-10.8) H* 01/13/18 05:10 RBC 4.67 Mil/cmm (3.80-5.80) 01/13/18 05:10 Hgb 12.9 gm/dL (12-16) 01/13/18 05:10 Hct 38.0 % (41.0-60) L 01/13/18 05:10 MCV 81.4 fl (80-99) 01/13/18 05:10 MCH 27.6 pg (27.0-31.0) 01/13/18 05:10 MCHC Differential 33.9 pg (28.0-36.0) 01/13/18 05:10 RDW 14.2 % (11.5-20.0) 01/13/18 05:10 Plt Count 166 Th/cmm (150-400) 01/13/18 05:10 MPV 9.0 fl 01/13/18 05:10 Neutrophils % 26.5 % (40.0-80.0) L 01/13/18 05:10 Lymphocytes % 68.2 % (20.0-50.0) H 01/13/18 05:10 Monocytes % 4.2 % (2.0-10.0) 01/13/18 05:10 Eosinophils % 0.9 % (0.0-5.0) 01/13/18 05:10 Basophils % 0.2 % (0.0-2.0) 01/13/18 05:10 Neutrophils (Manual) 23 % (40-80) L 01/09/18 11:38 Lymphocytes 74 % (20-50) H 01/09/18 11:38 Monocytes 2 % (2-10) 01/09/18 11:38 Eosinophils 1 % (0-5) 01/09/18 11:38 PT 18.2 SECONDS (9.5-11.5) H 01/13/18 05:10 INR 1.70 (0.5-1.4) H 01/13/18 05:10 PTT (Actin FS) 33.6 SECONDS (26.0-38.0) 01/09/18 11:38 Sodium 136 mEq/L (136-145) 01/13/18 05:10 Potassium 3.7 mEq/L (3.5-5.1) 01/13/18 05:10 Chloride 100 mEq/L (98-107) 01/13/18 05:10 Carbon Dioxide 28.9 mEq/L (21.0-31.0) 01/13/18 05:10 Anion Gap 10.8 (7.0-16.0) 01/13/18 05:10 BUN 23 mg/dL (7-25) 01/13/18 05:10 Creatinine 1.5 mg/dL (0.7-1.3) H 01/13/18 05:10 Est GFR ( Amer) TNP 01/13/18 05:10 Est GFR (Non-Af Amer) TNP 01/13/18 05:10 BUN/Creatinine Ratio 15.3 01/13/18 05:10 Glucose 148 mg/dL (70-105) H 01/13/18 05:10 POC Glucose 229 MG/DL (70 - 105) H 01/13/18 16:34 Hemoglobin A1c % 7.8 % (4.0-6.0) H 01/09/18 11:38 Whole Bld Lactic Acid 1.42 mmol/L (0.60-1.99) 01/09/18 11:38 Calcium 8.6 mg/dL (8.6-10.3) 01/13/18 05:10 Total Bilirubin 0.5 mg/dL (0.3-1.0) 01/13/18 05:10 AST 13 U/L (13-39) 01/13/18 05:10 ALT 12 U/L (7-52) 01/13/18 05:10 Alkaline Phosphatase 101 U/L (34-104) 01/13/18 05:10 Lactate Dehydrogenase 144 U/L (140-271) 01/10/18 06:00 Creatine Kinase 37 U/L (30-223) 01/09/18 11:38 Troponin I < 0.01 ng/mL (0.01-0.05) L 01/09/18 11:38 Total Protein 6.7 gm/dL (6.0-8.3) 01/13/18 05:10 Albumin 3.7 gm/dL (4.2-5.5) L 01/13/18 05:10 Globulin 3.0 gm/dL 01/13/18 05:10 Albumin/Globulin Ratio 1.2 (1.0-1.8) 01/13/18 05:10 Urine Source MIDSTREAM 01/10/18 04:07 Urine Color YELLOW 01/10/18 04:07 Urine Clarity HAZY (CLEAR) 01/10/18 04:07 Urine pH 6.0 (4.6 - 8.0) 01/10/18 04:07 Ur Specific [place] 1.020 (1.005-1.030) 01/10/18 04:07 Urine Protein 30 mg/dL (NEGATIVE) H 01/10/18 04:07 Urine Glucose (UA) NEGATIVE mg/dL (NEGATIVE) 01/10/18 04:07 Urine Ketones NEGATIVE mg/dL (NEGATIVE) 01/10/18 04:07 Urine Blood NEGATIVE (NEGATIVE) 01/10/18 04:07 Urine Nitrate NEGATIVE (NEGATIVE) 01/10/18 04:07 Urine Bilirubin NEGATIVE (NEGATIVE) 01/10/18 04:07 Urine Urobilinogen 0.2 E.U./dL (0.2 - 1.0) 01/10/18 04:07 Ur Leukocyte Esterase NEGATIVE (NEGATIVE) 01/10/18 04:07 Urine RBC 0-2 /hpf (0-5) H 01/10/18 04:07 Urine WBC 0-2 /hpf (0-5) 01/10/18 04:07 Ur Epithelial Cells OCCASIONAL /lpf (FEW) 01/10/18 04:07 Urine Bacteria OCCASIONAL /hpf (NONE SEEN) 01/10/18 04:07 Vancomycin Trough 14.0 ug/mL (10-20) 01/11/18 08:20 - Physical Exam Vitals and I&O: Vital Signs Temp 98.6 F 01/13/18 20:01 Pulse 89 01/13/18 20:01 Resp 18 01/13/18 20:01 BP 149/86 01/13/18 20:01 Pulse Ox 95 01/13/18 20:01 Intake & Output 01/13/18 01/13/18 01/14/18 06:59 18:59 06:59 Intake Total 600.000 850 Output Total 900 Balance -300.000 850 Weight (lbs) 132.449 kg 132.449 kg Intake: Intake, IV Amount 100.000 50 Cefepime 1 gm In Dextrose 100.000 50 5% 50 ml @ 100 mls/hr IV Q8HR [facility] Rx#:[id number] Oral 500 800 Output: Urine 900 Other: # Voids 1 4 # Bowel Movements 1 Stool Characteristics Soft Hard Brown Green Weight Source Bedscale Bedscale Active Medications: Current Medications Acetaminophen/Hydrocodone Bitart ([place] 10 Mg/325 Mg) 1 tab PO Q4H PRN PRN Reason: MOD SEVERE PAIN Stop: 03/10/18 21:17 Last Admin: 01/11/18 22:38 Dose: 1 tab Amiodarone HCl (Cordarone) 200 mg PO DAILY [facility] Stop: 03/11/18 08:59 Last Admin: 01/13/18 09:27 Dose: 200 mg [place] Oil/[place] Balsam/Trypsin (Venelex) 1 appl TP DAILY [facility] Stop: 03/11/18 08:59 Last Admin: 01/13/18 09:30 Dose: 1 appl Cyanocobalamin (Vitamin B12) 1,000 mcg PO DAILY [facility] Stop: 03/11/18 08:59 Last Admin: 01/13/18 09:26 Dose: 1,000 mcg Docusate Sodium (Colace) 100 mg PO BID [facility] Stop: 03/11/18 08:59 Last Admin: 01/13/18 16:11 Dose: 100 mg Fluticasone Propionate (Flonase) 2 spr NS DAILY [facility] Stop: 03/11/18 08:59 Last Admin: 01/13/18 09:30 Dose: 2 spr Furosemide (Lasix) 40 mg PO BID [facility] Stop: 03/11/18 08:59 Last Admin: 01/13/18 16:11 Dose: 40 mg Glipizide (Glucotrol) 10 mg PO BID [facility] Stop: 03/11/18 08:59 Last Admin: 01/13/18 16:11 Dose: 10 mg Glucagon (Glucagen) 1 mg IM PRN PRN PRN Reason: BLOOD GLUCOSE <60 Stop: 03/10/18 21:17 Cefepime HCl 1 gm/ Dextrose 50 mls @ 100 mls/hr IV Q8HR [facility] Stop: 03/10/18 20:59 Last Admin: 01/13/18 20:43 Dose: 100 mls/hr Insulin Aspart (Novolog Insulin Sliding Scale) 0 units SUBQ ACHS [facility] PRN Reason: Protocol Stop: 03/11/18 07:29 Last Admin: 01/13/18 20:44 Dose: 4 units Insulin Detemir (Levemir Insulin) 50 units SUBQ DAILY [facility] PRN Reason: Protocol Stop: 03/11/18 08:59 Last Admin: 01/13/18 09:33 Dose: 50 unit Lactobacillus Rhamnosus (Culturelle 15b) 1 each PO DAILY [facility] Stop: 03/11/18 08:59 Last Admin: 01/13/18 09:26 Dose: 1 each Magnesium Hydroxide (Milk Of Magnesia) 30 ml PO DAILY PRN PRN Reason: Constipation Stop: 03/10/18 21:17 Metoprolol Tartrate (Lopressor) 25 mg PO BID [facility] Stop: 03/11/18 08:59 Last Admin: 01/13/18 16:12 Dose: 25 mg Miscellaneous (Probiotic Screen) 1 ea [facility] PRN PRN PRN Reason: PROTOCOL Stop: 03/11/18 09:05 Mupirocin (Bactroban Oint) 1 appl NS BID [facility] Stop: 01/16/18 17:01 Last Admin: 01/13/18 16:11 Dose: 1 appl Nitroglycerin (Nitrostat) 0.4 mg SL Q5MIN PRN PRN Reason: Chest Pain Stop: 03/10/18 21:17 Potassium Chloride (Klor-Con) 10 meq PO DAILY [facility] Stop: 03/11/18 08:59 Last Admin: 01/13/18 09:27 Dose: 10 meq Propylene Glycol (Systane Ophth Soln) 1 drop EACH EYE TID [facility] Stop: 03/11/18 08:59 Last Admin: 01/13/18 20:44 Dose: 1 drop Senna (Senna) 17.2 mg PO HS [facility] Stop: 03/11/18 20:59 Last Admin: 01/13/18 20:44 Dose: 17.2 mg Sodium Phosphate (Fleet Enema) 135 ml RC Q48H PRN PRN Reason: IF MOM INEFFECTIVE Stop: 03/10/18 21:17 Last Admin: 01/11/18 10:35 Dose: 135 ml Warfarin Sodium (Coumadin Per Pharmacy) 1 ea PRN PRN PRN Reason: RX MONITORING Stop: 03/11/18 15:39 General: Alert, No acute distress Cardiovascular: Regular rate Lungs: Clear to auscultation Extremities: Edema, Other (redness bilaterally) - Procedures Procedures: Procedures Procedure Code Date CHOLECYSTECTOMY 51.22 07/31/14 TERRY SUBQ TISSUE 20 SQ CM/< 69278 07/08/15 EXTRACTION OF RIGHT LOWER LEG SKIN, EXTERNAL APPROACH [id number] 07/08/15 REMOVAL OF GALLBLADDER 14235 07/31/14 REPLACE R LOW LEG SKIN W AUTOL SUB, FULL THICK, ROAD MANAGER [id number] 07/08/15 SKIN FULL GRAFT SCLP/ARM/LEG 16006 07/08/15 Assessment/Plan - Problem List Patient Problems: All Active Problems BILATERAL LOWER EXTREMITY SWELLING/REDNE (Acute) - Assessment Assessment: Bilateral leg cellulitis PVD Chronic afib DM II HTN Obesity Diabetic nephropathy Chronic Leukemia - Plan Plan: Hematology consulted for CML eval Continue IV antibiotics Wound care Metformin DC'D due to creat 1.5 Accucheck Monitor vitals Monitor labs Plan of care discussed with nursing staff Nutritional Asmnt/Malnutr-PDOC - Dietary Evaluation Malnutrition Findings (Please click <Entered> for more info): Nutritional Asmnt/Malnutrition Start: 01/10/18 15: 30 Text: Status: Complete Freq: Document 01/10/18 15:30 LCHENG (Rec: 01/10/18 15:59 [email or web address] [email or web address]) Nutritional Asmnt/Malnutrition Patient General Information Nutritional Screening High Risk Consult Diagnosis cellulitis Pertinent Medical Hx/Surgical Hx DM. HTN, obesity, obstructive sleep apnea, chronic a fib, CHF, chronic myeloid leukemia, DJD, chronic constipation Subjective Information Consult received for skin issue and diabetes. Pt seen lying in bed, awake and alert. Pt reported good appetite, consumed 100% of breakfast, 90 % of lunch except spinach d/t he is taking wafarin. Food preference provided. Pt stated he has no teeth, but no chewing problem on current diet. Pt also reported constipation. Current Diet Order/ Nutrition Support regular diabetic diet Pertinent Medications vit B12, colace, lasix, novolog, levemir, culturelle, glucophage, cancomycin, kcl, senna, vancomycin, warfarin Pertinent Labs 4/3 glucose 183, POC 164-257 4/2 A1c 7.8 Nutritional Hx/Data Height 1.7 m Height (Calculated Centimeters) 170.2 Current Weight (lbs) 134.263 kg Weight (Calculated Kilograms) 134.3 Weight (Calculated Grams) 475537.3 [place] Body Weight 148 Body Mass Index (BMI) 46.3 Weight Status Morbidly Obese GI Symptoms GI Symptoms Constipation Last BM 01/07 per MD note Difficult in: None Usual diet at home following diabetic diet per pt Skin Integrity/Comment: cellulitis wound BLE Estimated Nutritional Goals BEE in Kcals: Adj wt of IBW Calories/Kcals/Kg 23-27 Kcals Calculated 8583-7600 Protein: Adj wt of IBW Protein g/k-1.1 Protein Calculated 84-92 Fluid: ml 1932-2268ml (1ml/kcal) Nutritional Problem 1. Problem Problem altered nutrition related lab values Etiology hx of DM Signs/Symptoms: glucose 183, POC 164-257, A1c 7.8 Malnutrition Alert Protein-Calorie Malnutrition N/A Is there a minimum of two criteria No selected? Query Text:Check all the applicable criteria. A minimum of two criteria are recommended for diagnosis of either severe or non-severe malnutrition. Intervention/Recommendation Comments 1. Continue with current diet as ordered. Food preference updated. Pt understands food- drug interaction of warfarin. 2. Considering pt has no teeth , substitute fresh apple with applesauce . Provided prune juice with breakfast for 3 days to manage BM. 3. Monitor PO intake, wt, labs and skin integrity 4. F/U as high risk in 2-3 days, 01/12-01/13 Expected Outcomes/Goals Expected Outcomes/Goals 1. PO intake to meet at least 75% of nutritional needs. 2. Wt stability, skin to remain intact, labs to approach WNL.
[2018-01-14 06:34] LABS: EOSINOPHILE ABSOLUTE 0.3 Th/cmm (0.1-0.4); HEMOGLOBIN 12.4 gm/dL (12-16); LYMPHOCYTE ABSOLUTE 24.9 Th/cmm (1.5-3.0); MEAN CELL VOLUME 83.2 fl (80-99); MEAN CORPUSCULAR HEMOGLOBIN 27.1 pg (27.0-31.0); MEAN CORPUSCULAR HGB CONC 32.6 pg (28.0-36.0); MEAN PLATELET VOLUME 8.8 fl; MONOCYTE ABSOLUTE 1.2 Th/cmm (0.3-1.0); NEUTROPHILE ABSOLUTE 7.3 Th/cmm (1.8-8.0); PLATELET COUNT 165 Th/cmm (150-400); RED BLOOD COUNT 4.57 Mil/cmm (3.80-5.80); RED CELL DISTRIBUTION WIDTH 13.9 % (11.5-20.0)
[2018-01-14 06:42] LABS: % EOSINOPHILS 0.9 % (0.0-5.0); % LYMPHOCYTES 73.6 % (20.0-50.0); % MONOCYTES 3.7 % (2.0-10.0); % NEUTROPHILS 21.8 % (40.0-80.0); WHITE BLOOD COUNT 33.7 Th/cmm (4.8-10.8)
[2018-01-14 07:13] LABS: INR 2.04 (0.5-1.4)
[2018-01-14] MEDS: INSULIN ASPART SLIDING SCALE 100 UNITS/ML UNIT SUBQ SCH ×4 (08:07→21:10)
--- NOTE | 2018-01-14 09:32 | Infectious Disease Prog Note ---
Infectious Disease Subjective - Review of Systems Service Date: 01/14/18 Subjective: Feels better. Infectious Disease Objective - Results Result Diagrams: 01/14/18 06:20 01/13/18 05:10 Recent Labs: Laboratory Last Values WBC 33.7 Th/cmm (4.8-10.8) H* 01/14/18 06:20 RBC 4.57 Mil/cmm (3.80-5.80) 01/14/18 06:20 Hgb 12.4 gm/dL (12-16) 01/14/18 06:20 Hct 38.0 % (41.0-60) L 01/14/18 06:20 MCV 83.2 fl (80-99) 01/14/18 06:20 MCH 27.1 pg (27.0-31.0) 01/14/18 06:20 MCHC Differential 32.6 pg (28.0-36.0) 01/14/18 06:20 RDW 13.9 % (11.5-20.0) 01/14/18 06:20 Plt Count 165 Th/cmm (150-400) 01/14/18 06:20 MPV 8.8 fl 01/14/18 06:20 Neutrophils % 21.8 % (40.0-80.0) L 01/14/18 06:20 Lymphocytes % 73.6 % (20.0-50.0) H 01/14/18 06:20 Monocytes % 3.7 % (2.0-10.0) 01/14/18 06:20 Eosinophils % 0.9 % (0.0-5.0) 01/14/18 06:20 Basophils % 0.0 % (0.0-2.0) 01/14/18 06:20 Neutrophils (Manual) 23 % (40-80) L 01/09/18 11:38 Lymphocytes 74 % (20-50) H 01/09/18 11:38 Monocytes 2 % (2-10) 01/09/18 11:38 Eosinophils 1 % (0-5) 01/09/18 11:38 PT 22.0 SECONDS (9.5-11.5) H 01/14/18 06:20 INR 2.04 (0.5-1.4) H 01/14/18 06:20 PTT (Actin FS) 33.6 SECONDS (26.0-38.0) 01/09/18 11:38 Sodium 136 mEq/L (136-145) 01/13/18 05:10 Potassium 3.7 mEq/L (3.5-5.1) 01/13/18 05:10 Chloride 100 mEq/L (98-107) 01/13/18 05:10 Carbon Dioxide 28.9 mEq/L (21.0-31.0) 01/13/18 05:10 Anion Gap 10.8 (7.0-16.0) 01/13/18 05:10 BUN 23 mg/dL (7-25) 01/13/18 05:10 Creatinine 1.5 mg/dL (0.7-1.3) H 01/13/18 05:10 Est GFR ( Amer) TNP 01/13/18 05:10 Est GFR (Non-Af Amer) TNP 01/13/18 05:10 BUN/Creatinine Ratio 15.3 01/13/18 05:10 Glucose 148 mg/dL (70-105) H 01/13/18 05:10 POC Glucose 178 MG/DL (70 - 105) H 01/14/18 06:20 Hemoglobin A1c % 7.8 % (4.0-6.0) H 01/09/18 11:38 Whole Bld Lactic Acid 1.42 mmol/L (0.60-1.99) 01/09/18 11:38 Calcium 8.6 mg/dL (8.6-10.3) 01/13/18 05:10 Total Bilirubin 0.5 mg/dL (0.3-1.0) 01/13/18 05:10 AST 13 U/L (13-39) 01/13/18 05:10 ALT 12 U/L (7-52) 01/13/18 05:10 Alkaline Phosphatase 101 U/L (34-104) 01/13/18 05:10 Lactate Dehydrogenase 144 U/L (140-271) 01/10/18 06:00 Creatine Kinase 37 U/L (30-223) 01/09/18 11:38 Troponin I < 0.01 ng/mL (0.01-0.05) L 01/09/18 11:38 Total Protein 6.7 gm/dL (6.0-8.3) 01/13/18 05:10 Albumin 3.7 gm/dL (4.2-5.5) L 01/13/18 05:10 Globulin 3.0 gm/dL 01/13/18 05:10 Albumin/Globulin Ratio 1.2 (1.0-1.8) 01/13/18 05:10 Urine Source MIDSTREAM 01/10/18 04:07 Urine Color YELLOW 01/10/18 04:07 Urine Clarity HAZY (CLEAR) 01/10/18 04:07 Urine pH 6.0 (4.6 - 8.0) 01/10/18 04:07 Ur Specific [place] 1.020 (1.005-1.030) 01/10/18 04:07 Urine Protein 30 mg/dL (NEGATIVE) H 01/10/18 04:07 Urine Glucose (UA) NEGATIVE mg/dL (NEGATIVE) 01/10/18 04:07 Urine Ketones NEGATIVE mg/dL (NEGATIVE) 01/10/18 04:07 Urine Blood NEGATIVE (NEGATIVE) 01/10/18 04:07 Urine Nitrate NEGATIVE (NEGATIVE) 01/10/18 04:07 Urine Bilirubin NEGATIVE (NEGATIVE) 01/10/18 04:07 Urine Urobilinogen 0.2 E.U./dL (0.2 - 1.0) 01/10/18 04:07 Ur Leukocyte Esterase NEGATIVE (NEGATIVE) 01/10/18 04:07 Urine RBC 0-2 /hpf (0-5) H 01/10/18 04:07 Urine WBC 0-2 /hpf (0-5) 01/10/18 04:07 Ur Epithelial Cells OCCASIONAL /lpf (FEW) 01/10/18 04:07 Urine Bacteria OCCASIONAL /hpf (NONE SEEN) 01/10/18 04:07 Vancomycin Trough 14.0 ug/mL (10-20) 01/11/18 08:20 - Physical Exam Vitals and I&O: Vital Signs Temp 97 F 01/14/18 04:00 Pulse 91 01/14/18 04:00 Resp 19 01/14/18 04:00 BP 154/87 01/14/18 04:00 Pulse Ox 93 01/14/18 04:00 Intake & Output 01/13/18 01/14/18 01/14/18 18:59 06:59 18:59 Intake Total 850 900 Balance 850 900 Weight (lbs) 132.449 kg 132.449 kg Intake: Intake, IV Amount 50 50 Cefepime 1 gm In Dextrose 50 50 5% 50 ml @ 100 mls/hr IV Q8HR [facility] Rx#:[id number] Oral 800 850 Other: # Voids 4 3 Weight Source Bedscale Bedscale Active Medications: Current Medications Acetaminophen/Hydrocodone Bitart ([place] 10 Mg/325 Mg) 1 tab PO Q4H PRN PRN Reason: MOD SEVERE PAIN Stop: 03/10/18 21:17 Last Admin: 01/11/18 22:38 Dose: 1 tab Amiodarone HCl (Cordarone) 200 mg PO DAILY [facility] Stop: 03/11/18 08:59 Last Admin: 01/13/18 09:27 Dose: 200 mg [place] Oil/[place] Balsam/Trypsin (Venelex) 1 appl TP DAILY [facility] Stop: 03/11/18 08:59 Last Admin: 01/13/18 09:30 Dose: 1 appl Cyanocobalamin (Vitamin B12) 1,000 mcg PO DAILY [facility] Stop: 03/11/18 08:59 Last Admin: 01/13/18 09:26 Dose: 1,000 mcg Docusate Sodium (Colace) 100 mg PO BID [facility] Stop: 03/11/18 08:59 Last Admin: 01/13/18 16:11 Dose: 100 mg Fluticasone Propionate (Flonase) 2 spr NS DAILY [facility] Stop: 03/11/18 08:59 Last Admin: 01/13/18 09:30 Dose: 2 spr Furosemide (Lasix) 40 mg PO BID [facility] Stop: 03/11/18 08:59 Last Admin: 01/13/18 16:11 Dose: 40 mg Glipizide (Glucotrol) 10 mg PO BID [facility] Stop: 03/11/18 08:59 Last Admin: 01/13/18 16:11 Dose: 10 mg Glucagon (Glucagen) 1 mg IM PRN PRN PRN Reason: BLOOD GLUCOSE <60 Stop: 03/10/18 21:17 Cefepime HCl 1 gm/ Dextrose 50 mls @ 100 mls/hr IV Q8HR [facility] Stop: 03/10/18 20:59 Last Admin: 01/14/18 05:34 Dose: 100 mls/hr Insulin Aspart (Novolog Insulin Sliding Scale) 0 units SUBQ ACHS [facility] PRN Reason: Protocol Stop: 03/11/18 07:29 Last Admin: 01/14/18 08:07 Dose: 2 units Insulin Detemir (Levemir Insulin) 50 units SUBQ DAILY [facility] PRN Reason: Protocol Stop: 03/11/18 08:59 Last Admin: 01/13/18 09:33 Dose: 50 unit Lactobacillus Rhamnosus (Culturelle 15b) 1 each PO DAILY [facility] Stop: 03/11/18 08:59 Last Admin: 01/13/18 09:26 Dose: 1 each Magnesium Hydroxide (Milk Of Magnesia) 30 ml PO DAILY PRN PRN Reason: Constipation Stop: 03/10/18 21:17 Metoprolol Tartrate (Lopressor) 25 mg PO BID [facility] Stop: 03/11/18 08:59 Last Admin: 01/13/18 16:12 Dose: 25 mg Miscellaneous (Probiotic Screen) 1 [facility] PRN PRN PRN Reason: PROTOCOL Stop: 03/11/18 09:05 Mupirocin (Bactroban Oint) 1 appl NS BID [facility] Stop: 01/16/18 17:01 Last Admin: 01/13/18 16:11 Dose: 1 appl Nitroglycerin (Nitrostat) 0.4 mg SL Q5MIN PRN PRN Reason: Chest Pain Stop: 03/10/18 21:17 Potassium Chloride (Klor-Con) 10 meq PO DAILY [facility] Stop: 03/11/18 08:59 Last Admin: 01/13/18 09:27 Dose: 10 meq Propylene Glycol (Systane Ophth Soln) 1 drop EACH EYE TID [facility] Stop: 03/11/18 08:59 Last Admin: 01/13/18 20:44 Dose: 1 drop Senna (Senna) 17.2 mg PO HS [facility] Stop: 03/11/18 20:59 Last Admin: 01/13/18 20:44 Dose: 17.2 mg Sodium Phosphate (Fleet Enema) 135 ml RC Q48H PRN PRN Reason: IF MOM INEFFECTIVE Stop: 03/10/18 21:17 Last Admin: 01/11/18 10:35 Dose: 135 ml Warfarin Sodium (Coumadin Per Pharmacy) 1 [facility] PRN PRN PRN Reason: RX MONITORING Stop: 03/11/18 15:39 General: no acute distress, well developed, well nourished HEENT: atraumatic, normocephalic, PERRLA, EOMI Neck: supple, no thyromegaly, no lymphadenopathy, no rigid Cardiovascular: S1S2, regular, systolic murmur Lungs: clear to auscultation bilaterally, clear to percussion Abdomen: soft, no tender, no distended, no hepatomegaly Extremities: no cyanosis, no clubbing, no edema Neurological: awake, alert, oriented Skin: intact - Procedures Procedures: Procedures Procedure Code Date CHOLECYSTECTOMY 51.22 07/31/14 TERRY SUBQ TISSUE 20 SQ CM/< 15245 07/08/15 EXTRACTION OF RIGHT LOWER LEG SKIN, EXTERNAL APPROACH 0HDKXZZ 07/08/15 REMOVAL OF GALLBLADDER 11695 07/31/14 REPLACE R LOW LEG SKIN W AUTOL SUB, FULL THICK, FLATCAR WHACKER [id number] 07/08/15 SKIN FULL GRAFT SCLP/ARM/LEG 09672 07/08/15 Infectious Disease Assmt/Plan - Problem List Patient Problems: All Active Problems BILATERAL LOWER EXTREMITY SWELLING/REDNE (Acute) - Assessment Assessment: 1. bilateral leg cellulitis. 2. Chronic leukocytosis, ?CML.( patient stated that he was told, he had baseline WBC Count of 20K to 30K, and ahs leukemia). 2/2 leukemia. 3. DM2. 4. PAF. 5. HTN. 6. CHF. 7. Obesity. - Plan Plan: Continue cefepime. Dc vanco and may change cefepime to cipro 500mg po bid for 5 days. Wound care. Nutritional Asmnt/Malnutr-PDOC - Dietary Evaluation Malnutrition Findings (Please click <Entered> for more info): Nutritional Asmnt/Malnutrition Start: 01/10/18 15: 30 Text: Status: Complete Freq: Document 01/10/18 15:30 LCHENG (Rec: 01/10/18 15:59 LCHENG [email or web address]) Nutritional Asmnt/Malnutrition Patient General Information Nutritional Screening High Risk Consult Diagnosis cellulitis Pertinent Medical Hx/Surgical Hx DM. HTN, obesity, obstructive sleep apnea, chronic a fib, CHF, chronic myeloid leukemia, DJD, chronic constipation Subjective Information Consult received for skin issue and diabetes. Pt seen lying in bed, awake and alert. Pt reported good appetite, consumed 100% of breakfast, 90 % of lunch except spinach d/t he is taking wafarin. Food preference provided. Pt stated he has no teeth, but no chewing problem on current diet. Pt also reported constipation. Current Diet Order/ Nutrition Support regular diabetic diet Pertinent Medications vit B12, colace, lasix, novolog, levemir, culturelle, glucophage, cancomycin, kcl, senna, vancomycin, warfarin Pertinent Labs 4/3 glucose 183, POC 164-257 4/2 A1c 7.8 Nutritional Hx/Data Height 1.7 m Height (Calculated Centimeters) 170.2 Current Weight (lbs) 134.263 kg Weight (Calculated Kilograms) 134.3 Weight (Calculated Grams) 942668.3 [place] Body Weight 148 Body Mass Index (BMI) 46.3 Weight Status Morbidly Obese GI Symptoms GI Symptoms Constipation Last BM 01/07 per MD note Difficult in: None Usual diet at home following diabetic diet per pt Skin Integrity/Comment: cellulitis wound BLE Estimated Nutritional Goals BEE in Kcals: Adj wt of IBW Calories/Kcals/Kg 23-27 Kcals Calculated 4592-0351 Protein: Adj wt of IBW Protein g/k-1.1 Protein Calculated 84-92 Fluid: ml 1932-2268ml (1ml/kcal) Nutritional Problem 1. Problem Problem altered nutrition related lab values Etiology hx of DM Signs/Symptoms: glucose 183, POC 164-257, A1c 7.8 Malnutrition Alert Protein-Calorie Malnutrition N/A Is there a minimum of two criteria No selected? Query Text:Check all the applicable criteria. A minimum of two criteria are recommended for diagnosis of either severe or non-severe malnutrition. Intervention/Recommendation Comments 1. Continue with current diet as ordered. Food preference updated. Pt understands food- drug interaction of warfarin. 2. Considering pt has no teeth , substitute fresh apple with applesauce . Provided prune juice with breakfast for 3 days to manage BM. 3. Monitor PO intake, wt, labs and skin integrity 4. F/U as high risk in 2-3 days, 01/12-01/13 Expected Outcomes/Goals Expected Outcomes/Goals 1. PO intake to meet at least 75% of nutritional needs. 2. Wt stability, skin to remain intact, labs to approach WNL.
--- NOTE | 2018-01-14 09:34 | Infectious Disease Prog Note ---
Infectious Disease Subjective - Review of Systems Service Date: 01/14/18 Subjective: Feels better. Infectious Disease Objective - Results Result Diagrams: 01/14/18 06:20 01/13/18 05:10 Recent Labs: Laboratory Last Values WBC 33.7 Th/cmm (4.8-10.8) H* 01/14/18 06:20 RBC 4.57 Mil/cmm (3.80-5.80) 01/14/18 06:20 Hgb 12.4 gm/dL (12-16) 01/14/18 06:20 Hct 38.0 % (41.0-60) L 01/14/18 06:20 MCV 83.2 fl (80-99) 01/14/18 06:20 MCH 27.1 pg (27.0-31.0) 01/14/18 06:20 MCHC Differential 32.6 pg (28.0-36.0) 01/14/18 06:20 RDW 13.9 % (11.5-20.0) 01/14/18 06:20 Plt Count 165 Th/cmm (150-400) 01/14/18 06:20 MPV 8.8 fl 01/14/18 06:20 Neutrophils % 21.8 % (40.0-80.0) L 01/14/18 06:20 Lymphocytes % 73.6 % (20.0-50.0) H 01/14/18 06:20 Monocytes % 3.7 % (2.0-10.0) 01/14/18 06:20 Eosinophils % 0.9 % (0.0-5.0) 01/14/18 06:20 Basophils % 0.0 % (0.0-2.0) 01/14/18 06:20 Neutrophils (Manual) 23 % (40-80) L 01/09/18 11:38 Lymphocytes 74 % (20-50) H 01/09/18 11:38 Monocytes 2 % (2-10) 01/09/18 11:38 Eosinophils 1 % (0-5) 01/09/18 11:38 PT 22.0 SECONDS (9.5-11.5) H 01/14/18 06:20 INR 2.04 (0.5-1.4) H 01/14/18 06:20 PTT (Actin FS) 33.6 SECONDS (26.0-38.0) 01/09/18 11:38 Sodium 136 mEq/L (136-145) 01/13/18 05:10 Potassium 3.7 mEq/L (3.5-5.1) 01/13/18 05:10 Chloride 100 mEq/L (98-107) 01/13/18 05:10 Carbon Dioxide 28.9 mEq/L (21.0-31.0) 01/13/18 05:10 Anion Gap 10.8 (7.0-16.0) 01/13/18 05:10 BUN 23 mg/dL (7-25) 01/13/18 05:10 Creatinine 1.5 mg/dL (0.7-1.3) H 01/13/18 05:10 Est GFR ( Amer) TNP 01/13/18 05:10 Est GFR (Non-Af Amer) TNP 01/13/18 05:10 BUN/Creatinine Ratio 15.3 01/13/18 05:10 Glucose 148 mg/dL (70-105) H 01/13/18 05:10 POC Glucose 178 MG/DL (70 - 105) H 01/14/18 06:20 Hemoglobin A1c % 7.8 % (4.0-6.0) H 01/09/18 11:38 Whole Bld Lactic Acid 1.42 mmol/L (0.60-1.99) 01/09/18 11:38 Calcium 8.6 mg/dL (8.6-10.3) 01/13/18 05:10 Total Bilirubin 0.5 mg/dL (0.3-1.0) 01/13/18 05:10 AST 13 U/L (13-39) 01/13/18 05:10 ALT 12 U/L (7-52) 01/13/18 05:10 Alkaline Phosphatase 101 U/L (34-104) 01/13/18 05:10 Lactate Dehydrogenase 144 U/L (140-271) 01/10/18 06:00 Creatine Kinase 37 U/L (30-223) 01/09/18 11:38 Troponin I < 0.01 ng/mL (0.01-0.05) L 01/09/18 11:38 Total Protein 6.7 gm/dL (6.0-8.3) 01/13/18 05:10 Albumin 3.7 gm/dL (4.2-5.5) L 01/13/18 05:10 Globulin 3.0 gm/dL 01/13/18 05:10 Albumin/Globulin Ratio 1.2 (1.0-1.8) 01/13/18 05:10 Urine Source MIDSTREAM 01/10/18 04:07 Urine Color YELLOW 01/10/18 04:07 Urine Clarity HAZY (CLEAR) 01/10/18 04:07 Urine pH 6.0 (4.6 - 8.0) 01/10/18 04:07 Ur Specific [place] 1.020 (1.005-1.030) 01/10/18 04:07 Urine Protein 30 mg/dL (NEGATIVE) H 01/10/18 04:07 Urine Glucose (UA) NEGATIVE mg/dL (NEGATIVE) 01/10/18 04:07 Urine Ketones NEGATIVE mg/dL (NEGATIVE) 01/10/18 04:07 Urine Blood NEGATIVE (NEGATIVE) 01/10/18 04:07 Urine Nitrate NEGATIVE (NEGATIVE) 01/10/18 04:07 Urine Bilirubin NEGATIVE (NEGATIVE) 01/10/18 04:07 Urine Urobilinogen 0.2 E.U./dL (0.2 - 1.0) 01/10/18 04:07 Ur Leukocyte Esterase NEGATIVE (NEGATIVE) 01/10/18 04:07 Urine RBC 0-2 /hpf (0-5) H 01/10/18 04:07 Urine WBC 0-2 /hpf (0-5) 01/10/18 04:07 Ur Epithelial Cells OCCASIONAL /lpf (FEW) 01/10/18 04:07 Urine Bacteria OCCASIONAL /hpf (NONE SEEN) 01/10/18 04:07 Vancomycin Trough 14.0 ug/mL (10-20) 01/11/18 08:20 - Physical Exam Vitals and I&O: Vital Signs Temp 97 F 01/14/18 04:00 Pulse 91 01/14/18 04:00 Resp 19 01/14/18 04:00 BP 154/87 01/14/18 04:00 Pulse Ox 93 01/14/18 04:00 Intake & Output 01/13/18 01/14/18 01/14/18 18:59 06:59 18:59 Intake Total 850 900 Balance 850 900 Weight (lbs) 132.449 kg 132.449 kg Intake: Intake, IV Amount 50 50 Cefepime 1 gm In Dextrose 50 50 5% 50 ml @ 100 mls/hr IV Q8HR [facility] Rx#:[id number] Oral 800 850 Other: # Voids 4 3 Weight Source Bedscale Bedscale Active Medications: Current Medications Acetaminophen/Hydrocodone Bitart ([place] 10 Mg/325 Mg) 1 tab PO Q4H PRN PRN Reason: MOD SEVERE PAIN Stop: 03/10/18 21:17 Last Admin: 01/11/18 22:38 Dose: 1 tab Amiodarone HCl (Cordarone) 200 mg PO DAILY [facility] Stop: 03/11/18 08:59 Last Admin: 01/13/18 09:27 Dose: 200 mg [place] Oil/[place] Balsam/Trypsin (Venelex) 1 appl TP DAILY [facility] Stop: 03/11/18 08:59 Last Admin: 01/13/18 09:30 Dose: 1 appl Cyanocobalamin (Vitamin B12) 1,000 mcg PO DAILY [facility] Stop: 03/11/18 08:59 Last Admin: 01/13/18 09:26 Dose: 1,000 mcg Docusate Sodium (Colace) 100 mg PO BID [facility] Stop: 03/11/18 08:59 Last Admin: 01/13/18 16:11 Dose: 100 mg Fluticasone Propionate (Flonase) 2 spr NS DAILY [facility] Stop: 03/11/18 08:59 Last Admin: 01/13/18 09:30 Dose: 2 spr Furosemide (Lasix) 40 mg PO BID [facility] Stop: 03/11/18 08:59 Last Admin: 01/13/18 16:11 Dose: 40 mg Glipizide (Glucotrol) 10 mg PO BID [facility] Stop: 03/11/18 08:59 Last Admin: 01/13/18 16:11 Dose: 10 mg Glucagon (Glucagen) 1 mg IM PRN PRN PRN Reason: BLOOD GLUCOSE <60 Stop: 03/10/18 21:17 Cefepime HCl 1 gm/ Dextrose 50 mls @ 100 mls/hr IV Q8HR [facility] Stop: 03/10/18 20:59 Last Admin: 01/14/18 05:34 Dose: 100 mls/hr Insulin Aspart (Novolog Insulin Sliding Scale) 0 units SUBQ ACHS [facility] PRN Reason: Protocol Stop: 03/11/18 07:29 Last Admin: 01/14/18 08:07 Dose: 2 units Insulin Detemir (Levemir Insulin) 50 units SUBQ DAILY [facility] PRN Reason: Protocol Stop: 03/11/18 08:59 Last Admin: 01/13/18 09:33 Dose: 50 unit Lactobacillus Rhamnosus (Culturelle 15b) 1 each PO DAILY [facility] Stop: 03/11/18 08:59 Last Admin: 01/13/18 09:26 Dose: 1 each Magnesium Hydroxide (Milk Of Magnesia) 30 ml PO DAILY PRN PRN Reason: Constipation Stop: 03/10/18 21:17 Metoprolol Tartrate (Lopressor) 25 mg PO BID [facility] Stop: 03/11/18 08:59 Last Admin: 01/13/18 16:12 Dose: 25 mg Miscellaneous (Probiotic Screen) 1 [facility] PRN PRN PRN Reason: PROTOCOL Stop: 03/11/18 09:05 Mupirocin (Bactroban Oint) 1 appl NS BID [facility] Stop: 01/16/18 17:01 Last Admin: 01/13/18 16:11 Dose: 1 appl Nitroglycerin (Nitrostat) 0.4 mg SL Q5MIN PRN PRN Reason: Chest Pain Stop: 03/10/18 21:17 Potassium Chloride (Klor-Con) 10 meq PO DAILY [facility] Stop: 03/11/18 08:59 Last Admin: 01/13/18 09:27 Dose: 10 meq Propylene Glycol (Systane Ophth Soln) 1 drop EACH EYE TID [facility] Stop: 03/11/18 08:59 Last Admin: 01/13/18 20:44 Dose: 1 drop Senna (Senna) 17.2 mg PO HS [facility] Stop: 03/11/18 20:59 Last Admin: 01/13/18 20:44 Dose: 17.2 mg Sodium Phosphate (Fleet Enema) 135 ml RC Q48H PRN PRN Reason: IF MOM INEFFECTIVE Stop: 03/10/18 21:17 Last Admin: 01/11/18 10:35 Dose: 135 ml Warfarin Sodium (Coumadin Per Pharmacy) 1 [facility] PRN PRN PRN Reason: RX MONITORING Stop: 03/11/18 15:39 General: no acute distress, well developed, well nourished HEENT: atraumatic, normocephalic, PERRLA Neck: supple, no thyromegaly, no lymphadenopathy Cardiovascular: S1S2, regular Lungs: clear to auscultation bilaterally, clear to percussion Abdomen: soft, no tender, no distended Extremities: edema, no cyanosis, no clubbing Neurological: awake, alert, oriented, CN 2-12 intact Skin: other (superficial leg wounds.) - Procedures Procedures: Procedures Procedure Code Date CHOLECYSTECTOMY 51.22 07/31/14 TERRY SUBQ TISSUE 20 SQ CM/< 07495 07/08/15 EXTRACTION OF RIGHT LOWER LEG SKIN, EXTERNAL APPROACH [id number] 07/08/15 REMOVAL OF GALLBLADDER 46765 07/31/14 REPLACE R LOW LEG SKIN W AUTOL SUB, FULL THICK, MEDICAL RECORDS ASSISTANT [id number] 07/08/15 SKIN FULL GRAFT SCLP/ARM/LEG 22822 07/08/15 Infectious Disease Assmt/Plan - Problem List Patient Problems: All Active Problems BILATERAL LOWER EXTREMITY SWELLING/REDNE (Acute) - Assessment Assessment: 1. bilateral leg cellulitis. 2. Chronic leukocytosis, ?CLL.( patient stated that he was told, he had baseline WBC Count of 20K to 30K, and ahs leukemia). 2/2 leukemia. 3. DM2. 4. PAF. 5. HTN. 6. CHF. 7. Obesity. - Plan Plan: Continue cefepime. Dc vanco and may change cefepime to cipro 500mg po bid for 5 days. Wound care. Nutritional Asmnt/Malnutr-PDOC - Dietary Evaluation Malnutrition Findings (Please click <Entered> for more info): Nutritional Asmnt/Malnutrition Start: 01/10/18 15: 30 Text: Status: Complete Freq: Document 01/10/18 15:30 HEN (Rec: 01/10/18 15:59 [email or web address]) Nutritional Asmnt/Malnutrition Patient General Information Nutritional Screening High Risk Consult Diagnosis cellulitis Pertinent Medical Hx/Surgical Hx DM. HTN, obesity, obstructive sleep apnea, chronic a fib, CHF, chronic myeloid leukemia, DJD, chronic constipation Subjective Information Consult received for skin issue and diabetes. Pt seen lying in bed, awake and alert. Pt reported good appetite, consumed 100% of breakfast, 90 % of lunch except spinach d/t he is taking wafarin. Food preference provided. Pt stated he has no teeth, but no chewing problem on current diet. Pt also reported constipation. Current Diet Order/ Nutrition Support regular diabetic diet Pertinent Medications vit B12, colace, lasix, novolog, levemir, culturelle, glucophage, cancomycin, kcl, senna, vancomycin, warfarin Pertinent Labs 4/3 glucose 183, POC 164-257 4/2 A1c 7.8 Nutritional Hx/Data Height 1.7 m Height (Calculated Centimeters) 170.2 Current Weight (lbs) 134.263 kg Weight (Calculated Kilograms) 134.3 Weight (Calculated Grams) 645096.3 [employer] Body Weight 148 Body Mass Index (BMI) 46.3 Weight Status Morbidly Obese GI Symptoms GI Symptoms Constipation Last BM 01/07 per MD note Difficult in: None Usual diet at home following diabetic diet per pt Skin Integrity/Comment: cellulitis wound BLE Estimated Nutritional Goals BEE in Kcals: Adj wt of IBW Calories/Kcals/Kg 23-27 Kcals Calculated 4543-5442 Protein: Adj wt of IBW Protein g/k-1.1 Protein Calculated 84-92 Fluid: ml 1932-2268ml (1ml/kcal) Nutritional Problem 1. Problem Problem altered nutrition related lab values Etiology hx of DM Signs/Symptoms: glucose 183, POC 164-257, A1c 7.8 Malnutrition Alert Protein-Calorie Malnutrition N/A Is there a minimum of two criteria No selected? Query Text:Check all the applicable criteria. A minimum of two criteria are recommended for diagnosis of either severe or non-severe malnutrition. Intervention/Recommendation Comments 1. Continue with current diet as ordered. Food preference updated. Pt understands food- drug interaction of warfarin. 2. Considering pt has no teeth , substitute fresh apple with applesauce . Provided prune juice with breakfast for 3 days to manage BM. 3. Monitor PO intake, wt, labs and skin integrity 4. F/U as high risk in 2-3 days, 01/12-01/13 Expected Outcomes/Goals Expected Outcomes/Goals 1. PO intake to meet at least 75% of nutritional needs. 2. Wt stability, skin to remain intact, labs to approach WNL.
[2018-01-14] MEDS: Lactobacillus Rhamnosus GG 15 Billion CFU CAP.SPRINK PO SCH (09:48)
[2018-01-14] MEDS: Potassium Chloride 10 mEq ER Tab PO SCH (09:48)
[2018-01-14] MEDS: Insulin Detemir 100 units/mL 10mL Vial SUBQ SCH ×2 (09:49→10:11)
[2018-01-14] MEDS: Fluticasone Propionate 0.05mg/Actuation 16gm Nasal Spray NS SCH (09:49)
[2018-01-14] MEDS: Venelex 60gm Tube TP SCH (09:49)
[2018-01-14] MEDS: Peg-400/Propylene Ophth Soln 5 mL Bottle EACH EYE SCH ×3 (09:50→20:51)
--- NOTE | 2018-01-14 14:00 | Consultation ---
DATE OF CONSULTATION: 01/14/2018 REFERRING PHYSICIAN: Dr. Trejo. REASON FOR CONSULTATION: Leukocytosis. HISTORY OF PRESENT ILLNESS: The patient is a 72-year-old male who is known to me from office followup. He was admitted to the hospital at this time with pain in left leg associated with swelling and weeping. The patient was also found to have elevated white count, therefore I was asked to evaluate. He is known to have chronic lymphocytic leukemia, followed by me in the office with stable hemoglobin and platelet count. No indication to treat at this time. The white count was slightly higher than average. PAST MEDICAL HISTORY: Diabetes, hypertension, obesity, sleep apnea, chronic atrial fibrillation, congestive heart failure, and chronic lymphocytic leukemia. MEDICATIONS: Reviewed including Coumadin. SOCIAL HISTORY: Resides in nursing facility. FAMILY HISTORY: Diabetes, chronic kidney disease, and hypertension. PHYSICAL EXAMINATION: GENERAL: The patient is awake, not in distress, afebrile. VITAL SIGNS: Blood pressure is stable, is morbidly obese. HEENT: Mild pallor. No cranial nerve palsy. Atraumatic and normocephalic. NECK: No lymphadenopathy. CHEST: Good air entry. ABDOMEN: Obese, soft. EXTREMITIES: Erythema and edema in both lower extremities. There is also warm temperature on the left leg around the ankle area with chronic dermatitis and eczema. Venous stasis on both legs. LABORATORY DATA: White count 33.7, hemoglobin 12.4, and platelets 165. INR 2.04. Liver functions normal. ASSESSMENT: Leukocytosis, predominantly lymphocytes. Lymphocytes are 73% and neutrophils are 21% secondary to chronic lymphocytic leukemia with stable hemoglobin and platelet count. There is no indication to treat at this time. The white count is slightly higher than average likely because of the ongoing infection in lower extremities. The patient is on antibiotics, and Coumadin will be followed by pharmacist. I will obtain immunoglobulin level to evaluate for hypogammaglobulinemia with the chronic lymphocytic leukemia. Thank you, Dr. Trejo, for the opportunity to participate in the care of this interesting case with you. JOB# [id number]
--- NOTE | 2018-01-14 22:44 | General Progress Note ---
Subjective - Review of Systems Service Date: 01/14/18 Subjective: Patient seen and examined doing fine Denied any complaints Objective - Results Result Diagrams: 01/14/18 06:20 01/13/18 05:10 Recent Labs: Laboratory Last Values WBC 33.7 Th/cmm (4.8-10.8) H* 01/14/18 06:20 RBC 4.57 Mil/cmm (3.80-5.80) 01/14/18 06:20 Hgb 12.4 gm/dL (12-16) 01/14/18 06:20 Hct 38.0 % (41.0-60) L 01/14/18 06:20 MCV 83.2 fl (80-99) 01/14/18 06:20 MCH 27.1 pg (27.0-31.0) 01/14/18 06:20 MCHC Differential 32.6 pg (28.0-36.0) 01/14/18 06:20 RDW 13.9 % (11.5-20.0) 01/14/18 06:20 Plt Count 165 Th/cmm (150-400) 01/14/18 06:20 MPV 8.8 fl 01/14/18 06:20 Neutrophils % 21.8 % (40.0-80.0) L 01/14/18 06:20 Lymphocytes % 73.6 % (20.0-50.0) H 01/14/18 06:20 Monocytes % 3.7 % (2.0-10.0) 01/14/18 06:20 Eosinophils % 0.9 % (0.0-5.0) 01/14/18 06:20 Basophils % 0.0 % (0.0-2.0) 01/14/18 06:20 Neutrophils (Manual) 23 % (40-80) L 01/09/18 11:38 Lymphocytes 74 % (20-50) H 01/09/18 11:38 Monocytes 2 % (2-10) 01/09/18 11:38 Eosinophils 1 % (0-5) 01/09/18 11:38 PT 22.0 SECONDS (9.5-11.5) H 01/14/18 06:20 INR 2.04 (0.5-1.4) H 01/14/18 06:20 PTT (Actin FS) 33.6 SECONDS (26.0-38.0) 01/09/18 11:38 Sodium 136 mEq/L (136-145) 01/13/18 05:10 Potassium 3.7 mEq/L (3.5-5.1) 01/13/18 05:10 Chloride 100 mEq/L (98-107) 01/13/18 05:10 Carbon Dioxide 28.9 mEq/L (21.0-31.0) 01/13/18 05:10 Anion Gap 10.8 (7.0-16.0) 01/13/18 05:10 BUN 23 mg/dL (7-25) 01/13/18 05:10 Creatinine 1.5 mg/dL (0.7-1.3) H 01/13/18 05:10 Est GFR ( Amer) TNP 01/13/18 05:10 Est GFR (Non-Af Amer) TNP 01/13/18 05:10 BUN/Creatinine Ratio 15.3 01/13/18 05:10 Glucose 148 mg/dL (70-105) H 01/13/18 05:10 POC Glucose 172 MG/DL (70 - 105) H 01/14/18 20:54 Hemoglobin A1c % 7.8 % (4.0-6.0) H 01/09/18 11:38 Whole Bld Lactic Acid 1.42 mmol/L (0.60-1.99) 01/09/18 11:38 Calcium 8.6 mg/dL (8.6-10.3) 01/13/18 05:10 Total Bilirubin 0.5 mg/dL (0.3-1.0) 01/13/18 05:10 AST 13 U/L (13-39) 01/13/18 05:10 ALT 12 U/L (7-52) 01/13/18 05:10 Alkaline Phosphatase 101 U/L (34-104) 01/13/18 05:10 Lactate Dehydrogenase 144 U/L (140-271) 01/10/18 06:00 Creatine Kinase 37 U/L (30-223) 01/09/18 11:38 Troponin I < 0.01 ng/mL (0.01-0.05) L 01/09/18 11:38 Total Protein 6.7 gm/dL (6.0-8.3) 01/13/18 05:10 Albumin 3.7 gm/dL (4.2-5.5) L 01/13/18 05:10 Globulin 3.0 gm/dL 01/13/18 05:10 Albumin/Globulin Ratio 1.2 (1.0-1.8) 01/13/18 05:10 Urine Source MIDSTREAM 01/10/18 04:07 Urine Color YELLOW 01/10/18 04:07 Urine Clarity HAZY (CLEAR) 01/10/18 04:07 Urine pH 6.0 (4.6 - 8.0) 01/10/18 04:07 Ur Specific [place] 1.020 (1.005-1.030) 01/10/18 04:07 Urine Protein 30 mg/dL (NEGATIVE) H 01/10/18 04:07 Urine Glucose (UA) NEGATIVE mg/dL (NEGATIVE) 01/10/18 04:07 Urine Ketones NEGATIVE mg/dL (NEGATIVE) 01/10/18 04:07 Urine Blood NEGATIVE (NEGATIVE) 01/10/18 04:07 Urine Nitrate NEGATIVE (NEGATIVE) 01/10/18 04:07 Urine Bilirubin NEGATIVE (NEGATIVE) 01/10/18 04:07 Urine Urobilinogen 0.2 E.U./dL (0.2 - 1.0) 01/10/18 04:07 Ur Leukocyte Esterase NEGATIVE (NEGATIVE) 01/10/18 04:07 Urine RBC 0-2 /hpf (0-5) H 01/10/18 04:07 Urine WBC 0-2 /hpf (0-5) 01/10/18 04:07 Ur Epithelial Cells OCCASIONAL /lpf (FEW) 01/10/18 04:07 Urine Bacteria OCCASIONAL /hpf (NONE SEEN) 01/10/18 04:07 Vancomycin Trough 14.0 ug/mL (10-20) 01/11/18 08:20 - Physical Exam Vitals and I&O: Vital Signs Temp 96.8 F 01/14/18 16:30 Pulse 90 01/14/18 16:32 Resp 18 01/14/18 16:30 BP 139/74 01/14/18 16:32 Pulse Ox 93 01/14/18 16:30 Intake & Output 01/14/18 01/14/18 01/15/18 06:59 18:59 06:59 Intake Total 950 700 Output Total 1000 Balance 950 -300 Weight (lbs) 132.449 kg 132.449 kg Intake: Intake, IV Amount 100 50 Cefepime 1 gm In Dextrose 100 50 5% 50 ml @ 100 mls/hr IV Q8HR [facility] Rx#:[id number] Oral 850 650 Output: Urine 1000 Other: # Voids 3 # Bowel Movements 0 Weight Source Bedscale Bedscale Active Medications: Current Medications Acetaminophen/Hydrocodone Bitart ([place] 10 Mg/325 Mg) 1 tab PO Q4H PRN PRN Reason: MOD SEVERE PAIN Stop: 03/10/18 21:17 Last Admin: 01/11/18 22:38 Dose: 1 tab Amiodarone HCl (Cordarone) 200 mg PO DAILY [facility] Stop: 03/11/18 08:59 Last Admin: 01/14/18 09:48 Dose: 200 mg [place] Oil/[place] Balsam/Trypsin (Venelex) 1 appl TP DAILY [facility] Stop: 03/11/18 08:59 Last Admin: 01/14/18 09:49 Dose: 1 appl Cyanocobalamin (Vitamin B12) 1,000 mcg PO DAILY [facility] Stop: 03/11/18 08:59 Last Admin: 01/14/18 09:49 Dose: 1,000 mcg Docusate Sodium (Colace) 100 mg PO BID [facility] Stop: 03/11/18 08:59 Last Admin: 01/14/18 16:32 Dose: 100 mg Fluticasone Propionate (Flonase) 2 spr NS DAILY [facility] Stop: 03/11/18 08:59 Last Admin: 01/14/18 09:49 Dose: 2 spr Furosemide (Lasix) 40 mg PO BID [facility] Stop: 03/11/18 08:59 Last Admin: 01/14/18 16:32 Dose: 40 mg Glipizide (Glucotrol) 10 mg PO BID [facility] Stop: 03/11/18 08:59 Last Admin: 01/14/18 16:32 Dose: 10 mg Glucagon (Glucagen) 1 mg IM PRN PRN PRN Reason: BLOOD GLUCOSE <60 Stop: 03/10/18 21:17 Cefepime HCl 1 gm/ Dextrose 50 mls @ 100 mls/hr IV Q8HR [facility] Stop: 03/10/18 20:59 Last Admin: 01/14/18 20:51 Dose: 100 mls/hr Insulin Aspart (Novolog Insulin Sliding Scale) 0 units SUBQ ACHS [facility] PRN Reason: Protocol Stop: 03/11/18 07:29 Last Admin: 01/14/18 21:10 Dose: 5 units Insulin Detemir (Levemir Insulin) 50 units SUBQ DAILY [facility] PRN Reason: Protocol Stop: 03/11/18 08:59 Last Admin: 01/14/18 10:11 Dose: 50 unit Lactobacillus Rhamnosus (Culturelle 15b) 1 each PO DAILY [facility] Stop: 03/11/18 08:59 Last Admin: 01/14/18 09:48 Dose: 1 each Magnesium Hydroxide (Milk Of Magnesia) 30 ml PO DAILY PRN PRN Reason: Constipation Stop: 03/10/18 21:17 Metoprolol Tartrate (Lopressor) 25 mg PO BID [facility] Stop: 03/11/18 08:59 Last Admin: 01/14/18 16:32 Dose: 25 mg Miscellaneous (Probiotic Screen) 1 [facility] PRN PRN PRN Reason: PROTOCOL Stop: 03/11/18 09:05 Mupirocin (Bactroban Oint) 1 appl NS BID [facility] Stop: 01/16/18 17:01 Last Admin: 01/14/18 16:32 Dose: 1 appl Nitroglycerin (Nitrostat) 0.4 mg SL Q5MIN PRN PRN Reason: Chest Pain Stop: 03/10/18 21:17 Potassium Chloride (Klor-Con) 10 meq PO DAILY [facility] Stop: 03/11/18 08:59 Last Admin: 01/14/18 09:48 Dose: 10 meq Propylene Glycol (Systane Ophth Soln) 1 drop EACH EYE TID [facility] Stop: 03/11/18 08:59 Last Admin: 01/14/18 20:51 Dose: 1 drop Senna (Senna) 17.2 mg PO HS [facility] Stop: 03/11/18 20:59 Last Admin: 01/14/18 20:51 Dose: 17.2 mg Sodium Phosphate (Fleet Enema) 135 ml RC Q48H PRN PRN Reason: IF MOM INEFFECTIVE Stop: 03/10/18 21:17 Last Admin: 01/11/18 10:35 Dose: 135 ml Warfarin Sodium (Coumadin Per Pharmacy) 1 [facility] PRN PRN PRN Reason: RX MONITORING Stop: 03/11/18 15:39 General: Alert, No acute distress Cardiovascular: Regular rate Lungs: Clear to auscultation Extremities: Edema, Other (redness bilaterally) - Procedures Procedures: Procedures Procedure Code Date CHOLECYSTECTOMY 51.22 07/31/14 TERRY SUBQ TISSUE 20 SQ CM/< 89868 07/08/15 EXTRACTION OF RIGHT LOWER LEG SKIN, EXTERNAL APPROACH [id number] 07/08/15 REMOVAL OF GALLBLADDER 09171 07/31/14 REPLACE R LOW LEG SKIN W AUTOL SUB, FULL THICK, VISUAL STYLIST [id number] 07/08/15 SKIN FULL GRAFT SCLP/ARM/LEG 82024 07/08/15 Assessment/Plan - Problem List Patient Problems: All Active Problems BILATERAL LOWER EXTREMITY SWELLING/REDNE (Acute) - Assessment Assessment: Bilateral leg cellulitis PVD Chronic afib DM II HTN Obesity Diabetic nephropathy Chronic lymphocytic Leukemia - Plan Plan: Hematology eval noted and appreciated Continue IV antibiotics Wound care Metformin DC'D due to creat 1.5 Anticoagulation Accucheck Monitor vitals Monitor labs Plan of care discussed with nursing staff Nutritional Asmnt/Malnutr-PDOC - Dietary Evaluation Malnutrition Findings (Please click <Entered> for more info): Nutritional Asmnt/Malnutrition Start: 01/10/18 15: 30 Text: Status: Complete Freq: Document 01/10/18 15:30 HEN (Rec: 01/10/18 15:59 [facility]) Nutritional Asmnt/Malnutrition Patient General Information Nutritional Screening High Risk Consult Diagnosis cellulitis Pertinent Medical Hx/Surgical Hx DM. HTN, obesity, obstructive sleep apnea, chronic a fib, CHF, chronic myeloid leukemia, DJD, chronic constipation Subjective Information Consult received for skin issue and diabetes. Pt seen lying in bed, awake and alert. Pt reported good appetite, consumed 100% of breakfast, 90 % of lunch except spinach d/t he is taking wafarin. Food preference provided. Pt stated he has no teeth, but no chewing problem on current diet. Pt also reported constipation. Current Diet Order/ Nutrition Support regular diabetic diet Pertinent Medications vit B12, colace, lasix, novolog, levemir, culturelle, glucophage, cancomycin, kcl, senna, vancomycin, warfarin Pertinent Labs 4/3 glucose 183, POC 164-257 4/2 A1c 7.8 Nutritional Hx/Data Height 1.7 m Height (Calculated Centimeters) 170.2 Current Weight (lbs) 134.263 kg Weight (Calculated Kilograms) 134.3 Weight (Calculated Grams) 926901.3 [place] Body Weight 148 Body Mass Index (BMI) 46.3 Weight Status Morbidly Obese GI Symptoms GI Symptoms Constipation Last BM 01/07 per MD note Difficult in: None Usual diet at home following diabetic diet per pt Skin Integrity/Comment: cellulitis wound BLE Estimated Nutritional Goals BEE in Kcals: Adj wt of IBW Calories/Kcals/Kg 23-27 Kcals Calculated 0613-5395 Protein: Adj wt of IBW Protein g/k-1.1 Protein Calculated 84-92 Fluid: ml 1932-2268ml (1ml/kcal) Nutritional Problem 1. Problem Problem altered nutrition related lab values Etiology hx of DM Signs/Symptoms: glucose 183, POC 164-257, A1c 7.8 Malnutrition Alert Protein-Calorie Malnutrition N/A Is there a minimum of two criteria No selected? Query Text:Check all the applicable criteria. A minimum of two criteria are recommended for diagnosis of either severe or non-severe malnutrition. Intervention/Recommendation Comments 1. Continue with current diet as ordered. Food preference updated. Pt understands food- drug interaction of warfarin. 2. Considering pt has no teeth , substitute fresh apple with applesauce . Provided prune juice with breakfast for 3 days to manage BM. 3. Monitor PO intake, wt, labs and skin integrity 4. F/U as high risk in 2-3 days, 01/12-01/13 Expected Outcomes/Goals Expected Outcomes/Goals 1. PO intake to meet at least 75% of nutritional needs. 2. Wt stability, skin to remain intact, labs to approach WNL.
[2018-01-15 06:28] LABS: INR 2.05 (0.5-1.4); PROTHROMBIN TIME (TEST) 22.1 SECONDS (9.5-11.5)
[2018-01-15] MEDS: INSULIN ASPART SLIDING SCALE 100 UNITS/ML UNIT SUBQ SCH ×3 (08:10→16:48)
[2018-01-15] MEDS: Insulin Detemir 100 units/mL 10mL Vial SUBQ SCH (09:09)
[2018-01-15] MEDS: Lactobacillus Rhamnosus GG 15 Billion CFU CAP.SPRINK PO SCH (09:13)
[2018-01-15] MEDS: Potassium Chloride 10 mEq ER Tab PO SCH (09:13)
[2018-01-15] MEDS: Fluticasone Propionate 0.05mg/Actuation 16gm Nasal Spray NS SCH (09:14)
[2018-01-15] MEDS: Venelex 60gm Tube TP SCH (09:17)
[2018-01-15] MEDS: Peg-400/Propylene Ophth Soln 5 mL Bottle EACH EYE SCH ×2 (09:17→16:46)
--- NOTE | 2018-01-15 20:52 | General Progress Note ---
Subjective - Review of Systems Service Date: 01/15/18 Subjective: Patient seen and examined doing fine Denied any complaints Objective - Results Result Diagrams: 01/14/18 06:20 01/13/18 05:10 Recent Labs: Laboratory Last Values WBC 33.7 Th/cmm (4.8-10.8) H* 01/14/18 06:20 RBC 4.57 Mil/cmm (3.80-5.80) 01/14/18 06:20 Hgb 12.4 gm/dL (12-16) 01/14/18 06:20 Hct 38.0 % (41.0-60) L 01/14/18 06:20 MCV 83.2 fl (80-99) 01/14/18 06:20 MCH 27.1 pg (27.0-31.0) 01/14/18 06:20 MCHC Differential 32.6 pg (28.0-36.0) 01/14/18 06:20 RDW 13.9 % (11.5-20.0) 01/14/18 06:20 Plt Count 165 Th/cmm (150-400) 01/14/18 06:20 MPV 8.8 fl 01/14/18 06:20 Neutrophils % 21.8 % (40.0-80.0) L 01/14/18 06:20 Lymphocytes % 73.6 % (20.0-50.0) H 01/14/18 06:20 Monocytes % 3.7 % (2.0-10.0) 01/14/18 06:20 Eosinophils % 0.9 % (0.0-5.0) 01/14/18 06:20 Basophils % 0.0 % (0.0-2.0) 01/14/18 06:20 Neutrophils (Manual) 23 % (40-80) L 01/09/18 11:38 Lymphocytes 74 % (20-50) H 01/09/18 11:38 Monocytes 2 % (2-10) 01/09/18 11:38 Eosinophils 1 % (0-5) 01/09/18 11:38 PT 22.1 SECONDS (9.5-11.5) H 01/15/18 05:30 INR 2.05 (0.5-1.4) H 01/15/18 05:30 PTT (Actin FS) 33.6 SECONDS (26.0-38.0) 01/09/18 11:38 Sodium 136 mEq/L (136-145) 01/13/18 05:10 Potassium 3.7 mEq/L (3.5-5.1) 01/13/18 05:10 Chloride 100 mEq/L (98-107) 01/13/18 05:10 Carbon Dioxide 28.9 mEq/L (21.0-31.0) 01/13/18 05:10 Anion Gap 10.8 (7.0-16.0) 01/13/18 05:10 BUN 23 mg/dL (7-25) 01/13/18 05:10 Creatinine 1.5 mg/dL (0.7-1.3) H 01/13/18 05:10 Est GFR ( Amer) TNP 01/13/18 05:10 Est GFR (Non-Af Amer) TNP 01/13/18 05:10 BUN/Creatinine Ratio 15.3 01/13/18 05:10 Glucose 148 mg/dL (70-105) H 01/13/18 05:10 POC Glucose 199 MG/DL (70 - 105) H 01/15/18 16:42 Hemoglobin A1c % 7.8 % (4.0-6.0) H 01/09/18 11:38 Whole Bld Lactic Acid 1.42 mmol/L (0.60-1.99) 01/09/18 11:38 Calcium 8.6 mg/dL (8.6-10.3) 01/13/18 05:10 Total Bilirubin 0.5 mg/dL (0.3-1.0) 01/13/18 05:10 AST 13 U/L (13-39) 01/13/18 05:10 ALT 12 U/L (7-52) 01/13/18 05:10 Alkaline Phosphatase 101 U/L (34-104) 01/13/18 05:10 Lactate Dehydrogenase 144 U/L (140-271) 01/10/18 06:00 Creatine Kinase 37 U/L (30-223) 01/09/18 11:38 Troponin I < 0.01 ng/mL (0.01-0.05) L 01/09/18 11:38 Total Protein 6.7 gm/dL (6.0-8.3) 01/13/18 05:10 Albumin 3.7 gm/dL (4.2-5.5) L 01/13/18 05:10 Globulin 3.0 gm/dL 01/13/18 05:10 Albumin/Globulin Ratio 1.2 (1.0-1.8) 01/13/18 05:10 Urine Source [place] 01/10/18 04:07 Urine Color YELLOW 01/10/18 04:07 Urine Clarity HAZY (CLEAR) 01/10/18 04:07 Urine pH 6.0 (4.6 - 8.0) 01/10/18 04:07 Ur Specific [place] 1.020 (1.005-1.030) 01/10/18 04:07 Urine Protein 30 mg/dL (NEGATIVE) H 01/10/18 04:07 Urine Glucose (UA) NEGATIVE mg/dL (NEGATIVE) 01/10/18 04:07 Urine Ketones NEGATIVE mg/dL (NEGATIVE) 01/10/18 04:07 Urine Blood NEGATIVE (NEGATIVE) 01/10/18 04:07 Urine Nitrate NEGATIVE (NEGATIVE) 01/10/18 04:07 Urine Bilirubin NEGATIVE (NEGATIVE) 01/10/18 04:07 Urine Urobilinogen 0.2 E.U./dL (0.2 - 1.0) 01/10/18 04:07 Ur Leukocyte Esterase NEGATIVE (NEGATIVE) 01/10/18 04:07 Urine RBC 0-2 /hpf (0-5) H 01/10/18 04:07 Urine WBC 0-2 /hpf (0-5) 01/10/18 04:07 Ur Epithelial Cells OCCASIONAL /lpf (FEW) 01/10/18 04:07 Urine Bacteria OCCASIONAL /hpf (NONE SEEN) 01/10/18 04:07 Vancomycin Trough 14.0 ug/mL (10-20) 01/11/18 08:20 - Physical Exam Vitals and I&O: Vital Signs Temp 98.0 F 01/15/18 20:00 Pulse 81 01/15/18 20:00 Resp 19 01/15/18 20:00 BP 130/60 01/15/18 20:00 Pulse Ox 95 01/15/18 20:00 Intake & Output 01/15/18 01/15/18 01/16/18 06:59 18:59 06:59 Intake Total 50 650 Output Total 800 Balance 50 -150 Weight (lbs) 132.449 kg Intake: Intake, IV Amount 50 50 Cefepime 1 gm In Dextrose 50 50 5% 50 ml @ 100 mls/hr IV Q8HR ON LICENSE OF [facility] Rx#:[id number] Oral 600 Output: Urine 800 Other: # Bowel Movements 1 Weight Source Bedscale General: Alert, No acute distress Cardiovascular: Regular rate Lungs: Clear to auscultation Extremities: Edema, Other (redness bilaterally better) - Procedures Procedures: Procedures Procedure Code Date CHOLECYSTECTOMY 51.22 07/31/14 TERRY SUBQ TISSUE 20 SQ CM/< 72108 07/08/15 EXTRACTION OF RIGHT LOWER LEG SKIN, EXTERNAL APPROACH [id number] 07/08/15 REMOVAL OF GALLBLADDER 41658 07/31/14 REPLACE R LOW LEG SKIN W AUTOL SUB, FULL THICK, SURVEILLANCE OPERATOR [id number] 07/08/15 SKIN FULL GRAFT SCLP/ARM/LEG [id number] 07/08/15 Assessment/Plan - Assessment Assessment: Bilateral leg cellulitis PVD Chronic afib DM II HTN Obesity Diabetic nephropathy Chronic lymphocytic Leukemia - Plan Plan: DC plan back to SNIF Oral antibiotics upon discharge DC plan discussed with patient and nursing staff Nutritional Asmnt/Malnutr-PDOC - Dietary Evaluation Malnutrition Findings (Please click <Entered> for more info): Nutritional Asmnt/Malnutrition Start: 01/10/18 15: 30 Text: Status: Complete Freq: Document 01/10/18 15:30 [facility] (Rec: 01/10/18 15:59 HEN [email or web address]) Nutritional Asmnt/Malnutrition Patient General Information Nutritional Screening High Risk Consult Diagnosis cellulitis Pertinent Medical Hx/Surgical Hx DM. HTN, obesity, obstructive sleep apnea, chronic a fib, CHF, chronic myeloid leukemia, DJD, chronic constipation Subjective Information Consult received for skin issue and diabetes. Pt seen lying in bed, awake and alert. Pt reported good appetite, consumed 100% of breakfast, 90 % of lunch except spinach d/t he is taking wafarin. Food preference provided. Pt stated he has no teeth, but no chewing problem on current diet. Pt also reported constipation. Current Diet Order/ Nutrition Support regular diabetic diet Pertinent Medications vit B12, colace, lasix, novolog, levemir, culturelle, glucophage, cancomycin, kcl, senna, vancomycin, warfarin Pertinent Labs 4/3 glucose 183, POC 164-257 4/2 A1c 7.8 Nutritional Hx/Data Height 1.7 m Height (Calculated Centimeters) 170.2 Current Weight (lbs) 134.263 kg Weight (Calculated Kilograms) 134.3 Weight (Calculated Grams) 458739.3 [place] Body Weight 148 Body Mass Index (BMI) 46.3 Weight Status Morbidly Obese GI Symptoms GI Symptoms Constipation Last BM 01/07 per MD note Difficult in: None Usual diet at home following diabetic diet per pt Skin Integrity/Comment: cellulitis wound BLE Estimated Nutritional Goals BEE in Kcals: Adj wt of IBW Calories/Kcals/Kg 23-27 Kcals Calculated 7157-0961 Protein: Adj wt of IBW Protein g/k-1.1 Protein Calculated 84-92 Fluid: ml 1932-2268ml (1ml/kcal) Nutritional Problem 1. Problem Problem altered nutrition related lab values Etiology hx of DM Signs/Symptoms: glucose 183, POC 164-257, A1c 7.8 Malnutrition Alert Protein-Calorie Malnutrition N/A Is there a minimum of two criteria No selected? Query Text:Check all the applicable criteria. A minimum of two criteria are recommended for diagnosis of either severe or non-severe malnutrition. Intervention/Recommendation Comments 1. Continue with current diet as ordered. Food preference updated. Pt understands food- drug interaction of warfarin. 2. Considering pt has no teeth , substitute fresh apple with applesauce . Provided prune juice with breakfast for 3 days to manage BM. 3. Monitor PO intake, wt, labs and skin integrity 4. F/U as high risk in 2-3 days, 01/12-01/13 Expected Outcomes/Goals Expected Outcomes/Goals 1. PO intake to meet at least 75% of nutritional needs. 2. Wt stability, skin to remain intact, labs to approach WNL.
--- NOTE | 2018-01-23 11:10 | Discharge Summary ---
DATE OF DISCHARGE: 01/15/2018 DATE OF ADMISSION: 01/09/2018 DATE OF DISCHARGE TO [facility]: 01/15/2018. PRINCIPAL DIAGNOSES: 1. Bilateral lower extremity cellulitis. 2. Peripheral vascular disease. 3. Chronic atrial fibrillation. 4. Diabetes mellitus. 5. Hypertension. 6. Obesity. 7. Congestive heart failure. 8. Diabetic nephropathy. 9. Chronic lymphocytic leukemia. 10. Degenerative joint disease. 11. Debility. 12. Right leg ulcer. BRIEF STATEMENT FOR THE REASON FOR ADMISSION: The patient is a 73-year-old male who resides in a alf, has a complex medical history and started to experiencing excruciating pain and swelling with open wound and the patient had weeping of his both legs. The patient was transferred to ER and from ER, the patient was admitted to the hospital for further treatment. Please refer to my H and P for further information. HOSPITAL COURSE: The patient was admitted to Med/Surg floor. IV antibiotic was started. Blood cultures were obtained. Infectious Disease consultation was requested. Appropriate home medicine was reconciled. Pharmacy was managing Coumadin, diabetes management symptoms management was provided as well along with general nursing care. The patient was also seen by Dr. Carpio for his CLL as well. The patient was also seen by Infectious Disease, appropriate treatment plan was addressed. The patient was slowly improving with the treatment plan prescribed by myself and customer support consultant, so decision was made that the patient can be discharged to lower level of care where the patient can receive further care. The patient also had lower extremity venous Doppler study as well as the arterial Doppler study. The venous Doppler study was negative for deep venous thrombosis and arterial study revealed [id number] diffuse bilateral atherosclerotic changes, but no discrete occlusion. The patient will be followed by myself and my nurse practitioner in a alf. The patient will be given antibiotic in alf and the patient should have outpatient followup with Hematology/Oncology for his cancer. At the time of discharge, all of his meds were reconciled. The patient will be followed by myself and my nurse practitioner. JOB# [id number]
== END 2018-01-15 20:30 | DRG 603 ==
LOC: ER 11:18 → MSI 15:20
PROVIDERS: ADMIT Internal Medicine; ATTEND Internal Medicine
DX: L03.116 Cellulitis of left lower limb (principal); C91.10 Chronic lymphocytic leukemia of B-cell type not having achieved remission; Z68.42 Body mass index [BMI] 45.0-49.9, adult; L97.919 Non-pressure chronic ulcer of unspecified part of right lower leg with unspecified severity; L03.115 Cellulitis of right lower limb; M19.90 Unspecified osteoarthritis, unspecified site; I50.9 Heart failure, unspecified; N18.9 Chronic kidney disease, unspecified; I48.2 Chronic atrial fibrillation; E66.9 Obesity, unspecified; Z66 Do not resuscitate; G47.33 Obstructive sleep apnea (adult) (pediatric); I48.0 Paroxysmal atrial fibrillation; E11.51 Type 2 diabetes mellitus with diabetic peripheral angiopathy without gangrene; E11.21 Type 2 diabetes mellitus with diabetic nephropathy; K59.00 Constipation, unspecified; E11.65 Type 2 diabetes mellitus with hyperglycemia; E86.0 Dehydration; I25.10 Atherosclerotic heart disease of native coronary artery without angina pectoris; I11.0 Hypertensive heart disease with heart failure; Z83.3 Family history of diabetes mellitus; Z82.49 Family history of ischemic heart disease and other diseases of the circulatory system; Z80.41 Family history of malignant neoplasm of ovary; Z79.899 Other long term (current) drug therapy
CPT/HCPCS: 36415-UA; 71045-TC; 80053-TC; 80202-TC; 81001-TC; 82550-TC; 82784-90; 82948-90; 83036-90; 83605; 83615-TC; 84484-TC; 85007-TC; 85025-TC; 85027-TC; 85610-TC; 85730-TC; 87070-90; 93005; 93925-TC; 93970-TC-50; J0692; J0696; J1815; J3370; J7040; Z7610

== ENCOUNTER 2018-05-12 11:28 | Inpatient (IN) | payer MEDICARE, MEDICAID ==
--- NOTE | 2018-05-12 12:21 | ED Physician Chart ---
ED Chief Complaint/HPI - Patient Information Date Seen:: 05/12/18 Time Seen:: 12:00 Chief Complaint:: vomiting History of Present Illness:: 73 yr old male from [place] multiple medical problems dm cad htn liver dz hx of etoh abuse possible cirrhosis leg edema atrial fib here for 3 epsodes clearish last one at 930 am today times 3 episodes first one at 3am today no hematemsis or dark stool no BRBPR PT DENIES HEPATITIS C AND DENIED ABD PAIN states that he takes much norco and is constipated and was given laxatives and now has diarhea Allergies:: Allergies Allergy/AdvReac Type Severity Reaction Status Date / Time No Known Allergies Allergy Verified 05/12/18 12:04 Vitals:: Vital Signs - 8 hr 05/12/18 11:57 Temp 100.3 F HR 113 RR 20 BP 153/83 O2 Sat % 95 ED Review of Systems - Review of Systems Skin: Skin lesions Cardio Vascular: other (skipped ht beats hx of mi and chf and recently leukemia diagnosis) GI: Vomiting Hematopoietic: Bruising ED Past Medical History - Past Medical History Past Medical History: HTN, DM, CAD, CHF, Other (afib leukemia) Social History: Smoker (former heavy etoh and cirrhosis former smoker), Alcohol Surgical History: Appendectomy, Cholecystectomy Psychiatricy History: None Family Medical History - Family Member Mother History Unknown: Yes (hx of diabetes most of the family) Living Status: Hx Family Cancer: Yes (ovarian) Father Ethnicity: Non- Living Status: Hx Family Cancer: No Hx Family Coronary Artery Disease: Yes Hx Family Congestive Heart Failure: Yes Hx Family Hypertension: Yes Hx Family Stroke: No Hx Family Diabetes: Yes Hx Family Seizures: No Hx Family Dementia: No Hx Family AIDS: No Hx Family HIV: No Hx Family COPD: No Hx Family Hepatitis: No Hx Family Psychiatric Problems: No Hx Family Tuberculosis: No ED Physical Exam - Physical Examination General/Constitutional: Well-developed, well-nourished, Alert Head: Atraumatic Eyes: Lids, conjuctiva normal, PERRL, EOMI Other Skin comments:: legs with edema pitting edema +2 +3 with scabs and bruising erythema ENMT: External ears, nose nl Neck: Nontender Respiratory: Nl effort/Exclusion Other Cardio Vascular comments:: hx of afib irregularly irregular Other GI comments:: abd distended no perioteneal signs Other Extremities comments:: leg edema some resting tremors hands Neuro/Psych: Alert/oriented, Judgement/insight normal Misc: No paraspinal tenderness ED Labs/Radiology/EKG Results - Radiology Results Results: cardiomegaly with rt perihilar density and lt cp angle hazy - EKG Interpretations Rate & Rhythm: afib @112 ED Assessment - Assessment General Assessment: vomiting liver dz afib leukemia ED Septic Shock - . Is Septic Shock (SBP<90, OR Lactate>4 mmol\L) present?: No - <6hrs of presentation: Vital Signs: Vital Signs - 8 hr 05/12/18 11:57 Temp 100.3 F HR 113 RR 20 BP 153/83 O2 Sat % 95 ED Reassessment (Disposition) - Reassessment Reassessment Condition:: Unchanged, Improved - Diagnosis Diagnosis:: leukemia with 39k wbc r/o sepsis chf - Patient Disposition Discharge/Transfer:: Acute Care w/in this hosp
--- NOTE | 2018-05-12 12:23 | Diagnostic Imaging Report ---
CHEST X-RAY: AP view INDICATION: Fever, history of leukemia COMPARISON: None FINDINGS: Increased interstitial lung markings are noted with faint left perihilar densities. There is mild prominence of the right hilum. Mild cardiomegaly is noted. No pleural effusions. IMPRESSION: Increased interstitial lung markings which may reflect a mild degree of congestion. Faint left perihilar infiltrates are noted. Mild prominence of the right hilum which may be accentuated by rotation and represent bronchovascular structures. If indicated, CT would provide additional detail and assessment.
[2018-05-12 12:28] LABS: HEMATOCRIT 39.9 % (41.0-60); HEMOGLOBIN 13.2 gm/dL (12-16); MEAN CELL VOLUME 80.1 fl (80-99); MEAN CORPUSCULAR HEMOGLOBIN 26.5 pg (27.0-31.0); MEAN CORPUSCULAR HGB CONC 33.1 pg (28.0-36.0); MEAN PLATELET VOLUME 8.5 fl; PLATELET COUNT 200 Th/cmm (150-400); RED BLOOD COUNT 4.98 Mil/cmm (3.80-5.80); RED CELL DISTRIBUTION WIDTH 15.4 % (11.5-20.0)
[2018-05-12 12:30] LABS: URINE SOURCE CLEAN C
[2018-05-12 12:42] LABS: INR 2.52 (0.5-1.4); PROTHROMBIN TIME (TEST) 25.1 SECONDS (9.5-11.5)
[2018-05-12 12:42] LABS: URINE BILIRUBIN NEGATIVE (NEGATIVE); URINE BLOOD SMALL (NEGATIVE); URINE GLUCOSE (UA) NEGATIVE (NEGATIVE); URINE KETONE NEGATIVE (NEGATIVE); URINE LEUKOCYTE ESTERASE NEGATIVE (NEGATIVE); URINE MICROSCOPIC INDICATED? YES; URINE NITRATE NEGATIVE (NEGATIVE); URINE PROTEIN 100 mg/dL (NEGATIVE); URINE UROBILINOGEN 0.2 E.U./dL (0.2 - 1.0)
[2018-05-12 12:46] LABS: ALB/GLOB RATIO 1.2 (1.0-1.8); ALBUMIN 3.9 gm/dL (4.2-5.5); ALKALINE PHOSPHATASE 111 U/L (34-104); ANION GAP 14.2 (7.0-16.0); BUN - UREA NITROGEN 22 mg/dL (7-25); CALCIUM SERUM 8.8 mg/dL (8.6-10.3); CARBON DIOXIDE 25.6 mEq/L (21.0-31.0); CHLORIDE 100 mEq/L (98-107); CREATININE - SERUM 1.4 mg/dL (0.7-1.3); CREATININE KINASE 42 U/L (30-223); GLUCOSE 202 mg/dL (70-105); POTASSIUM SERUM 3.8 mEq/L (3.5-5.1); SGOT 17 U/L (13-39); SGPT/ALT 17 U/L (7-52); SODIUM SERUM 136 mEq/L (136-145); TOTAL PROTEIN,SERUM 7.2 gm/dL (6.0-8.3)
[2018-05-12 12:47] LABS: WHITE BLOOD COUNT 39.6 Th/cmm (4.8-10.8)
[2018-05-12 12:54] LABS: URINE COLOR YELLOW
[2018-05-12 12:59] LABS: URINE CLARITY CLEAR (CLEAR)
[2018-05-12 13:03] LABS: URINE BACTERIA NONE SEEN /hpf (NONE SEEN); URINE EPITHELIAL CELLS OCCASIONAL /lpf (FEW); URINE RBC 0-2 /hpf (0-5); URINE WBC 0-2 /hpf (0-5)
[2018-05-12 13:15] LABS: BAND NEUTROPHILE 5 % (0-10); BASOPHIL 0 % (0-3); EOSINOPHIL 0 % (0-5); LYMPHOCYTE 43 % (20-50); MONOCYTE 2 % (2-10); NEUTROPHILS 48 % (40-80); PLATELET ESTIMATE ADEQUATE (NORMAL)
[2018-05-12 13:16] LABS: SMUDGE CELLS 1+
[2018-05-12] MEDS ORDERED: Sodium Chloride 0.9% 1,000 ML IV ONE ×3 (14:08→15:29)
[2018-05-12] MEDS ORDERED: Piperacillin Sodium/Tazobact 3.375 gm Vial IV ONE ×2 (14:19→18:33)
[2018-05-12] MEDS: INSULIN ASPART SLIDING SCALE 100 UNITS/ML UNIT SUBQ SCH ×2 (18:32→22:30)
[2018-05-12] MEDS ORDERED: Fleet Enema 135 mL RC PRN (19:53)
[2018-05-12] MEDS ORDERED: GLUCAGON HCl 1 MG KIT IM PRN (19:53)
[2018-05-12 19:54] VITALS: BP 148/72
--- NOTE | 2018-05-12 20:00 | History and Physical ---
History of Present Illness - HPI Chief Complaint: Doctor,my blood sugars are high and I had fever at facility. HPI: 73 yrs old resident of [facility] sent to ER for evaluation of high grade fever and resp distress. After being evaluated in ER patient was admitted to hospital. Vital Signs: Last Vital Signs Temp 101.2 F 05/12/18 17:20 Pulse 89 05/12/18 17:20 Resp 17 05/12/18 17:25 BP 148/72 05/12/18 19:54 Pulse Ox 94 05/12/18 17:20 Past Medical History Cardiovascular: Report: AFIB, CAD, CHF, HTN, Pulmonary Hypertension Pulmonary: Report: No Pertinent Hx SOLE ROUNDER: Report: No Pertinent Hx GI: Report: Constipation Psych: Report: No Pertinent Hx Musculoskeletal: Report: Osteoarthritis, Stiffness Rheumatologic: Report: No pertinent Hx Infectious Disease: Report: No Pertinent Hx Renal/: Report: Chronic Renal Failure Endocrine: Report: Diabetes Dermatology: Report: Eczema Other History: Chronic lymphocytic leukemia - Past Surgical History Past Surgical History: No pertinent Hx Family Medical History - Family Member Mother History Unknown: Yes (hx of diabetes most of the family) Living Status: Hx Family Cancer: Yes (ovarian) Hx Family Coronary Artery Disease: Yes Hx Family Congestive Heart Failure: No Hx Family Hypertension: Yes Hx Family Stroke: Yes Hx Family Diabetes: Yes Hx Family Seizures: No Hx Family Dementia: No Hx Family AIDS: No Hx Family HIV: No Hx Family COPD: No Hx Family Hepatitis: No Hx Family Psychiatric Problems: No Father History Unknown: Yes Ethnicity: Non- Living Status: Hx Family Cancer: No Hx Family Coronary Artery Disease: Yes Hx Family Congestive Heart Failure: Yes Hx Family Hypertension: Yes Hx Family Stroke: No Hx Family Diabetes: Yes Hx Family Seizures: No Hx Family Dementia: No Hx Family AIDS: No Hx Family HIV: No Hx Family COPD: No Hx Family Hepatitis: No Hx Family Psychiatric Problems: No Hx Family Tuberculosis: No Social History Smoke: No Alcohol: None Drugs: None Lives: [facility] Violence: Negative - Medications Home Medications: Home Medication Medication Instructions Recorded Type Amiodarone [Cordarone] 200 mg PO DAILY 10/20/16 History Insulin Human Regular [NovoLIN R*] See Protocol SUBQ ACHS 10/20/16 History Sennosides [Senokot] 2 tab PO HS 10/20/16 History Cyanocobalamin [Vitamin B12] 1,000 mcg PO DAILY #0 tab 10/29/16 Rx Docusate Sodium [Colace] 100 mg PO BID #0 cap 10/29/16 Rx Furosemide [Lasix] 40 mg PO BID #0 tab 10/29/16 Rx Glipizide [Glucotrol] 10 mg PO BID #0 tab 10/29/16 Rx Insulin Detemir [Levemir Insulin] 50 units SUBQ DAILY #0 vial 10/29/16 Rx Metoprolol Tartrate [Lopressor] 25 mg PO BID #0 tab 10/29/16 Rx Nitroglycerin [Nitrostat*] 0.4 mg SL Q5MIN PRN #0 tab 10/29/16 Rx Bacitracin [Baciquent] 1 appl TP DAILY 01/09/18 History Dextrose/Dextrin/Maltose 31 gm PO PRN PRN 01/09/18 History [Insta-Glucose Gel] Fleet Enema 135 ml RC Q48H PRN 01/09/18 History Fluticasone Propionate Nasal 2 spr NS DAILY 01/09/18 History [Flonase] GLUCAGON HCl [Glucagen] 1 mg IM PRN PRN 01/09/18 History Hydrocodone/APAP 10 mg/325 mg 1 tab PO Q4H PRN 01/09/18 History [[place] 10 mg/325 mg] Insulin Aspart, Recombinant 10 unit SUBQ TID 01/09/18 History [NovoLOG FLEXPEN] Lubiprostone [Amitiza] 24 mcg PO BID 01/09/18 History Magnesium Hydroxide [Milk of 30 ml PO DAILY PRN 01/09/18 History Magnesia] Potassium Chloride 1 tab PO DAILY 01/09/18 History Propylene Glycol/Peg 400/Pf 1 each OP TID 01/09/18 History [Systane 0.3-0.4% Eye Drops] [place] 1 unit TP DAILY 01/09/18 History Warfarin Sodium [Coumadin*] 5 mg PO 1700 01/09/18 History metFORMIN [Glucophage] 850 mg PO TID 01/09/18 History Ascorbic Acid [Vitamin C] 500 mg PO DAILY 05/12/18 History Fluticasone Propionate Nasal 2 spr NS DAILY 05/12/18 History [Flonase] Warfarin Sodium 2.5 mg PO DAILY 05/12/18 History Acetaminophen [Tylenol] 650 mg PO Q6H PRN tab 05/17/18 Rx Albuterol/Ipratropium Neb [Duoneb 3 ml HHN Q2HRT PRN aers 05/17/18 Rx Neb] Albuterol/Ipratropium Neb [Duoneb 3 ml HHN Q6HRT aers 05/17/18 Rx Neb] Amiodarone [Cordarone] 200 mg PO DAILY tab 05/17/18 Rx Azithromycin [Zithromax] 500 mg IV Q24HR vial 05/17/18 Rx Balsam Shayla/[place] Oil [Venelex] 1 appl TP DAILY appl 05/17/18 Rx Docusate Sodium [Colace] 100 mg PO BID cap 05/17/18 Rx Fleet Enema 135 ml RC Q48H PRN btl 05/17/18 Rx Fluticasone Propionate Nasal 1 spr NS DAILY bottle 05/17/18 Rx [Flonase] Furosemide [Lasix] 40 mg PO BID tab 05/17/18 Rx GLUCAGON HCl [Glucagen] 1 mg IM PRN PRN kit 05/17/18 Rx Glipizide [Glucotrol] 10 mg PO BID tab 05/17/18 Rx Hydrocodone/APAP 10 mg/325 mg 1 tab PO Q4H PRN tab 05/17/18 Rx [[place] 10 mg/325 mg] Insulin Aspart Sliding Scale See Protocol SUBQ ACHS unit 05/17/18 Rx [NovoLOG INSULIN SLIDING SCALE] Insulin Aspart, Recombinant 10 units SUBQ TID unit 05/17/18 Rx [NovoLOG] Insulin Detemir [Levemir Insulin] 50 units SUBQ DAILY vial 05/17/18 Rx Lactobacillus Rhamnosus GG 15B 1 each PO DAILY cap.sprink 05/17/18 Rx [Culturelle 15B] Lubiprostone [Amitiza] 24 mcg PO BID sgl 05/17/18 Rx Metoprolol Tartrate [Lopressor] 25 mg PO BID tab 05/17/18 Rx Mupirocin Oint [Mupirocin*] 1 appl NS BID appl 05/17/18 Rx Nitroglycerin [Nitrostat*] 0.4 mg SL Q5MIN PRN tab 05/17/18 Rx Piperacillin Sodium/Tazobact 3.375 gm IV Q6HR vial 05/17/18 Rx [Zosyn] Polyvinyl Alcohol Ophth Soln 1 drop EACH EYE TID drops 05/17/18 Rx [Artificial Tears Ophth Soln*] Potassium Chloride ER [Klor-Con] [address] 05/17/18 Rx Sennosides A and B [Senna] 8.6 mg PO HS tab 05/17/18 Rx Spironolactone [Aldactone] 25 mg PO DAILY tab 05/17/18 Rx Vancomycin HCl [Vancomycin] 1.75 gm IV Q24H vial 05/17/18 Rx Warfarin per Pharmacy [Coumadin 1 ea MC PRN PRN misc 05/17/18 Rx Per Pharmacy] methylPREDNISolone SS [Solu-MEDROL] 20 mg IV Q12HR vial 05/17/18 Rx - Allergies Allergies/Adverse Reactions: Allergies Allergy/AdvReac Type Severity Reaction Status Date / Time No Known Allergies Allergy Verified 05/12/18 12:04 Review of Systems - Review of Systems Constitutional: Report: Fever, Chills, Weakness Eyes: Report: No Significant ENT: Report: No Significant Respiratory: Report: Cough, Shortness of Breath, SOB with Excertion Cardiovascular: Report: No Significant Gastrointestinal: Report: Constipation Genitourinary: Report: No Significant Musculoskeletal: Report: Neck Pain Skin: Report: Lesions Physical Exam - Physical Exam HEENT: Report: Pharyngeal Erythema and Exudates Noted Neck: Report: Within normal limits Cardiovascular Systems: Report: Systolic Murmur, Irregular rhythm was noted Respiratory: Report: Wheezing, Rhonchi Abdomen: Report: Non-tender to palpation, Bowel Sounds are within normal limits Back: Report: Inspection of back is within normal limits. Extremities: Report: Pedal edema was noted on inspection, Other (erythema and ulcer+) Skin: Report: Warm, Skin Rash noted Neuro/Psych: Report: Mood affect is within normal limits, A+Ox3, CN II-XII intact, No motor deficit, No sensory deficit - Lab Results All Lab Results last 24 hours: Laboratory Results - last 24 hr 05/12/18 05/12/18 05/12/18 12:00 12:20 12:20 WBC 39.6 H* RBC 4.98 Hgb 13.2 Hct 39.9 L MCV 80.1 MCH 26.5 L MCHC Differential 33.1 RDW 15.4 Plt Count 200 MPV 8.5 Add Manual Diff YES Band Neutrophils % 5 Neutrophils (Manual) 48 Lymphocytes 43 Monocytes 2 Eosinophils 0 Basophils 0 Smudge Cells 1+ Platelet Estimate ADEQUATE Smear Path Review Y PT INR PTT (Actin FS) D-Dimer Sodium 136 Potassium 3.8 Chloride 100 Carbon Dioxide 25.6 Anion Gap 14.2 BUN 22 Creatinine 1.4 H Est GFR ( Amer) TNP Est GFR (Non-Af Amer) TNP BUN/Creatinine Ratio 15.7 Glucose 202 H POC Glucose Whole Bld Lactic Acid Calcium 8.8 Total Bilirubin 1.0 AST 17 ALT 17 Alkaline Phosphatase 111 H Creatine Kinase 42 Troponin I Total Protein 7.2 Albumin 3.9 L Globulin 3.3 Albumin/Globulin Ratio 1.2 Urine Source CLEAN C Urine Color YELLOW Urine Clarity CLEAR Urine pH 6.0 Ur Specific [place] 1.015 Urine Protein 100 H Urine Glucose (UA) NEGATIVE Urine Ketones NEGATIVE Urine Blood SMALL H Urine Nitrate NEGATIVE Urine Bilirubin NEGATIVE Urine Urobilinogen 0.2 Ur Leukocyte Esterase NEGATIVE Urine RBC 0-2 H Urine WBC 0-2 Ur Epithelial Cells OCCASIONAL Urine Bacteria NONE SEEN 05/12/18 05/12/18 05/12/18 12:20 12:20 12:20 WBC RBC Hgb Hct MCV MCH MCHC Differential RDW Plt Count MPV Add Manual Diff Band Neutrophils % Neutrophils (Manual) Lymphocytes Monocytes Eosinophils Basophils Smudge Cells Platelet Estimate Smear Path Review PT INR PTT (Actin FS) D-Dimer 209 Sodium Potassium Chloride Carbon Dioxide Anion Gap BUN Creatinine Est GFR ( Amer) Est GFR (Non-Af Amer) BUN/Creatinine Ratio Glucose POC Glucose Whole Bld Lactic Acid 3.09 H* Calcium Total Bilirubin AST ALT Alkaline Phosphatase Creatine Kinase Troponin I 0.01 Total Protein Albumin Globulin Albumin/Globulin Ratio Urine Source Urine Color Urine Clarity Urine pH Ur Specific [place] Urine Protein Urine Glucose (UA) Urine Ketones Urine Blood Urine Nitrate Urine Bilirubin Urine Urobilinogen Ur Leukocyte Esterase Urine RBC Urine WBC Ur Epithelial Cells Urine Bacteria 05/12/18 05/12/18 05/12/18 12:20 14:30 18:07 WBC RBC Hgb Hct MCV MCH MCHC Differential RDW Plt Count MPV Add Manual Diff Band Neutrophils % Neutrophils (Manual) Lymphocytes Monocytes Eosinophils Basophils Smudge Cells Platelet Estimate Smear Path Review PT 25.1 H INR 2.52 H PTT (Actin FS) 39.5 H D-Dimer Sodium Potassium Chloride Carbon Dioxide Anion Gap BUN Creatinine Est GFR ( Amer) Est GFR (Non-Af Amer) BUN/Creatinine Ratio Glucose POC Glucose 182 H Whole Bld Lactic Acid 2.62 H* Calcium Total Bilirubin AST ALT Alkaline Phosphatase Creatine Kinase Troponin I Total Protein Albumin Globulin Albumin/Globulin Ratio Urine Source Urine Color Urine Clarity Urine pH Ur Specific [place] Urine Protein Urine Glucose (UA) Urine Ketones Urine Blood Urine Nitrate Urine Bilirubin Urine Urobilinogen Ur Leukocyte Esterase Urine RBC Urine WBC Ur Epithelial Cells Urine Bacteria - Assessment Assessment: Pneumonia DM HTN KEVEN CLL Bilateral LE cellulitis Chronic A fib COumadin therapy. - Plan Plan: Oxygen. HHn Iv antibiotics. ID consult. Diabetes management Med reconciliation.. General nursing care. Continue current care. Follow lab. Follow consultants recomendations. symptoms management medication management Pharmacy to dose coumadin. Discussed with staff.
[2018-05-12] MEDS: Potassium Chloride 10 mEq ER Tab PO SCH (22:33)
[2018-05-12] MEDS: Insulin Detemir 100 units/mL 10mL Vial SUBQ SCH (22:40)
[2018-05-12] MEDS: Hydrocodone/APAP 10 mg/325 mg Tab PO PRN (22:56)
[2018-05-12] MEDS: Azithromycin 500 MG in Sodium Chloride 0.9% 250 ML IV SCH (23:00)
[2018-05-13] MEDS ORDERED: Piperacillin Sodium/Tazobact 3.375 gm Vial IV ONE (05:45)
[2018-05-13 05:51] LABS: ALLEN TEST Positive
[2018-05-13] MEDS: Hydrocodone/APAP 10 mg/325 mg Tab PO PRN ×3 (06:21→21:13)
[2018-05-13 06:23] LABS: EOSINOPHILE ABSOLUTE 0.1 Th/cmm (0.1-0.4); HEMATOCRIT 37.2 % (41.0-60); HEMOGLOBIN 12.3 gm/dL (12-16); LYMPHOCYTE ABSOLUTE 28.3 Th/cmm (1.5-3.0); MEAN CELL VOLUME 80.5 fl (80-99); MEAN CORPUSCULAR HEMOGLOBIN 26.7 pg (27.0-31.0); MEAN CORPUSCULAR HGB CONC 33.1 pg (28.0-36.0); MEAN PLATELET VOLUME 8.5 fl; MONOCYTE ABSOLUTE 1.5 Th/cmm (0.3-1.0); NEUTROPHILE ABSOLUTE 11.4 Th/cmm (1.8-8.0); PLATELET COUNT 174 Th/cmm (150-400); RED BLOOD COUNT 4.62 Mil/cmm (3.80-5.80); RED CELL DISTRIBUTION WIDTH 15.3 % (11.5-20.0)
[2018-05-13 06:27] LABS: ALB/GLOB RATIO 1.1 (1.0-1.8); ALBUMIN 3.3 gm/dL (4.2-5.5); ALKALINE PHOSPHATASE 95 U/L (34-104); ANION GAP 11.2 (7.0-16.0); BILIRUBIN,TOTAL 1.1 mg/dL (0.3-1.0); BUN - UREA NITROGEN 19 mg/dL (7-25); CALCIUM SERUM 7.9 mg/dL (8.6-10.3); CARBON DIOXIDE 25.3 mEq/L (21.0-31.0); CHLORIDE 106 mEq/L (98-107); CREATININE - SERUM 1.3 mg/dL (0.7-1.3); CREATININE KINASE 37 U/L (30-223); GLUCOSE 184 mg/dL (70-105); MAGNESIUM 1.9 mg/dL (1.9-2.7); POTASSIUM SERUM 3.5 mEq/L (3.5-5.1); SGOT 15 U/L (13-39); SGPT/ALT 14 U/L (7-52); SODIUM SERUM 139 mEq/L (136-145); TOTAL PROTEIN,SERUM 6.3 gm/dL (6.0-8.3)
[2018-05-13 06:28] LABS: WHITE BLOOD COUNT 41.3 Th/cmm (4.8-10.8)
[2018-05-13 06:47] LABS: INR 2.36 (0.5-1.4); PROTHROMBIN TIME (TEST) 23.6 SECONDS (9.5-11.5)
[2018-05-13 07:05] LABS: EOSINOPHIL 1 % (0-5); LYMPHOCYTE 76 % (20-50); MONOCYTE 3 % (2-10); NEUTROPHILS 20 % (40-80); PLATELET ESTIMATE ADEQUATE (NORMAL)
[2018-05-13 07:19] LABS: DDIMER QUANT < 100 ng/mL (100-400)
[2018-05-13] MEDS: INSULIN ASPART SLIDING SCALE 100 UNITS/ML UNIT SUBQ SCH ×4 (08:13→21:09)
[2018-05-13] MEDS: Potassium Chloride 10 mEq ER Tab PO SCH (08:15)
[2018-05-13] MEDS ORDERED: Fluticasone Propionate 0.05mg/Actuation 16gm Nasal Spray NS SCH (09:00)
--- NOTE | 2018-05-13 10:05 | Diagnostic Imaging Report ---
CT Chest without IV contrast HISTORY: Shortness of breath COMPARISON: Chest x-ray on 05/12/2018. Technique: Axial images were obtained from the base of the neck to the upper abdomen without administration of IV contrast. Reconstructions were made. Total DLP 521, CTD I 12.6 Findings: Calcified thyroid nodules are seen, left greater than right. There is mild prominence the left lobe of thyroid gland. Evaluation of the mediastinum is limited due to lack of IV contrast. Multiple mildly prominent mediastinal lymph nodes are noted. Mild cardiomegaly is noted with atherosclerosis including coronary artery calcifications. No evidence of an aortic aneurysm. Trace pericardial fluid is noted. Evaluation of the lungs demonstrates some hypoventilatory and atelectatic changes of minimal bibasilar passive atelectasis and consolidation changes. Small effusions are seen with fluid seen within the left major fissure measuring 9.3 x 6.4 x 4 cm. There is also a 5 mm nodule of the left upper lobe (image 53, series 4). Additional view 3-4mm nodules of the right upper lobe are also noted. The upper abdomen demonstrates evidence of prior cholecystectomy. Mildly prominent spleen is noted. Degenerative changes of the spine are noted. IMPRESSION: Atelectatic and hypoventilatory lung changes and bibasal passive atelectasis and consolidated changes. Pneumonia of the lung bases cannot be excluded. There is also a 9.3 x 6.4 x 4 cm fluid collection within the left major fissure, possibly a loculated fluid collection in this region. Mild mediastinal lymphadenopathy, nonspecific. Few small bilateral pulmonary nodules the largest on the left side measuring 5 mm. Findings may be due to infectious or inflammatory process. Neoplastic process is less likely. Consider follow-up CT surveillance exam in 6-12 months. Moderate atherosclerosis including coronary artery calcifications. Mild cardiomegaly. Mild splenomegaly. Calcified thyroid nodules consider full short-term follow-up with ultrasound. Evidence of prior cholecystectomy.
[2018-05-13] MEDS: Fluticasone Propionate 0.05mg/Actuation 16gm Nasal Spray NS SCH (10:50)
--- NOTE | 2018-05-13 10:59 | Consultation ---
Consult Note - Consult Note Service Date: 05/13/18 Referring Physician: Festus Trejo Consult Note: PHYSICIAN Consultation Note: Date of Admission: 05/12/18 Purpose of Consultation: Cellulitis of left leg. Chief Complaint: Patient RIOS STAPLES was admitted to [facility] Telemetry with ABDOMINAL PAIN & PNA. History of Present Illness: Patient is 73 year male with a past medical history of obesity, sleep apnea, cellulitis and ulcer of the both legs, DM2, HTN, CLL, obesity, cad, A fib, admitted to the hospital for swelling and redness of left leg, with nonhealing ulcer. On intial evaluation, his temperature was 100.3F went up to 101F. The WBC count was 39,600 k. Sepsis workup was performed and vancomycin IV and Zosyn was started. Zosyn was discontinued. ID consult was called for further antibiotic management. Past Medical History: obesity, sleep apnea, cellulitis and ulcer of the both legs, DM2, HTN, CLL, obesity, cad, A fib, Allergies Allergy/AdvReac Type Severity Reaction Status Date / Time No Known Allergies Allergy Verified 05/12/18 12:04 Vital Signs Temp 98.3 F 05/13/18 08:00 Pulse 85 05/13/18 08:15 Resp 18 05/13/18 08:00 BP 139/82 05/13/18 08:15 Pulse Ox 99 05/13/18 08:00 Intake & Output 05/12/18 05/13/18 05/13/18 18:59 06:59 18:59 Intake Total 300 250 Output Total 500 Balance -200 250 Weight (lbs) 133.991 kg Intake: Intake, IV Amount 250 Azithromycin 500 mg In 250 Sodium Chloride 0.9% 250 ml @ 250 mls/hr IV Q24HR [facility] Rx#:[id number] Oral 300 Output: Urine 500 Other: Weight Source [facility] Laboratory Results - last 24 hr 05/12/18 05/12/18 05/12/18 12:00 12:20 12:20 WBC 39.6 H* RBC 4.98 Hgb 13.2 Hct 39.9 L MCV 80.1 MCH 26.5 L MCHC Differential 33.1 RDW 15.4 Plt Count 200 MPV 8.5 Add Manual Diff YES Band Neutrophils % 5 Neutrophils (Manual) 48 Lymphocytes 43 Monocytes 2 Eosinophils 0 Basophils 0 Smudge Cells 1+ Platelet Estimate ADEQUATE Smear Path Review Y PT INR PTT (Actin FS) Fibrinogen D-Dimer Specimen Source Sample Site pH pCO2 pO2 HCO3 Base Excess O2 Saturation Randy Test Vent Rate Inspired O2 Tidal Volume PEEP Pressure (ins/psv/peep) Critical Value Sodium 136 Potassium 3.8 Chloride 100 Carbon Dioxide 25.6 Anion Gap 14.2 BUN 22 Creatinine 1.4 H Est GFR ( Amer) TNP Est GFR (Non-Af Amer) TNP BUN/Creatinine Ratio 15.7 Glucose 202 H POC Glucose Whole Bld Lactic Acid Calcium 8.8 Magnesium Total Bilirubin 1.0 AST 17 ALT 17 Alkaline Phosphatase 111 H Creatine Kinase 42 Troponin I Total Protein 7.2 Albumin 3.9 L Globulin 3.3 Albumin/Globulin Ratio 1.2 Urine Source CLEAN C Urine Color YELLOW Urine Clarity CLEAR Urine pH 6.0 Ur Specific [place] 1.015 Urine Protein 100 H Urine Glucose (UA) NEGATIVE Urine Ketones NEGATIVE Urine Blood SMALL H Urine Nitrate NEGATIVE Urine Bilirubin NEGATIVE Urine Urobilinogen 0.2 Ur Leukocyte Esterase NEGATIVE Urine RBC 0-2 H Urine WBC 0-2 Ur Epithelial Cells OCCASIONAL Urine Bacteria NONE SEEN 05/12/18 05/12/18 05/12/18 12:20 12:20 12:20 WBC RBC Hgb Hct MCV MCH MCHC Differential RDW Plt Count MPV Add Manual Diff Band Neutrophils % Neutrophils (Manual) Lymphocytes Monocytes Eosinophils Basophils Smudge Cells Platelet Estimate Smear Path Review PT INR PTT (Actin FS) Fibrinogen D-Dimer 209 Specimen Source Sample Site pH pCO2 pO2 HCO3 Base Excess O2 Saturation Randy Test Vent Rate Inspired O2 Tidal Volume PEEP Pressure (ins/psv/peep) Critical Value Sodium Potassium Chloride Carbon Dioxide Anion Gap BUN Creatinine Est GFR ( Amer) Est GFR (Non-Af Amer) BUN/Creatinine Ratio Glucose POC Glucose Whole Bld Lactic Acid 3.09 H* Calcium Magnesium Total Bilirubin AST ALT Alkaline Phosphatase Creatine Kinase Troponin I 0.01 Total Protein Albumin Globulin Albumin/Globulin Ratio Urine Source Urine Color Urine Clarity Urine pH Ur Specific [place] Urine Protein Urine Glucose (UA) Urine Ketones Urine Blood Urine Nitrate Urine Bilirubin Urine Urobilinogen Ur Leukocyte Esterase Urine RBC Urine WBC Ur Epithelial Cells Urine Bacteria 05/12/18 05/12/18 05/12/18 12:20 14:30 18:07 WBC RBC Hgb Hct MCV MCH MCHC Differential RDW Plt Count MPV Add Manual Diff Band Neutrophils % Neutrophils (Manual) Lymphocytes Monocytes Eosinophils Basophils Smudge Cells Platelet Estimate Smear Path Review PT 25.1 H INR 2.52 H PTT (Actin FS) 39.5 H Fibrinogen D-Dimer Specimen Source Sample Site pH pCO2 pO2 HCO3 Base Excess O2 Saturation Randy Test Vent Rate Inspired O2 Tidal Volume PEEP Pressure (ins/psv/peep) Critical Value Sodium Potassium Chloride Carbon Dioxide Anion Gap BUN Creatinine Est GFR ( Amer) Est GFR (Non-Af Amer) BUN/Creatinine Ratio Glucose POC Glucose 182 H Whole Bld Lactic Acid 2.62 H* Calcium Magnesium Total Bilirubin AST ALT Alkaline Phosphatase Creatine Kinase Troponin I Total Protein Albumin Globulin Albumin/Globulin Ratio Urine Source Urine Color Urine Clarity Urine pH Ur Specific [place] Urine Protein Urine Glucose (UA) Urine Ketones Urine Blood Urine Nitrate Urine Bilirubin Urine Urobilinogen Ur Leukocyte Esterase Urine RBC Urine WBC Ur Epithelial Cells Urine Bacteria 05/12/18 05/12/18 05/12/18 20:15 20:15 22:29 WBC RBC Hgb Hct MCV MCH MCHC Differential RDW Plt Count MPV Add Manual Diff Band Neutrophils % Neutrophils (Manual) Lymphocytes Monocytes Eosinophils Basophils Smudge Cells Platelet Estimate Smear Path Review PT INR PTT (Actin FS) Fibrinogen D-Dimer Specimen Source Sample Site pH pCO2 pO2 HCO3 Base Excess O2 Saturation Randy Test Vent Rate Inspired O2 Tidal Volume PEEP Pressure (ins/psv/peep) Critical Value Sodium Potassium Chloride Carbon Dioxide Anion Gap BUN Creatinine Est GFR ( Amer) Est GFR (Non-Af Amer) BUN/Creatinine Ratio Glucose POC Glucose 148 H Whole Bld Lactic Acid Calcium Magnesium Total Bilirubin AST ALT Alkaline Phosphatase Creatine Kinase 46 Troponin I 0.01 Total Protein Albumin Globulin Albumin/Globulin Ratio Urine Source Urine Color Urine Clarity Urine pH Ur Specific [place] Urine Protein Urine Glucose (UA) Urine Ketones Urine Blood Urine Nitrate Urine Bilirubin Urine Urobilinogen Ur Leukocyte Esterase Urine RBC Urine WBC Ur Epithelial Cells Urine Bacteria 05/13/18 05/13/18 05/13/18 05:00 05:00 05:00 WBC 41.3 H* RBC 4.62 Hgb 12.3 Hct 37.2 L MCV 80.5 MCH 26.7 L MCHC Differential 33.1 RDW 15.3 Plt Count 174 174 MPV 8.5 Add Manual Diff YES Band Neutrophils % Neutrophils (Manual) 20 L Lymphocytes 76 H Monocytes 3 Eosinophils 1 Basophils Smudge Cells Platelet Estimate ADEQUATE Smear Path Review PT 23.6 H INR 2.36 H PTT (Actin FS) 44.9 H Fibrinogen 450.0 H D-Dimer < 100 L Specimen Source Sample Site pH pCO2 pO2 HCO3 Base Excess O2 Saturation Randy Test Vent Rate Inspired O2 Tidal Volume PEEP Pressure (ins/psv/peep) Critical Value Sodium Potassium Chloride Carbon Dioxide Anion Gap BUN Creatinine Est GFR ( Amer) Est GFR (Non-Af Amer) BUN/Creatinine Ratio Glucose POC Glucose Whole Bld Lactic Acid Calcium Magnesium Total Bilirubin AST ALT Alkaline Phosphatase Creatine Kinase Troponin I 0.01 Total Protein Albumin Globulin Albumin/Globulin Ratio Urine Source Urine Color Urine Clarity Urine pH Ur Specific [place] Urine Protein Urine Glucose (UA) Urine Ketones Urine Blood Urine Nitrate Urine Bilirubin Urine Urobilinogen Ur Leukocyte Esterase Urine RBC Urine WBC Ur Epithelial Cells Urine Bacteria 05/13/18 05/13/18 05/13/18 05:00 05:00 06:10 WBC RBC Hgb Hct MCV MCH MCHC Differential RDW Plt Count MPV Add Manual Diff Band Neutrophils % Neutrophils (Manual) Lymphocytes Monocytes Eosinophils Basophils Smudge Cells Platelet Estimate Smear Path Review PT INR PTT (Actin FS) Fibrinogen D-Dimer Specimen Source Arterial Sample Site Left Radial pH 7.40 pCO2 48.0 H pO2 61.0 L HCO3 27.9 H Base Excess 4.0 H O2 Saturation 91.0 L Randy Test Positive Vent Rate NA Inspired O2 21 Tidal Volume NA PEEP NA Pressure (ins/psv/peep) NA Critical Value SC Sodium 139 Potassium 3.5 Chloride 106 Carbon Dioxide 25.3 Anion Gap 11.2 BUN 19 Creatinine 1.3 Est GFR ( Amer) TNP Est GFR (Non-Af Amer) TNP BUN/Creatinine Ratio 14.6 Glucose 184 H POC Glucose 168 H Whole Bld Lactic Acid Calcium 7.9 L Magnesium 1.9 Total Bilirubin 1.1 H AST 15 ALT 14 Alkaline Phosphatase 95 Creatine Kinase 37 Troponin I Total Protein 6.3 Albumin 3.3 L Globulin 3.0 Albumin/Globulin Ratio 1.1 Urine Source Urine Color Urine Clarity Urine pH Ur Specific [place] Urine Protein Urine Glucose (UA) Urine Ketones Urine Blood Urine Nitrate Urine Bilirubin Urine Urobilinogen Ur Leukocyte Esterase Urine RBC Urine WBC Ur Epithelial Cells Urine Bacteria Home Medication Medication Instructions Recorded Type Amiodarone [Cordarone] 200 mg PO DAILY 10/20/16 History Insulin Human Regular [NovoLIN R*] See Protocol SUBQ ACHS 10/20/16 History Sennosides [Senokot] 2 tab PO HS 10/20/16 History Cyanocobalamin [Vitamin B12] 1,000 mcg PO DAILY #0 tab 10/29/16 Rx Docusate Sodium [Colace] 100 mg PO BID #0 cap 10/29/16 Rx Furosemide [Lasix] 40 mg PO BID #0 tab 10/29/16 Rx Glipizide [Glucotrol] 10 mg PO BID #0 tab 10/29/16 Rx Insulin Detemir [Levemir Insulin] 50 units SUBQ DAILY #0 vial 10/29/16 Rx Metoprolol Tartrate [Lopressor] 25 mg PO BID #0 tab 10/29/16 Rx Nitroglycerin [Nitrostat*] 0.4 mg SL Q5MIN PRN #0 tab 10/29/16 Rx Bacitracin [Baciquent] 1 appl TP DAILY 01/09/18 History Dextrose/Dextrin/Maltose 31 gm PO PRN PRN 01/09/18 History [Insta-Glucose Gel] Fleet Enema 135 ml RC Q48H PRN 01/09/18 History Fluticasone Propionate Nasal 2 spr NS DAILY 01/09/18 History [Flonase] GLUCAGON HCl [Glucagen] 1 mg IM PRN PRN 01/09/18 History Hydrocodone/APAP 10 mg/325 mg 1 tab PO Q4H PRN 01/09/18 History [[place] 10 mg/325 mg] Insulin Aspart, Recombinant 10 unit SUBQ TID 01/09/18 History [NovoLOG FLEXPEN] Lubiprostone [Amitiza] 24 mcg PO BID 01/09/18 History Magnesium Hydroxide [Milk of 30 ml PO DAILY PRN 01/09/18 History Magnesia] Potassium Chloride 1 tab PO DAILY 01/09/18 History Propylene Glycol/Peg 400/Pf 1 each OP TID 01/09/18 History [Systane 0.3-0.4% Eye Drops] [place] 1 unit TP DAILY 01/09/18 History Warfarin Sodium [Coumadin*] 5 mg PO 1700 01/09/18 History metFORMIN [Glucophage] 850 mg PO TID 01/09/18 History Ciprofloxacin HCl [Cipro] 500 mg PO BID 7 Days #14 tab 01/15/18 Rx Ascorbic Acid [Vitamin C] 500 mg PO DAILY 05/12/18 History Fluticasone Propionate Nasal 2 spr NS DAILY 05/12/18 History [Flonase] Warfarin Sodium 2.5 mg PO DAILY 05/12/18 History Current Medications Generic Name Dose Route Start Last Admin Trade Name Freq PRN Reason Stop Dose Admin Acetaminophen 650 mg 05/12/18 19:54 Tylenol PO 07/11/18 19:53 Q6H PRN Pain or Fever >101 Acetaminophen/Hydrocodone Bitart 1 tab 05/12/18 19:53 05/13/18 06:21 [place] 10 Mg/325 Mg PO 07/11/18 19:52 1 tab Q4H PRN Administration MOD SEVERE PAIN Amiodarone HCl 200 mg 05/12/18 20:00 05/13/18 08:15 Cordarone PO 07/11/18 19:59 200 mg DAILY ELY Administration Artificial Tears 1 drop 05/13/18 14:00 Artificial Tears Ophth Soln EACH EYE 07/12/18 13:59 TID ELY Cyanocobalamin 1,000 mcg 05/13/18 09:00 05/13/18 08:15 Vitamin B12 PO 07/12/18 08:59 1,000 mcg DAILY ELY Administration Docusate Sodium 100 mg 05/12/18 20:00 05/13/18 08:15 Colace PO 07/11/18 19:59 100 mg BID ELY Administration Fluticasone Propionate 1 spr 05/13/18 09:00 05/13/18 10:50 Flonase NS 07/12/18 08:59 1 spr DAILY ELY Administration Furosemide 40 mg 05/12/18 20:00 05/13/18 08:15 Lasix PO 07/11/18 19:59 40 mg BID ELY Administration Glipizide 10 mg 05/13/18 09:00 05/13/18 08:14 Glucotrol PO 07/12/18 08:59 10 mg BID ELY Administration Glucagon 1 mg 05/12/18 19:53 Glucagen IM 07/11/18 19:52 PRN PRN BLOOD GLUCOSE <60 Piperacillin Sod/Tazobactam 50 mls @ 100 mls/hr 05/12/18 00:00 05/13/18 06:01 Sod 3.375 gm/ Sodium Chloride IV 05/19/18 00:00 100 mls/hr Q6HR ELY Administration Azithromycin 500 mg/ Sodium 250 mls @ 250 mls/hr 05/12/18 21:00 05/13/18 00: 00 Chloride IV 07/11/18 20:59 Infused Q24HR ELY Infusion Vancomycin HCl 1.5 gm/ Sodium 500 mls @ 250 mls/hr 05/13/18 10:00 Chloride IV 07/12/18 09:59 Q12HR ELY Insulin Aspart 0 units 05/12/18 16:30 05/13/18 08:13 Novolog Insulin Sliding Scale SUBQ 07/11/18 16:29 2 units ACHS ELY Administration Protocol Insulin Detemir 50 units 05/12/18 21:00 05/12/18 22:40 Levemir Insulin SUBQ 07/11/18 20:59 Not Given DAILY [facility] Protocol Metoprolol Tartrate 25 mg 05/12/18 20:00 05/13/18 08:15 Lopressor PO 07/11/18 19:59 25 mg BID ELY Administration Miscellaneous 1 ea 05/12/18 20:00 Vancomycin Iv Per Pharmacy MC 07/11/18 19:59 PRN PRN PROTOCOL Nitroglycerin 0.4 mg 05/12/18 19:53 Nitrostat SL 07/11/18 19:52 Q5MIN PRN Chest Pain Potassium Chloride 10 meq 05/12/18 20:00 05/13/18 08:15 Klor-Con PO 07/11/18 19:59 10 meq DAILY ELY Administration Senna 8.6 mg 05/12/18 21:00 05/12/18 22:33 Senna PO 07/11/18 20:59 8.6 mg HS ELY Administration Sodium Phosphate 135 ml 05/12/18 19:53 Fleet Enema RC 07/11/18 19:52 Q48H PRN IF MOM INEFFECTIVE Warfarin Sodium 5 mg 05/13/18 17:00 Coumadin PO 07/12/18 16:59 1700 [facility] Protocol Warfarin Sodium 2.5 mg 05/13/18 17:00 Coumadin PO 07/12/18 16:59 SuSa@1700 [facility] Protocol Review of Systems: A 12 point ROS was reviewed with the pertinent positive and negatives noted in the HPI. Social History Smoking Status Never smoker Family Medical History Unknown Physical Exam: General: Obese, not any acute distress. HEENT: Head NC NT, oral cavity moist, pink tongue. Eyes: pupill PERRLA, EOMI. Neck: supple. no JVD, no carotid bruit. Cardio: S1 and S 2 WNL Irregular rate.. No murmur. n ogallop Respiratory: Vesicular breath sound,. Abdominal: Soft NT ND BS present Genital/Urinary: Deferred Extremities: no cyanosis, Swelling of left leg. There is an ulcer in left lower leg with surrounding erythema. Patient has yellow slough. Mild serous discharge present. There is some tenderness also present. Assessment: 1. Leukocytosis likely combination of sepsis and CLL. 2. Pneumonia, with pulmonary nodules. 3. Obesity. 4. CLL. 5. Left leg cellulitis with nonhealing wound. Venous stasis ulcer. 6. Venous stasis ulcer of left leg. 7. Coronary artery disease. 8. Diabetes mellitus type 2. 9. Hypertension. 10. Sleep apnea Plan: Will continue vancomycin, Zosyn and Zithromax. Follow-up wound Culture. Check blood cultures if not done. CT scan chest and neck 6 months. Signed, Remington Oliveros M.D. [id number]
[2018-05-13] MEDS: Vancomycin HCl 1.5 GM in Sodium Chloride 0.9% 500 ML IV SCH ×2 (11:37→20:22)
[2018-05-13] MEDS: Insulin Detemir 100 units/mL 10mL Vial SUBQ SCH (12:08)
[2018-05-13] MEDS: Polyvinyl Alcohol Ophth Soln 15 mL Bottle EACH EYE SCH ×2 (13:04→20:22)
[2018-05-13 20:44] LABS: A1C % 8.5 % (4.0-6.0)
[2018-05-13] MEDS: Azithromycin 500 MG in Sodium Chloride 0.9% 250 ML IV SCH (23:11)
--- NOTE | 2018-05-14 01:50 | Progress Notes ---
DATE: 05/13/2018 SUBJECTIVE: The patient seen and examined. The patient is lying in the bed. The patient is admitted for high-grade fever. Infectious Disease consultation greatly appreciated. This morning, the patient is afebrile. On today's exam, the patient denies any chest pain, abdominal pain, nausea, vomiting, headache, seizure, or syncopal episode. PHYSICAL EXAMINATION: VITAL SIGNS: Temperature 98.3, pulse 85, respiratory rate 18, and blood pressure 139/82. HEENT: No facial asymmetry. NECK: Supple, no JVD. HEART: Regular. CHEST AND LUNGS: Equal in expansion with fine basilar wheezing. ABDOMEN: Soft. No guarding or rigidity. Bowel sounds are present. No palpable mass. EXTREMITIES: Bilateral lower extremity chronic venous stasis changes with edema noted. AVAILABLE DIAGNOSTIC DATA: White count of 41.3, hemoglobin 12.3, platelet count of 174, and lymphocyte of 76%. PT/INR is 2.36. CT chest is reviewed. CLINICAL IMPRESSIONS: 1. High-grade fever, etiology most likely from pneumonitis. The patient lives in a halfway, immunocompromised, suspect most likely healthcare-acquired pneumonitis. 2. Bilateral lower extremity chronic venous stasis changes most likely secondary to chronic venous stasis and possible early cellulitis. 3. Diabetes mellitus. 4. Obesity. 5. Chronic lymphocytic leukemia. 6. Hypertension. 7. Cardiac arrhythmia. 8. Long-term anticoagulation therapy. 9. Obesity. 10. Obstructive sleep apnea. 11. Degenerative joint disease 12. Decline in self-care, mobility. PLAN: 1. IV antibiotic. 2. Infectious Disease consultation and followup. 3. Monitor blood sugar and blood pressure. 4. General nursing care. 5. Follow lab and business information consultant recommendation. 6. Symptoms management. 7. Medication management. 8. Follow lab. 9. Care plan reviewed and discussed with staff. JOB# [id number]
[2018-05-14] MEDS: INSULIN ASPART SLIDING SCALE 100 UNITS/ML UNIT SUBQ SCH ×4 (08:02→21:08)
[2018-05-14 08:38] LABS: INR 2.67 (0.5-1.4); PROTHROMBIN TIME (TEST) 26.5 SECONDS (9.5-11.5)
[2018-05-14] MEDS: Hydrocodone/APAP 10 mg/325 mg Tab PO PRN ×2 (08:46→14:43)
[2018-05-14] MEDS: Potassium Chloride 10 mEq ER Tab PO SCH (08:48)
[2018-05-14 08:49] LABS: ALB/GLOB RATIO 1.1 (1.0-1.8); ALBUMIN 3.5 gm/dL (4.2-5.5); ALKALINE PHOSPHATASE 90 U/L (34-104); ANION GAP 11.8 (7.0-16.0); BILIRUBIN,TOTAL 0.9 mg/dL (0.3-1.0); BUN - UREA NITROGEN 18 mg/dL (7-25); CALCIUM SERUM 8.1 mg/dL (8.6-10.3); CARBON DIOXIDE 27.7 mEq/L (21.0-31.0); CHLORIDE 103 mEq/L (98-107); CREATININE - SERUM 1.3 mg/dL (0.7-1.3); GLUCOSE 187 mg/dL (70-105); POTASSIUM SERUM 3.5 mEq/L (3.5-5.1); SGOT 13 U/L (13-39); SGPT/ALT 14 U/L (7-52); SODIUM SERUM 139 mEq/L (136-145); TOTAL PROTEIN,SERUM 6.7 gm/dL (6.0-8.3)
[2018-05-14] MEDS: Insulin Detemir 100 units/mL 10mL Vial SUBQ SCH (08:49)
[2018-05-14] MEDS: Polyvinyl Alcohol Ophth Soln 15 mL Bottle EACH EYE SCH ×3 (08:59→21:05)
[2018-05-14] MEDS: Fluticasone Propionate 0.05mg/Actuation 16gm Nasal Spray NS SCH (09:00)
[2018-05-14 09:20] LABS: BASOPHILE ABSOLUTE 0.1 Th/cumm (0-0.2); EOSINOPHILE ABSOLUTE 0.2 Th/cmm (0.1-0.4); HEMATOCRIT 37.3 % (41.0-60); HEMOGLOBIN 12.2 gm/dL (12-16); LYMPHOCYTE ABSOLUTE 20.4 Th/cmm (1.5-3.0); MEAN CORPUSCULAR HEMOGLOBIN 26.1 pg (27.0-31.0); MEAN CORPUSCULAR HGB CONC 32.7 pg (28.0-36.0); MEAN PLATELET VOLUME 8.4 fl; NEUTROPHILE ABSOLUTE 9.4 Th/cmm (1.8-8.0); PLATELET COUNT 176 Th/cmm (150-400); RED BLOOD COUNT 4.66 Mil/cmm (3.80-5.80); RED CELL DISTRIBUTION WIDTH 15.4 % (11.5-20.0)
[2018-05-14 09:26] LABS: WHITE BLOOD COUNT 31.1 Th/cmm (4.8-10.8)
[2018-05-14 09:27] LABS: EOSINOPHIL 2 % (0-5); LYMPHOCYTE 60 % (20-50); MONOCYTE 3 % (2-10); NEUTROPHILS 35 % (40-80); PLATELET ESTIMATE ADEQUATE (NORMAL)
[2018-05-14] MEDS: Vancomycin HCl 1.5 GM in Sodium Chloride 0.9% 500 ML IV SCH ×2 (09:33→21:10)
[2018-05-14] MEDS ORDERED: Probiotic Screen MC PRN (10:30)
--- NOTE | 2018-05-14 14:46 | Infectious Disease Prog Note ---
Infectious Disease Subjective - Review of Systems Service Date: 05/14/18 Subjective: Doing well. Infectious Disease Objective - Results Result Diagrams: 05/14/18 08:00 05/14/18 08:00 Recent Labs: Laboratory Last Values WBC 31.1 Th/cmm (4.8-10.8) H* D 05/14/18 08:00 RBC 4.66 Mil/cmm (3.80-5.80) 05/14/18 08:00 Hgb 12.2 gm/dL (12-16) 05/14/18 08:00 Hct 37.3 % (41.0-60) L 05/14/18 08:00 MCV 80.0 fl (80-99) 05/14/18 08:00 MCH 26.1 pg (27.0-31.0) L 05/14/18 08:00 MCHC Differential 32.7 pg (28.0-36.0) 05/14/18 08:00 RDW 15.4 % (11.5-20.0) 05/14/18 08:00 Plt Count 176 Th/cmm (150-400) 05/14/18 08:00 MPV 8.4 fl 05/14/18 08:00 Add Manual Diff YES 05/14/18 08:00 Band Neutrophils % 5 % (0-10) 05/12/18 12:20 Neutrophils (Manual) 35 % (40-80) L 05/14/18 08:00 Lymphocytes 60 % (20-50) H 05/14/18 08:00 Monocytes 3 % (2-10) 05/14/18 08:00 Eosinophils 2 % (0-5) 05/14/18 08:00 Basophils 0 % (0-3) 05/12/18 12:20 Smudge Cells 1+ 05/12/18 12:20 Platelet Estimate ADEQUATE (NORMAL) 05/14/18 08:00 Smear Path Review Y 05/12/18 12:20 Plt Count 174 Th/cmm (150-750) 05/13/18 05:00 PT 26.5 SECONDS (9.5-11.5) H 05/14/18 08:00 INR 2.67 (0.5-1.4) H 05/14/18 08:00 PTT (Actin FS) 44.9 SECONDS (26.0-38.0) H 05/13/18 05:00 Fibrinogen 450.0 mg/dL (200.0-400.0) H 05/13/18 05:00 D-Dimer < 100 ng/mL (100-400) L 05/13/18 05:00 Specimen Source Arterial 05/13/18 05:00 Sample Site Left Radial 05/13/18 05:00 pH 7.40 (7.35-7.45) 05/13/18 05:00 pCO2 48.0 mmHg (35.0-45.0) H 05/13/18 05:00 pO2 61.0 mmHg (80.0-100.0) L 05/13/18 05:00 HCO3 27.9 mEq/L (20.0-26.0) H 05/13/18 05:00 Base Excess 4.0 mEq/L (-3.0-3.0) H 05/13/18 05:00 O2 Saturation 91.0 % (92.0-100.0) L 05/13/18 05:00 Randy Test Positive 05/13/18 05:00 Vent Rate NA 05/13/18 05:00 Inspired O2 21 05/13/18 05:00 Tidal Volume NA 05/13/18 05:00 PEEP NA 05/13/18 05:00 Pressure (ins/psv/peep) NA 05/13/18 05:00 Critical Value SC 05/13/18 05:00 Sodium 139 mEq/L (136-145) 05/14/18 08:00 Potassium 3.5 mEq/L (3.5-5.1) 05/14/18 08:00 Chloride 103 mEq/L (98-107) 05/14/18 08:00 Carbon Dioxide 27.7 mEq/L (21.0-31.0) 05/14/18 08:00 Anion Gap 11.8 (7.0-16.0) 05/14/18 08:00 BUN 18 mg/dL (7-25) 05/14/18 08:00 Creatinine 1.3 mg/dL (0.7-1.3) 05/14/18 08:00 Est GFR ( Amer) TNP 05/14/18 08:00 Est GFR (Non-Af Amer) TNP 05/14/18 08:00 BUN/Creatinine Ratio 13.8 05/14/18 08:00 Glucose 187 mg/dL (70-105) H 05/14/18 08:00 POC Glucose 246 MG/DL (70 - 105) H 05/14/18 11:47 Hemoglobin A1c % 8.5 % (4.0-6.0) H 05/12/18 12:20 Whole Bld Lactic Acid 2.62 mmol/L (0.60-1.99) H* 05/12/18 14:30 Calcium 8.1 mg/dL (8.6-10.3) L 05/14/18 08:00 Magnesium 1.9 mg/dL (1.9-2.7) 05/13/18 05:00 Total Bilirubin 0.9 mg/dL (0.3-1.0) 05/14/18 08:00 AST 13 U/L (13-39) 05/14/18 08:00 ALT 14 U/L (7-52) 05/14/18 08:00 Alkaline Phosphatase 90 U/L (34-104) 05/14/18 08:00 Creatine Kinase 37 U/L (30-223) 05/13/18 05:00 Troponin I 0.01 ng/mL (0.01-0.05) 05/13/18 12:35 Total Protein 6.7 gm/dL (6.0-8.3) 05/14/18 08:00 Albumin 3.5 gm/dL (4.2-5.5) L 05/14/18 08:00 Globulin 3.2 gm/dL 05/14/18 08:00 Albumin/Globulin Ratio 1.1 (1.0-1.8) 05/14/18 08:00 Urine Source CLEAN C 05/12/18 12:00 Urine Color YELLOW 05/12/18 12:00 Urine Clarity CLEAR (CLEAR) 05/12/18 12:00 Urine pH 6.0 (4.6 - 8.0) 05/12/18 12:00 Ur Specific [place] 1.015 (1.005-1.030) 05/12/18 12:00 Urine Protein 100 mg/dL (NEGATIVE) H 05/12/18 12:00 Urine Glucose (UA) NEGATIVE mg/dL (NEGATIVE) 05/12/18 12:00 Urine Ketones NEGATIVE mg/dL (NEGATIVE) 05/12/18 12:00 Urine Blood SMALL (NEGATIVE) H 05/12/18 12:00 Urine Nitrate NEGATIVE (NEGATIVE) 05/12/18 12:00 Urine Bilirubin NEGATIVE (NEGATIVE) 05/12/18 12:00 Urine Urobilinogen 0.2 E.U./dL (0.2 - 1.0) 05/12/18 12:00 Ur Leukocyte Esterase NEGATIVE (NEGATIVE) 05/12/18 12:00 Urine RBC 0-2 /hpf (0-5) H 05/12/18 12:00 Urine WBC 0-2 /hpf (0-5) 05/12/18 12:00 Ur Epithelial Cells OCCASIONAL /lpf (FEW) 05/12/18 12:00 Urine Bacteria NONE SEEN /hpf (NONE SEEN) 05/12/18 12:00 Vancomycin Trough 17.5 ug/mL (5-10) H 05/14/18 08:00 - Physical Exam Vitals and I&O: Vital Signs Temp 97.8 F 05/14/18 11:59 Pulse 98 05/14/18 13:13 Resp 19 05/14/18 12:36 BP 157/84 05/14/18 13:13 Pulse Ox 97 05/14/18 11:59 Intake & Output 05/13/18 05/14/18 05/14/18 18:59 06:59 18:59 Intake Total 550 500 100 Balance 550 500 100 Weight (lbs) 133.81 kg Intake: Intake, IV Amount 550 500 100 Piperacillin Sodium/ 50 Tazobact 3.375 gm In Sodium Chloride 0.9% 50 ml @ 100 mls/hr IV Q6HR [facility] Rx#:[id number] Piperacillin Sodium/ 50 Tazobact 3.375 gm In Sodium Chloride 0.9% 50 ml @ 100 mls/hr IV Q6HR [facility] Rx#:[id number] Vancomycin HCl 1.5 gm In 500 500 Sodium Chloride 0.9% 500 ml @ 250 mls/hr IV Q12HR [facility] Rx#:[id number] Other: # Voids 2 Weight Source Bedscale Active Medications: Current Medications Acetaminophen (Tylenol) 650 mg PO Q6H PRN PRN Reason: Pain or Fever >101 Stop: 07/11/18 19:53 Last Admin: 05/13/18 20:46 Dose: 650 mg Acetaminophen/Hydrocodone Bitart ([place] 10 Mg/325 Mg) 1 tab PO Q4H PRN PRN Reason: MOD SEVERE PAIN Stop: 07/11/18 19:52 Last Admin: 05/14/18 14:43 Dose: 1 tab Amiodarone HCl (Cordarone) 200 mg PO DAILY [facility] Stop: 07/11/18 19:59 Last Admin: 05/14/18 08:48 Dose: 200 mg Artificial Tears (Artificial Tears Ophth Soln) 1 drop EACH EYE TID [facility] Stop: 07/12/18 13:59 Last Admin: 05/14/18 13:15 Dose: 1 drop Cyanocobalamin (Vitamin B12) 1,000 mcg PO DAILY [facility] Stop: 07/12/18 08:59 Last Admin: 05/14/18 08:48 Dose: 1,000 mcg Docusate Sodium (Colace) 100 mg PO BID [facility] Stop: 07/11/18 19:59 Last Admin: 05/14/18 08:47 Dose: 100 mg Fluticasone Propionate (Flonase) 1 spr NS DAILY [facility] Stop: 07/12/18 08:59 Last Admin: 05/14/18 09:00 Dose: 1 spr Furosemide (Lasix) 40 mg PO BID [facility] Stop: 07/11/18 19:59 Last Admin: 05/14/18 08:47 Dose: 40 mg Glipizide (Glucotrol) 10 mg PO BID [facility] Stop: 07/12/18 08:59 Last Admin: 05/14/18 08:48 Dose: 10 mg Glucagon (Glucagen) 1 mg IM PRN PRN PRN Reason: BLOOD GLUCOSE <60 Stop: 07/11/18 19:52 Azithromycin 500 mg/ Sodium (Chloride) 250 mls @ 250 mls/hr IV Q24HR [facility] Stop: 07/11/18 20:59 Last Admin: 05/13/18 23:11 Dose: 250 mls/hr Vancomycin HCl 1.5 gm/ Sodium (Chloride) 500 mls @ 250 mls/hr IV Q12HR [facility] Stop: 07/12/18 09:59 Last Admin: 05/14/18 09:33 Dose: 250 mls/hr Piperacillin Sod/Tazobactam (Sod 3.375 gm/ Sodium Chloride) 50 mls @ 100 mls/ hr IV Q6HR [facility] Stop: 07/13/18 11:59 Last Infusion: 05/14/18 13:18 Dose: Infused Insulin Aspart (Novolog Insulin Sliding Scale) 0 units SUBQ ACHS [facility]; Protocol Stop: 07/11/18 16:29 Last Admin: 05/14/18 12:05 Dose: 4 units Insulin Detemir (Levemir Insulin) 50 units SUBQ DAILY [facility]; Protocol Stop: 07/11/18 20:59 Last Admin: 05/14/18 08:49 Dose: 50 units Lactobacillus Rhamnosus (Culturelle 15b) 1 each PO DAILY [facility] Stop: 07/14/18 08:59 Metoprolol Tartrate (Lopressor) 25 mg PO BID [facility] Stop: 07/11/18 19:59 Last Admin: 05/14/18 08:47 Dose: 25 mg Miscellaneous (Vancomycin Iv Per Pharmacy) 1 ea PRN PRN PRN Reason: PROTOCOL Stop: 07/11/18 19:59 Miscellaneous (Probiotic Screen) 1 ea PRN PRN PRN Reason: PROTOCOL Stop: 07/13/18 10:29 Nitroglycerin (Nitrostat) 0.4 mg SL Q5MIN PRN PRN Reason: Chest Pain Stop: 07/11/18 19:52 Potassium Chloride (Klor-Con) 10 meq PO DAILY [facility] Stop: 07/11/18 19:59 Last Admin: 05/14/18 08:48 Dose: 10 meq Senna (Senna) 8.6 mg PO HS [facility] Stop: 07/11/18 20:59 Last Admin: 05/13/18 20:22 Dose: 8.6 mg Sodium Phosphate (Fleet Enema) 135 ml RC Q48H PRN PRN Reason: IF MOM INEFFECTIVE Stop: 07/11/18 19:52 Spironolactone (Aldactone) 25 mg PO DAILY [facility] Stop: 07/13/18 12:59 Last Admin: 05/14/18 13:13 Dose: 25 mg Warfarin Sodium (Coumadin) 5 mg PO 1700 [facility]; Protocol Stop: 07/12/18 16:59 Last Admin: 05/13/18 16:37 Dose: 5 mg Warfarin Sodium (Coumadin) 2.5 mg PO SuSa@1700 [facility]; Protocol Stop: 07/12/18 16:59 Last Admin: 05/13/18 16:26 Dose: 2.5 mg General: no acute distress, well developed, well nourished HEENT: atraumatic, normocephalic, PERRLA, EOMI Neck: supple, no thyromegaly, no lymphadenopathy Cardiovascular: S1S2, regular Lungs: clear to auscultation bilaterally, clear to percussion Abdomen: soft, no tender Extremities: other (no cyanosis, Swelling of left leg. There is an ulcer in left lower leg with surrounding erythema. Patient has yellow slough. Mild serous discharge present. There is some tenderness also present.), no cyanosis , no clubbing, no edema Neurological: awake, alert, oriented - Procedures Procedures: Procedures Procedure Code Date CHOLECYSTECTOMY 51.22 07/31/14 TERRY SUBQ TISSUE 20 SQ CM/< 19748 07/08/15 EXTRACTION OF RIGHT LOWER LEG SKIN, EXTERNAL APPROACH [id number] 07/08/15 REMOVAL OF GALLBLADDER 30947 07/31/14 REPLACE R LOW LEG SKIN W AUTOL SUB, FULL THICK, POSTPARTUM NURSE [id number] 07/08/15 SKIN FULL GRAFT SCLP/ARM/LEG 13458 07/08/15 Infectious Disease Assmt/Plan - Assessment Assessment: 1. Leukocytosis likely combination of sepsis and CLL. 2. Pneumonia, with pulmonary nodules. 3. Obesity. 4. CLL. 5. Left leg cellulitis with nonhealing wound. Venous stasis ulcer. 6. Venous stasis ulcer of left leg. 7. Coronary artery disease. 8. Diabetes mellitus type 2. 9. Hypertension. 10. 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 - Plan Plan: Continue vancomycin, Zosyn and Zithromax. Contact isolation, Bactroban ointment.
[2018-05-14] MEDS: Azithromycin 500 MG in Sodium Chloride 0.9% 250 ML IV SCH (21:03)
[2018-05-15 05:14] LABS: HEMATOCRIT 36.2 % (41.0-60); HEMOGLOBIN 11.7 gm/dL (12-16); MEAN CELL VOLUME 80.6 fl (80-99); MEAN CORPUSCULAR HGB CONC 32.3 pg (28.0-36.0); MEAN PLATELET VOLUME 8.4 fl; PLATELET COUNT 185 Th/cmm (150-400); RED BLOOD COUNT 4.49 Mil/cmm (3.80-5.80); RED CELL DISTRIBUTION WIDTH 15.7 % (11.5-20.0)
[2018-05-15 05:32] LABS: WHITE BLOOD COUNT 29.5 Th/cmm (4.8-10.8)
[2018-05-15 05:38] LABS: INR 3.43 (0.5-1.4); PROTHROMBIN TIME (TEST) 33.6 SECONDS (9.5-11.5)
[2018-05-15 05:44] LABS: ALBUMIN 3.4 gm/dL (4.2-5.5); ALKALINE PHOSPHATASE 96 U/L (34-104); ANION GAP 11.8 (7.0-16.0); BILIRUBIN,TOTAL 0.8 mg/dL (0.3-1.0); BUN - UREA NITROGEN 19 mg/dL (7-25); CALCIUM SERUM 8.2 mg/dL (8.6-10.3); CARBON DIOXIDE 26.6 mEq/L (21.0-31.0); CHLORIDE 105 mEq/L (98-107); CREATININE - SERUM 1.4 mg/dL (0.7-1.3); GLUCOSE 148 mg/dL (70-105); POTASSIUM SERUM 3.4 mEq/L (3.5-5.1); SGOT 16 U/L (13-39); SGPT/ALT 20 U/L (7-52); SODIUM SERUM 140 mEq/L (136-145); TOTAL PROTEIN,SERUM 6.7 gm/dL (6.0-8.3)
[2018-05-15 06:00] LABS: BAND NEUTROPHILE 0 % (0-10); BASOPHIL 0 % (0-3); EOSINOPHIL 1 % (0-5); LYMPHOCYTE 69 % (20-50); MONOCYTE 3 % (2-10); NEUTROPHILS 27 % (40-80)
[2018-05-15] MEDS: INSULIN ASPART SLIDING SCALE 100 UNITS/ML UNIT SUBQ SCH ×4 (06:44→21:33)
[2018-05-15] MEDS: Polyvinyl Alcohol Ophth Soln 15 mL Bottle EACH EYE SCH ×3 (08:59→21:25)
[2018-05-15] MEDS: Potassium Chloride 10 mEq ER Tab PO SCH (08:59)
[2018-05-15] MEDS: Lactobacillus Rhamnosus GG 15 Billion CFU CAP.SPRINK PO SCH (08:59)
[2018-05-15] MEDS: Fluticasone Propionate 0.05mg/Actuation 16gm Nasal Spray NS SCH (08:59)
[2018-05-15] MEDS: Hydrocodone/APAP 10 mg/325 mg Tab PO PRN ×2 (09:14→23:04)
[2018-05-15] MEDS: Vancomycin HCl 1.5 GM in Sodium Chloride 0.9% 500 ML IV SCH ×2 (09:15→21:55)
[2018-05-15] MEDS: Insulin Detemir 100 units/mL 10mL Vial SUBQ SCH (09:20)
[2018-05-15] MEDS ORDERED: Albuterol/Ipratropium Neb 3 ML AERS HHN PRN (10:55)
--- NOTE | 2018-05-15 11:10 | Progress Notes ---
DATE: 05/15/2018 PATIENT'S IDENTIFICATION: A 23-year-old male. SUBJECTIVE: The patient seen and examined. The patient is lying in the bed. The patient denies any chest pain, increasing shortness of breath. The patient remained afebrile. OBJECTIVE: VITAL SIGNS: Temperature 95.9, pulse is 90, respiratory rate 18, blood pressure 140/86. ____. HEENT: No facial asymmetry. Poor dentition noted. NECK: Supple, no JVD, no hepatojugular reflux. No lymphadenopathy, thyromegaly, or carotid bruit. HEART: Both heart sounds are regular. CHEST AND LUNGS: Equal in expansion, no wheezing, no crackles. ABDOMEN: Soft. No guarding, no rigidity. Bowel sounds present. No palpable masses. EXTREMITIES: Bilateral lower extremity edema with chronic venous stasis noted. AVAILABLE DIAGNOSTIC DATA: Has been reviewed. CLINICAL IMPRESSION: 1. Pneumonitis. 2. Chronic lymphocytic leukemia. 3. Left leg cellulitis with nonhealing wound. 4. Coronary artery disease. 5. Diabetes. 6. Obstructive sleep apnea. 7. Degenerative joint disease. 8. Declining self-care and mobility. 9. Long-term Coumadin therapy. PLAN: 1. Oxygen. 2. Nebulizer treatment 3. IV antibiotic. 4. Diabetes management. 5. Hypertension. 6. Infectious Disease followup. 7. General nursing care. 8. MRSA colonization, treatment with Bactroban, chronic disease management symptoms management, medication management and follow up labs. 9. Care plan reviewed and discussed with staff. JOB# [id number]
[2018-05-15] MEDS: methylPREDNISolone SS 40 mg Vial IV SCH ×2 (13:25→21:25)
[2018-05-15] MEDS: Albuterol/Ipratropium Neb 3 ML AERS HHN SCH ×2 (13:40→19:08)
[2018-05-15] MEDS: Azithromycin 500 MG in Sodium Chloride 0.9% 250 ML IV SCH (20:44)
--- NOTE | 2018-05-15 23:56 | Infectious Disease Prog Note ---
Infectious Disease Subjective - Review of Systems Service Date: 05/15/18 Subjective: Doing well. Infectious Disease Objective - Results Result Diagrams: 05/17/18 07:45 05/17/18 07:45 Recent Labs: Laboratory Last Values WBC 29.5 Th/cmm (4.8-10.8) H* 05/15/18 04:40 RBC 4.49 Mil/cmm (3.80-5.80) 05/15/18 04:40 Hgb 11.7 gm/dL (12-16) L 05/15/18 04:40 Hct 36.2 % (41.0-60) L 05/15/18 04:40 MCV 80.6 fl (80-99) 05/15/18 04:40 MCH 26.0 pg (27.0-31.0) L 05/15/18 04:40 MCHC Differential 32.3 pg (28.0-36.0) 05/15/18 04:40 RDW 15.7 % (11.5-20.0) 05/15/18 04:40 Plt Count 185 Th/cmm (150-400) 05/15/18 04:40 MPV 8.4 fl 05/15/18 04:40 Add Manual Diff YES 05/15/18 04:40 Band Neutrophils % 0 % (0-10) 05/15/18 04:40 Neutrophils (Manual) 27 % (40-80) L 05/15/18 04:40 Lymphocytes 69 % (20-50) H 05/15/18 04:40 Monocytes 3 % (2-10) 05/15/18 04:40 Eosinophils 1 % (0-5) 05/15/18 04:40 Basophils 0 % (0-3) 05/15/18 04:40 Smudge Cells 1+ 05/12/18 12:20 Platelet Estimate ADEQUATE (NORMAL) 05/14/18 08:00 Smear Path Review Y 05/12/18 12:20 Plt Count 174 Th/cmm (150-750) 05/13/18 05:00 PT 33.6 SECONDS (9.5-11.5) H 05/15/18 04:40 INR 3.43 (0.5-1.4) H 05/15/18 04:40 PTT (Actin FS) 44.9 SECONDS (26.0-38.0) H 05/13/18 05:00 Fibrinogen 450.0 mg/dL (200.0-400.0) H 05/13/18 05:00 D-Dimer < 100 ng/mL (100-400) L 05/13/18 05:00 Specimen Source Arterial 05/13/18 05:00 Sample Site Left Radial 05/13/18 05:00 pH 7.40 (7.35-7.45) 05/13/18 05:00 pCO2 48.0 mmHg (35.0-45.0) H 05/13/18 05:00 pO2 61.0 mmHg (80.0-100.0) L 05/13/18 05:00 HCO3 27.9 mEq/L (20.0-26.0) H 05/13/18 05:00 Base Excess 4.0 mEq/L (-3.0-3.0) H 05/13/18 05:00 O2 Saturation 91.0 % (92.0-100.0) L 05/13/18 05:00 Randy Test Positive 05/13/18 05:00 Vent Rate NA 05/13/18 05:00 Inspired O2 21 05/13/18 05:00 Tidal Volume NA 05/13/18 05:00 PEEP NA 05/13/18 05:00 Pressure (ins/psv/peep) NA 05/13/18 05:00 Critical Value SC 05/13/18 05:00 Sodium 140 mEq/L (136-145) 05/15/18 04:40 Potassium 3.4 mEq/L (3.5-5.1) L 05/15/18 04:40 Chloride 105 mEq/L (98-107) 05/15/18 04:40 Carbon Dioxide 26.6 mEq/L (21.0-31.0) 05/15/18 04:40 Anion Gap 11.8 (7.0-16.0) 05/15/18 04:40 BUN 19 mg/dL (7-25) 05/15/18 04:40 Creatinine 1.4 mg/dL (0.7-1.3) H 05/15/18 04:40 Est GFR ( Amer) TNP 05/15/18 04:40 Est GFR (Non-Af Amer) TNP 05/15/18 04:40 BUN/Creatinine Ratio 13.6 05/15/18 04:40 Glucose 148 mg/dL (70-105) H 05/15/18 04:40 POC Glucose 360 MG/DL (70 - 105) H 05/15/18 20:19 Hemoglobin A1c % 8.5 % (4.0-6.0) H 05/12/18 12:20 Whole Bld Lactic Acid 2.62 mmol/L (0.60-1.99) H* 05/12/18 14:30 Calcium 8.2 mg/dL (8.6-10.3) L 05/15/18 04:40 Magnesium 1.9 mg/dL (1.9-2.7) 05/13/18 05:00 Total Bilirubin 0.8 mg/dL (0.3-1.0) 05/15/18 04:40 AST 16 U/L (13-39) 05/15/18 04:40 ALT 20 U/L (7-52) 05/15/18 04:40 Alkaline Phosphatase 96 U/L (34-104) 05/15/18 04:40 Creatine Kinase 37 U/L (30-223) 05/13/18 05:00 Troponin I 0.01 ng/mL (0.01-0.05) 05/13/18 12:35 Total Protein 6.7 gm/dL (6.0-8.3) 05/15/18 04:40 Albumin 3.4 gm/dL (4.2-5.5) L 05/15/18 04:40 Globulin 3.3 gm/dL 05/15/18 04:40 Albumin/Globulin Ratio 1.0 (1.0-1.8) 05/15/18 04:40 Urine Source CLEAN C 05/12/18 12:00 Urine Color YELLOW 05/12/18 12:00 Urine Clarity CLEAR (CLEAR) 05/12/18 12:00 Urine pH 6.0 (4.6 - 8.0) 05/12/18 12:00 Ur Specific [place] 1.015 (1.005-1.030) 05/12/18 12:00 Urine Protein 100 mg/dL (NEGATIVE) H 05/12/18 12:00 Urine Glucose (UA) NEGATIVE mg/dL (NEGATIVE) 05/12/18 12:00 Urine Ketones NEGATIVE mg/dL (NEGATIVE) 05/12/18 12:00 Urine Blood SMALL (NEGATIVE) H 05/12/18 12:00 Urine Nitrate NEGATIVE (NEGATIVE) 05/12/18 12:00 Urine Bilirubin NEGATIVE (NEGATIVE) 05/12/18 12:00 Urine Urobilinogen 0.2 E.U./dL (0.2 - 1.0) 05/12/18 12:00 Ur Leukocyte Esterase NEGATIVE (NEGATIVE) 05/12/18 12:00 Urine RBC 0-2 /hpf (0-5) H 05/12/18 12:00 Urine WBC 0-2 /hpf (0-5) 05/12/18 12:00 Ur Epithelial Cells OCCASIONAL /lpf (FEW) 05/12/18 12:00 Urine Bacteria NONE SEEN /hpf (NONE SEEN) 05/12/18 12:00 Vancomycin Trough 17.5 ug/mL (5-10) H 05/14/18 08:00 - Physical Exam Vitals and I&O: Vital Signs Temp 98.4 F 05/15/18 20:00 Pulse 94 05/15/18 20:00 Resp 18 05/15/18 20:00 BP 156/84 05/15/18 20:00 Pulse Ox 95 05/15/18 20:00 Intake & Output 05/15/18 05/15/18 05/16/18 06:59 18:59 06:59 Intake Total 1000 550 250 Output Total 600 Balance 400 550 250 Weight (lbs) 133.356 kg 133.356 kg Intake: Intake, IV Amount 900 550 250 Azithromycin 500 mg In 250 250 Sodium Chloride 0.9% 250 ml @ 250 mls/hr IV Q24HR [facility] Rx#:[id number] Piperacillin Sodium/ 150 50 Tazobact 3.375 gm In Sodium Chloride 0.9% 50 ml @ 100 mls/hr IV Q6HR [facility] Rx#:[id number] Vancomycin HCl 1.5 gm In 500 500 Sodium Chloride 0.9% 500 ml @ 250 mls/hr IV Q12HR [facility] Rx#:[id number] Oral 100 Output: Urine 600 Other: # Voids 4 3 # Bowel Movements 0 Weight Source Bedscale Bedscale Active Medications: Current Medications Acetaminophen (Tylenol) 650 mg PO Q6H PRN PRN Reason: Pain or Fever >101 Stop: 07/11/18 19:53 Last Admin: 05/13/18 20:46 Dose: 650 mg Acetaminophen/Hydrocodone Bitart ([place] 10 Mg/325 Mg) 1 tab PO Q4H PRN PRN Reason: MOD SEVERE PAIN Stop: 07/11/18 19:52 Last Admin: 05/15/18 23:04 Dose: 1 tab Albuterol/Ipratropium (Duoneb Neb) 3 ml HHN Q6HRT [facility] Stop: 07/14/18 12:59 Last Admin: 05/15/18 19:08 Dose: 3 ml Albuterol/Ipratropium (Duoneb Neb) 3 ml HHN Q2HRT PRN PRN Reason: Wheezing Stop: 07/14/18 10:54 Amiodarone HCl (Cordarone) 200 mg PO DAILY [facility] Stop: 07/11/18 19:59 Last Admin: 05/15/18 08:59 Dose: 200 mg Artificial Tears (Artificial Tears Ophth Soln) 1 drop EACH EYE TID [facility] Stop: 07/12/18 13:59 Last Admin: 05/15/18 21:25 Dose: 1 drop Cyanocobalamin (Vitamin B12) 1,000 mcg PO DAILY [facility] Stop: 07/12/18 08:59 Last Admin: 05/15/18 09:00 Dose: 1,000 mcg Docusate Sodium (Colace) 100 mg PO BID [facility] Stop: 07/11/18 19:59 Last Admin: 05/15/18 16:50 Dose: 100 mg Fluticasone Propionate (Flonase) 1 spr NS DAILY [facility] Stop: 07/12/18 08:59 Last Admin: 05/15/18 08:59 Dose: 1 spr Furosemide (Lasix) 40 mg PO BID [facility] Stop: 07/11/18 19:59 Last Admin: 05/15/18 16:50 Dose: 40 mg Glipizide (Glucotrol) 10 mg PO BID [facility] Stop: 07/12/18 08:59 Last Admin: 05/15/18 16:49 Dose: 10 mg Glucagon (Glucagen) 1 mg IM PRN PRN PRN Reason: BLOOD GLUCOSE <60 Stop: 07/11/18 19:52 Azithromycin 500 mg/ Sodium (Chloride) 250 mls @ 250 mls/hr IV Q24HR [facility] Stop: 07/11/18 20:59 Last Infusion: 05/15/18 21:44 Dose: Infused Vancomycin HCl 1.5 gm/ Sodium (Chloride) 500 mls @ 250 mls/hr IV Q12HR [facility] Stop: 07/12/18 09:59 Last Admin: 05/15/18 21:55 Dose: 250 mls/hr Piperacillin Sod/Tazobactam (Sod 3.375 gm/ Sodium Chloride) 50 mls @ 100 mls/ hr IV Q6HR [facility] Stop: 07/13/18 11:59 Last Admin: 05/15/18 17:36 Dose: 100 mls/hr Insulin Aspart (Novolog Insulin Sliding Scale) 0 units SUBQ ACHS [facility]; Protocol Stop: 07/11/18 16:29 Last Admin: 05/15/18 21:33 Dose: 10 units Insulin Detemir (Levemir Insulin) 50 units SUBQ DAILY [facility]; Protocol Stop: 07/11/18 20:59 Last Admin: 05/15/18 09:20 Dose: Not Given Lactobacillus Rhamnosus (Culturelle 15b) 1 each PO DAILY [facility] Stop: 07/14/18 08:59 Last Admin: 05/15/18 08:59 Dose: 1 each Methylprednisolone Sodium Succinate (Solu-Medrol) 40 mg IV Q8HR [facility] Stop: 07/14/18 12:59 Last Admin: 05/15/18 21:25 Dose: 40 mg Metoprolol Tartrate (Lopressor) 25 mg PO BID [facility] Stop: 07/11/18 19:59 Last Admin: 05/15/18 16:50 Dose: 25 mg Miscellaneous (Vancomycin Iv Per Pharmacy) 1 ea PRN PRN PRN Reason: PROTOCOL Stop: 07/11/18 19:59 Miscellaneous (Probiotic Screen) 1 ea PRN PRN PRN Reason: PROTOCOL Stop: 07/13/18 10:29 Mupirocin (Bactroban Oint) 1 appl NS BID [facility] Stop: 05/19/18 09:01 Last Admin: 05/15/18 16:51 Dose: 1 appl Nitroglycerin (Nitrostat) 0.4 mg SL Q5MIN PRN PRN Reason: Chest Pain Stop: 07/11/18 19:52 Potassium Chloride (Klor-Con) 10 meq PO DAILY [facility] Stop: 07/11/18 19:59 Last Admin: 05/15/18 08:59 Dose: 10 meq Senna (Senna) 8.6 mg PO HS [facility] Stop: 07/11/18 20:59 Last Admin: 05/15/18 21:25 Dose: 8.6 mg Sodium Phosphate (Fleet Enema) 135 ml RC Q48H PRN PRN Reason: IF MOM INEFFECTIVE Stop: 07/11/18 19:52 Spironolactone (Aldactone) 25 mg PO DAILY [facility] Stop: 07/13/18 12:59 Last Admin: 05/15/18 09:00 Dose: 25 mg Warfarin Sodium (Coumadin) 5 mg PO DAILY@1700 [facility] Stop: 07/15/18 16:59 HEENT: atraumatic, normocephalic, PERRLA Neck: supple, no thyromegaly Cardiovascular: S1S2, regular Lungs: clear to auscultation bilaterally, clear to percussion Abdomen: soft, no tender Extremities: other (left leg erythema na dulcer.), no cyanosis, no clubbing, no edema Neurological: awake, alert, oriented Skin: intact - Procedures Procedures: Procedures Procedure Code Date CHOLECYSTECTOMY 51.22 07/31/14 TERRY SUBQ TISSUE 20 SQ CM/< 80610 07/08/15 EXTRACTION OF RIGHT LOWER LEG SKIN, EXTERNAL APPROACH [id number] 07/08/15 REMOVAL OF GALLBLADDER [id number] 07/31/14 REPLACE R LOW LEG SKIN W AUTOL SUB, FULL THICK, FIELD ASSISTANT [id number] 07/08/15 SKIN FULL GRAFT SCLP/ARM/LEG [id number] 07/08/15 Infectious Disease Assmt/Plan - Assessment Assessment: 1. Leukocytosis likely combination of sepsis and CLL. 2. Pneumonia, with pulmonary nodules. 3. Obesity. 4. CLL. 5. Left leg cellulitis with nonhealing wound. Venous stasis ulcer. 6. Venous stasis ulcer of left leg. 7. Coronary artery disease. 8. Diabetes mellitus type 2. 9. Hypertension. 10. 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 - Plan Plan: Continue vancomycin, Zosyn and Zithromax. Contact isolation, Bactroban ointment.
[2018-05-16] MEDS: Albuterol/Ipratropium Neb 3 ML AERS HHN SCH ×4 (00:59→19:18)
[2018-05-16] MEDS: methylPREDNISolone SS 40 mg Vial IV SCH ×3 (04:29→20:26)
[2018-05-16 05:05] LABS: % BASOPHILS 0.3 % (0.0-2.0); % LYMPHOCYTES 45.1 % (20.0-50.0); % MONOCYTES 3.8 % (2.0-10.0); % NEUTROPHILS 50.8 % (40.0-80.0); BASOPHILE ABSOLUTE 0.1 Th/cumm (0-0.2); HEMOGLOBIN 11.4 gm/dL (12-16); LYMPHOCYTE ABSOLUTE 7.7 Th/cmm (1.5-3.0); MEAN CELL VOLUME 79.9 fl (80-99); MEAN CORPUSCULAR HEMOGLOBIN 26.7 pg (27.0-31.0); MEAN CORPUSCULAR HGB CONC 33.5 pg (28.0-36.0); MEAN PLATELET VOLUME 8.4 fl; MONOCYTE ABSOLUTE 0.6 Th/cmm (0.3-1.0); NEUTROPHILE ABSOLUTE 8.7 Th/cmm (1.8-8.0); PLATELET COUNT 175 Th/cmm (150-400); RED BLOOD COUNT 4.26 Mil/cmm (3.80-5.80); RED CELL DISTRIBUTION WIDTH 15.2 % (11.5-20.0); WHITE BLOOD COUNT 17.1 Th/cmm (4.8-10.8)
[2018-05-16 05:10] LABS: PROTHROMBIN TIME (TEST) 44.4 SECONDS (9.5-11.5)
[2018-05-16 05:55] LABS: ALBUMIN 3.3 gm/dL (4.2-5.5); ALKALINE PHOSPHATASE 116 U/L (34-104); BILIRUBIN,TOTAL 0.6 mg/dL (0.3-1.0); BUN - UREA NITROGEN 21 mg/dL (7-25); CALCIUM SERUM 7.9 mg/dL (8.6-10.3); CARBON DIOXIDE 23.6 mEq/L (21.0-31.0); CHLORIDE 101 mEq/L (98-107); CREATININE - SERUM 1.4 mg/dL (0.7-1.3); GLUCOSE 371 mg/dL (70-105); POTASSIUM SERUM 3.6 mEq/L (3.5-5.1); SGOT 17 U/L (13-39); SGPT/ALT 24 U/L (7-52); SODIUM SERUM 135 mEq/L (136-145); TOTAL PROTEIN,SERUM 6.7 gm/dL (6.0-8.3)
[2018-05-16 06:47] LABS: INR 4.59 (0.5-1.4)
[2018-05-16] MEDS: INSULIN ASPART SLIDING SCALE 100 UNITS/ML UNIT SUBQ SCH ×4 (07:08→20:39)
[2018-05-16] MEDS: Potassium Chloride 10 mEq ER Tab PO SCH (08:36)
[2018-05-16] MEDS: Lactobacillus Rhamnosus GG 15 Billion CFU CAP.SPRINK PO SCH (08:37)
[2018-05-16] MEDS: Insulin Detemir 100 units/mL 10mL Vial SUBQ SCH (08:40)
[2018-05-16] MEDS: Polyvinyl Alcohol Ophth Soln 15 mL Bottle EACH EYE SCH ×3 (08:46→20:26)
[2018-05-16] MEDS: Fluticasone Propionate 0.05mg/Actuation 16gm Nasal Spray NS SCH (08:46)
[2018-05-16] MEDS: Vancomycin HCl 1.5 GM in Sodium Chloride 0.9% 500 ML IV SCH ×2 (09:53→20:26)
[2018-05-16] MEDS: Hydrocodone/APAP 10 mg/325 mg Tab PO PRN (15:36)
[2018-05-16] MEDS: Venelex 60gm Tube TP SCH (16:14)
[2018-05-16] MEDS: Azithromycin 500 MG in Sodium Chloride 0.9% 250 ML IV SCH (20:25)
[2018-05-16] MEDS: INSULIN ASPART, RECOMBINANT 100 UNITS/ML SUBQ SCH (20:39)
--- NOTE | 2018-05-16 20:53 | Progress Notes ---
DATE: 05/16/2018 SUBJECTIVE: The patient is seen and examined. The patient's blood sugars are elevated. The patient still has shortness of breath and the patient has wheezing as well. The patient's blood sugars are lately elevated because of IV steroid. The patient is currently on IV antibiotic. The patient remained afebrile, otherwise. OBJECTIVE: VITAL SIGNS: Temperature 97.8, pulse 94, respiratory rate 18, blood pressure 142/74. HEENT: No facial asymmetry. NECK: Supple, no JVD. HEART: Regular. LUNGS: Expiratory wheezing. ABDOMEN: Soft. EXTREMITIES: No edema. CLINICAL IMPRESSION: 1. Pneumonitis. 2. Bronchospasm. 3. Atherosclerosis. 4. Calcified thyroid nodules. 5. Diabetes. 6. Chronic lymphocytic leukemia. 7. Degenerative joint disease. 8. Decline in self-care and mobility. 9. Obesity. PLAN: 1. Decrease IV steroids. 2. IV antibiotic. 3. Oxygen. 4. Nebulizer treatment. 5. General nursing care. 6. Follow lab. 7. Follow consult recommendation. 8. Care plan reviewed and discussed. JOB# [id number]
[2018-05-17] MEDS: Albuterol/Ipratropium Neb 3 ML AERS HHN SCH ×4 (00:29→19:07)
[2018-05-17] MEDS: INSULIN ASPART SLIDING SCALE 100 UNITS/ML UNIT SUBQ SCH ×4 (06:31→21:17)
--- NOTE | 2018-05-17 07:24 | Infectious Disease Prog Note ---
Infectious Disease Subjective - Review of Systems Service Date: 05/17/18 Subjective: Doing well. Infectious Disease Objective - Results Result Diagrams: 05/17/18 07:45 05/16/18 04:45 Recent Labs: Laboratory Last Values WBC 17.1 Th/cmm (4.8-10.8) H 05/16/18 04:45 RBC 4.26 Mil/cmm (3.80-5.80) 05/16/18 04:45 Hgb 11.4 gm/dL (12-16) L 05/16/18 04:45 Hct 34.0 % (41.0-60) L 05/16/18 04:45 MCV 79.9 fl (80-99) L 05/16/18 04:45 MCH 26.7 pg (27.0-31.0) L 05/16/18 04:45 MCHC Differential 33.5 pg (28.0-36.0) 05/16/18 04:45 RDW 15.2 % (11.5-20.0) 05/16/18 04:45 Plt Count 175 Th/cmm (150-400) 05/16/18 04:45 MPV 8.4 fl 05/16/18 04:45 Add Manual Diff YES 05/15/18 04:40 Neutrophils % 50.8 % (40.0-80.0) 05/16/18 04:45 Band Neutrophils % 0 % (0-10) 05/15/18 04:40 Lymphocytes % 45.1 % (20.0-50.0) 05/16/18 04:45 Monocytes % 3.8 % (2.0-10.0) 05/16/18 04:45 Eosinophils % 0.0 % (0.0-5.0) 05/16/18 04:45 Basophils % 0.3 % (0.0-2.0) 05/16/18 04:45 Neutrophils (Manual) 27 % (40-80) L 05/15/18 04:40 Lymphocytes 69 % (20-50) H 05/15/18 04:40 Monocytes 3 % (2-10) 05/15/18 04:40 Eosinophils 1 % (0-5) 05/15/18 04:40 Basophils 0 % (0-3) 05/15/18 04:40 Smudge Cells 1+ 05/12/18 12:20 Platelet Estimate ADEQUATE (NORMAL) 05/14/18 08:00 Smear Path Review Y 05/12/18 12:20 Plt Count 174 Th/cmm (150-750) 05/13/18 05:00 PT 44.4 SECONDS (9.5-11.5) H 05/16/18 04:45 INR 4.59 (0.5-1.4) H* D 05/16/18 04:45 PTT (Actin FS) 44.9 SECONDS (26.0-38.0) H 05/13/18 05:00 Fibrinogen 450.0 mg/dL (200.0-400.0) H 05/13/18 05:00 D-Dimer < 100 ng/mL (100-400) L 05/13/18 05:00 Specimen Source Arterial 05/13/18 05:00 Sample Site Left Radial 05/13/18 05:00 pH 7.40 (7.35-7.45) 05/13/18 05:00 pCO2 48.0 mmHg (35.0-45.0) H 05/13/18 05:00 pO2 61.0 mmHg (80.0-100.0) L 05/13/18 05:00 HCO3 27.9 mEq/L (20.0-26.0) H 05/13/18 05:00 Base Excess 4.0 mEq/L (-3.0-3.0) H 05/13/18 05:00 O2 Saturation 91.0 % (92.0-100.0) L 05/13/18 05:00 Randy Test Positive 05/13/18 05:00 Vent Rate NA 05/13/18 05:00 Inspired O2 21 05/13/18 05:00 Tidal Volume NA 05/13/18 05:00 PEEP NA 05/13/18 05:00 Pressure (ins/psv/peep) NA 05/13/18 05:00 Critical Value SC 05/13/18 05:00 Sodium 135 mEq/L (136-145) L 05/16/18 04:45 Potassium 3.6 mEq/L (3.5-5.1) 05/16/18 04:45 Chloride 101 mEq/L (98-107) 05/16/18 04:45 Carbon Dioxide 23.6 mEq/L (21.0-31.0) 05/16/18 04:45 Anion Gap 14.0 (7.0-16.0) 05/16/18 04:45 BUN 21 mg/dL (7-25) 05/16/18 04:45 Creatinine 1.4 mg/dL (0.7-1.3) H 05/16/18 04:45 Est GFR ( Amer) TNP 05/16/18 04:45 Est GFR (Non-Af Amer) TNP 05/16/18 04:45 BUN/Creatinine Ratio 15.0 05/16/18 04:45 Glucose 442 mg/dL (70-105) H 05/16/18 12:28 POC Glucose 462 MG/DL (70 - 105) H* 05/16/18 16:20 Hemoglobin A1c % 8.5 % (4.0-6.0) H 05/12/18 12:20 Whole Bld Lactic Acid 2.62 mmol/L (0.60-1.99) H* 05/12/18 14:30 Calcium 7.9 mg/dL (8.6-10.3) L 05/16/18 04:45 Magnesium 1.9 mg/dL (1.9-2.7) 05/13/18 05:00 Total Bilirubin 0.6 mg/dL (0.3-1.0) 05/16/18 04:45 AST 17 U/L (13-39) 05/16/18 04:45 ALT 24 U/L (7-52) 05/16/18 04:45 Alkaline Phosphatase 116 U/L (34-104) H 05/16/18 04:45 Creatine Kinase 37 U/L (30-223) 05/13/18 05:00 Troponin I 0.01 ng/mL (0.01-0.05) 05/13/18 12:35 Total Protein 6.7 gm/dL (6.0-8.3) 05/16/18 04:45 Albumin 3.3 gm/dL (4.2-5.5) L 05/16/18 04:45 Globulin 3.4 gm/dL 05/16/18 04:45 Albumin/Globulin Ratio 1.0 (1.0-1.8) 05/16/18 04:45 Urine Source CLEAN C 05/12/18 12:00 Urine Color YELLOW 05/12/18 12:00 Urine Clarity CLEAR (CLEAR) 05/12/18 12:00 Urine pH 6.0 (4.6 - 8.0) 05/12/18 12:00 Ur Specific [place] 1.015 (1.005-1.030) 05/12/18 12:00 Urine Protein 100 mg/dL (NEGATIVE) H 05/12/18 12:00 Urine Glucose (UA) NEGATIVE mg/dL (NEGATIVE) 05/12/18 12:00 Urine Ketones NEGATIVE mg/dL (NEGATIVE) 05/12/18 12:00 Urine Blood SMALL (NEGATIVE) H 05/12/18 12:00 Urine Nitrate NEGATIVE (NEGATIVE) 05/12/18 12:00 Urine Bilirubin NEGATIVE (NEGATIVE) 05/12/18 12:00 Urine Urobilinogen 0.2 E.U./dL (0.2 - 1.0) 05/12/18 12:00 Ur Leukocyte Esterase NEGATIVE (NEGATIVE) 05/12/18 12:00 Urine RBC 0-2 /hpf (0-5) H 05/12/18 12:00 Urine WBC 0-2 /hpf (0-5) 05/12/18 12:00 Ur Epithelial Cells OCCASIONAL /lpf (FEW) 05/12/18 12:00 Urine Bacteria NONE SEEN /hpf (NONE SEEN) 05/12/18 12:00 Vancomycin Trough 17.5 ug/mL (5-10) H 05/14/18 08:00 - Physical Exam Vitals and I&O: Vital Signs Temp 96.5 F 05/17/18 04:00 Pulse 95 05/17/18 04:00 Resp 19 05/17/18 06:00 BP 144/94 05/17/18 04:00 Pulse Ox 95 05/17/18 04:00 Intake & Output 05/16/18 05/17/18 05/17/18 18:59 06:59 18:59 Intake Total 1100 250 Balance 1100 250 Weight (lbs) 139.253 kg 137.438 kg Intake: Intake, IV Amount 600 50 Piperacillin Sodium/ 100 50 Tazobact 3.375 gm In Sodium Chloride 0.9% 50 ml @ 100 mls/hr IV Q6HR [facility] Rx#:[id number] Vancomycin HCl 1.5 gm In 500 Sodium Chloride 0.9% 500 ml @ 250 mls/hr IV Q12HR [facility] Rx#:[id number] Oral 500 200 Other: # Voids 4 4 # Bowel Movements 1 1 Stool Characteristics Formed Soft Formed Brown Weight Source Bedscale Bedscale Active Medications: Current Medications Acetaminophen (Tylenol) 650 mg PO Q6H PRN PRN Reason: Pain or Fever >101 Stop: 07/11/18 19:53 Last Admin: 05/13/18 20:46 Dose: 650 mg Acetaminophen/Hydrocodone Bitart ([place] 10 Mg/325 Mg) 1 tab PO Q4H PRN PRN Reason: MOD SEVERE PAIN Stop: 07/11/18 19:52 Last Admin: 05/16/18 15:36 Dose: 1 tab Albuterol/Ipratropium (Duoneb Neb) 3 ml HHN Q6HRT [facility] Stop: 07/14/18 12:59 Last Admin: 05/17/18 00:29 Dose: 3 ml Albuterol/Ipratropium (Duoneb Neb) 3 ml HHN Q2HRT PRN PRN Reason: Wheezing Stop: 07/14/18 10:54 Amiodarone HCl (Cordarone) 200 mg PO DAILY [facility] Stop: 07/11/18 19:59 Last Admin: 05/16/18 08:36 Dose: 200 mg Artificial Tears (Artificial Tears Ophth Soln) 1 drop EACH EYE TID [facility] Stop: 07/12/18 13:59 Last Admin: 05/16/18 20:26 Dose: 1 drop [place] Oil/[place] Balsam/Trypsin (Venelex) 1 appl TP DAILY [facility] Stop: 07/15/18 15:59 Last Admin: 05/16/18 16:14 Dose: 1 appl Cyanocobalamin (Vitamin B12) 1,000 mcg PO DAILY [facility] Stop: 07/12/18 08:59 Last Admin: 05/16/18 08:36 Dose: 1,000 mcg Docusate Sodium (Colace) 100 mg PO BID [facility] Stop: 07/11/18 19:59 Last Admin: 05/16/18 16:12 Dose: 100 mg Fluticasone Propionate (Flonase) 1 spr NS DAILY [facility] Stop: 07/12/18 08:59 Last Admin: 05/16/18 08:46 Dose: 1 spr Furosemide (Lasix) 40 mg PO BID [facility] Stop: 07/11/18 19:59 Last Admin: 05/16/18 16:12 Dose: 40 mg Glipizide (Glucotrol) 10 mg PO BID [facility] Stop: 07/12/18 08:59 Last Admin: 05/16/18 16:12 Dose: 10 mg Glucagon (Glucagen) 1 mg IM PRN PRN PRN Reason: BLOOD GLUCOSE <60 Stop: 07/11/18 19:52 Azithromycin 500 mg/ Sodium (Chloride) 250 mls @ 250 mls/hr IV Q24HR [facility] Stop: 07/11/18 20:59 Last Admin: 05/16/18 20:25 Dose: 250 mls/hr Vancomycin HCl 1.5 gm/ Sodium (Chloride) 500 mls @ 250 mls/hr IV Q12HR [facility] Stop: 07/12/18 09:59 Last Admin: 05/16/18 20:26 Dose: 250 mls/hr Piperacillin Sod/Tazobactam (Sod 3.375 gm/ Sodium Chloride) 50 mls @ 100 mls/ hr IV Q6HR [facility] Stop: 07/13/18 11:59 Last Admin: 05/17/18 05:46 Dose: 100 mls/hr Insulin Aspart (Novolog Insulin Sliding Scale) 0 units SUBQ ACHS [facility]; Protocol Stop: 07/11/18 16:29 Last Admin: 05/17/18 06:31 Dose: 8 units Insulin Aspart (Novolog) 10 units SUBQ TID [facility]; Protocol Stop: 07/15/18 20:59 Last Admin: 05/16/18 20:39 Dose: 10 units Insulin Detemir (Levemir Insulin) 50 units SUBQ DAILY [facility]; Protocol Stop: 07/11/18 20:59 Last Admin: 05/16/18 08:40 Dose: 50 units Lactobacillus Rhamnosus (Culturelle 15b) 1 each PO DAILY [facility] Stop: 07/14/18 08:59 Last Admin: 05/16/18 08:37 Dose: 1 each Methylprednisolone Sodium Succinate (Solu-Medrol) 40 mg IV Q12HR [facility] Stop: 07/15/18 20:59 Last Admin: 05/16/18 20:26 Dose: 40 mg Metoprolol Tartrate (Lopressor) 25 mg PO BID [facility] Stop: 07/11/18 19:59 Last Admin: 05/16/18 16:12 Dose: 25 mg Miscellaneous (Vancomycin Iv Per Pharmacy) 1 ea [facility] PRN PRN PRN Reason: PROTOCOL Stop: 07/11/18 19:59 Miscellaneous (Probiotic Screen) 1 [facility] PRN PRN PRN Reason: PROTOCOL Stop: 07/13/18 10:29 Mupirocin (Bactroban Oint) 1 appl NS BID [facility] Stop: 05/19/18 09:01 Last Admin: 05/16/18 16:14 Dose: 1 appl Nitroglycerin (Nitrostat) 0.4 mg SL Q5MIN PRN PRN Reason: Chest Pain Stop: 07/11/18 19:52 Potassium Chloride (Klor-Con) 10 meq PO DAILY [facility] Stop: 07/11/18 19:59 Last Admin: 05/16/18 08:36 Dose: 10 meq Senna (Senna) 8.6 mg PO HS [facility] Stop: 07/11/18 20:59 Last Admin: 05/16/18 20:27 Dose: 8.6 mg Sodium Phosphate (Fleet Enema) 135 ml RC Q48H PRN PRN Reason: IF MOM INEFFECTIVE Stop: 07/11/18 19:52 Spironolactone (Aldactone) 25 mg PO DAILY [facility] Stop: 07/13/18 12:59 Last Admin: 05/16/18 08:37 Dose: 25 mg Warfarin Sodium (Coumadin Per Pharmacy) 1 [facility] PRN PRN PRN Reason: RX MONITORING Stop: 07/15/18 07:03 General: no acute distress, well developed, well nourished HEENT: atraumatic, normocephalic, PERRLA, EOMI Neck: supple, no thyromegaly Cardiovascular: S1S2, regular Lungs: clear to auscultation bilaterally, clear to percussion Abdomen: soft, no tender, no distended Extremities: other (redness and induration of the right elbow medially.), no cyanosis, no clubbing, no edema Neurological: awake, alert, oriented - Procedures Procedures: Procedures Procedure Code Date CHOLECYSTECTOMY 51.22 07/31/14 TERRY SUBQ TISSUE 20 SQ CM/< 05838 07/08/15 EXTRACTION OF RIGHT LOWER LEG SKIN, EXTERNAL APPROACH [id number] 07/08/15 REMOVAL OF GALLBLADDER 38099 07/31/14 REPLACE R LOW LEG SKIN W AUTOL SUB, FULL THICK, SAFETY PHYSICIAN [id number] 07/08/15 SKIN FULL GRAFT SCLP/ARM/LEG [id number] 07/08/15 Infectious Disease Assmt/Plan - Assessment Assessment: 1. Leukocytosis likely combination of sepsis and CLL. 2. Pneumonia, with pulmonary nodules. 3. Obesity. 4. CLL. 5. Left leg cellulitis with nonhealing wound. Venous stasis ulcer. 6. Venous stasis ulcer of left leg. 7. Coronary artery disease. 8. Diabetes mellitus type 2. 9. Hypertension. 10. 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 - Plan Plan: Continue vancomycin and Zosyn, dc Zithromax. Contact isolation, Bactroban ointment. Nutritional Asmnt/Malnutr-PDOC - Dietary Evaluation Malnutrition Findings (Please click <Entered> for more info): Nutritional Asmnt/Malnutrition Start: 05/16/18 15: 58 Text: Status: Complete Freq: Protocol: Document 05/16/18 15:58 LCMEDG (Rec: 05/16/18 16:05 [id number] [email or web address]) Nutritional Asmnt/Malnutrition Patient General Information Nutritional Screening High Risk Diagnosis abd pain, PNA Pertinent Medical Hx/Surgical Hx HTN, DM, CAD, CHF, afib, appendectomy, cholecystectomy Subjective Information Consult received for multiple wounds BLE. Pt seen lying in bed at time of visit, awake and alert. Glucose 202 at admission noted. Pt stated good appetite, eate everything . Pt has no teeth noted, need time to cut regular textured food and note able to chew the green salad. Recommend mech soft chopped diet and pt would like to take it. Current Diet Order/ Nutrition Support CCHO 60gm Pertinent Medications vit B12, colace, levemir, culturelle, piperacillin, kcl, senna, vancomycin, coumadin Pertinent Labs 05/16 Na 135, Cr 1.4, glucose 371-442, POC 353-430 8/6 K 3.4, Cr 1.4, glucose 148 , POC 170-290 8/3 A1c 8.5 Nutritional Hx/Data Height 1.7 m Height (Calculated Centimeters) 170.2 Current Weight (lbs) 139.253 kg Weight (Calculated Kilograms) 139.3 Weight (Calculated Grams) 666166.9 [place] Body Weight 148 Body Mass Index (BMI) 48.0 Weight Status Morbidly Obese GI Symptoms GI Symptoms None Last BM none Difficult in: None Usual diet at home pt stated he tried twice eating diabetic diet. Skin Integrity/Comment: ulcer, small open to left medial distal lower extremity Estimated Nutritional Goals BEE in Kcals: Adj wt of IBW Protein: Adj wt of IBW Nutritional Problem 1. Problem Problem altered nutrition related labs Etiology hx of DM, not folowing theraputic diet Signs/Symptoms: glucose 371-442, POC 353-430, A1c 8.5 Malnutrition Alert Is there a minimum of two criteria No selected? Query Text:Check all the applicable criteria. A minimum of two criteria are recommended for diagnosis of either severe or non-severe malnutrition. Malnutrition Related to Morbid Obesity Malnutrition related to morbid obesity No Intervention/Recommendation Comments 1. Continue with current diet as ordered. Nutrition education regarding warfarin/ vit K and diabetic diet provided. Pt verbally understood, will read the handouts. 2. Monitor PO intake, wt, labs and skin integrity 3. F/U as high risk in 2-3 days, 05/18-05/19 Expected Outcomes/Goals Expected Outcomes/Goals 1. PO intake to meet at least 75% of nutritional needs. 2. Wt stability, skin to remain intact, labs to approach WNL.
[2018-05-17 08:22] LABS: INR 6.42 (0.5-1.4); PROTHROMBIN TIME (TEST) 61.1 SECONDS (9.5-11.5)
[2018-05-17] MEDS: methylPREDNISolone SS 40 mg Vial IV SCH (09:13)
[2018-05-17 09:15] LABS: HEMATOCRIT 32.5 % (41.0-60); HEMOGLOBIN 11.4 gm/dL (12-16); MEAN CELL VOLUME 79.2 fl (80-99); MEAN CORPUSCULAR HEMOGLOBIN 27.8 pg (27.0-31.0); MEAN CORPUSCULAR HGB CONC 35.1 pg (28.0-36.0); MEAN PLATELET VOLUME 8.4 fl; PLATELET COUNT 171 Th/cmm (150-400); RED CELL DISTRIBUTION WIDTH 15.4 % (11.5-20.0)
[2018-05-17] MEDS: Potassium Chloride 10 mEq ER Tab PO SCH (09:15)
[2018-05-17] MEDS: Lactobacillus Rhamnosus GG 15 Billion CFU CAP.SPRINK PO SCH (09:15)
[2018-05-17] MEDS: Fluticasone Propionate 0.05mg/Actuation 16gm Nasal Spray NS SCH (09:16)
[2018-05-17] MEDS: Polyvinyl Alcohol Ophth Soln 15 mL Bottle EACH EYE SCH ×3 (09:17→21:16)
[2018-05-17] MEDS: Venelex 60gm Tube TP SCH (09:17)
[2018-05-17] MEDS: Insulin Detemir 100 units/mL 10mL Vial SUBQ SCH (09:17)
[2018-05-17] MEDS: INSULIN ASPART, RECOMBINANT 100 UNITS/ML SUBQ SCH ×3 (09:20→21:18)
[2018-05-17 09:30] LABS: WHITE BLOOD COUNT 15.5 Th/cmm (4.8-10.8)
[2018-05-17 09:42] LABS: BAND NEUTROPHILE 0 % (0-10); BASOPHIL 0 % (0-3); EOSINOPHIL 0 % (0-5); LYMPHOCYTE 35 % (20-50); MONOCYTE 5 % (2-10); NEUTROPHILS 60 % (40-80)
[2018-05-17] MEDS ORDERED: Vancomycin HCl 1.75 GM in Sodium Chloride 0.9% 500 ML IV SCH (10:00)
[2018-05-17 13:14] LABS: ANION GAP 14.3 (7.0-16.0); BUN - UREA NITROGEN 30 mg/dL (7-25); CALCIUM SERUM 8.2 mg/dL (8.6-10.3); CARBON DIOXIDE 23.4 mEq/L (21.0-31.0); CHLORIDE 102 mEq/L (98-107); CREATININE - SERUM 1.5 mg/dL (0.7-1.3); GLUCOSE 365 mg/dL (70-105); POTASSIUM SERUM 3.7 mEq/L (3.5-5.1); SODIUM SERUM 136 mEq/L (136-145)
[2018-05-17] MEDS: Hydrocodone/APAP 10 mg/325 mg Tab PO PRN ×2 (13:35→21:28)
--- NOTE | 2018-05-17 18:24 | Progress Notes ---
DATE: 05/17/2018 SUBJECTIVE: The patient seen and examined. The patient is still having shortness of breath. The patient's white count has dropped down to 15.5. Blood sugars are still elevated. Currently, the patient is on IV antibiotic, coagulopathy was reported with INR of 6.4. PHYSICAL EXAMINATION: VITAL SIGNS: See nurse's note. HEENT: Poor dentition. NECK: Supple. HEART: Regular. LUNGS: Has expiratory wheezing. ABDOMEN: Soft. No guarding or rigidity. EXTREMITIES: No edema. Bilateral lower extremity venous stasis changes noted. NEUROLOGIC: Alert, awake, follows commands. CLINICAL IMPRESSION: 1. Diabetes mellitus with elevated blood sugar. 2. Pneumonitis. 3. Acute respiratory failure. 4. Coagulopathy. 5. Hypertension. 6. Degenerative joint disease. 7. Obstructive sleep apnea. PLAN: 1. IV antibiotic. 2. Oxygen. 3. Nebulizer treatment. 4. Cut down IV steroid. 5. General nursing care. 6. Symptoms management. 7. Medication management. 8. Follow lab. 9. Follow consult recommendation. 10. Care plan reviewed and discussed. JOB# [id number]
[2018-05-17] MEDS ORDERED: methylPREDNISolone SS 40 mg Vial IV SCH (21:00)
[2018-05-17] MEDS: Azithromycin 500 MG in Sodium Chloride 0.9% 250 ML IV SCH (21:15)
--- NOTE | 2018-05-20 18:35 | Discharge Summary ---
DATE OF DISCHARGE: 05/17/2018 DATE OF ADMISSION: 05/12/2018 DATE OF DISCHARGE TO [facility]: 05/17/2018 PRINCIPAL DIAGNOSES: 1. Acute respiratory failure. 2. Acute bronchospasm. 3. Pneumonitis. 4. Diabetes mellitus. 5. Hypertension. 6. Chronic lymphocytic leukemia. 7. Diabetes mellitus with elevated blood sugar. 8. Obstructive sleep apnea. 9. Obesity. 10. Chronic atrial fibrillation. 11. Chronic anticoagulation therapy. 12. Degenerative joint disease. 13. Debility. BRIEF STATEMENT FOR THE REASON FOR ADMISSION: A 73-year-old admitted to [facility] after the patient was noted to have difficulty in breathing and noted to have pneumonia. Please refer to my H and P for further information. HOSPITAL COURSE: The patient was admitted to medical floor. The patient was given oxygen, nebulizer treatment, IV antibiotics. Infectious Disease consultation requested. Appropriate workup was done as well. The patient was not showing sign of improvement. CT scan of the chest was also done in order to evaluate the patient's pneumonia, which did reveal the patient had evidence of atelectatic and hypoventilatory lung changes in the bibasilar area along with consolidative changes. Pneumonia of the lung base also not excluded. A 9.3 x 6.4 x 4-cm fluid collection with the left major fissure was also reported. The patient was also noted to have a mild mediastinal lymphadenopathy and few small bilateral pulmonary nodules also noted as well. The patient was still having difficulty breathing. IV steroid was given as well. The patient was slowly improving. His blood sugar was also elevated. It was recommended that the patient would require long-term antibiotic in the view of his multiple comorbid condition. The patient was transferred to [facility] with continuation of same care where the patient will be followed by myself and diet consultant. JOB# [id number]
== END 2018-05-17 23:45 | DRG 871 ==
LOC: ER 11:28 → TELE 16:43
PROVIDERS: ADMIT Internal Medicine; ATTEND Internal Medicine
DX: A41.9 Sepsis, unspecified organism (principal); J69.0 Pneumonitis due to inhalation of food and vomit; J96.00 Acute respiratory failure, unspecified whether with hypoxia or hypercapnia; L03.116 Cellulitis of left lower limb; Z68.42 Body mass index [BMI] 45.0-49.9, adult; C91.10 Chronic lymphocytic leukemia of B-cell type not having achieved remission; I13.0 Hypertensive heart and chronic kidney disease with heart failure and stage 1 through stage 4 chronic kidney disease, or unspecified chronic kidney disease; L03.115 Cellulitis of right lower limb; L97.929 Non-pressure chronic ulcer of unspecified part of left lower leg with unspecified severity; L97.919 Non-pressure chronic ulcer of unspecified part of right lower leg with unspecified severity; D68.9 Coagulation defect, unspecified; E66.01 Morbid (severe) obesity due to excess calories; I25.10 Atherosclerotic heart disease of native coronary artery without angina pectoris; K59.00 Constipation, unspecified; R19.7 Diarrhea, unspecified; I50.9 Heart failure, unspecified; F17.210 Nicotine dependence, cigarettes, uncomplicated; I27.20 Pulmonary hypertension, unspecified; M19.90 Unspecified osteoarthritis, unspecified site; E11.22 Type 2 diabetes mellitus with diabetic chronic kidney disease; N18.9 Chronic kidney disease, unspecified; G47.33 Obstructive sleep apnea (adult) (pediatric); I48.2 Chronic atrial fibrillation; I87.2 Venous insufficiency (chronic) (peripheral); R91.1 Solitary pulmonary nodule; D89.9 Disorder involving the immune mechanism, unspecified; J98.01 Acute bronchospasm; Z90.49 Acquired absence of other specified parts of digestive tract; Z22.322 Carrier or suspected carrier of Methicillin resistant Staphylococcus aureus; Z82.49 Family history of ischemic heart disease and other diseases of the circulatory system; Z79.4 Long term (current) use of insulin; Z83.3 Family history of diabetes mellitus
CPT/HCPCS: 36415-UA; 36600-90; 71045-TC; 71250-TC; 80048-TC; 80053-TC; 80202-TC; 81001-TC; 82550-TC; 82803-TC; 82947-TC; 82948-90; 83036-90; 83605; 83735-TC; 84484-TC; 85007-TC; 85025-TC; 85049-TC; 85379-TC; 85384-TC; 85610-TC; 85730-TC; 87070-90; 87086-90; 93005; 94640; 94760; 97530; J0456; J1815; J2543; J2920; J3370; J7030; J7040; X3904; Z7610